=== PATIENT | female | born 1955 | race Caucasian/White ===

== ENCOUNTER 2016-07-18 11:55 | Inpatient (IN) | payer BC ==
[2016-07-17 15:40] VITALS: BMI 32.5
[2016-07-18 12:19] LABS: URINE APPEARANCE CLEAR; URINE BILIRUBIN NEGATIVE (NEGATIVE); URINE BLOOD NEGATIVE (NEGATIVE); URINE COLOR LTYELLOW; URINE GLUCOSE (UA) NEGATIVE (NEGATIVE); URINE KETONE NEGATIVE (NEGATIVE); URINE NITRITE NEGATIVE (NEGATIVE); URINE PROTEIN NEGATIVE (NEGATIVE); URINE UROBILINOGEN NEGATIVE E.U./dl (0.2-1.0)
[2016-07-18 12:24] LABS: URINE LEUK ESTERASE 1+ (NEGATIVE)
[2016-07-18] MEDS ORDERED: methylPREDNISolone NA SUCC 40 MG/1 ML VIAL ONE (12:25)
[2016-07-18 12:26] LABS: URINE MUCUS RARE; URINE RBC <1 /hpf (0-3); URINE WBC 6 /hpf (3-5)
[2016-07-18] MEDS ORDERED: ALBUTEROL SO4 0.083% IH SOL 2.5 MG/3 ML VIAL.NEB. NEB ONE ×2 (12:26→12:27)
[2016-07-18] MEDS ORDERED: methylPREDNISolone NA SUCC 40 MG/1 ML VIAL IVPB ONE (12:26)
[2016-07-18] MEDS ORDERED: MIDAZOLAM HCL 2 MG/2 ML SINGLE DOSE VIAL ONE (13:23)
[2016-07-18] MEDS ORDERED: ROCURONIUM BROMIDE 50 MG/5 ML VIAL ONE ×2 (13:23→16:21)
[2016-07-18] MEDS ORDERED: ceFAZolin SODIUM 1 GM VIAL IVPB ONE (14:45)
[2016-07-18] MEDS ORDERED: LABETALOL HCL 5 MG/1 ML (100MG/20 ML VIAL) ONE ×3 (15:27→15:35)
[2016-07-18] MEDS ORDERED: HYDROmorphone HCL/PF 1 MG/ML VIAL (FOR PYXIS CHARGING ONLY) ONE (16:22)
[2016-07-18] MEDS ORDERED: GLYCOPYRROLATE 0.2 MG/1 ML VIAL ONE (17:17)
[2016-07-18] MEDS ORDERED: NEOSTIGMINE METHYLSULFATE 0.5 MG/ML - 10 ML MDV ONE (17:17)
[2016-07-18] MEDS ORDERED: BUPIVACAINE HCL/PF 0.5% (5MG/ML) 10 ML VIAL ONE (17:29)
[2016-07-18] MEDS ORDERED: BUPIVACAINE HCL/PF 0.5% (5MG/ML) 10 ML VIAL IJ ONE (17:34)
[2016-07-18] MEDS ORDERED: ESMOLOL HCL 10 ML ONE (17:35)
[2016-07-18] MEDS ORDERED: TRIMETHOBENZAMIDE HCL 200MG/2ML INJ IM PRN (17:45)
[2016-07-18] MEDS ORDERED: PROMETHAZINE HCL 25 MG/1 ML VIAL IVPUSH PRN (17:58)
[2016-07-18] MEDS ORDERED: LACTATED RINGERS SOLUTION 1,000 ML IV SCH (18:00)
[2016-07-18] MEDS ORDERED: HYDROmorphone *PCA* 10MG/50ML DISP.SYRIN PCA ONE (18:51)
[2016-07-18] MEDS ORDERED: HYDROmorphone *PCA* 10MG/50ML DISP.SYRIN PCA SCH (19:00)
--- NOTE | 2016-07-18 19:36 | HP ---
DATE OF ADMISSION: 07/18/2016 CHIEF COMPLAINT: Hiatal hernia and GE reflux disease. HISTORY OF PRESENT ILLNESS: The patient is a 61-year-old woman who complains of GE reflux disease for many years. She had upper endoscopy by her GI physician, which revealed a moderate to large hiatal hernia present. She presented to [facility] for repair of hiatal hernia with robotic assistance. The patient's past medical history is significant for bronchitis and asthma. PAST SURGICAL HISTORY: Lap band placed. MEDICATIONS: She comes in on prednisone and also on albuterol inhaler p.r.n. PHYSICAL EXAMINATION: General: An awake, alert, well-nourished woman in no acute distress. Head, Eyes, Ears, Nose, Throat: No masses. Lungs: Clear anterior, posterior. Heart: Regular sinus rhythm. Abdomen: Slight obesity. Well-healed trocar site from previous surgery, soft, nontender on palpation. Extremities: No signs of swelling or edema. No tenderness on the calves on palpation and no Homans sign. IMPRESSION: 1. Hiatal hernia. 2. Gastroesophageal reflux disease. PLAN: Robotic repair of hiatal hernia during surgery. JAN RABAGO M.D. [id number]
[2016-07-18 19:40] LABS: MCH 24.8 pg (25.7-33.7); MCHC 31.8 g/dl (32.0-36.0); MEAN PLT VOLUME 8.1 fl (7.5-11.1); PLATELET COUNT 213 K/MM3 (134-434); RDW 16.8 % (11.6-15.6); WHITE BLOOD COUNT 11.7 K/mm3 (4.0-10.0)
[2016-07-18 20:31] LABS: ANION GAP 11 (8-16); CALCIUM 8.3 mg/dL (8.5-10.1); CO2 24 mmol/L (21-32); CREATININE 0.9 mg/dL (0.55-1.02); GLUCOSE,RANDOM 167 mg/dL (74-106); SGOT/AST 118 U/L (15-37); SGPT/ALT 126 U/L (12-78)
[2016-07-18 20:34] LABS: ALK PHOS 78 U/L (45-117); BILIRUBIN,TOTAL 0.4 mg/dL (0.2-1.0); TOT PROT 6.2 g/dl (6.4-8.2)
[2016-07-18] MEDS: SODIUM CHLORIDE 1,000 ML IV SCH (21:30)
[2016-07-18] MEDS: ENOXAPARIN NA (PORCINE) 40 MG/0.4 ML DISP.SYRIN SQ SCH (21:36)
[2016-07-18] MEDS: FAMOTIDINE 20 MG/50 ML IVPB 50 ML IVPB SCH (21:36)
--- NOTE | 2016-07-18 22:50 | OP ---
DATE OF OPERATION: 07/18/2016 PREOPERATIVE DIAGNOSES: 1. Hiatal hernia. 2. Gastroesophageal reflux disease. POSTOPERATIVE DIAGNOSES: 1. Hiatal hernia. 2. Gastroesophageal reflux disease. 3. Abdominal adhesions. PROCEDURE PERFORMED: 1. Robotic repair of hiatal hernia. 2. Robotic lysis of adhesions. 3. Diagnostic laparoscopy. OPERATING SURGEON: Alfred Lee MD WELDER APPRENTICE GAS: Antonio Bruce MD ANESTHESIA: General. OPERATIVE PROCEDURE: The patient was brought into the operating room, placed on the OR table in a supine position. All precautions were taken initially, including padding for the back and the feet and Venodyne boots placed on both lower extremities. At that point, the abdomen was prepped and draped in the usual manner. An incision was made in the left upper quadrant just to the left of the umbilicus and, under direct vision with a No. 5 scope, a No. 8 robotic trocar was placed in the abdominal cavity. Once it was placed under vision, pneumoperitoneum was established. Then, under direct vision, a No. 8 trocar was placed laterally on the left side, followed by 2 No. 8 trocars on the right abdomen to the right of the umbilicus, 1 slightly more superior. At that point, a Carloz liver retractor was then placed in the epigastrium to retract the left lobe of the liver. The patient was then placed in a 20-degree reverse Trendelenburg position. At that point, the robot was introduced into the operative field by the circulating nurse. The operating surgeon, geriatric nurse assistant surgeon attached the robot to the trocars and then the robotic camera and robotic instruments were placed into the abdominal cavity. At this point, the operating surgeon scrubbed out and went to the robotic console in the operative room. The rest of the procedure is now done with robotic assistance. As the liver retractor lifted up the liver, the Lap-Band on the patient was noted on the upper part of the stomach. There were adhesions over the Lap-Band and these were lysed with the robot with mostly with electrocautery. The adhesions and the fibrous capsule over the band started to be lysed on the lesser curvature and continued over to the greater curvature until the entire band was in view. The band tubing had scar tissue related to it, going off to the patient's left side. The robot was able to dissect the scar tissue until the tubing was in full view. Further dissection with the robot included electrocautery to lyse adhesions between the omentum and the stomach and also between the omentum and the underportion of the left lobe of the liver. At this junction, attention was now directed to hiatal hernia. The left golden of the diaphragm was noted and the scar tissue here was dissected with the electrocautery until the left golden was in full view. Dissection now continued over the superior portion of the hiatal hernia over until the right golden was reached. In the area of the right golden, there was more scar tissue, as the liver was stuck to the right golden, and dissecting it did lead to some minor injury to the liver capsule and parenchyma, which had some bleeding, which was controlled mostly with the electrocautery with the robot. At this point, with the left and right crural muscles dissected, an opening was made into the hiatus and the hernia sac was noted. The contents for the hernia sac was stuck to the crural muscles and these were gently dissected with blunt dissection, indicational with electrocautery until the adhesions were lysed and the hernia sac content could be reduced back into the abdominal cavity. At this point, with the proximal stomach and hernia sac now reduced below the diaphragm, attention was directed to the repair of the hiatal hernia. With the robotic assistance, 3 sutures were placed that were [id number] used to tie the left and right crural muscles and brought together. When it was completed, the repair was checked that it was intact, but it was not too tight so it would not cause postoperative dysphagia. At this point, Anesthesia had an orogastric tube in place and placed methylene blue into it to be certain that there was no injury to the distal esophagus or proximal stomach during the dissection of the hernia sac in the hiatus. No methylene blue was noted, so, at this point, the robot was disengaged from the operative field and sent off the operative field. The robotic instruments were removed and then, under direct vision, the liver retractor and all the trocars were removed from the abdominal cavity and the pneumoperitoneum was released. All trocar sites were infiltrated with 0.25% Marcaine, were closed with 4-0 Biosyn in subcuticular fashion. Dressings were applied, the patient woke from anesthesia, and transferred out of the operating room to the recovery room in stable condition. EXPECTED BLOOD LOSS: 100 mL. Patient transferred to recovery room in stable condition. Emiliano [id number]
[2016-07-19] MEDS: SODIUM CHLORIDE 1,000 ML IV SCH ×3 (04:54→14:07)
[2016-07-19 07:25] LABS: ALBUMIN 2.6 g/dl (3.4-5.0); ALK PHOS 69 U/L (45-117); ANION GAP 7 (8-16); BILIRUBIN,TOTAL 0.5 mg/dL (0.2-1.0); CO2 28 mmol/L (21-32); CREATININE 0.8 mg/dL (0.55-1.02); GLUCOSE,RANDOM 112 mg/dL (74-106); SGOT/AST 77 U/L (15-37); SGPT/ALT 100 U/L (12-78); TOT PROT 5.4 g/dl (6.4-8.2)
[2016-07-19 07:31] LABS: MCH 25.6 pg (25.7-33.7); MCHC 32.2 g/dl (32.0-36.0); MEAN CELL VOLUME 79.3 fl (80-96); MEAN PLT VOLUME 8.3 fl (7.5-11.1); PLATELET COUNT 182 K/MM3 (134-434); RDW 16.9 % (11.6-15.6)
[2016-07-19] MEDS: FAMOTIDINE 20 MG/50 ML IVPB 50 ML IVPB SCH (09:36)
[2016-07-19] MEDS: ENOXAPARIN NA (PORCINE) 40 MG/0.4 ML DISP.SYRIN SQ SCH (09:36)
--- NOTE | 2016-07-19 10:28 | PN ---
Progress Note (short form) - Note Progress Note: Anesthesia POD#1 S/P Robotic Lap Claribel under GA Patient doing well. some nausea this morning, went away,pain is controlled on oral meds VSS No itch No complications to anesthesia seen. Lizzie Amaya MD.
[2016-07-19] MEDS ORDERED: oxyCODONE HCL 5 MG TABLET PO PRN (11:29)
[2016-07-19] MEDS ORDERED: ACETAMINOPHEN 325 MG TABLET (FP) PO PRN (11:29)
[2016-07-19 15:31] VITALS: BP 126/66; PULSE 87; TEMP 99
--- NOTE | 2016-07-19 15:50 | PN ---
Progress Note (short form) - Note Progress Note: POD #1 Afebrile, VSS Pulse- 64-87 BP- 126/66 Pt doing well OOB- Ambulating No N/V P/E- Abd- trocar sites, clean/dry WBC- 11.0 ( decreased from 11.7) H/H- 10.3/32 UGI- no leak, no obstruction P- D/C pt home Continue on PO soft diet for 48 hours, then advance to regular food F/U- 6 days in office
== END 2016-07-19 16:27 | disposition home or self-care (01) | DRG 328 ==
LOC: JASU-SURG 11:55 → JSAMEDAYSX 17:45 → J6S 21:01
PROVIDERS: ADMIT Surgery; ATTEND Surgery
PROC: 0BQR0ZZ (ICD-10-PCS; 2016-07-18)
PROC: 0DNS0ZZ (ICD-10-PCS; 2016-07-18)
PROC: 8E0W0CZ Robotic Assisted Procedure of Trunk Region, Open Approach (ICD-10-PCS; 2016-07-18)
PROC: 0BQS0ZZ (ICD-10-PCS; principal; 2016-07-18 14:45)
DX: K44.9 Diaphragmatic hernia without obstruction or gangrene (principal); K66.0 Peritoneal adhesions (postprocedural) (postinfection); J45.909 Unspecified asthma, uncomplicated; K57.90 Diverticulosis of intestine, part unspecified, without perforation or abscess without bleeding; Z90.5 Acquired absence of kidney; Z98.84 Bariatric surgery status
CPT/HCPCS: 36415; 74241-TC; 80053; 81003; 81015; 85027; 86850; 86900; 86901; 94640; 94760

== ENCOUNTER 2018-06-18 14:38 | Inpatient (IN) | payer BC ==
--- NOTE | 2018-06-18 17:40 | PDOC ---
Attending Attestation - HPI HPI: 06/18/18 18:19 The patient is a 63 year old female with a past medical history of renal cancer (s/p right nephrectomy 7 years ago), asthma, COPD, and neuropathy here today from Dr. Marr office for evaluation of an abscess in the left upper lobe seen on X-ray. Patient reports that she has had a cough productive of yellow sputum for the past 5 days. She also notes occasional shortness of breath and reports that she had a fever on 06/14/18. Patient denies headache, lightheadedness. Denies chills. Denies chest pain. Denies nausea, vomiting, diarrhea, abdominal pain. Allergies: ciprofloxacin HCL, levofloxacin PCP: Arnaldo Ramirez - Physicial Exam PE: 06/18/18 18:32 Constitutional: Awake, alert, oriented. No acute distress. Head: Normocephalic. Atraumatic Eyes: PERRL. EOMI. Conjunctivae are not pale. ENT: Mucous membranes are moist and intact. Posterior pharynx without exudates or erythema. Uvula midline. Neck: Supple. Full ROM. No lymphadenopathy. Cardiovascular: +tachycardia. Regular rhythm. S1, S2 regular. Distal pulses are 2+ and symmetric. Pulmonary/Chest: +slight wheeze in right lung cruz. +left rhonchorous churning sound in left lung cruz. No evidence of respiratory distress. Abdominal: Soft and non-distended. There is no tenderness. No rebound, guarding or rigidity. No organomegaly. No palpable masses. Good bowel sounds. Back: No CVA tenderness. Musculoskeletal: No edema. No cyanosis. No clubbing. Full range of motion in all extremities. Nocalf tenderness. Radial/pedal pulses are intact and 2+ bilaterally Skin: Skin is warm and dry. No petechiae. No purpura. Neurological: Alert and oriented to person, place, and time. Cranial nerves II -XII are grossly intact. Normal speech. Strength is grossly symmetric. No sensory deficits. Psychiatric: Good eye contact. Normal interaction, affect and behavior. - Medical Decision Making 06/18/18 18:19 Documentation prepared by LUIS Story, acting as medical billing manager for Anne Garcia DO. <Bhupinder Perkins - Last Filed: 06/18/18 18:31> - Resident Resident Name: Nolvia King - ED Attending Attestation I have performed the following: I have examined & evaluated the patient, The case was reviewed & discussed with the resident, I agree w/resident's findings & plan, Exceptions are as noted - Medical Decision Making 06/18/18 17:40 I, Dr. Anne Garcia, DO, attest that this document has been prepared under my direction and personally reviewed by me in its entirety. I further attest, that it accurately reflects all work, treatment, procedures and medical decision -making performed by me. 06/18/18 19:36 a/p: 63yo female sent in by Dr. Hopper for an outpt xray that showed a lung abscess -pt with cough, fever on friday -pt with sob -denies cp -no fevers todya -started doxycycline for lyme disease 2 days ago, had neuropathy which seems to have improved -also recently started on prednisone for RA -pt with coarse bs on the L -will repeat the xray -labs, cultures, broad spectrum abx 06/18/18 19:39 pt with MADAN on labs ivf hydraiton ordered mildly elevated lactate will repeat labs will order ua 06/18/18 19:40 resident discussed the case with Dr. Cash elevated glucose, most likely steroid induced. 06/18/18 19:43 pt will be admitted to Dr. Cash with a consult to Dr. Hopper elevated wbc 06/18/18 19:44 ODALYS abscess on cxr <Anne Garcia - Last Filed: 06/18/18 19:53> Heart Score/ECG Review - ECG Intrepretation Comment:: 06/18/18 19:52 sinus at 97, q waves inferior leads, L axis, no acute st/t wave findings <Anne Garcia - Last Filed: 06/18/18 19:53>
[2018-06-18] MEDS ORDERED: PIPERACILLIN/TAZOB 3.375 GM 3.375 GM in DEXTROSE 5%-WATER - 50 ML IVPB ONE (17:44)
[2018-06-18 17:52] LABS: VENOUS PC02 34.7 mmHg (41-51); VENOUS PH 7.5 (7.31-7.41)
[2018-06-18 17:53] LABS: BASO % 0.1 % (0-2.0); EOS % 0.1 % (0-4.5); HEMATOCRIT 28.3 % (32.4-45.2); HEMOGLOBIN 9.4 GM/dL (10.7-15.3); LYMPH % 6.9 % (8-40); MCH 25.2 pg (25.7-33.7); MCHC 33.3 g/dl (32.0-36.0); MEAN CELL VOLUME 75.7 fl (80-96); MEAN PLT VOLUME 7.3 fl (7.5-11.1); MONO % 3.8 % (3.8-10.2); NEUT % 89.1 % (42.8-82.8); PLATELET COUNT 232 K/MM3 (134-434); RBC 3.74 M/mm3 (3.60-5.2); WHITE BLOOD COUNT 10.5 K/mm3 (4.0-10.0)
[2018-06-18] MEDS ORDERED: PIPERACILLIN/TAZOB 3.375 GM 3.375 GM/50 ML BAG IVPB ONE (18:02)
--- NOTE | 2018-06-18 18:08 | PDOC ---
History of Present Illness - General Chief Complaint: Abscess Boil Stated Complaint: ADMIT DR GOMEZ Time Seen by Provider: 06/18/18 16:58 History Source: Patient Exam Limitations: No Limitations - History of Present Illness Initial Comments: 06/18/18 18:03 Pt is a 63yo F with PMH of Renal Ca s/p R nephrectomy 7y ago, Asthma/COPD, Neuropathy, Edema presenting sent to ED by Dr. Gomez for ODALYS abscess found on Xray in office. Pt states that she has been having cough productive of yellow sputum, fever for 5 days. She had a fever on Friday. She is endorsing cough and occasional SOB. Denies fever, chills, chest pain, abdominal pain, n/v/d, malaise , weight loss, hemoptysis, increased leg swelling, headaches, neck stiffness, joint pains. PMD: Keny Ramirez PMH: see hpi PSH: R nephrectomy, hysterectomy, appendectomy, cholcystectomy, gastric band Meds: lasix, gabapentin, augmentin, doxycycline, albuterol, budesonide, prednisone Allergies: levaquin Social: quit smoking many years ago Past History - Past Medical History Allergies/Adverse Reactions: Allergies Allergy/AdvReac Type Severity Reaction Status Date / Time ciprofloxacin HCl Allergy Verified 07/18/16 12:41 [From Cipro] levofloxacin [From Levaquin] Allergy Verified 07/18/16 12:41 Home Medications: Ambulatory Orders Budesonide/Formeterol Fumarate [SYMBICORT 160/4.5mcg -] 1 inh PO BID 03/28/15 Albuterol Sulfate Inhaler - [Ventolin HFA Inhaler -] 1 - 2 inh PO PRN PRN Famotidine [Pepcid -] 20 mg PO BID #60 tablet 07/19/16 Amox-Tr/K Cl [Augmentin 875-125mg Tablet -] 875 mg PO BID 06/18/18 Doxycycline Hyclate 100 mg PO BID 06/18/18 Gabapentin 100 mg PO BID 06/18/18 Prednisone 30 mg PO DAILY 06/18/18 Anemia: No Asthma: Yes Cancer: Yes (kidney ca 3 YEARS AGO) Cardiac Disorders: No CVA: No COPD: No CHF: No Dementia: No Diabetes: No GI Disorders: No Disorders: No HTN: No Hypercholesterolemia: No Liver Disease: No Seizures: No Thyroid Disease: No - Surgical History Cardiac Surgery: Yes (CARDIAC CATHETERISATION) Cholecystectomy: Yes (1975) - Suicide/Smoking/Psychosocial Hx Smoking History: Never smoked Have you smoked in the past 12 months: No Number of Cigarettes Smoked Daily: 0 If you are a former smoker, when did you quit?: 12 BYEARS AGO Hx Alcohol Use: No Drug/Substance Use Hx: No Substance Use Type: None Hx Substance Use Treatment: No Review of Systems - Review of Systems Constitutional: No: Chills, Loss of Appetite, Malaise, Weakness HEENTM: No: Symptoms Reported Respiratory: Yes: Cough, Productive cough. No: Shortness of Breath, Wheezing, Hemoptysis Cardiac (ROS): No: Chest Pain, Lightheadedness, Palpitations, Syncope ABD/GI: No: Constipated, Diarrhea, Nausea, Rectal Bleeding, Vomiting, Abdominal cramping : No: Burning, Dysuria Musculoskeletal: No: Back Pain, Joint Pain, Muscle Pain Integumentary: No: Symptoms Reported Neurological: No: Headache, Numbness, Tingling, Tremors, Weakness *Physical Exam - Vital Signs Last Vital Signs Temp Pulse Resp BP Pulse Ox 99.6 F 109 H 20 154/85 96 06/18/18 14:41 06/18/18 14:41 06/18/18 14:41 06/18/18 14:41 06/18/18 14:41 - Physical Exam General Appearance: Yes: Nourished, Appropriately Dressed. No: Apparent Distress HEENT: positive: EOMI, JUAN DAVID, Normal ENT Inspection Neck: positive: Trachea midline, Supple. negative: Lymphadenopathy (R), Lymphadenopathy (L) Respiratory/Chest: positive: Crackles, Wheezing. negative: Accessory Muscle Use , Stridor Cardiovascular: positive: Regular Rhythm, Regular Rate, S1, S2. negative: Edema , JVD, Murmur Vascular Pulses: Carotid (R): 2+, Carotid (L): 2+, Dorsalis-Pedis (R): 2+, Doralis-Pedis (L): 2+ Gastrointestinal/Abdominal: positive: Normal Bowel Sounds, Soft. negative: Tender Musculoskeletal: negative: CVA Tenderness Extremity: positive: Normal Capillary Refill, Swelling Integumentary: positive: Normal Color, Dry, Warm Neurologic: positive: elevator constructor electric II-XII NML intact, Fully Oriented, Alert, Normal Mood/ Affect, Normal Response, Motor Strength 5/5 Moderate Sedation - Procedure Monitoring Vital Signs: Procedure Monitoring Vital Signs Temperature 99.6 F 06/18/18 14:41 Pulse Rate 109 H 06/18/18 14:41 Respiratory Rate 20 06/18/18 14:41 Blood Pressure 154/85 06/18/18 14:41 O2 Sat by Pulse Oximetry (%) 96 06/18/18 14:41 ED Treatment Course - LABORATORY CBC & Chemistry Diagram: 06/18/18 17:00 06/18/18 17:00 - ADDITIONAL ORDERS Additional order review: Laboratory Results 06/18/18 16:59 VBG pH 7.50 H POC VBG pCO2 34.7 L POC VBG pO2 181 H VBG HCO3 26.8 VBG O2 Sat (Elizabeth) 100.0 H VBG Base Excess 3.9 H 06/18/18 17:00 RBC 3.74 MCV 75.7 L MCHC 33.3 RDW 26.0 H MPV 7.3 L Neutrophils % 89.1 H Lymphocytes % 6.9 L D Monocytes % 3.8 D Eosinophils % 0.1 D Basophils % 0.1 - RADIOLOGY Radiology Studies Ordered: Category Date Time Status CHEST X-RAY PORTABLE* [RAD] Stat Radiology 06/18/18 18:03 Ordered Medical Decision Making - Medical Decision Making 06/18/18 18:15 Pt is a 63yo F with PMH of Renal Ca s/p R nephrectomy 7y ago, Asthma/COPD, Neuropathy, Edema presenting sent to ED by Dr. Gomez for ODALYS abscess found on Xray in office. Pt states that she has been having cough productive of yellow sputum, fever for 5 days. She had a fever on Friday. She is endorsing cough and occasional SOB. Denies fever, chills, chest pain, abdominal pain, n/v/d, malaise , weight loss, hemoptysis, increased leg swelling, headaches, neck stiffness, joint pains. Vitals: tachycardia, afebrile, saturating well on RA PE: diffuse crackles and wheezing in lung cruz bilaterally, more on the L -cbc, cmp, lact, coags, trop, blood cultures, ua, ucx -zosyn, iv fluids Laboratory Tests 06/18/18 06/18/18 06/18/18 16:59 17:00 17:00 WBC 10.5 H Hgb 9.4 L Neutrophils % 89.1 H VBG pH 7.50 H Creatinine 1.8 H Random Glucose 371 H* Lactic Acid Urine Blood Urine RBC (Auto) 06/18/18 06/18/18 17:10 19:48 WBC Hgb Neutrophils % VBG pH Creatinine Random Glucose Lactic Acid 2.8 H* Urine Blood 3+ Urine RBC (Auto) 120 last hgb 02/2017 was 11. MADAN. elevated gluc (could be due to steroid use). giving 4u sq insulin. Pt admitted med/surg to Dr. Cash with consult Dr. Gomez. *DC/Admit/Observation/Transfer Diagnosis at time of Disposition: Lung abscess Qualifiers: Pulmonary abscess pneumonia presence: with pneumonia Laterality: left Lung location: upper lobe of lung Qualified Code(s): J85.1 - Abscess of lung with pneumonia - Discharge Dispostion Condition at time of disposition: Good Decision to Admit order: Yes Decision to Admit order Date/Time: Decision to Admit Order Category Date Time Status Decision to Admit to Hospital Routine Admission 06/18/18 17:38 Active - Referrals - Patient Instructions - Post Discharge Activity
[2018-06-18 18:24] LABS: ALBUMIN 2.3 g/dl (3.4-5.0); ALK PHOS 66 U/L (45-117); ANION GAP 8 MMOL/L (8-16); BILIRUBIN,TOTAL 0.2 mg/dL (0.2-1); BLOOD UREA NITROGEN 58 mg/dL (7-18); CALCIUM 8.4 mg/dL (8.5-10.1); CHLORIDE 99 mmol/L (98-107); CO2 28 mmol/L (21-32); CREATININE 1.8 mg/dL (0.55-1.3); POTASSIUM 4.9 mmol/L (3.5-5.1); SGOT/AST 6 U/L (15-37); SGPT/ALT 22 U/L (13-61); SODIUM 135 mmol/L (136-145); TOT PROT 6.1 g/dl (6.4-8.2)
[2018-06-18 18:39] LABS: GLUCOSE,RANDOM 371 mg/dL (74-106)
[2018-06-18] MEDS ORDERED: SODIUM CHLORIDE 1,000 ML IV STA (18:58)
[2018-06-18 19:36] LABS: ANISOCYTOSIS 3+; MACROCYTOSIS 1+; PLATELET ESTIMATE ADEQUATE
[2018-06-18] MEDS ORDERED: INSULIN REGULAR HUMAN 100 UNITS/ML *VIAL SQ ONE (19:37)
[2018-06-18] MEDS ORDERED: INSULIN REGULAR HUMAN 100 UNITS/ML *VIAL ONE (19:55)
[2018-06-18 20:03] LABS: EPI CELLS 2.3 /HPF (0-5); PH,URINE 5.5 (5.0-8.0); URINE APPEARANCE CLEAR; URINE BACTERIA 16.758 /hpf (NEGATIVE); URINE BILIRUBIN NEGATIVE (<2.0 mg/dL); URINE CASTS 10 /hpf (0-8); URINE COLOR YELLOW; URINE GLUCOSE (UA) 2+ (NEGATIVE); URINE KETONE NEGATIVE (NEGATIVE); URINE LEUK ESTERASE TRACE (NEGATIVE); URINE NITRITE NEGATIVE (NEGATIVE); URINE PROTEIN 2+ (NEGATIVE); URINE RBC 120 /hpf (0-4); URINE WBC 9 /hpf (0-5)
[2018-06-18] MEDS ORDERED: ALBUTEROL SO4 2.5/IPRATROPIUM 0.5 INH SOL 3 ML VIAL.NEB. NEB ONE (20:21)
[2018-06-19] MEDS ORDERED: DEXTROSE 5%-0.45% SALINE 1,000 ML IV SCH (01:45)
[2018-06-19] MEDS ORDERED: ACETAMINOPHEN 325 MG TABLET (FP) PO PRN (01:53)
[2018-06-19] MEDS ORDERED: PIPERACILLIN/TAZOBACTAM 3.375 GM VIAL IVPB ONE ×3 (02:35→17:28)
[2018-06-19] MEDS ORDERED: DEXTROSE 5%-WATER - 50 ML IVPB ONE ×3 (02:35→17:28)
[2018-06-19] MEDS: PIPERACILLIN/TAZOB 3.375 GM 3.375 GM in DEXTROSE 5%-WATER - 50 ML IVPB SCH ×4 (02:42→17:36)
[2018-06-19 07:30] LABS: BASO % 0.3 % (0-2.0); EOS % 1.4 % (0-4.5); HEMATOCRIT 26.8 % (32.4-45.2); HEMOGLOBIN 8.8 GM/dL (10.7-15.3); LYMPH % 12.5 % (8-40); MCH 24.8 pg (25.7-33.7); MEAN CELL VOLUME 75.1 fl (80-96); MEAN PLT VOLUME 7.1 fl (7.5-11.1); MONO % 6.7 % (3.8-10.2); NEUT % 79.1 % (42.8-82.8); PLATELET COUNT 219 K/MM3 (134-434); RBC 3.57 M/mm3 (3.60-5.2); RDW 26.1 % (11.6-15.6); WHITE BLOOD COUNT 9.7 K/mm3 (4.0-10.0)
[2018-06-19 08:13] LABS: ALK PHOS 65 U/L (45-117); ANION GAP 8 MMOL/L (8-16); BILIRUBIN,TOTAL 0.4 mg/dL (0.2-1); BLOOD UREA NITROGEN 56 mg/dL (7-18); CALCIUM 8.1 mg/dL (8.5-10.1); CHLORIDE 102 mmol/L (98-107); CO2 28 mmol/L (21-32); CREATININE 1.7 mg/dL (0.55-1.3); GLUCOSE,RANDOM 88 mg/dL (74-106); POTASSIUM 4.5 mmol/L (3.5-5.1); SGOT/AST 8 U/L (15-37); SGPT/ALT 20 U/L (13-61); SODIUM 137 mmol/L (136-145); TOT PROT 5.5 g/dl (6.4-8.2)
[2018-06-19] MEDS ORDERED: predniSONE 10 MG TABLET (UD) PO SCH (10:00)
[2018-06-19] MEDS ORDERED: DOXYCYCLINE HYCLATE 100 MG CAPSULE PO SCH (10:00)
[2018-06-19 10:44] LABS: ANISOCYTOSIS 0; MACROCYTOSIS 0; PLATELET ESTIMATE NORMAL
[2018-06-19] MEDS ORDERED: PT OWN MED DRAWER 7, Y5N ONE (11:34)
[2018-06-19] MEDS: GABAPENTIN 100 MG CAPSULE (FP) PO SCH ×2 (11:43→22:28)
[2018-06-19] MEDS: RANITIDINE HCL 150 MG TABLET (FP) PO SCH ×2 (11:43→22:28)
[2018-06-19] MEDS: HEPARIN NA (PORCINE) 5,000 UNITS/ML 1ML VIAL SQ SCH ×2 (11:44→22:28)
[2018-06-19] MEDS: BUDESONIDE/FORMETEROL FUMARATE 160/4.5 mcg INHALER IH SCH ×2 (11:45→22:28)
--- NOTE | 2018-06-19 12:20 | PN ---
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, fever for 4 days cxray with right llung mass +UA +anca +myeloperoxide ab no hemoptysis +bilateral knee pain has had peripheral neuropathy for last two months as well as new anemia had unrevealing BM biopsy, EMGs with neuropathy had a pet scan d/w "infectious process" ODALYS quantiferon 2/19 negative will repeat quantiferon and obtain sputum afbs routine sputum culture zosyn/vanco by level possible cavitary pneumonia/less likely TB probable vasculitis low suspicion TB suspect vasculitis d/w dr minor and dr akins in detail isolate Problem List - Problems (1) Lung abscess Code(s): J85.2 - ABSCESS OF LUNG WITHOUT PNEUMONIA Qualifiers: Pulmonary abscess pneumonia presence: with pneumonia Laterality: left Lung location: upper lobe of lung Qualified Code(s): J85.1 - Abscess of lung with pneumonia (2) Vasculitis Code(s): I77.6 - ARTERITIS, UNSPECIFIED
--- NOTE | 2018-06-19 12:49 | HP ---
Admitting History and Physical - Past Medical History Pulmonary: Yes: Asthma Heme/Onc: Yes: Other (Stage II Renal Cell Carcinoma s/p Right nephrectomy ) - Past Surgical History Past Surgical History: Yes: Bariatric Surgery, Cholecystectomy, , Hysterectomy, Nephrectomy - Smoking History Smoking history: Never smoked Have you smoked in the past 12 months: No Aproximately how many cigarettes per day: 0 If you are a former smoker, when did you quit?: 12 BYEARS AGO - Alcohol/Substance Use Hx Alcohol Use: No - Social History ADL: Independent Occupation: School Nurse History of Recent Travel: No Home Medications - Allergies Allergies/Adverse Reactions: Allergies Allergy/AdvReac Type Severity Reaction Status Date / Time ciprofloxacin HCl Allergy Verified 07/18/16 12:41 [From Cipro] levofloxacin [From Levaquin] Allergy Verified 07/18/16 12:41 - Home Medications Home Medications: Ambulatory Orders Budesonide/Formeterol Fumarate [SYMBICORT 160/4.5mcg -] 1 inh PO BID 03/28/15 Albuterol Sulfate Inhaler - [Ventolin HFA Inhaler -] 1 - 2 inh PO PRN PRN Famotidine [Pepcid -] 20 mg PO BID #60 tablet 07/19/16 Amox-Tr/K Cl [Augmentin 875-125mg Tablet -] 875 mg PO BID 06/18/18 Doxycycline Hyclate 100 mg PO BID 06/18/18 Gabapentin 100 mg PO BID 06/18/18 Prednisone 30 mg PO DAILY 06/18/18 Furosemide [Lasix] 20 mg PO ONCE 06/19/18 Family Disease History - Family Disease History Family Disease History: Other: Father (Kidney Cancer ), Brother (Lung Cancer ) Physical Examination Vital Signs: Vital Signs Temperature 98.5 F 06/19/18 11:28 Pulse Rate 106 H 06/19/18 11:28 Respiratory Rate 20 06/19/18 11:28 Blood Pressure 144/94 06/19/18 11:28 O2 Sat by Pulse Oximetry (%) 96 06/18/18 21:00 Labs: CBC, BMP 06/19/18 06:35 06/19/18 06:35
--- NOTE | 2018-06-19 14:19 | CONS ---
DATE OF CONSULTATION: DATE OF DICTATION: 06/19/2018 REQUESTING PHYSICIAN: Cristiane Cash MD HISTORY OF PRESENT ILLNESS: This is a 63-year-old woman with a 1-2-month history of fatigue, bilateral peripheral neuropathy, and iron deficiency anemia as well as new renal insufficiency. She has a history of positive rheumatoid factor in the past. She has had an extensive workup over the course of the last 2 months including evaluation. She has apparently seen GI in the past and had a normal colonoscopy. She was evaluated by a gauge controller and given iron infusions. She as evaluated by thoracic, a Dr. Valiente in [place], and had a PET scan that was normal in early May. She was evaluated by Neurology, who did EMGs that were consistent with this idiopathic neuropathy. She was seen also by Rheumatology last week, who is evaluating her for connective tissue disease. Over the last several days, she developed cough and fever. She was started on Augmentin. She had a chest x-ray that showed an upper lobe infiltrate, felt to be a possible abscess. She was evaluated by Dr. Hopper yesterday, who sent her to the hospital. She apparently recently had prednisone 60 mg a day for 2 weeks and then was started on a taper. She is now on 30 mg a day. She is having iron IV infusions. She has no other complaints at this time. She notes she has cough that is productive of yellow sputum. She denies hemoptysis. She denies any hematuria. There is no history of any travel. She was a nurse at [employer], currently a school nurse. She has no sick contacts. PAST MEDICAL HISTORY: Notable for history of right kidney cancer treated with nephrectomy in 2011. She has had a , a cholecystectomy, a hysterectomy, an appendectomy. She has a gastric band that was placed 10 years ago, and in 2017, she had a hiatal hernia repair. She has a history of asthma, COPD, and now, this new diagnosis of neuropathy as well as anemia. MEDICATIONS AT HOME: Include Pepcid, calcium with vitamin D, ferrous sulfate, and Symbicort. She is also currently taking prednisone 30 a day and was started on Augmentin and doxycycline both on Friday of this week. SOCIAL HISTORY: She is a school nurse. She lives alone. There is no history of any alcohol use. She has not smoked in many, many years. REVIEW OF SYSTEMS: She feels fatigued. She has not been able to work since mid May. She has difficulty lifting her legs. She has no chest pain, abdominal pain. She has no skin rash. She now notes that she has bilateral joint pain and that her knees are hurting her, which she says is new. PHYSICAL EXAMINATION General: She is awake and alert. Vital signs: Her maximum temperature was 102.5, current temperature is 98.5, pulse is 106, blood pressure is 144/94, respiratory rate 20. HEENT: She is normocephalic. Her eyes are anicteric. Neck: Supple. Lungs: Clear to auscultation. Heart: Regular rate and rhythm. Abdomen: Soft, nontender. Extremities: Without edema. DIAGNOSTIC DATA: PET scan done on June 03 showed bronchiectasis with mucus plugging and patchy peribronchial vascular consolidations demonstrating foci of hypermetabolic uptake in the left upper lobe. She has reactive lymph nodes. She had an MRI of her back without any evidence of disc herniation. She had a bone marrow biopsy in May that showed normal cellular marrow with a mild increase in megakaryocytes, no evidence of myelodysplasia or other lymphoproliferative disorders. She had EMGs that were reported to have mild carpal tunnel syndrome of her hands, and she had EMGs of her legs that were consistent with neuropathy. She had a chest x-ray here that was read as a left upper lobe infiltrate. She had a CT scan that shows an extensive left upper lobe cavitary lesion. I spoke with the patient who reported she had multiple labs drawn with Dr. Arnaldo Ramirez. I requested labs from Dr. Ramirez. Labs are as follows: She has antineurtrophil cytoplasmic antibody of greater than . She has a protein Ace3 that is 4, and myeloperoxidase IgG of 119. Her white count is 9.7, hemoglobin 8.8, platelets are 219. BUN is 66, creatinine is 1.7. Lactic acid was 2.8. Urinalysis has 2+ protein, 3+ blood, with 120 red cells. 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 It looks like she has active urinary sediment, as well. I have asked Dr. Cordon and Dr. Mcneill to evaluate her. He will obtain a QuantiFERON Gold, will obtain sputum acid-fast bacillus and a sputum culture. Will treat her with Diprosone and tazobactam for now and await further evaluation. She will be placed in isolation while this workup is complete. Further workup per Dr. Cordon and Dr. Mcneill. Approximately 45 minutes to 1 hour was spent obtaining records and speaking with the consulting physicians. MARIANNE STEVENS M.D. [id number]
--- NOTE | 2018-06-19 14:32 | CONSULT ---
Consult Consult Specialty:: Nephrology Reason for Consultation:: MADAN - History of Present Illness Chief Complaint: productive cough for the last 5 days History of Present Illness: Pt is a 63 year old female with pmhx of renal cancer s/p nephrectomy 7 years ago , CKD, asthma, COPD, rheumatoid arthritis and neuropathy who was sent in from pulmonary for evaluation of cavitary lesion in her left upper lobe. SHe has had a productive cough. SHe denies hemoptysis or hematuria. SHe was found to be in acute renal failure and I was called to evaluate her. She was following with rheumatology before admission. I did call and discuss the care with them. Pt also has developed anemia that was being worked up. Pt had a bone marrow biopsy on 05/11/18 which showed no evidence of myelodysplasia. She had bloodwork as outpt which showed positive c-anca, positive mpo, neg pr3. She is on PO prednisone. - History Source History Provided By: Patient, Medical Record - Past Medical History Pulmonary: Yes: Asthma, COPD Renal/: Yes: Renal Inusuff Heme/Onc: Yes: Other (renal cell cancer) - Past Surgical History Past Surgical History: Yes: Bariatric Surgery, Cholecystectomy, , Hysterectomy, Nephrectomy - Alcohol/Substance Use Hx Alcohol Use: No - Smoking History Smoking history: Never smoked Have you smoked in the past 12 months: No Aproximately how many cigarettes per day: 0 If you are a former smoker, when did you quit?: 12 BYEARS AGO - Social History ADL: Independent Occupation: School Nurse History of Recent Travel: No Home Medications - Allergies Allergies/Adverse Reactions: Allergies Allergy/AdvReac Type Severity Reaction Status Date / Time ciprofloxacin HCl Allergy Verified 07/18/16 12:41 [From Cipro] levofloxacin [From Levaquin] Allergy Verified 07/18/16 12:41 - Home Medications Home Medications: Ambulatory Orders Budesonide/Formeterol Fumarate [SYMBICORT 160/4.5mcg -] 1 inh PO BID 03/28/15 Albuterol Sulfate Inhaler - [Ventolin HFA Inhaler -] 1 - 2 inh PO PRN PRN Famotidine [Pepcid -] 20 mg PO BID #60 tablet 07/19/16 Amox-Tr/K Cl [Augmentin 875-125mg Tablet -] 875 mg PO BID 06/18/18 Doxycycline Hyclate 100 mg PO BID 06/18/18 Gabapentin 100 mg PO BID 06/18/18 Prednisone 30 mg PO DAILY 06/18/18 Furosemide [Lasix] 20 mg PO ONCE 06/19/18 Family Disease History - Family Disease History Family Disease History: Other: Father (Kidney Cancer ), Brother (Lung Cancer ) Review of Systems - Review of Systems Constitutional: reports: Malaise Eyes: reports: No Symptoms HENT: reports: No Symptoms Neck: reports: No Symptoms Cardiovascular: reports: Edema Respiratory: reports: Cough Gastrointestinal: reports: No Symptoms Genitourinary: reports: No Symptoms Musculoskeletal: reports: Joint Pain Neurological: reports: No Symptoms Endocrine: reports: No Symptoms Hematology/Lymphatic: reports: No Symptoms Psychiatric: reports: No Symptoms Physical Exam Vital Signs: Vital Signs Temperature 98.5 F 06/19/18 11:28 Pulse Rate 106 H 06/19/18 11:28 Respiratory Rate 20 06/19/18 11:28 Blood Pressure 144/94 06/19/18 11:28 O2 Sat by Pulse Oximetry (%) 96 06/18/18 21:00 Constitutional: Yes: Calm Eyes: Yes: Conjunctiva Clear HENT: Yes: Atraumatic Cardiovascular: Yes: S1, S2 Respiratory: Yes: CTA Bilaterally Gastrointestinal: Yes: Normal Bowel Sounds, Soft Renal/: Yes: WNL Musculoskeletal: Yes: WNL Edema: Yes Edema: LLE: 1+, RLE: 1+ Neurological: Yes: Oriented Psychiatric: Yes: Oriented Labs: CBC, BMP 06/19/18 06:35 06/19/18 06:35 Laboratory Tests 03/15/17 06/18/18 06/18/18 11:26 17:00 17:10 Sodium 135 L Creatinine 0.9 1.8 H Random Glucose Lactic Acid 2.8 H* Urine Color Urine Appearance Urine pH Urine Protein Urine Blood Urine RBC (Auto) c-ANCA Proteinase 3 (PR3) p-ANCA Atypical p-ANCA Myeloperoxidase Ab 06/18/18 06/19/18 06/19/18 19:48 06:35 12:40 Sodium 137 Creatinine 1.7 H Random Glucose 88 Lactic Acid Urine Color Yellow Urine Appearance Clear Urine pH 5.5 Urine Protein 2+ Urine Blood 3+ Urine RBC (Auto) 120 c-ANCA Pending Proteinase 3 (PR3) Pending p-ANCA Pending Atypical p-ANCA Pending Myeloperoxidase Ab Pending Imaging - Results Chest X-ray: Report Reviewed Cat Scan: Report Reviewed Problem List - Problems (1) MADAN (acute kidney injury) Code(s): N17.9 - ACUTE KIDNEY FAILURE, UNSPECIFIED (2) Glomerulonephritis Code(s): N05.9 - UNSP NEPHRITIC SYNDROME WITH UNSPECIFIED MORPHOLOGIC CHANGES (3) Lung abscess Code(s): J85.2 - ABSCESS OF LUNG WITHOUT PNEUMONIA Qualifiers: Pulmonary abscess pneumonia presence: with pneumonia Laterality: left Lung location: upper lobe of lung Qualified Code(s): J85.1 - Abscess of lung with pneumonia (4) Vasculitis Code(s): I77.6 - ARTERITIS, UNSPECIFIED Assessment/Plan Current Medications Generic Name Dose Route Start Last Admin Trade Name Freq PRN Reason Stop Dose Admin Acetaminophen 650 mg 06/19/18 01:53 06/19/18 05:32 Tylenol - PO 650 mg Q6H PRN Administration FEVER Budesonide/Formoterol Fumarate 1 puff 06/19/18 10:00 06/19/18 11:45 Symbicort 160/4.5mcg - IH 1 puff BID ROSHAN Administration Gabapentin 100 mg 06/19/18 10:00 06/19/18 11:43 Neurontin - PO 100 mg BID ROSHAN Administration Heparin Sodium (Porcine) 5,000 unit 06/19/18 10:00 06/19/18 11:44 Heparin - SQ 5,000 unit BID ROSHAN Administration Dextrose/Sodium Chloride 1,000 mls @ 75 mls/hr 06/19/18 01:45 06/19/18 02:42 D5-1/2ns - IV 75 mls/hr ASDIR ROSHAN Administration Piperacillin Sod/Tazobactam 50 mls @ 100 mls/hr 06/19/18 11:45 06/19/18 11:46 Sod 3.375 gm/ Dextrose IVPB Not Given Q8H-IV ROSHAN Protocol Prednisone 30 mg 06/19/18 10:00 06/19/18 11:43 Deltasone - PO 30 mg DAILY ROSHAN Administration Ranitidine HCl 150 mg 06/19/18 10:00 06/19/18 11:43 Zantac - PO 150 mg BID ROSHAN Administration Impression 1. MADAN 2. r/o vasculitis 3. glomerulonephrotis 4. lung cavitary lesion 5. asthma 6. copd 7. rheumatoid arthritis 8. hx of renal cell cancer s/p nephrectomy Plan - ordered serologic workup including anca, dsdna gbm c3 c4 spep - pt has a solitary kidney and biopsy would be contraindicated - pulmonary evaluation - spoke to rheum and suspicion for vasculitis is high based on positive outpt serologies and active urinary sediment - c-anca is positive however pr3 is negative, she does have positive mpo as well. will repeat serologies - stop fluids - stop prednisone as will pulse steroids
[2018-06-19] MEDS ORDERED: VANCOMYCIN 1 GRAM (PRE-DOCKED) 1,000 MG/250 ML BAG IVPB ONE (15:49)
--- NOTE | 2018-06-19 16:41 | CONSULT ---
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 Past medical history: bronchiectasia since 2010, S/P right nephrectomy for cancer, obesity and s/p gastric band. In September 2017 the patient woke up with decreased hearing in both ears. An MRI of the brain was normal. Four months ago she had an episode of bilateral knee pain and 2 months ago she had an episode of pain in both wrists. Both episodes resolved spontaneously. One month ago she developed numbness and paresthesias in lower limbs. Four months ago she developed shortness of breath with exertion limiting her walking and fatigue. Two months ago she had an episode of cough with blood in sputum. She has had no relapse of this problem. MRI of the brain 01/05/2018 no evidence of edema, ischemia, hemorrhage, intracranial lesions or demyelinating process. CT abdomen and pelvis (03/20/18) S/P right nephrectomy, mild retroperitoneal and pelvic lymphadenopathy slightly increased since 03/17/17. CT of the chest with contrast (05/15/18): Mediastinal lymphadenopathy slightly increased since 03/17/17. Moderate chronic lung disease, most marked in the ODALYS where extensive bronchiectasia is noted. PET scan (06/03/18) from skull base to mid thigh reported with bronchiectatic changes mucus plugging and patchy peribronchial vascular consolidations demonstrating foci of hypermetabolic uptake in the left upper lobe. Reactive mediastinal lymph nodes. The findings are most likely infectious in etiology. MRI of the lumbar spine (06/09/18): no evidence of dis herniation, spinal canal stenosis or neural foraminal stenosis. Bone marrow biopsy 05/11/18: Normo cellular mild increase in megakaryocytes without atypia and mild increase in marrow eosinophils. No evidence of myelodysplasia, or other lymphoproliferative disease. EMG (06/08/18) (by Dr. Sewell) reported with moderate CTS (left> right) and axonal sensorimotor polyneuropathy. Laboratory work-up from 04/20/18 revealed creatinine of 1.18, eGFR 49, no M spike and serum immunofixation was negative for monoclonal gammopathy. Rheumatoid factor was 141 Work-up from, 05/13/18 revealed Urinalysis with blood 2+ and protein 2+. Anticardiolipin antibody IgG 18 and IgM negative. Rheumatoid factor was 96.7 and CCP, ANGELA, anti-Sm, anti-CHAIR CAR ATTENDANT, anti-DNA ds were all negative. Complement 3 was elevated (171) reflecting the presence of an acute phase reactant and C4 normal (30). MARICRUZ 22. Work-up from 05/28/17 revealed creatinine 1.53 and eGFR 36. ESR 120 Liver function tests were normal. Quantiferon was negative, HgbA1C 5.2. RPR and hepatitis C Ab were negative. Anti-histone, anti-DNAds, anti-centromere, anti- cardiolipin, anti-Sm/CHAIR CAR ATTENDANT, gliadin were negative and AFP 3.0 and CA 19-9 47.9 (N< 35) MARICRUZ 37, lipase 37, ESR 120. Complement was normal (C3: 152, C4 32). ANCA (P-anca/C-anca)>1:640, myeloperoxidase 119.75 and proteinase -3 negative. Work-up from 06/16/18 revealed creatinine 1.6 and eGFR 34. Liver function tests were normal. Lyme western blot was negative. HgbA1C 6.0. Hep A total, HBcAb, HBsAg and HBsAb were negative. The patient was prescribed Prednisone 60 mg/d for 2 weeks, then started tapering it down, now on 30 mg/d. With the medications she has been feeling better, however she has had fever intermittently. - History Source History Provided By: Patient, Medical Record Limitations to Obtaining History: No Limitations - Past Medical History Pulmonary: Yes: Asthma, COPD, Other (Bronchiectasis) Renal/: Yes: Renal Inusuff, Other (S/P right nephrectomy for renal carcinoma) Heme/Onc: Yes: Anemia - Past Surgical History Past Surgical History: Yes: Bariatric Surgery, Cholecystectomy, , Hysterectomy, Nephrectomy - Alcohol/Substance Use Hx Alcohol Use: No - Smoking History Smoking history: Never smoked Have you smoked in the past 12 months: No Aproximately how many cigarettes per day: 0 If you are a former smoker, when did you quit?: 12 BYEARS AGO - Social History ADL: Independent Occupation: School Nurse History of Recent Travel: No Home Medications - Allergies Allergies/Adverse Reactions: Allergies Allergy/AdvReac Type Severity Reaction Status Date / Time ciprofloxacin HCl Allergy Verified 07/18/16 12:41 [From Cipro] levofloxacin [From Levaquin] Allergy Verified 07/18/16 12:41 - Home Medications Home Medications: Ambulatory Orders Budesonide/Formeterol Fumarate [SYMBICORT 160/4.5mcg -] 1 inh PO BID 03/28/15 Albuterol Sulfate Inhaler - [Ventolin HFA Inhaler -] 1 - 2 inh PO PRN PRN Famotidine [Pepcid -] 20 mg PO BID #60 tablet 07/19/16 Amox-Tr/K Cl [Augmentin 875-125mg Tablet -] 875 mg PO BID 06/18/18 Doxycycline Hyclate 100 mg PO BID 06/18/18 Gabapentin 100 mg PO BID 06/18/18 Prednisone 30 mg PO DAILY 06/18/18 Furosemide [Lasix] 20 mg PO ONCE 06/19/18 Family Disease History - Family Disease History Family Disease History: Other: Father (Kidney Cancer ), Brother (Lung Cancer ) Review of Systems - Review of Systems Constitutional: reports: Malaise Eyes: reports: Other (Left eye lid irritation) HENT: reports: No Symptoms Neck: reports: No Symptoms Cardiovascular: reports: No Symptoms Respiratory: reports: Hemoptysis, SOB Gastrointestinal: reports: No Symptoms Genitourinary: reports: No Symptoms Musculoskeletal: reports: Other (See HPI) Physical Exam Vital Signs: Vital Signs Temperature 97.9 F 06/19/18 14:56 Pulse Rate 112 H 06/19/18 14:56 Respiratory Rate 20 06/19/18 14:56 Blood Pressure 137/80 06/19/18 14:56 O2 Sat by Pulse Oximetry (%) 96 06/18/18 21:00 Eyes: Yes: WNL HENT: Yes: WNL Neck: Yes: WNL Cardiovascular: Yes: WNL Respiratory: Yes: Other (Wheezing in the left lung.) Gastrointestinal: Yes: WNL Musculoskeletal: Yes: Other (No active joints) Labs: CBC, BMP 06/19/18 06:35 06/19/18 06:35 Laboratory Tests 06/18/18 06/19/18 06/19/18 19:48 06:35 12:40 ESR 111 H Calcium 8.1 L Total Bilirubin 0.4 AST 8 L ALT 20 Alkaline Phosphatase 65 C-Reactive Protein Total Protein 5.5 L Albumin 2.0 L Urine Color Yellow Urine Appearance Clear Urine pH 5.5 Ur Specific [place] 1.021 Urine Protein 2+ Urine Glucose (UA) 2+ Urine Ketones Negative Urine Blood 3+ Urine Nitrite Negative Urine Bilirubin Negative Urine Urobilinogen 1.0 Ur Leukocyte Esterase Trace Urine Casts (Auto) 10 06/19/18 12:40 ESR Calcium Total Bilirubin AST ALT Alkaline Phosphatase C-Reactive Protein 11.9 H Total Protein Albumin Urine Color Urine Appearance Urine pH Ur Specific [place] Urine Protein Urine Glucose (UA) Urine Ketones Urine Blood Urine Nitrite Urine Bilirubin Urine Urobilinogen Ur Leukocyte Esterase Urine Casts (Auto) Problem List - Problems (1) ANCA-positive vasculitis Assessment/Plan: The patient has ANCA positive vasculitis (probable microscopic polyangiitis ( Joshua.'s), however I cannot rule out microscopic polyangiitis with lung cavitary lesion and probable glomerulenphritis with creatinine elevation. As the patient had a right nephrectomy, she is not a candidate for renal biopsy, . As per discussion with Ruchi Monsalve, Beto and James, I suggest to start Solumerdrol IV pulse 1 gr per day for 3 days and then start Rituximab with the Rave protocol. Consider lung biopsy. Code(s): I77.6 - ARTERITIS, UNSPECIFIED
--- NOTE | 2018-06-19 17:03 | PN ---
Progress Note (short form) - Note Progress Note: PULMONARY CONSULTATION DICTATED 06/19/18 IMP [facility] CAVITARY CONSOLIDATION ? VASCULITIS ( PULMONARY RENAL SYNDROME),? INFECTIOUS( ? NECROTIZING PNEUMONIA, ?AFB) + C-ANCA ,ABNORMAL URINARY SEDIMENT? WEGENERS GRANULOMATOSIS WEAKNESS ANEMIA H/O ASTHMA H/O BRONCHIECTASIS ? MAC H/O RENAL CELL CA S/P R NEPHRECTOMY RA CKD PLAN STEROIDS ABX PER ID INHALED BRONCHODILATORS CULTURES SEROLOGY RHEUMATOLOGY EVALUATION MONITOR LYTES,RENAL FUNCTION,CBC MAY REQUIRE LUNG BX F/U CHEST X-RAYS DR GOMEZ Problem List - Problems (1) CKD (chronic kidney disease) Code(s): N18.9 - CHRONIC KIDNEY DISEASE, UNSPECIFIED (2) ANCA-positive vasculitis Code(s): I77.6 - ARTERITIS, UNSPECIFIED (3) Lung abscess Code(s): J85.2 - ABSCESS OF LUNG WITHOUT PNEUMONIA Qualifiers: Pulmonary abscess pneumonia presence: with pneumonia Laterality: left Lung location: upper lobe of lung Qualified Code(s): J85.1 - Abscess of lung with pneumonia (4) Vasculitis Code(s): I77.6 - ARTERITIS, UNSPECIFIED (5) Asthma Code(s): J45.909 - UNSPECIFIED ASTHMA, UNCOMPLICATED (6) Bronchiectasis Code(s): J47.9 - BRONCHIECTASIS, UNCOMPLICATED Qualifiers: Bronchiectasis type: with acute lower respiratory infection Qualified Code( s): J47.0 - Bronchiectasis with acute lower respiratory infection (7) H/O renal cell cancer Code(s): Z85.528 - PERSONAL HISTORY OF OTHER MALIGNANT NEOPLASM OF KIDNEY (8) Pneumonia Code(s): J18.9 - PNEUMONIA, UNSPECIFIED ORGANISM Qualifiers: Laterality: left Lung location: lower lobe of lung (9) Rheumatoid arteritis Code(s): I00 - RHEUMATIC FEVER WITHOUT HEART INVOLVEMENT
[2018-06-19] MEDS ORDERED: PIPERACILLIN/TAZOB 3.375 GM 3.375 GM in DEXTROSE 5%-WATER - 50 ML IVPB SCH (18:00)
[2018-06-19 21:04] LABS: EPI CELLS 2.9 /HPF (0-5); URINE APPEARANCE CLOUDY; URINE BACTERIA 2.016 /hpf (NEGATIVE); URINE BILIRUBIN NEGATIVE (<2.0 mg/dL); URINE CASTS 6 /hpf (0-8); URINE COLOR YELLOW; URINE GLUCOSE (UA) 3+ (NEGATIVE); URINE KETONE NEGATIVE (NEGATIVE); URINE LEUK ESTERASE NEGATIVE (NEGATIVE); URINE NITRITE NEGATIVE (NEGATIVE); URINE PROTEIN 2+ (NEGATIVE); URINE UROBILINOGEN 0.2 mg/dL (0.2-1.0); URINE WBC 9 /hpf (0-5)
[2018-06-19 21:35] LABS: URINE RBC 30.7 /hpf (0-4)
[2018-06-19] MEDS: methylPREDNISolone NA SUCC 1000 MG/8 ML VIAL IVPB SCH (22:26)
[2018-06-20] MEDS ORDERED: PIPERACILLIN/TAZOBACTAM 3.375 GM VIAL IVPB ONE ×3 (01:03→17:48)
[2018-06-20] MEDS ORDERED: DEXTROSE 5%-WATER - 50 ML IVPB ONE ×3 (01:03→17:49)
[2018-06-20] MEDS: PIPERACILLIN/TAZOB 3.375 GM 3.375 GM in DEXTROSE 5%-WATER - 50 ML IVPB SCH ×3 (01:42→17:55)
[2018-06-20 08:13] LABS: BASO % 0.1 % (0-2.0); HEMATOCRIT 24.7 % (32.4-45.2); LYMPH % 15.4 % (8-40); MCH 24.5 pg (25.7-33.7); MCHC 32.4 g/dl (32.0-36.0); MEAN CELL VOLUME 75.5 fl (80-96); MEAN PLT VOLUME 6.9 fl (7.5-11.1); MONO % 0.8 % (3.8-10.2); NEUT % 83.7 % (42.8-82.8); PLATELET COUNT 178 K/MM3 (134-434); RBC 3.28 M/mm3 (3.60-5.2); RDW 24.9 % (11.6-15.6)
[2018-06-20 08:29] LABS: ALBUMIN 1.9 g/dl (3.4-5.0); ALK PHOS 62 U/L (45-117); ANION GAP 9 MMOL/L (8-16); BILIRUBIN,TOTAL 0.4 mg/dL (0.2-1); BLOOD UREA NITROGEN 56 mg/dL (7-18); CALCIUM 8.1 mg/dL (8.5-10.1); CHLORIDE 104 mmol/L (98-107); CO2 26 mmol/L (21-32); CREATININE 1.9 mg/dL (0.55-1.3); GLUCOSE,RANDOM 226 mg/dL (74-106); POTASSIUM 4.6 mmol/L (3.5-5.1); SGOT/AST 8 U/L (15-37); SGPT/ALT 18 U/L (13-61); SODIUM 139 mmol/L (136-145); TOT PROT 5.4 g/dl (6.4-8.2)
[2018-06-20] MEDS ORDERED: DOXYCYCLINE HYCLATE 100 MG CAPSULE PO SCH (10:00)
[2018-06-20] MEDS: HEPARIN NA (PORCINE) 5,000 UNITS/ML 1ML VIAL SQ SCH ×2 (10:27→23:13)
[2018-06-20] MEDS: RANITIDINE HCL 150 MG TABLET (FP) PO SCH ×2 (10:27→23:13)
[2018-06-20] MEDS: GABAPENTIN 100 MG CAPSULE (FP) PO SCH ×2 (10:27→23:13)
[2018-06-20] MEDS: BUDESONIDE/FORMETEROL FUMARATE 160/4.5 mcg INHALER IH SCH ×2 (10:41→23:14)
[2018-06-20] MEDS ORDERED: PT OWN MED DRAWER 7, Y5N ONE (11:28)
[2018-06-20] MEDS: methylPREDNISolone NA SUCC 1000 MG/8 ML VIAL IVPB SCH (11:48)
--- NOTE | 2018-06-20 12:05 | PN ---
Progress Note (short form) - Note Progress Note: PULMONARY APPEARS STABLE ABLE TO EXPECTORATE SPUTUM POST NEBS VSS/AFEBRILE ANICTERIC DISTANT B/L BREATH SOUNDS S1S2 BS+ ABD SOFT NONTENDER NO EDEMA LABS/MEDS/NOTES/IMAGES REVIEWED Tio JAY MD
[2018-06-20] MEDS: ALBUTEROL SO4 2.5/IPRATROPIUM 0.5 INH SOL 3 ML VIAL.NEB. NEB PRN ×2 (12:20→22:00)
--- NOTE | 2018-06-20 12:28 | PN ---
Progress Note, Physician History of Present Illness: AWAKE, ALERT SEATED IN BED C/O PERIPHERAL NEUROPATHY + COUGH YELLOWISH SPUTUM NO HEMOPTYSIS NO C/O CHEST PAIN/ DYSPNEA AFEBRILE ON STEROIDS SPUTUM AFB PENDING - Current Medication List Current Medications: Active Medications Acetaminophen (Tylenol -) 650 mg PO Q6H PRN PRN Reason: FEVER Last Admin: 06/19/18 05:32 Dose: 650 mg Albuterol/Ipratropium (Duoneb -) 1 amp NEB Q6H PRN PRN Reason: SHORTNESS OF BREATH Last Admin: 06/20/18 12:20 Dose: 1 amp Budesonide/Formoterol Fumarate (Symbicort 160/4.5mcg -) 1 puff IH BID [facility] Last Admin: 06/20/18 10:41 Dose: 1 puff Gabapentin (Neurontin -) 100 mg PO BID [facility] Last Admin: 06/20/18 10:27 Dose: 100 mg Heparin Sodium (Porcine) (Heparin -) 5,000 unit SQ BID [facility] Last Admin: 06/20/18 10:27 Dose: 5,000 unit Piperacillin Sod/Tazobactam (Sod 3.375 gm/ Dextrose) 50 mls @ 100 mls/hr IVPB Q8H-IV ROSHAN; Protocol Last Admin: 06/20/18 10:26 Dose: 100 mls/hr Methylprednisolone Sodium Succinate (Solu-Medrol -) 1,000 mg IVPB DAILY [facility] Stop: 06/21/18 10:01 Last Admin: 06/20/18 11:48 Dose: 1,000 mg Ranitidine HCl (Zantac -) 150 mg PO BID [facility] Last Admin: 06/20/18 10:27 Dose: 150 mg - Objective Vital Signs: Vital Signs Temperature 97.7 F 06/20/18 06:55 Pulse Rate 68 06/20/18 06:55 Respiratory Rate 20 06/20/18 06:55 Blood Pressure 136/72 06/20/18 06:55 O2 Sat by Pulse Oximetry (%) 96 06/19/18 09:00 Constitutional: Yes: No Distress Eyes: Yes: Conjunctiva Clear Cardiovascular: Yes: Regular Rate and Rhythm, S1, S2 Respiratory: Yes: Rhonchi Gastrointestinal: Yes: Normal Bowel Sounds, Soft. No: Tenderness Edema: No Labs: CBC, BMP 06/20/18 06:40 06/20/18 06:40 Assessment/Plan CAVITARY LUNG MASS VASCULITIS R/O PNEUMONIA AFB DISEASE LESS LIKELY BUT NEEDS TO BE RULED OUT AZOTEMIA/ SOLITARY KIDNEY AWAIT C/S CONTINUE MILAGRON
--- NOTE | 2018-06-20 14:37 | PN ---
Progress Note, Physician History of Present Illness: Pt seen and examined at bedside. She is awake and alert. She says that she feels better today. She denies arthralgias. She also feels that her lower ext edema is improved. - Current Medication List Current Medications: Active Medications Acetaminophen (Tylenol -) 650 mg PO Q6H PRN PRN Reason: FEVER Last Admin: 06/19/18 05:32 Dose: 650 mg Albuterol/Ipratropium (Duoneb -) 1 amp NEB Q6H PRN PRN Reason: SHORTNESS OF BREATH Last Admin: 06/20/18 12:20 Dose: 1 amp Budesonide/Formoterol Fumarate (Symbicort 160/4.5mcg -) 1 puff IH BID [facility] Last Admin: 06/20/18 10:41 Dose: 1 puff Gabapentin (Neurontin -) 100 mg PO BID [facility] Last Admin: 06/20/18 10:27 Dose: 100 mg Heparin Sodium (Porcine) (Heparin -) 5,000 unit SQ BID [facility] Last Admin: 06/20/18 10:27 Dose: 5,000 unit Piperacillin Sod/Tazobactam (Sod 3.375 gm/ Dextrose) 50 mls @ 100 mls/hr IVPB Q8H-IV [facility]; Protocol Last Admin: 06/20/18 10:26 Dose: 100 mls/hr Methylprednisolone Sodium Succinate (Solu-Medrol -) 1,000 mg IVPB DAILY [facility] Stop: 06/21/18 10:01 Last Admin: 06/20/18 11:48 Dose: 1,000 mg Ranitidine HCl (Zantac -) 150 mg PO BID [facility] Last Admin: 06/20/18 10:27 Dose: 150 mg - Objective Vital Signs: Vital Signs Temperature 97.5 F L 06/20/18 13:30 Pulse Rate 61 06/20/18 13:30 Respiratory Rate 20 06/20/18 13:30 Blood Pressure 138/78 06/20/18 13:30 O2 Sat by Pulse Oximetry (%) 96 06/19/18 09:00 Constitutional: Yes: Calm Eyes: Yes: Conjunctiva Clear HENT: Yes: Atraumatic Cardiovascular: Yes: S1, S2 Respiratory: Yes: CTA Bilaterally Gastrointestinal: Yes: Soft Genitourinary: Yes: WNL Musculoskeletal: Yes: WNL Extremities: Yes: WNL Edema: Yes Edema: LLE: Trace, RLE: Trace Neurological: Yes: Oriented Psychiatric: Yes: Oriented Labs: CBC, BMP 06/20/18 06:40 06/20/18 06:40 Problem List - Problems (1) MADAN (acute kidney injury) Code(s): N17.9 - ACUTE KIDNEY FAILURE, UNSPECIFIED (2) Glomerulonephritis Code(s): N05.9 - UNSP NEPHRITIC SYNDROME WITH UNSPECIFIED MORPHOLOGIC CHANGES (3) Lung abscess Code(s): J85.2 - ABSCESS OF LUNG WITHOUT PNEUMONIA Qualifiers: Pulmonary abscess pneumonia presence: with pneumonia Laterality: left Lung location: upper lobe of lung Qualified Code(s): J85.1 - Abscess of lung with pneumonia (4) Vasculitis Code(s): I77.6 - ARTERITIS, UNSPECIFIED Assessment/Plan Current Medications Generic Name Dose Route Start Last Admin Trade Name Freq PRN Reason Stop Dose Admin Acetaminophen 650 mg 06/19/18 01:53 06/19/18 05:32 Tylenol - PO 650 mg Q6H PRN Administration FEVER Albuterol/Ipratropium 1 amp 06/20/18 02:48 06/20/18 12:20 Duoneb - NEB 1 amp Q6H PRN Administration SHORTNESS OF BREATH Budesonide/Formoterol Fumarate 1 puff 06/19/18 10:00 06/20/18 10:41 Symbicort 160/4.5mcg - IH 1 puff BID ROSHAN Administration Gabapentin 100 mg 06/19/18 10:00 06/20/18 10:27 Neurontin - PO 100 mg BID [facility] Administration Heparin Sodium (Porcine) 5,000 unit 06/19/18 10:00 06/20/18 10:27 Heparin - SQ 5,000 unit BID ROS[facility] Administration Piperacillin Sod/Tazobactam 50 mls @ 100 mls/hr 06/19/18 11:45 06/20/18 10:26 Sod 3.375 gm/ Dextrose IVPB 100 mls/hr Q8H-IV ROSHAN Administration Protocol Methylprednisolone Sodium Succinate 1,000 mg 06/19/18 14:45 06/20/18 11:48 Solu-Medrol - IVPB 06/21/18 10:01 1,000 mg DAILY ROSHAN Administration Ranitidine HCl 150 mg 06/19/18 10:00 06/20/18 10:27 Zantac - PO 150 mg BID ROSHAN Administration Laboratory Tests 06/19/18 06/19/18 12:40 13:30 c-ANCA Pending Proteinase 3 (PR3) Pending p-ANCA Pending Atypical p-ANCA Pending Myeloperoxidase Ab Pending Complement C3 Pending Complement C4 Pending Impression 1. MADAN 2. r/o vasculitis 3. glomerulonephrotis 4. lung cavitary lesion 5. asthma 6. copd 7. rheumatoid arthritis 8. hx of renal cell cancer s/p nephrectomy Plan - cont to monitor renal function - repeat labs in am - cont steroids - rheum input appreciated - follow repeat serologies - not all labs were drawn yesterday despite being ordered, called lab to come and draw gmb anti dsdna spep and hep panel - discussed with family
--- NOTE | 2018-06-20 17:13 | EKG ---
Test Reason : Blood Pressure : / mmHG Vent. Rate : 097 BPM Atrial Rate : 097 BPM P-R Int : 110 ms QRS Dur : 062 ms QT Int : 324 ms P-R-T Axes : 095 -31 038 degrees QTc Int : 411 ms POOR DATA QUALITY, INTERPRETATION MAY BE ADVERSELY AFFECTED SINUS RHYTHM WITH SHORT HI LEFT AXIS DEVIATION PULMONARY DISEASE PATTERN ABNORMAL ECG NO PREVIOUS ECGS AVAILABLE Confirmed by TAMY LAU, VASQUEZ ([id number]) on 06/20/2018 5:13:23 PM Referred By: Confirmed By:VASQUEZ MORELOS MD
--- NOTE | 2018-06-20 21:48 | PN ---
Progress Note, Physician History of Present Illness: Pt complains of pain/weakness of lower extremities - Current Medication List Current Medications: Active Medications Acetaminophen (Tylenol -) 650 mg PO Q6H PRN PRN Reason: FEVER Last Admin: 06/19/18 05:32 Dose: 650 mg Albuterol/Ipratropium (Duoneb -) 1 amp NEB Q6H PRN PRN Reason: SHORTNESS OF BREATH Last Admin: 06/20/18 12:20 Dose: 1 amp Budesonide/Formoterol Fumarate (Symbicort 160/4.5mcg -) 1 puff IH BID [facility] Last Admin: 06/20/18 10:41 Dose: 1 puff Gabapentin (Neurontin -) 100 mg PO BID [facility] Last Admin: 06/20/18 10:27 Dose: 100 mg Heparin Sodium (Porcine) (Heparin -) 5,000 unit SQ BID [facility] Last Admin: 06/20/18 10:27 Dose: 5,000 unit Piperacillin Sod/Tazobactam (Sod 3.375 gm/ Dextrose) 50 mls @ 100 mls/hr IVPB Q8H-IV ROSHAN; Protocol Last Admin: 06/20/18 17:55 Dose: 100 mls/hr Methylprednisolone Sodium Succinate (Solu-Medrol -) 1,000 mg IVPB DAILY [facility] Stop: 06/21/18 10:01 Last Admin: 06/20/18 11:48 Dose: 1,000 mg Ranitidine HCl (Zantac -) 150 mg PO BID [facility] Last Admin: 06/20/18 10:27 Dose: 150 mg - Objective Vital Signs: Vital Signs Temperature 97.4 F L 06/20/18 20:00 Pulse Rate 77 06/20/18 20:00 Respiratory Rate 18 06/20/18 20:00 Blood Pressure 152/94 06/20/18 20:00 O2 Sat by Pulse Oximetry (%) 96 06/20/18 09:00 Constitutional: Yes: Pallor HENT: Yes: WNL Neck: Yes: WNL, Supple Cardiovascular: Yes: WNL, Regular Rate and Rhythm Respiratory: Yes: Rhonchi Gastrointestinal: Yes: WNL, Normal Bowel Sounds, Soft Edema: LLE: Trace, RLE: Trace Labs: CBC, BMP 06/20/18 06:40 06/20/18 06:40 Problem List - Problems (1) Lung abscess Assessment/Plan: Cavitary lesion ODALYS R/O TB Sputum cultures Isolation Mediastinal adenopathy Cont IV zosyn Cont duoineb/symbicort Code(s): J85.2 - ABSCESS OF LUNG WITHOUT PNEUMONIA Qualifiers: Pulmonary abscess pneumonia presence: with pneumonia Laterality: left Lung location: upper lobe of lung Qualified Code(s): J85.1 - Abscess of lung with pneumonia (2) Vasculitis Assessment/Plan: ANCA (+) W/U in progress ?Joshua's vasculitis/glomerulonephritis? As per rheum/renal consults Code(s): I77.6 - ARTERITIS, UNSPECIFIED (3) COPD (chronic obstructive pulmonary disease) Assessment/Plan: Cont inhalers Code(s): J44.9 - CHRONIC OBSTRUCTIVE PULMONARY DISEASE, UNSPECIFIED (4) CKD (chronic kidney disease) Assessment/Plan: As per renal Pt has h/o renal ca/nephrectomy Code(s): N18.9 - CHRONIC KIDNEY DISEASE, UNSPECIFIED (5) Neuropathy Assessment/Plan: ?Due to vasculitis Cont gabapentin Code(s): G62.9 - POLYNEUROPATHY, UNSPECIFIED (6) H/O renal cell cancer Assessment/Plan: H/O nephrectomy Code(s): Z85.528 - PERSONAL HISTORY OF OTHER MALIGNANT NEOPLASM OF KIDNEY
[2018-06-21] MEDS ORDERED: PIPERACILLIN/TAZOBACTAM 3.375 GM VIAL IVPB ONE ×3 (02:55→16:50)
[2018-06-21] MEDS ORDERED: DEXTROSE 5%-WATER - 50 ML IVPB ONE ×3 (02:55→16:51)
[2018-06-21] MEDS: PIPERACILLIN/TAZOB 3.375 GM 3.375 GM in DEXTROSE 5%-WATER - 50 ML IVPB SCH ×3 (03:13→17:08)
[2018-06-21] MEDS: ALBUTEROL SO4 2.5/IPRATROPIUM 0.5 INH SOL 3 ML VIAL.NEB. NEB PRN ×2 (07:34→20:32)
[2018-06-21 07:49] LABS: BASO % 0.1 % (0-2.0); HEMATOCRIT 22.4 % (32.4-45.2); HEMOGLOBIN 7.4 GM/dL (10.7-15.3); LYMPH % 10.3 % (8-40); MCH 24.6 pg (25.7-33.7); MCHC 32.8 g/dl (32.0-36.0); MEAN CELL VOLUME 74.9 fl (80-96); MEAN PLT VOLUME 7.4 fl (7.5-11.1); MONO % 2.5 % (3.8-10.2); NEUT % 87.1 % (42.8-82.8); PLATELET COUNT 179 K/MM3 (134-434); RBC 2.99 M/mm3 (3.60-5.2); RDW 25.1 % (11.6-15.6)
[2018-06-21 08:05] LABS: ALBUMIN 1.9 g/dl (3.4-5.0); ALK PHOS 53 U/L (45-117); ANION GAP 10 MMOL/L (8-16); BILIRUBIN,TOTAL 0.2 mg/dL (0.2-1); BLOOD UREA NITROGEN 63 mg/dL (7-18); CALCIUM 8.3 mg/dL (8.5-10.1); CHLORIDE 102 mmol/L (98-107); CO2 24 mmol/L (21-32); CREATININE 2.1 mg/dL (0.55-1.3); POTASSIUM 3.9 mmol/L (3.5-5.1); SGOT/AST 4 U/L (15-37); SGPT/ALT 16 U/L (13-61); SODIUM 136 mmol/L (136-145); TOT PROT 5.4 g/dl (6.4-8.2)
[2018-06-21] MEDS ORDERED: PT OWN MED DRAWER 7, Y5N ONE (09:09)
[2018-06-21] MEDS: GABAPENTIN 100 MG CAPSULE (FP) PO SCH (09:35)
[2018-06-21] MEDS: HEPARIN NA (PORCINE) 5,000 UNITS/ML 1ML VIAL SQ SCH ×2 (09:35→21:47)
[2018-06-21] MEDS: RANITIDINE HCL 150 MG TABLET (FP) PO SCH ×2 (09:35→21:47)
[2018-06-21] MEDS: BUDESONIDE/FORMETEROL FUMARATE 160/4.5 mcg INHALER IH SCH ×2 (09:41→21:46)
[2018-06-21 09:50] LABS: GLUCOSE,RANDOM 341 mg/dL (74-106)
[2018-06-21] MEDS: methylPREDNISolone NA SUCC 1000 MG/8 ML VIAL IVPB SCH (10:57)
--- NOTE | 2018-06-21 12:16 | PN ---
Progress Note (short form) - Note Progress Note: PULMONARY APPEARS STABLE ABLE TO EXPECTORATE SPUTUM POST NEBS AFB X1 NEGATIVE THUS FAR VSS/AFEBRILE ANICTERIC DISTANT B/L BREATH SOUNDS S1S2 BS+ ABD SOFT NONTENDER NO EDEMA LABS/MEDS/NOTES/IMAGES REVIEWED IMP ODALYS CAVITARY CONSOLIDATION ? VASCULITIS ( PULMONARY RENAL SYNDROME),? INFECTIOUS( ? NECROTIZING PNEUMONIA, ?AFB) + C-ANCA ,ABNORMAL URINARY SEDIMENT? WEGENERS GRANULOMATOSIS WEAKNESS ANEMIA H/O ASTHMA H/O BRONCHIECTASIS ? MAC H/O RENAL CELL CA S/P R NEPHRECTOMY RA CKD PLAN STEROIDS ABX PER ID INHALED BRONCHODILATORS CULTURES SEROLOGY RHEUMATOLOGY EVALUATION MONITOR LYTES,RENAL FUNCTION,CBC MAY REQUIRE LUNG BX F/U CHEST X-RAYS Tio JAY MD
--- NOTE | 2018-06-21 12:53 | PN ---
Progress Note, Physician History of Present Illness: AWAKE, ALERT OOB IN CHAIR C/O PERIPHERAL NEUROPATHY REQUESTING INCREASE IN NEURONTIN + COUGH YELLOWISH SPUTUM NO HEMOPTYSIS NO C/O CHEST PAIN/ DYSPNEA AFEBRILE ON STEROIDS SPUTUM AFB NEGATIVE X 2 - Current Medication List Current Medications: Active Medications Acetaminophen (Tylenol -) 650 mg PO Q6H PRN PRN Reason: FEVER Last Admin: 06/19/18 05:32 Dose: 650 mg Albuterol/Ipratropium (Duoneb -) 1 amp NEB Q6H PRN PRN Reason: SHORTNESS OF BREATH Last Admin: 06/21/18 07:34 Dose: 1 amp Budesonide/Formoterol Fumarate (Symbicort 160/4.5mcg -) 1 puff IH BID [facility] Last Admin: 06/21/18 09:41 Dose: 1 puff Gabapentin (Neurontin -) 300 mg PO HS [facility] Heparin Sodium (Porcine) (Heparin -) 5,000 unit SQ BID [facility] Last Admin: 06/21/18 09:35 Dose: 5,000 unit Piperacillin Sod/Tazobactam (Sod 3.375 gm/ Dextrose) 50 mls @ 100 mls/hr IVPB Q8H-IV [facility]; Protocol Last Admin: 06/21/18 09:35 Dose: 100 mls/hr Ranitidine HCl (Zantac -) 150 mg PO BID [facility] Last Admin: 06/21/18 09:35 Dose: 150 mg - Objective Vital Signs: Vital Signs Temperature 98.4 F 06/21/18 10:00 Pulse Rate 95 H 06/21/18 10:00 Respiratory Rate 20 06/21/18 10:00 Blood Pressure 126/74 06/21/18 10:00 O2 Sat by Pulse Oximetry (%) 96 06/20/18 21:00 Constitutional: Yes: No Distress Cardiovascular: Yes: Regular Rate and Rhythm Respiratory: Yes: Rhonchi Gastrointestinal: Yes: Normal Bowel Sounds, Soft. No: Tenderness Edema: No Labs: CBC, BMP 06/21/18 06:40 06/21/18 06:40 Assessment/Plan CAVITARY LUNG MASS VASCULITIS R/O PNEUMONIA AFB DISEASE LESS LIKELY BUT NEEDS TO BE RULED OUT AZOTEMIA/ SOLITARY KIDNEY AWAIT C/S CONTINUE ZOSYN
--- NOTE | 2018-06-21 15:03 | PN ---
Progress Note, Physician History of Present Illness: Pt seen and examined at bedside. She is awake and alert. She denies shortness of breath. She denies hemoptysis. - Current Medication List Current Medications: Active Medications Acetaminophen (Tylenol -) 650 mg PO Q6H PRN PRN Reason: FEVER Last Admin: 06/19/18 05:32 Dose: 650 mg Albuterol/Ipratropium (Duoneb -) 1 amp NEB Q6H PRN PRN Reason: SHORTNESS OF BREATH Last Admin: 06/21/18 07:34 Dose: 1 amp Budesonide/Formoterol Fumarate (Symbicort 160/4.5mcg -) 1 puff IH BID [facility] Last Admin: 06/21/18 09:41 Dose: 1 puff Gabapentin (Neurontin -) 300 mg PO HS [facility] Heparin Sodium (Porcine) (Heparin -) 5,000 unit SQ BID [facility] Last Admin: 06/21/18 09:35 Dose: 5,000 unit Piperacillin Sod/Tazobactam (Sod 3.375 gm/ Dextrose) 50 mls @ 100 mls/hr IVPB Q8H-IV [facility]; Protocol Last Admin: 06/21/18 09:35 Dose: 100 mls/hr Ranitidine HCl (Zantac -) 150 mg PO BID [facility] Last Admin: 06/21/18 09:35 Dose: 150 mg - Objective Vital Signs: Vital Signs Temperature 98.4 F 06/21/18 10:00 Pulse Rate 95 H 06/21/18 10:00 Respiratory Rate 20 06/21/18 10:00 Blood Pressure 126/74 06/21/18 10:00 O2 Sat by Pulse Oximetry (%) 96 06/20/18 21:00 Constitutional: Yes: Calm Eyes: Yes: Conjunctiva Clear HENT: Yes: Atraumatic Neck: Yes: Supple Cardiovascular: Yes: S1, S2 Respiratory: Yes: CTA Bilaterally Gastrointestinal: Yes: Soft Genitourinary: Yes: WNL Musculoskeletal: Yes: WNL Extremities: Yes: WNL Edema: Yes Edema: LLE: Trace, RLE: Trace Neurological: Yes: Oriented Psychiatric: Yes: Oriented Labs: CBC, BMP 06/21/18 06:40 06/21/18 06:40 Problem List - Problems (1) MADAN (acute kidney injury) Code(s): N17.9 - ACUTE KIDNEY FAILURE, UNSPECIFIED (2) Glomerulonephritis Code(s): N05.9 - UNSP NEPHRITIC SYNDROME WITH UNSPECIFIED MORPHOLOGIC CHANGES (3) Lung abscess Code(s): J85.2 - ABSCESS OF LUNG WITHOUT PNEUMONIA Qualifiers: Pulmonary abscess pneumonia presence: with pneumonia Laterality: left Lung location: upper lobe of lung Qualified Code(s): J85.1 - Abscess of lung with pneumonia (4) Vasculitis Code(s): I77.6 - ARTERITIS, UNSPECIFIED Assessment/Plan Current Medications Generic Name Dose Route Start Last Admin Trade Name Freq PRN Reason Stop Dose Admin Acetaminophen 650 mg 06/19/18 01:53 06/19/18 05:32 Tylenol - PO 650 mg Q6H PRN Administration FEVER Albuterol/Ipratropium 1 amp 06/20/18 02:48 06/21/18 07:34 Duoneb - NEB 1 amp Q6H PRN Administration SHORTNESS OF BREATH Budesonide/Formoterol Fumarate 1 puff 06/19/18 10:00 06/21/18 09:41 Symbicort 160/4.5mcg - IH 1 puff BID [facility] Administration Gabapentin 300 mg 06/21/18 22:00 Neurontin - PO HS [facility] Heparin Sodium (Porcine) 5,000 unit 06/19/18 10:00 06/21/18 09:35 Heparin - SQ 5,000 unit BID [facility] Administration Piperacillin Sod/Tazobactam 50 mls @ 100 mls/hr 06/19/18 11:45 06/21/18 09:35 Sod 3.375 gm/ Dextrose IVPB 100 mls/hr Q8H-IV ROS[facility]AN Administration Protocol Ranitidine HCl 150 mg 06/19/18 10:00 06/21/18 09:35 Zantac - PO 150 mg BID [facility] Administration Laboratory Tests 06/19/18 06/19/18 06/19/18 12:40 13:30 15:18 OSCAR M-Fantasma Pending c-ANCA Pending Proteinase 3 (PR3) Pending p-ANCA Pending Atypical p-ANCA Pending Myeloperoxidase Ab Pending Double Strand DNA Ab Glomerular Base Memb Ab Complement C3 150 Complement C4 29 06/19/18 15:18 OSCAR M-Fantasma c-ANCA Proteinase 3 (PR3) p-ANCA Atypical p-ANCA Myeloperoxidase Ab Double Strand DNA Ab Pending Glomerular Base Memb Ab Pending Complement C3 Complement C4 Impression 1. MADAN 2. r/o vasculitis 3. glomerulonephrotis 4. lung cavitary lesion 5. asthma 6. copd 7. rheumatoid arthritis 8. hx of renal cell cancer s/p nephrectomy Plan - renal workup in progress - cont steroids - lung lesion still under evaluation, r/o infectious etiology - unable to biopsy her kidney as she has solitary kidney - follow repeat anca levels - rheum follow up - discussed with pulmonary, follow sputum - will give gentle hydration Dr Mcneill
[2018-06-21] MEDS ORDERED: SODIUM CHLORIDE 1,000 ML IV SCH (15:15)
[2018-06-21] MEDS: GABAPENTIN 300 MG CAPSULE (FP) PO SCH (21:47)
--- NOTE | 2018-06-21 23:35 | PN ---
Progress Note, Physician History of Present Illness: Pt complains of pain/weakness of lower extremities - Current Medication List Current Medications: Active Medications Acetaminophen (Tylenol -) 650 mg PO Q6H PRN PRN Reason: FEVER Last Admin: 06/19/18 05:32 Dose: 650 mg Albuterol/Ipratropium (Duoneb -) 1 amp NEB Q6H PRN PRN Reason: SHORTNESS OF BREATH Last Admin: 06/21/18 07:34 Dose: 1 amp Budesonide/Formoterol Fumarate (Symbicort 160/4.5mcg -) 1 puff IH BID [facility] Last Admin: 06/21/18 21:46 Dose: 1 puff Gabapentin (Neurontin -) 300 mg PO HS [facility] Last Admin: 06/21/18 21:47 Dose: 300 mg Heparin Sodium (Porcine) (Heparin -) 5,000 unit SQ BID [facility] Last Admin: 06/21/18 21:47 Dose: 5,000 unit Piperacillin Sod/Tazobactam (Sod 3.375 gm/ Dextrose) 50 mls @ 100 mls/hr IVPB Q8H-IV ROSHAN; Protocol Last Admin: 06/21/18 17:08 Dose: 100 mls/hr Sodium Chloride (Normal Saline -) 1,000 mls @ 42 mls/hr IV ASDIR [facility] Stop: 06/22/18 01:14 Last Admin: 06/21/18 17:07 Dose: 42 mls/hr Ranitidine HCl (Zantac -) 150 mg PO BID [facility] Last Admin: 06/21/18 21:47 Dose: 150 mg - Objective Vital Signs: Vital Signs Temperature 97.9 F 06/21/18 21:52 Pulse Rate 86 06/21/18 21:52 Respiratory Rate 17 06/21/18 21:52 Blood Pressure 156/84 06/21/18 21:52 O2 Sat by Pulse Oximetry (%) 97 06/21/18 09:00 Constitutional: Yes: Pallor HENT: Yes: WNL Neck: Yes: WNL, Supple Cardiovascular: Yes: WNL, Regular Rate and Rhythm Respiratory: Yes: WNL, Regular, CTA Bilaterally Gastrointestinal: Yes: WNL, Normal Bowel Sounds, Soft Edema: LLE: Trace, RLE: Trace Labs: CBC, BMP 06/21/18 06:40 06/21/18 06:40 Problem List - Problems (1) Lung abscess Assessment/Plan: Cavitary lesion ODALYS Mediastinal adenopathy Cont IV zosyn Cont duoineb/symbicort Code(s): J85.2 - ABSCESS OF LUNG WITHOUT PNEUMONIA Qualifiers: Pulmonary abscess pneumonia presence: with pneumonia Laterality: left Lung location: upper lobe of lung Qualified Code(s): J85.1 - Abscess of lung with pneumonia (2) Vasculitis Assessment/Plan: ANCA (+) W/U in progress ?Joshua's vasculitis/glomerulonephritis? As per rheum/renal consults Code(s): I77.6 - ARTERITIS, UNSPECIFIED (3) Asthma Assessment/Plan: Cont inhalers Code(s): J45.909 - UNSPECIFIED ASTHMA, UNCOMPLICATED (4) H/O renal cell cancer Code(s): Z85.528 - PERSONAL HISTORY OF OTHER MALIGNANT NEOPLASM OF KIDNEY (5) Neuropathy Assessment/Plan: ?Due to vasculitis Cont gabapentin Code(s): G62.9 - POLYNEUROPATHY, UNSPECIFIED
[2018-06-22] MEDS ORDERED: DEXTROSE 5%-WATER - 50 ML IVPB ONE ×3 (00:44→17:08)
[2018-06-22] MEDS ORDERED: PIPERACILLIN/TAZOBACTAM 3.375 GM VIAL IVPB ONE ×3 (00:44→17:08)
[2018-06-22] MEDS: PIPERACILLIN/TAZOB 3.375 GM 3.375 GM in DEXTROSE 5%-WATER - 50 ML IVPB SCH ×3 (02:51→18:17)
[2018-06-22 08:25] LABS: BASO % 0.1 % (0-2.0); HEMATOCRIT 26.1 % (32.4-45.2); HEMOGLOBIN 8.8 GM/dL (10.7-15.3); LYMPH % 11.3 % (8-40); MCH 25.8 pg (25.7-33.7); MCHC 33.8 g/dl (32.0-36.0); MEAN CELL VOLUME 76.3 fl (80-96); MEAN PLT VOLUME 7.4 fl (7.5-11.1); MONO % 3.3 % (3.8-10.2); NEUT % 85.3 % (42.8-82.8); PLATELET COUNT 198 K/MM3 (134-434); RBC 3.42 M/mm3 (3.60-5.2); RDW 23.4 % (11.6-15.6); WHITE BLOOD COUNT 4.8 K/mm3 (4.0-10.0)
[2018-06-22 08:49] LABS: ALK PHOS 49 U/L (45-117); ANION GAP 9 MMOL/L (8-16); BILIRUBIN,TOTAL 0.4 mg/dL (0.2-1); BLOOD UREA NITROGEN 65 mg/dL (7-18); CALCIUM 8.4 mg/dL (8.5-10.1); CHLORIDE 104 mmol/L (98-107); CO2 24 mmol/L (21-32); POTASSIUM 4.1 mmol/L (3.5-5.1); SGOT/AST 7 U/L (15-37); SGPT/ALT 17 U/L (13-61); SODIUM 137 mmol/L (136-145); TOT PROT 5.2 g/dl (6.4-8.2)
[2018-06-22 09:13] LABS: GLUCOSE,RANDOM 320 mg/dL (74-106)
--- NOTE | 2018-06-22 09:25 | PN ---
Progress Note (short form) - Note Progress Note: Patient is feeling well. Pain in lower limbs related to peripheral neuropathy. She denies SOB, hemoptysis or joint pain. No fever since 06/20/18 P/E Lungs clear. S1 and S2 normal. Abdomen soft, not tender no masses. No active joints. Creatinine 2,0 and glucose 320. Quantiferon negative. Repeat serology pending. A. 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 P. She received 3 doses of Solumkedrol 1 gr /d. I prescribed Prednisone 60 mg/ d. Evaluate possible lung biopsy. Problem List - Problems (1) ANCA-positive vasculitis Code(s): I77.6 - ARTERITIS, UNSPECIFIED
[2018-06-22] MEDS ORDERED: PT OWN MED DRAWER 7, Y5N ONE ×3 (10:04→20:48)
[2018-06-22] MEDS: RANITIDINE HCL 150 MG TABLET (FP) PO SCH ×2 (10:21→21:30)
[2018-06-22] MEDS: HEPARIN NA (PORCINE) 5,000 UNITS/ML 1ML VIAL SQ SCH ×2 (10:22→21:29)
[2018-06-22] MEDS: predniSONE 20 MG TABLET (UD) PO SCH ×2 (10:22→10:26)
[2018-06-22] MEDS: BUDESONIDE/FORMETEROL FUMARATE 160/4.5 mcg INHALER IH SCH ×2 (10:22→21:30)
[2018-06-22 10:52] LABS: ANISOCYTOSIS 2+; MACROCYTOSIS 0; PLATELET ESTIMATE NORMAL
--- NOTE | 2018-06-22 11:01 | PN ---
Progress Note (short form) - Note Progress Note: PULMONARY Feels subjectively better today. +nonproductive cough. No fevers or chills. Vital Signs Period Temp Pulse Resp BP Sys/Busby Pulse Ox Last 24 Hr 97.8 F-98 F 74-86 17- 136-166/76-84 Gen: NAD at rest Heart: RRR Lung: decreased breath sounds at the bases Abd: soft, nontender Ext: no edema CBC, BMP 06/22/18 07:10 06/22/18 07:10 Active Medications Acetaminophen (Tylenol -) 650 mg PO Q6H PRN PRN Reason: FEVER Last Admin: 06/19/18 05:32 Dose: 650 mg Albuterol/Ipratropium (Duoneb -) 1 amp NEB Q6H PRN PRN Reason: SHORTNESS OF BREATH Last Admin: 06/21/18 20:32 Dose: 1 amp Budesonide/Formoterol Fumarate (Symbicort 160/4.5mcg -) 1 puff IH BID [facility] Last Admin: 06/22/18 10:22 Dose: 1 puff Gabapentin (Neurontin -) 300 mg PO HS [facility] Last Admin: 06/21/18 21:47 Dose: 300 mg Heparin Sodium (Porcine) (Heparin -) 5,000 unit SQ BID [facility] Last Admin: 06/22/18 10:22 Dose: 5,000 unit Piperacillin Sod/Tazobactam (Sod 3.375 gm/ Dextrose) 50 mls @ 100 mls/hr IVPB Q8H-IV ROS[facility]; Protocol Last Admin: 06/22/18 10:21 Dose: 100 mls/hr Prednisone (Deltasone -) 60 mg PO DAILY [facility] Last Admin: 06/22/18 10:26 Dose: Not Given Ranitidine HCl (Zantac -) 150 mg PO BID [facility] Last Admin: 06/22/18 10:21 Dose: 150 mg A/P Pneumonia r/o Vasculitis Acute Kidney Injury COPD Rheumatoid Arthritis h/o Nephrectomy - continue antibiotics, prednisone - f/u pending cultures - likely has acute infectious process on superimposed underlying lung disease - unable to do renal biopsy with h/o nephrectomy - agree with lung biopsy if serologies positive though may be difficult to differentiate areas to biopsy given acute infection - transbronchial biopsies traditionally low yield for vasculitis, will likely need a wedge biopsy for diagnosis - alternatively can continue empiric treatment with prednisone and defer biopsy until outpt after repeat imaging - DVT prophylaxis
--- NOTE | 2018-06-22 11:47 | CONS ---
DATE OF CONSULTATION: 06/19/2018 PULMONARY CONSULTATION REFERRING PHYSICIAN: Cristiane Cash MD HISTORY OF PRESENT ILLNESS: The patient is a 63-year-old white female known to me from previous office visit. She has a past medical history of asthma, bronchiectasis, renal cell cancer status post right nephrectomy 7 years ago secondary to RCC,chronic kidney disease, rheumatoid arthritis, neuropathy, anemia status post bone marrow biopsy, currently maintained on iron. She was admitted to [facility] secondary to left upper lobe consolidation with cavitation. The patient came to my office yesterday with the above findings. Apparently, for the past one to two months, she has been having bilateral peripheral neuropathy, lower extremity weakness and fatigue and iron deficiency anemia. She has had an extensive workup over the past several months which included a GI evaluation with a normal colonoscopy. She also had a hematologic evaluation in [place] and a bone marrow biopsy that was negative. She was started on iron infusions. She had a PET scan as an outpatient that revealed mildly increased uptake in the mediastinal nodes as well as some increased markings in the left upper lobe, most likely inflammatory, secondary to chronic bronchiectasis which has been present for many years. The patient was seen by Rheumatology approximately one week ago for evaluation of possible connective tissue disorder. Apparently, a couple of days prior to admission, she started developing a fever and a cough productive of yellow sputum. She underwent a chest x-ray as an outpatient that revealed a left upper lobe consolidation with cavitation. She came to my office yesterday with the above, at which time she was advised to go to the emergency room. Of note, she has been on prednisone since May and is currently being maintained on 30 mg. She denies any hemoptysis, cp,palpitations. She does have some shortness of breath and cough. She has had no weight loss or night sweats. Of note, she had serology performed as an outpatient which revealed a C-ANCA elevated to greater than 1:640 and myeloperoxidase IgE antibody 19.75, with normal being less than 21. PAST MEDICAL HISTORY: This includes renal cell cancer status post right nephrectomy in 2011, history of a lap band, section, cholecystectomy, hysterectomy, asthma, bronchiectasis, recent neuropathy and anemia. REVIEW OF SYSTEMS: Positive for cough, chest congestion, sputum production, fever, chills. No hemoptysis, abdominal pain, chest pain or palpitations. SOCIAL HISTORY: She is a school nurse by profession. History of smoking many years ago. No recent travel. No history of DVT or PE in the past. MEDICATIONS: Pepcid, calcium, vitamin D, ferrous sulfate, Augmentin, doxycycline, prednisone 30, Symbicort 160/4.5, Solu-Medrol 1000 mg daily, Tylenol, Zosyn, vancomycin, heparin, Neurontin and Zantac. PHYSICAL EXAMINATION: General: The patient is a well-developed, well-nourished female, awake and alert, in no acute respiratory distress. Vital Signs: T-max is 102.5; currently 97.9. Blood pressure is 137/80, respiratory rate 20. HEENT: Head is normocephalic, atraumatic. Neck: Supple. Heart: Regular. S1, S2. Chest: Bilateral rhonchi. Abdomen: Soft. Bowel sounds are positive. Extremities: No cyanosis or edema. LABORATORY: WBC is 9.7, hemoglobin 8.8, hematocrit 26.8, platelet count 219, 000. Venous blood gas 7.50, PCO2 is 34, PO2 is 181, bicarbonate is 26. Chemistries: BUN is 56, creatinine is 1.7, lactate is 2.8, CRP is 119, MARICRUZ level is pending. C- ANCA as noted earlier 1:greater than 640. Myeloperoxidase IgE is 119.75. A chest CT shows extensive cavitary consolidation in the left upper lobe, stable mediastinal adenopathy. IMPRESSION: 1. Left upper lobe cavitary consolidation with cavitation. possible vasculitis in view of elevated C-ANCA, myeloperoxidase and abnormal urinary sediment, possible Joshua's, possible renal syndrome. 2. Possible infectious process. 3. Possible necrotizing pneumonia. 4. Possible TD, MTV vs. atypical. 5. Positive C-ANCA; again myeloperoxidase; rule out vasculitis. 6. Weakness, possibly secondary to the above. 7. Anemia. 8. History of asthma. 9. History of bronchiectasis. 10. Questionable . 11. History of renal cell cancer status post right nephrectomy 7 years ago. 12. Positive for rheumatoid arthritis. PLAN: 1. IV steroids as per Rheumatology. 2. Antibiotics per Infectious Disease. 3. Inhaled bronchodilators and supplemental O2. 4. Obtain cultures. 5. Follow up serology. 6. Monitor electrolytes and renal function. 7. The patient may require a lung biopsy for further diagnosis. ROSHAN GOMEZ M.D. KASHIF/[id number] MTDD
--- NOTE | 2018-06-22 12:04 | PN ---
Progress Note (short form) - Note Progress Note: feels well no hemoptysis less sputum production Vital Signs Period Temp Pulse Resp BP Sys/Busby Pulse Ox Last 24 Hr 97.8 F-98 F 74-86 17-22 136-166/76-84 cor-rrr lungs clear abd soft,nt ext no edema CBC, BMP 06/22/18 07:10 06/22/18 07:10 Microbiology 06/21/18 04:00 Sputum - Expectorated AFB Smear Concentration - Preliminary 06/21/18 04:00 Sputum - Expectorated Direct Acid Fast Bacilli Smear - Final 06/21/18 04:00 Sputum - Expectorated Mycobacterial Culture - Preliminary 06/20/18 12:30 Sputum - Expectorated AFB Smear Concentration - Preliminary 06/20/18 12:30 Sputum - Expectorated Direct Acid Fast Bacilli Smear - Final 06/20/18 12:30 Sputum - Expectorated Mycobacterial Culture - Preliminary 06/19/18 17:00 Sputum - Expectorated AFB Smear Concentration - Preliminary 06/19/18 17:00 Sputum - Expectorated Direct Acid Fast Bacilli Smear - Final 06/19/18 17:00 Sputum - Expectorated Mycobacterial Culture - Preliminary 06/18/18 17:25 Blood - Peripheral Venous Blood Culture - Preliminary NO GROWTH OBTAINED AFTER 72 HOURS, INCUBATION TO CONTINUE FOR 2 DAYS. 06/18/18 17:25 Blood - Peripheral Venous Blood Culture - Preliminary NO GROWTH OBTAINED AFTER 72 HOURS, INCUBATION TO CONTINUE FOR 2 DAYS. 06/19/18 17:00 Sputum - Expectorated Gram Stain - Final 06/19/18 17:00 Sputum - Expectorated Sputum Culture - Preliminary NORMAL RESPIRATORY MAAME 06/19/18 18:30 Urine For Antigen Detection Legionella Antigen - Final 06/19/18 18:30 Urine For Antigen Detection Streptococcus pneumoniae Antigen (M - Final 06/18/18 19:51 Urine - Urine Clean Catch Urine Culture - Final NO GROWTH OBTAINED Quantiferon Negative a/p cavitary pneumonia/less likely TB probable vasculitis low suspicion TB suspect vasculitis continue zosyn f/u sputum afb check aspergillus galactomannan and fungitell sputum for fungal culture f/u pulmonary Problem List - Problems (1) Lung abscess Code(s): J85.2 - ABSCESS OF LUNG WITHOUT PNEUMONIA Qualifiers: Pulmonary abscess pneumonia presence: with pneumonia Laterality: left Lung location: upper lobe of lung Qualified Code(s): J85.1 - Abscess of lung with pneumonia (2) Vasculitis Code(s): I77.6 - ARTERITIS, UNSPECIFIED
[2018-06-22 13:30] LABS: EPI CELLS 1.3 /HPF (0-5); URINE APPEARANCE CLEAR; URINE BACTERIA 6.084 /hpf (NEGATIVE); URINE BILIRUBIN NEGATIVE (NEGATIVE); URINE CASTS 4 /hpf (0-8); URINE COLOR YELLOW; URINE GLUCOSE (UA) 3+ (NEGATIVE); URINE KETONE NEGATIVE (NEGATIVE); URINE LEUK ESTERASE NEGATIVE (NEGATIVE); URINE NITRITE NEGATIVE (NEGATIVE); URINE PROTEIN 2+ (NEGATIVE); URINE RBC 19 /hpf (0-4); URINE UROBILINOGEN 0.2 mg/dL (0.2-1.0); URINE WBC 4 /hpf (0-5)
--- NOTE | 2018-06-22 14:35 | PN ---
Progress Note, Physician History of Present Illness: Pt seen and examined at bedside. She is awake and alert. She denies shortness of breath. She denies hemoptysis. - Current Medication List Current Medications: Active Medications Acetaminophen (Tylenol -) 650 mg PO Q6H PRN PRN Reason: FEVER Last Admin: 06/19/18 05:32 Dose: 650 mg Albuterol/Ipratropium (Duoneb -) 1 amp NEB Q6H PRN PRN Reason: SHORTNESS OF BREATH Last Admin: 06/21/18 20:32 Dose: 1 amp Budesonide/Formoterol Fumarate (Symbicort 160/4.5mcg -) 1 puff IH BID [facility] Last Admin: 06/22/18 10:22 Dose: 1 puff Gabapentin (Neurontin -) 300 mg PO HS [facility] Last Admin: 06/21/18 21:47 Dose: 300 mg Heparin Sodium (Porcine) (Heparin -) 5,000 unit SQ BID [facility] Last Admin: 06/22/18 10:22 Dose: 5,000 unit Piperacillin Sod/Tazobactam (Sod 3.375 gm/ Dextrose) 50 mls @ 100 mls/hr IVPB Q8H-IV [facility]; Protocol Last Admin: 06/22/18 10:21 Dose: 100 mls/hr Prednisone (Deltasone -) 60 mg PO DAILY [facility] Last Admin: 06/22/18 10:26 Dose: Not Given Ranitidine HCl (Zantac -) 150 mg PO BID [facility] Last Admin: 06/22/18 10:21 Dose: 150 mg - Objective Vital Signs: Vital Signs Temperature 98 F 06/22/18 14:16 Pulse Rate 84 06/22/18 14:16 Respiratory Rate 19 06/22/18 14:16 Blood Pressure 146/70 06/22/18 14:16 O2 Sat by Pulse Oximetry (%) 99 06/22/18 09:00 Constitutional: Yes: Calm Eyes: Yes: Conjunctiva Clear HENT: Yes: Atraumatic Cardiovascular: Yes: S1, S2 Respiratory: Yes: CTA Bilaterally Gastrointestinal: Yes: Soft Genitourinary: Yes: WNL Musculoskeletal: Yes: WNL Edema: Yes Edema: LLE: Trace, RLE: Trace Neurological: Yes: Oriented Psychiatric: Yes: Oriented Labs: CBC, BMP 06/22/18 07:10 06/22/18 07:10 Problem List - Problems (1) MADAN (acute kidney injury) Code(s): N17.9 - ACUTE KIDNEY FAILURE, UNSPECIFIED (2) Glomerulonephritis Code(s): N05.9 - UNSP NEPHRITIC SYNDROME WITH UNSPECIFIED MORPHOLOGIC CHANGES (3) Lung abscess Code(s): J85.2 - ABSCESS OF LUNG WITHOUT PNEUMONIA Qualifiers: Pulmonary abscess pneumonia presence: with pneumonia Laterality: left Lung location: upper lobe of lung Qualified Code(s): J85.1 - Abscess of lung with pneumonia (4) Vasculitis Code(s): I77.6 - ARTERITIS, UNSPECIFIED Assessment/Plan Current Medications Generic Name Dose Route Start Last Admin Trade Name Freq PRN Reason Stop Dose Admin Acetaminophen 650 mg 06/19/18 01:53 06/19/18 05:32 Tylenol - PO 650 mg Q6H PRN Administration FEVER Albuterol/Ipratropium 1 amp 06/20/18 02:48 06/21/18 20:32 Duoneb - NEB 1 amp Q6H PRN Administration SHORTNESS OF BREATH Budesonide/Formoterol Fumarate 1 puff 06/19/18 10:00 06/22/18 10:22 Symbicort 160/4.5mcg - IH 1 puff BID ROS[facility]AN Administration Gabapentin 300 mg 06/21/18 22:00 06/21/18 21:47 Neurontin - PO 300 mg HS [facility] Administration Heparin Sodium (Porcine) 5,000 unit 06/19/18 10:00 06/22/18 10:22 Heparin - SQ 5,000 unit BID [facility] Administration Piperacillin Sod/Tazobactam 50 mls @ 100 mls/hr 06/19/18 11:45 06/22/18 10:21 Sod 3.375 gm/ Dextrose IVPB 100 mls/hr Q8H-IV ROS[facility]AN Administration Protocol Prednisone 60 mg 06/22/18 09:30 06/22/18 10:26 Deltasone - PO Not Given DAILY [facility] Ranitidine HCl 150 mg 06/19/18 10:00 06/22/18 10:21 Zantac - PO 150 mg BID ROS[facility]AN Administration Laboratory Tests 06/19/18 06/19/18 06/19/18 12:40 13:30 15:18 c-ANCA Pending Proteinase 3 (PR3) Pending p-ANCA Pending Atypical p-ANCA Pending Myeloperoxidase Ab Pending Double Strand DNA Ab Pending Glomerular Base Memb Ab Pending Complement C3 150 Complement C4 29 Impression 1. MADAN 2. r/o vasculitis 3. glomerulonephrotis 4. lung cavitary lesion 5. asthma 6. copd 7. rheumatoid arthritis 8. hx of renal cell cancer s/p nephrectomy Plan - cont with prednisone - rheum, ID and pulm input appreciated - pt still being evaluated for infectious etiology - vasculitis serologies pending - will need better glucose control - repeat labs in am - creatinine is a little better today Dr Mcneill
[2018-06-22 17:15] LABS: HBSAG SCREEN Negative (Negative); HEP B CORE AB, TOT Negative (Negative)
[2018-06-22] MEDS: valACYclovir HCL 500 MG TABLET (FP) PO SCH ×2 (18:16→21:30)
[2018-06-22] MEDS: GABAPENTIN 300 MG CAPSULE (FP) PO SCH (21:30)
--- NOTE | 2018-06-22 22:18 | PN ---
Progress Note, Physician History of Present Illness: Pt complains of pain/weakness of lower extremities - Current Medication List Current Medications: Active Medications Acetaminophen (Tylenol -) 650 mg PO Q6H PRN PRN Reason: FEVER Last Admin: 06/19/18 05:32 Dose: 650 mg Albuterol/Ipratropium (Duoneb -) 1 amp NEB Q6H PRN PRN Reason: SHORTNESS OF BREATH Last Admin: 06/21/18 20:32 Dose: 1 amp Budesonide/Formoterol Fumarate (Symbicort 160/4.5mcg -) 1 puff IH BID [facility] Last Admin: 06/22/18 21:30 Dose: 1 puff Gabapentin (Neurontin -) 300 mg PO HS [facility] Last Admin: 06/22/18 21:30 Dose: 300 mg Heparin Sodium (Porcine) (Heparin -) 5,000 unit SQ BID [facility] Last Admin: 06/22/18 21:29 Dose: 5,000 unit Piperacillin Sod/Tazobactam (Sod 3.375 gm/ Dextrose) 50 mls @ 100 mls/hr IVPB Q8H-IV [facility]; Protocol Last Admin: 06/22/18 18:17 Dose: 100 mls/hr Prednisone (Deltasone -) 60 mg PO DAILY [facility] Last Admin: 06/22/18 10:26 Dose: Not Given Ranitidine HCl (Zantac -) 150 mg PO BID [facility] Last Admin: 06/22/18 21:30 Dose: 150 mg Valacyclovir HCl (Valtrex -) 500 mg PO BID [facility] Last Admin: 06/22/18 21:30 Dose: 500 mg - Objective Vital Signs: Vital Signs Temperature 98.1 F 06/22/18 17:43 Pulse Rate 57 L 06/22/18 17:43 Respiratory Rate 18 06/22/18 17:43 Blood Pressure 165/85 06/22/18 17:43 O2 Sat by Pulse Oximetry (%) 99 06/22/18 09:00 Neck: Yes: WNL, Supple Cardiovascular: Yes: WNL, Regular Rate and Rhythm Respiratory: Yes: Diminished Gastrointestinal: Yes: WNL, Normal Bowel Sounds, Soft Edema: LLE: Trace, RLE: Trace Labs: CBC, BMP 06/22/18 07:10 06/22/18 07:10 Problem List - Problems (1) Lung abscess Assessment/Plan: Cavitary lesion ODALYS R/O TB Sputum cultures Isolation Mediastinal adenopathy Cont IV zosyn Cont duoineb/symbicort Code(s): J85.2 - ABSCESS OF LUNG WITHOUT PNEUMONIA Qualifiers: Pulmonary abscess pneumonia presence: with pneumonia Laterality: left Lung location: upper lobe of lung Qualified Code(s): J85.1 - Abscess of lung with pneumonia (2) Vasculitis Assessment/Plan: ANCA (+) vasculitis Cont IV steroids W/U in progress ?Joshua's vasculitis/glomerulonephritis? As per rheum/renal consults Code(s): I77.6 - ARTERITIS, UNSPECIFIED (3) COPD (chronic obstructive pulmonary disease) Assessment/Plan: Cont inhalers Code(s): J44.9 - CHRONIC OBSTRUCTIVE PULMONARY DISEASE, UNSPECIFIED (4) CKD (chronic kidney disease) Assessment/Plan: As per renal Pt has h/o renal ca/nephrectomy Code(s): N18.9 - CHRONIC KIDNEY DISEASE, UNSPECIFIED (5) Neuropathy Assessment/Plan: ?Due to vasculitis Cont gabapentin Code(s): G62.9 - POLYNEUROPATHY, UNSPECIFIED (6) H/O renal cell cancer Assessment/Plan: H/O nephrectomy Code(s): Z85.528 - PERSONAL HISTORY OF OTHER MALIGNANT NEOPLASM OF KIDNEY
[2018-06-23] MEDS ORDERED: PIPERACILLIN/TAZOBACTAM 3.375 GM VIAL IVPB ONE ×3 (01:50→16:58)
[2018-06-23] MEDS ORDERED: DEXTROSE 5%-WATER - 50 ML IVPB ONE ×3 (01:50→16:58)
[2018-06-23] MEDS: PIPERACILLIN/TAZOB 3.375 GM 3.375 GM in DEXTROSE 5%-WATER - 50 ML IVPB SCH ×3 (02:18→17:09)
[2018-06-23] MEDS: INSULIN SLIDING SCALE (NOVOLOG) 1 VIAL SQ SCH ×4 (06:16→22:43)
[2018-06-23 08:07] LABS: BASO % 0.3 % (0-2.0); EOS % 0.1 % (0-4.5); HEMOGLOBIN 9.1 GM/dL (10.7-15.3); MCH 25.6 pg (25.7-33.7); MCHC 33.7 g/dl (32.0-36.0); MEAN CELL VOLUME 76.1 fl (80-96); MEAN PLT VOLUME 7.2 fl (7.5-11.1); NEUT % 78.6 % (42.8-82.8); PLATELET COUNT 187 K/MM3 (134-434); RBC 3.55 M/mm3 (3.60-5.2); RDW 23.4 % (11.6-15.6); WHITE BLOOD COUNT 5.1 K/mm3 (4.0-10.0)
[2018-06-23 08:41] LABS: ALK PHOS 47 U/L (45-117); ANION GAP 8 MMOL/L (8-16); BILIRUBIN,TOTAL 0.2 mg/dL (0.2-1); BLOOD UREA NITROGEN 60 mg/dL (7-18); CALCIUM 8.2 mg/dL (8.5-10.1); CHLORIDE 107 mmol/L (98-107); CO2 26 mmol/L (21-32); CREATININE 1.7 mg/dL (0.55-1.3); GLUCOSE,RANDOM 154 mg/dL (74-106); POTASSIUM 3.7 mmol/L (3.5-5.1); SGOT/AST 7 U/L (15-37); SGPT/ALT 15 U/L (13-61); SODIUM 141 mmol/L (136-145); TOT PROT 5.1 g/dl (6.4-8.2)
[2018-06-23 10:04] LABS: ERYTHROCYTE SEDIMENTATION RATE 76 mm/hr (0-30)
--- NOTE | 2018-06-23 10:38 | PN ---
Progress Note (short form) - Note Progress Note: PULMONARY Continues to feel improved. +nonproductive cough. No fevers or chills. Vital Signs Period Temp Pulse Resp BP Sys/Busby Pulse Ox Last 24 Hr 97.7 F-98.1 F 57-84 18-20 120-165/70-85 Gen: NAD at rest Heart: RRR Lung: decreased breath sounds at the bases Abd: soft, nontender Ext: no edema CBC, BMP 06/23/18 07:00 06/23/18 07:00 Active Medications Acetaminophen (Tylenol -) 650 mg PO Q6H PRN PRN Reason: FEVER Last Admin: 06/19/18 05:32 Dose: 650 mg Albuterol/Ipratropium (Duoneb -) 1 amp NEB Q6H PRN PRN Reason: SHORTNESS OF BREATH Last Admin: 06/21/18 20:32 Dose: 1 amp Budesonide/Formoterol Fumarate (Symbicort 160/4.5mcg -) 1 puff IH BID [facility] Last Admin: 06/22/18 21:30 Dose: 1 puff Gabapentin (Neurontin -) 300 mg PO HS [facility] Last Admin: 06/22/18 21:30 Dose: 300 mg Heparin Sodium (Porcine) (Heparin -) 5,000 unit SQ BID [facility] Last Admin: 06/22/18 21:29 Dose: 5,000 unit Piperacillin Sod/Tazobactam (Sod 3.375 gm/ Dextrose) 50 mls @ 100 mls/hr IVPB Q8H-IV [facility]; Protocol Last Admin: 06/23/18 02:18 Dose: 100 mls/hr Insulin Aspart (Novolog Vial Sliding Scale -) 1 vial SQ ACHS [facility]; Protocol Last Admin: 06/23/18 06:16 Dose: 2 units Prednisone (Deltasone -) 60 mg PO DAILY [facility] Last Admin: 06/22/18 10:26 Dose: Not Given Ranitidine HCl (Zantac -) 150 mg PO BID [facility] Last Admin: 06/22/18 21:30 Dose: 150 mg Valacyclovir HCl (Valtrex -) 500 mg PO BID [facility] Last Admin: 06/22/18 21:30 Dose: 500 mg A/P Pneumonia r/o Vasculitis Acute Kidney Injury COPD Rheumatoid Arthritis h/o Nephrectomy - continue antibiotics, prednisone - f/u pending cultures - likely has acute infectious process on superimposed underlying lung disease - unable to do renal biopsy with h/o nephrectomy - agree with lung biopsy if serologies positive though may be difficult to differentiate areas to biopsy given acute infection - transbronchial biopsies traditionally low yield for vasculitis, will likely need a wedge biopsy for diagnosis - will ask thoracic surgery to evaluate - alternatively can continue empiric treatment with prednisone and defer biopsy until outpt after repeat imaging - DVT prophylaxis
[2018-06-23] MEDS ORDERED: PT OWN MED DRAWER 7, Y5N ONE ×2 (10:54→20:35)
[2018-06-23] MEDS: HEPARIN NA (PORCINE) 5,000 UNITS/ML 1ML VIAL SQ SCH ×2 (10:57→22:42)
[2018-06-23] MEDS: valACYclovir HCL 500 MG TABLET (FP) PO SCH ×2 (10:57→22:44)
[2018-06-23] MEDS: predniSONE 20 MG TABLET (UD) PO SCH (10:57)
[2018-06-23] MEDS: RANITIDINE HCL 150 MG TABLET (FP) PO SCH ×2 (10:57→22:44)
[2018-06-23] MEDS: BUDESONIDE/FORMETEROL FUMARATE 160/4.5 mcg INHALER IH SCH ×2 (11:05→22:44)
[2018-06-23 11:20] LABS: ANISOCYTOSIS 1+; MACROCYTOSIS 0; PLATELET ESTIMATE NORMAL
[2018-06-23 11:25] LABS: ANTIGLOMERULAR BASEMENT MEN.AB 4 units (0-20)
--- NOTE | 2018-06-23 13:13 | PN ---
Progress Note, Physician History of Present Illness: Pt seen and examined at bedside. She is awake and alert. She denies shortness of breath. - Current Medication List Current Medications: Active Medications Acetaminophen (Tylenol -) 650 mg PO Q6H PRN PRN Reason: FEVER Last Admin: 06/19/18 05:32 Dose: 650 mg Albuterol/Ipratropium (Duoneb -) 1 amp NEB Q6H PRN PRN Reason: SHORTNESS OF BREATH Last Admin: 06/21/18 20:32 Dose: 1 amp Budesonide/Formoterol Fumarate (Symbicort 160/4.5mcg -) 1 puff IH BID [facility] Last Admin: 06/23/18 11:05 Dose: 1 puff Gabapentin (Neurontin -) 300 mg PO HS [facility] Last Admin: 06/22/18 21:30 Dose: 300 mg Heparin Sodium (Porcine) (Heparin -) 5,000 unit SQ BID [facility] Last Admin: 06/23/18 10:57 Dose: 5,000 unit Piperacillin Sod/Tazobactam (Sod 3.375 gm/ Dextrose) 50 mls @ 100 mls/hr IVPB Q8H-IV [facility]; Protocol Last Admin: 06/23/18 10:57 Dose: 100 mls/hr Insulin Aspart (Novolog Vial Sliding Scale -) 1 vial SQ ACHS [facility]; Protocol Last Admin: 06/23/18 12:27 Dose: Not Given Prednisone (Deltasone -) 60 mg PO DAILY [facility] Last Admin: 06/23/18 10:57 Dose: 60 mg Ranitidine HCl (Zantac -) 150 mg PO BID [facility] Last Admin: 06/23/18 10:57 Dose: 150 mg Valacyclovir HCl (Valtrex -) 500 mg PO BID [facility] Last Admin: 06/23/18 10:57 Dose: 500 mg - Objective Vital Signs: Vital Signs Temperature 97.7 F 06/23/18 06:00 Pulse Rate 77 06/23/18 06:00 Respiratory Rate 20 06/23/18 06:00 Blood Pressure 120/73 06/23/18 06:00 O2 Sat by Pulse Oximetry (%) 99 06/22/18 09:00 Constitutional: Yes: Calm Eyes: Yes: Conjunctiva Clear HENT: Yes: Atraumatic Neck: Yes: Supple Cardiovascular: Yes: S1, S2 Respiratory: Yes: CTA Bilaterally Gastrointestinal: Yes: Soft Genitourinary: Yes: WNL Extremities: Yes: WNL Edema: No Neurological: Yes: Oriented Psychiatric: Yes: Oriented Labs: CBC, BMP 06/23/18 07:00 06/23/18 07:00 Problem List - Problems (1) MADAN (acute kidney injury) Code(s): N17.9 - ACUTE KIDNEY FAILURE, UNSPECIFIED (2) Glomerulonephritis Code(s): N05.9 - UNSP NEPHRITIC SYNDROME WITH UNSPECIFIED MORPHOLOGIC CHANGES (3) Lung abscess Code(s): J85.2 - ABSCESS OF LUNG WITHOUT PNEUMONIA Qualifiers: Pulmonary abscess pneumonia presence: with pneumonia Laterality: left Lung location: upper lobe of lung Qualified Code(s): J85.1 - Abscess of lung with pneumonia (4) Vasculitis Code(s): I77.6 - ARTERITIS, UNSPECIFIED Assessment/Plan Current Medications Generic Name Dose Route Start Last Admin Trade Name Freq PRN Reason Stop Dose Admin Acetaminophen 650 mg 06/19/18 01:53 06/19/18 05:32 Tylenol - PO 650 mg Q6H PRN Administration FEVER Albuterol/Ipratropium 1 amp 06/20/18 02:48 06/21/18 20:32 Duoneb - NEB 1 amp Q6H PRN Administration SHORTNESS OF BREATH Budesonide/Formoterol Fumarate 1 puff 06/19/18 10:00 06/23/18 11:05 Symbicort 160/4.5mcg - IH 1 puff BID ROSHAN Administration Gabapentin 300 mg 06/21/18 22:00 06/22/18 21:30 Neurontin - PO 300 mg HS ROSHAN Administration Heparin Sodium (Porcine) 5,000 unit 06/19/18 10:00 06/23/18 10:57 Heparin - SQ 5,000 unit BID [facility]AN Administration Piperacillin Sod/Tazobactam 50 mls @ 100 mls/hr 06/19/18 11:45 06/23/18 10:57 Sod 3.375 gm/ Dextrose IVPB 100 mls/hr Q8H-IV ROS[facility]AN Administration Protocol Insulin Aspart 1 vial 06/23/18 07:00 06/23/18 12:27 Novolog Vial Sliding Scale - SQ Not Given ACHS ROS[facility]AN Protocol Prednisone 60 mg 06/22/18 09:30 06/23/18 10:57 Deltasone - PO 60 mg DAILY [facility] Administration Ranitidine HCl 150 mg 06/19/18 10:00 06/23/18 10:57 Zantac - PO 150 mg BID [facility]AN Administration Valacyclovir HCl 500 mg 06/22/18 15:47 06/23/18 10:57 Valtrex - PO 500 mg BID ROS[facility]AN Administration Laboratory Tests 06/19/18 06/19/18 06/19/18 12:40 13:30 15:18 c-ANCA Pending Proteinase 3 (PR3) Pending p-ANCA Pending Atypical p-ANCA Pending Myeloperoxidase Ab Pending Double Strand DNA Ab <1 Glomerular Base Memb Ab 4 Complement C3 150 Complement C4 29 Impression 1. MADAN 2. r/o vasculitis 3. glomerulonephrotis 4. lung cavitary lesion 5. asthma 6. copd 7. rheumatoid arthritis 8. hx of renal cell cancer s/p nephrectomy Plan - renal function improving - follow serologies - cont steroids - monitor renal function - start calcium supplement Dr Mcneill
--- NOTE | 2018-06-23 15:40 | CONSULT ---
Consult - text type - Consultation Consultation Note: Thoracic Surgery Consultation: 63F with new onset autoimmune disease on steroids with fevers. She has a cavitary lung lesion/abscess and progression of disease in ODALYS. She also has renal insufficiency. I have had a long discussion with Dr. Cordon and Dr. Barfield who are requesting tissue to assess if this is vasculitis. I would also send cultures as there may be a less routine opportunistic infection. I have also discussed the risk of BPF with this operation and the possibility of her needing a percutaneous drain to the ODALYS. I recommend a new CT and will likely proceed with bronchoscopy with cultures and lingula biopsy. The patient is aware of the R/B/A's of this procedure. I have spent 45 minutes with >50% in counseling and coordination of care including taking her history/physical, and discussing with the other physicians.
--- NOTE | 2018-06-23 15:55 | PN ---
Progress Note (short form) - Note Progress Note: feels well no hemoptysis a/p cavitary pneumonia/less likely TB probable vasculitis Vital Signs Period Temp Pulse Resp BP Sys/Busby Pulse Ox Last 24 Hr 97.7 F-98.1 F 57-77 18-20 120-165/73-85 99 cor-rrr lungs clear abd soft,nt ext no edema CBC, BMP 06/23/18 07:00 06/23/18 07:00 Microbiology 06/23/18 12:30 Sputum - Expectorated SHARI Preparation - Preliminary 06/23/18 12:30 Sputum - Expectorated Fungal Culture - Preliminary 06/22/18 15:00 Ulcer Viral Culture - Preliminary 06/21/18 04:00 Sputum - Expectorated AFB Smear Concentration - Final 06/21/18 04:00 Sputum - Expectorated Direct Acid Fast Bacilli Smear - Final 06/21/18 04:00 Sputum - Expectorated Mycobacterial Culture - Preliminary 06/20/18 12:30 Sputum - Expectorated AFB Smear Concentration - Final 06/20/18 12:30 Sputum - Expectorated Direct Acid Fast Bacilli Smear - Final 06/20/18 12:30 Sputum - Expectorated Mycobacterial Culture - Preliminary 06/19/18 17:00 Sputum - Expectorated AFB Smear Concentration - Final 06/19/18 17:00 Sputum - Expectorated Direct Acid Fast Bacilli Smear - Final 06/19/18 17:00 Sputum - Expectorated Mycobacterial Culture - Preliminary 06/22/18 11:00 Sputum - Expectorated AFB Smear Concentration - Preliminary 06/22/18 11:00 Sputum - Expectorated Direct Acid Fast Bacilli Smear - Final 06/22/18 11:00 Sputum - Expectorated Mycobacterial Culture - Preliminary 06/18/18 17:25 Blood - Peripheral Venous Blood Culture - Preliminary NO GROWTH OBTAINED AFTER 96 HOURS, INCUBATION TO CONTINUE FOR 1 DAYS. 06/18/18 17:25 Blood - Peripheral Venous Blood Culture - Preliminary NO GROWTH OBTAINED AFTER 96 HOURS, INCUBATION TO CONTINUE FOR 1 DAYS. 06/19/18 17:00 Sputum - Expectorated Gram Stain - Final 06/19/18 17:00 Sputum - Expectorated Sputum Culture - Final NORMAL RESPIRATORY MAAME 06/19/18 18:30 Urine For Antigen Detection Legionella Antigen - Final 06/19/18 18:30 Urine For Antigen Detection Streptococcus pneumoniae Antigen (M - Final 06/18/18 19:51 Urine - Urine Clean Catch Urine Culture - Final NO GROWTH OBTAINED a/p low suspicion TB-sputum afb negative, pcr negative times 2, d/c isolation suspect vasculitis continue zosyn for possible lung abscess f/u sputum afb check aspergillus galactomannan and fungitell-pending sputum for fungal culture-pending f/u pulmonary f/u rheumatology Problem List - Problems (1) Lung abscess Code(s): J85.2 - ABSCESS OF LUNG WITHOUT PNEUMONIA Qualifiers: Pulmonary abscess pneumonia presence: with pneumonia Laterality: left Lung location: upper lobe of lung Qualified Code(s): J85.1 - Abscess of lung with pneumonia (2) Vasculitis Code(s): I77.6 - ARTERITIS, UNSPECIFIED
[2018-06-23 18:16] LABS: ATYPICAL pANCA <1:20 titer (Neg:<1:20); C-ANCA <1:20 titer (Neg:<1:20)
[2018-06-23] MEDS: GABAPENTIN 300 MG CAPSULE (FP) PO SCH (22:43)
--- NOTE | 2018-06-23 23:41 | PN ---
Progress Note, Physician - Current Medication List Current Medications: Active Medications Acetaminophen (Tylenol -) 650 mg PO Q6H PRN PRN Reason: FEVER Last Admin: 06/19/18 05:32 Dose: 650 mg Albuterol/Ipratropium (Duoneb -) 1 amp NEB Q6H PRN PRN Reason: SHORTNESS OF BREATH Last Admin: 06/21/18 20:32 Dose: 1 amp Budesonide/Formoterol Fumarate (Symbicort 160/4.5mcg -) 1 puff IH BID [facility] Last Admin: 06/23/18 22:44 Dose: 1 puff Calcium Carbonate/Cholecalciferol (Os-Solomon 500+D -) 1 tab PO DAILY [facility] Gabapentin (Neurontin -) 300 mg PO HS [facility] Last Admin: 06/23/18 22:43 Dose: 300 mg Heparin Sodium (Porcine) (Heparin -) 5,000 unit SQ BID [facility] Last Admin: 06/23/18 22:42 Dose: 5,000 unit Piperacillin Sod/Tazobactam (Sod 3.375 gm/ Dextrose) 50 mls @ 100 mls/hr IVPB Q8H-IV [facility]; Protocol Last Admin: 06/23/18 17:09 Dose: 100 mls/hr Insulin Aspart (Novolog Vial Sliding Scale -) 1 vial SQ ACHS [facility]; Protocol Last Admin: 06/23/18 22:43 Dose: 2 units Prednisone (Deltasone -) 60 mg PO DAILY [facility] Last Admin: 06/23/18 10:57 Dose: 60 mg Ranitidine HCl (Zantac -) 150 mg PO BID [facility] Last Admin: 06/23/18 22:44 Dose: 150 mg Valacyclovir HCl (Valtrex -) 500 mg PO BID [facility] Last Admin: 06/23/18 22:44 Dose: 500 mg - Objective Vital Signs: Vital Signs Temperature 98 F 06/23/18 16:30 Pulse Rate 88 06/23/18 16:30 Respiratory Rate 20 06/23/18 16:30 Blood Pressure 146/95 06/23/18 16:30 O2 Sat by Pulse Oximetry (%) 99 06/23/18 09:00 Labs: CBC, BMP 06/23/18 07:00 06/23/18 07:00 Problem List - Problems (1) Lung abscess Code(s): J85.2 - ABSCESS OF LUNG WITHOUT PNEUMONIA Qualifiers: Pulmonary abscess pneumonia presence: with pneumonia Laterality: left Lung location: upper lobe of lung Qualified Code(s): J85.1 - Abscess of lung with pneumonia (2) Vasculitis Code(s): I77.6 - ARTERITIS, UNSPECIFIED (3) COPD (chronic obstructive pulmonary disease) Code(s): J44.9 - CHRONIC OBSTRUCTIVE PULMONARY DISEASE, UNSPECIFIED (4) CKD (chronic kidney disease) Code(s): N18.9 - CHRONIC KIDNEY DISEASE, UNSPECIFIED (5) Neuropathy Code(s): G62.9 - POLYNEUROPATHY, UNSPECIFIED (6) H/O renal cell cancer Code(s): Z85.528 - PERSONAL HISTORY OF OTHER MALIGNANT NEOPLASM OF KIDNEY
[2018-06-24] MEDS ORDERED: PIPERACILLIN/TAZOBACTAM 3.375 GM VIAL IVPB ONE ×3 (01:19→16:48)
[2018-06-24] MEDS ORDERED: DEXTROSE 5%-WATER - 50 ML IVPB ONE ×3 (01:19→16:49)
[2018-06-24] MEDS: PIPERACILLIN/TAZOB 3.375 GM 3.375 GM in DEXTROSE 5%-WATER - 50 ML IVPB SCH ×3 (02:06→17:25)
[2018-06-24] MEDS ORDERED: INSULIN (NOVOLOG) ASPART 100 UNITS/ML 10ML VIAL ONE ×2 (05:42→22:25)
[2018-06-24] MEDS: INSULIN SLIDING SCALE (NOVOLOG) 1 VIAL SQ SCH ×4 (06:28→22:27)
--- NOTE | 2018-06-24 08:00 | SPA.PREOP ---
- PRE-OP NOTE Dx: ODALYS cavitary lesion Planned Procedure: Left VATs, possible wedge resection, biopsy 06/25/18 Surgeon: Bhupinder Blanc Last Vital Signs Temp Pulse Resp BP Pulse Ox 98.1 F 65 20 129/74 99 06/24/18 06:00 06/24/18 06:00 06/24/18 06:00 06/24/18 06:00 06/23/18 09:00 Lab Results WBC 5.1 K/mm3 (4.0-10.0) 06/23/18 07:00 RBC 3.55 M/mm3 (3.60-5.2) L 06/23/18 07:00 Hgb 9.1 GM/dL (10.7-15.3) L 06/23/18 07:00 Hct 27.0 % (32.4-45.2) L 06/23/18 07:00 MCV 76.1 fl (80-96) L 06/23/18 07:00 MCHC 33.7 g/dl (32.0-36.0) 06/23/18 07:00 RDW 23.4 % (11.6-15.6) H 06/23/18 07:00 Plt Count 187 K/MM3 (134-434) 06/23/18 07:00 Sodium 141 mmol/L (136-145) 06/23/18 07:00 Potassium 3.7 mmol/L (3.5-5.1) 06/23/18 07:00 Chloride 107 mmol/L (98-107) 06/23/18 07:00 Carbon Dioxide 26 mmol/L (21-32) 06/23/18 07:00 Anion Gap 8 MMOL/L (8-16) 06/23/18 07:00 BUN 60 mg/dL (7-18) H 06/23/18 07:00 Creatinine 1.7 mg/dL (0.55-1.3) H 06/23/18 07:00 Random Glucose 154 mg/dL (74-106) H 06/23/18 07:00 Calcium 8.2 mg/dL (8.5-10.1) L 06/23/18 07:00 Blood Type A POSITIVE 06/21/18 17:50 Antibody Screen Negative 06/21/18 17:50 - IMAGING Chest X-ray: Report Reviewed, Image Reviewed Cat Scan: Report Reviewed, Image Reviewed Other: Pending (awaiting repeat Chest CT) - ASSESSMENT/PLAN 1. Make NPO after midnight except PO meds 2. GI/DVT PPX 3. Medical optimization / clearance 4. Consent to be obtained by surgeon after risks, benefits and alternatives discussed with patient and or Health Care Proxy. Problem List - Problems (1) Lung abscess Code(s): J85.2 - ABSCESS OF LUNG WITHOUT PNEUMONIA Qualifiers: Pulmonary abscess pneumonia presence: with pneumonia Laterality: left Lung location: upper lobe of lung Qualified Code(s): J85.1 - Abscess of lung with pneumonia (2) COPD (chronic obstructive pulmonary disease) Code(s): J44.9 - CHRONIC OBSTRUCTIVE PULMONARY DISEASE, UNSPECIFIED (3) CKD (chronic kidney disease) Code(s): N18.9 - CHRONIC KIDNEY DISEASE, UNSPECIFIED Visit type - Case Type Case Type: ED Admission - New patient This patient is new to me today: Yes Date on this admission: 06/24/18
[2018-06-24 08:10] LABS: ANION GAP 5 MMOL/L (8-16); BLOOD UREA NITROGEN 53 mg/dL (7-18); CALCIUM 7.8 mg/dL (8.5-10.1); CHLORIDE 109 mmol/L (98-107); CO2 28 mmol/L (21-32); CREATININE 1.8 mg/dL (0.55-1.3); GLUCOSE,RANDOM 129 mg/dL (74-106); POTASSIUM 4.5 mmol/L (3.5-5.1); SODIUM 142 mmol/L (136-145)
[2018-06-24] MEDS ORDERED: PT OWN MED DRAWER 7, Y5N ONE ×2 (09:51→17:38)
[2018-06-24] MEDS: predniSONE 20 MG TABLET (UD) PO SCH (09:56)
[2018-06-24] MEDS: CALCIUM 500MG/VIT-D 200 UNITS COMBO TABLET (FP) PO SCH (09:56)
[2018-06-24] MEDS: RANITIDINE HCL 150 MG TABLET (FP) PO SCH ×2 (09:56→21:56)
[2018-06-24] MEDS: valACYclovir HCL 500 MG TABLET (FP) PO SCH ×2 (09:56→21:56)
[2018-06-24] MEDS: HEPARIN NA (PORCINE) 5,000 UNITS/ML 1ML VIAL SQ SCH ×2 (09:57→21:56)
[2018-06-24] MEDS: BUDESONIDE/FORMETEROL FUMARATE 160/4.5 mcg INHALER IH SCH ×2 (09:58→21:57)
--- NOTE | 2018-06-24 13:36 | PN ---
Progress Note, Physician History of Present Illness: Pt seen and examined at bedside. She is awake and alert. She denies shortness of breath. - Current Medication List Current Medications: Active Medications Acetaminophen (Tylenol -) 650 mg PO Q6H PRN PRN Reason: FEVER Last Admin: 06/19/18 05:32 Dose: 650 mg Albuterol/Ipratropium (Duoneb -) 1 amp NEB Q6H PRN PRN Reason: SHORTNESS OF BREATH Last Admin: 06/21/18 20:32 Dose: 1 amp Budesonide/Formoterol Fumarate (Symbicort 160/4.5mcg -) 1 puff IH BID [facility] Last Admin: 06/24/18 09:58 Dose: 1 puff Calcium Carbonate/Cholecalciferol (Os-Solomon 500+D -) 1 tab PO DAILY [facility] Last Admin: 06/24/18 09:56 Dose: 1 tab Gabapentin (Neurontin -) 300 mg PO HS [facility] Last Admin: 06/23/18 22:43 Dose: 300 mg Heparin Sodium (Porcine) (Heparin -) 5,000 unit SQ BID [facility] Last Admin: 06/24/18 09:57 Dose: 5,000 unit Piperacillin Sod/Tazobactam (Sod 3.375 gm/ Dextrose) 50 mls @ 100 mls/hr IVPB Q8H-IV [facility]; Protocol Last Admin: 06/24/18 09:56 Dose: 100 mls/hr Insulin Aspart (Novolog Vial Sliding Scale -) 1 vial SQ ACHS [facility]; Protocol Last Admin: 06/24/18 12:41 Dose: 2 units Prednisone (Deltasone -) 60 mg PO DAILY [facility] Last Admin: 06/24/18 09:56 Dose: 60 mg Ranitidine HCl (Zantac -) 150 mg PO BID [facility] Last Admin: 06/24/18 09:56 Dose: 150 mg Valacyclovir HCl (Valtrex -) 500 mg PO BID [facility] Last Admin: 06/24/18 09:56 Dose: 500 mg - Objective Vital Signs: Vital Signs Temperature 98.3 F 06/24/18 10:00 Pulse Rate 74 06/24/18 10:00 Respiratory Rate 20 06/24/18 06:00 Blood Pressure 137/80 06/24/18 10:00 O2 Sat by Pulse Oximetry (%) 99 06/24/18 09:00 Constitutional: Yes: Calm Eyes: Yes: Conjunctiva Clear HENT: Yes: Atraumatic Neck: Yes: Supple Cardiovascular: Yes: S1, S2 Respiratory: Yes: CTA Bilaterally Gastrointestinal: Yes: Soft Musculoskeletal: Yes: WNL Edema: Yes Edema: LLE: Trace, RLE: Trace Neurological: Yes: Oriented Psychiatric: Yes: Oriented Labs: CBC, BMP 06/23/18 07:00 06/24/18 06:00 Problem List - Problems (1) MADAN (acute kidney injury) Code(s): N17.9 - ACUTE KIDNEY FAILURE, UNSPECIFIED (2) Glomerulonephritis Code(s): N05.9 - UNSP NEPHRITIC SYNDROME WITH UNSPECIFIED MORPHOLOGIC CHANGES (3) Lung abscess Code(s): J85.2 - ABSCESS OF LUNG WITHOUT PNEUMONIA Qualifiers: Pulmonary abscess pneumonia presence: with pneumonia Laterality: left Lung location: upper lobe of lung Qualified Code(s): J85.1 - Abscess of lung with pneumonia (4) Vasculitis Code(s): I77.6 - ARTERITIS, UNSPECIFIED Assessment/Plan Current Medications Generic Name Dose Route Start Last Admin Trade Name Freq PRN Reason Stop Dose Admin Acetaminophen 650 mg 06/19/18 01:53 06/19/18 05:32 Tylenol - PO 650 mg Q6H PRN Administration FEVER Albuterol/Ipratropium 1 amp 06/20/18 02:48 06/21/18 20:32 Duoneb - NEB 1 amp Q6H PRN Administration SHORTNESS OF BREATH Budesonide/Formoterol Fumarate 1 puff 06/19/18 10:00 06/24/18 09:58 Symbicort 160/4.5mcg - IH 1 puff BID [facility] Administration Calcium Carbonate/Cholecalciferol 1 tab 06/24/18 10:00 06/24/18 09:56 Os-Solomon 500+D - PO 1 tab DAILY [facility] Administration Gabapentin 300 mg 06/21/18 22:00 06/23/18 22:43 Neurontin - PO 300 mg HS [facility] Administration Heparin Sodium (Porcine) 5,000 unit 06/19/18 10:00 06/24/18 09:57 Heparin - SQ 5,000 unit BID [facility] Administration Piperacillin Sod/Tazobactam 50 mls @ 100 mls/hr 06/19/18 11:45 06/24/18 09:56 Sod 3.375 gm/ Dextrose IVPB 100 mls/hr Q8H-IV [facility] Administration Protocol Insulin Aspart 1 vial 06/23/18 07:00 06/24/18 12:41 Novolog Vial Sliding Scale - SQ 2 units ACHS [facility] Administration Protocol Prednisone 60 mg 06/22/18 09:30 06/24/18 09:56 Deltasone - PO 60 mg DAILY [facility] Administration Ranitidine HCl 150 mg 06/19/18 10:00 06/24/18 09:56 Zantac - PO 150 mg BID [facility] Administration Valacyclovir HCl 500 mg 06/22/18 15:47 06/24/18 09:56 Valtrex - PO 500 mg BID [facility] Administration Laboratory Tests 06/19/18 12:40 c-ANCA <1:20 Proteinase 3 (PR3) <3.5 p-ANCA 1:160 H Atypical p-ANCA <1:20 Myeloperoxidase Ab 65.0 H Impression 1. MADAN 2. r/o vasculitis 3. glomerulonephrotis 4. lung cavitary lesion 5. asthma 6. copd 7. rheumatoid arthritis 8. hx of renal cell cancer s/p nephrectomy Plan - cont to monitor renal function - cont prednisone - pt on abx for lung infection - cts evaluated pt, possible lung biopsy - called and discussed with rheum - unable to do kidney biopsy as she has one kidney Dr Mcneill
--- NOTE | 2018-06-24 15:04 | PN ---
Progress Note (short form) - Note Progress Note: feels well no hemoptysis no complaints Vital Signs Period Temp Pulse Resp BP Sys/Busby Pulse Ox Last 24 Hr 98 F-98.3 F 65-88 20-20 129-177/74-95 99 cor-rrr lungs clear abd soft,nt ext trace edema pretibial CBC, BMP 06/23/18 07:00 06/24/18 06:00 Microbiology 06/22/18 11:00 Sputum - Expectorated AFB Smear Concentration - Final 06/22/18 11:00 Sputum - Expectorated Direct Acid Fast Bacilli Smear - Final 06/22/18 11:00 Sputum - Expectorated Mycobacterial Culture - Preliminary 06/18/18 17:25 Blood - Peripheral Venous Blood Culture - Final NO GROWTH AFTER 5 DAYS INCUBATION 06/18/18 17:25 Blood - Peripheral Venous Blood Culture - Final NO GROWTH AFTER 5 DAYS INCUBATION 06/23/18 12:30 Sputum - Expectorated SHARI Preparation - Preliminary 06/23/18 12:30 Sputum - Expectorated Fungal Culture - Preliminary 06/22/18 15:00 Ulcer Viral Culture - Preliminary 06/21/18 04:00 Sputum - Expectorated AFB Smear Concentration - Final 06/21/18 04:00 Sputum - Expectorated Direct Acid Fast Bacilli Smear - Final 06/21/18 04:00 Sputum - Expectorated Mycobacterial Culture - Preliminary 06/20/18 12:30 Sputum - Expectorated AFB Smear Concentration - Final 06/20/18 12:30 Sputum - Expectorated Direct Acid Fast Bacilli Smear - Final 06/20/18 12:30 Sputum - Expectorated Mycobacterial Culture - Preliminary 06/19/18 17:00 Sputum - Expectorated AFB Smear Concentration - Final 06/19/18 17:00 Sputum - Expectorated Direct Acid Fast Bacilli Smear - Final 06/19/18 17:00 Sputum - Expectorated Mycobacterial Culture - Preliminary 06/19/18 17:00 Sputum - Expectorated Gram Stain - Final 06/19/18 17:00 Sputum - Expectorated Sputum Culture - Final NORMAL RESPIRATORY MAAME 06/19/18 18:30 Urine For Antigen Detection Legionella Antigen - Final 06/19/18 18:30 Urine For Antigen Detection Streptococcus pneumoniae Antigen (M - Final 06/18/18 19:51 Urine - Urine Clean Catch Urine Culture - Final NO GROWTH OBTAINED a/p vasculitis low suspicion TB-sputum afb negative, pcr negative times 2, d/c isolation continue zosyn for possible lung abscess -plan iv antibiotics for several weeks with f/u imaging repeat ct chest essentially unchanged- ?slightly improved f/u sputum afb culture aspergillus galactomannan and fungitell-pending sputum for fungal culture-pending plan for lung biopsy per rheumatology to r/o vasculitis Problem List - Problems (1) Lung abscess Code(s): J85.2 - ABSCESS OF LUNG WITHOUT PNEUMONIA Qualifiers: Pulmonary abscess pneumonia presence: with pneumonia Laterality: left Lung location: upper lobe of lung Qualified Code(s): J85.1 - Abscess of lung with pneumonia (2) Vasculitis Code(s): I77.6 - ARTERITIS, UNSPECIFIED
--- NOTE | 2018-06-24 15:30 | PN ---
Progress Note (short form) - Note Progress Note: PULMONARY Denies shortness of breath, cough or fevers. Vital Signs Period Temp Pulse Resp BP Sys/Busby Pulse Ox Last 24 Hr 98 F-98.3 F 65-88 20-20 129-177/74-95 99 Gen: NAD at rest Heart: RRR Lung: decreased breath sounds at the bases Abd: soft, nontender Ext: no edema CBC, BMP 06/23/18 07:00 06/24/18 06:00 Active Medications Acetaminophen (Tylenol -) 650 mg PO Q6H PRN PRN Reason: FEVER Last Admin: 06/19/18 05:32 Dose: 650 mg Albuterol/Ipratropium (Duoneb -) 1 amp NEB Q6H PRN PRN Reason: SHORTNESS OF BREATH Last Admin: 06/21/18 20:32 Dose: 1 amp Budesonide/Formoterol Fumarate (Symbicort 160/4.5mcg -) 1 puff IH BID [facility] Last Admin: 06/24/18 09:58 Dose: 1 puff Calcium Carbonate/Cholecalciferol (Os-Solomon 500+D -) 1 tab PO DAILY [facility] Last Admin: 06/24/18 09:56 Dose: 1 tab Gabapentin (Neurontin -) 300 mg PO HS [facility] Last Admin: 06/23/18 22:43 Dose: 300 mg Heparin Sodium (Porcine) (Heparin -) 5,000 unit SQ BID [facility] Last Admin: 06/24/18 09:57 Dose: 5,000 unit Piperacillin Sod/Tazobactam (Sod 3.375 gm/ Dextrose) 50 mls @ 100 mls/hr IVPB Q8H-IV [facility]; Protocol Last Admin: 06/24/18 09:56 Dose: 100 mls/hr Insulin Aspart (Novolog Vial Sliding Scale -) 1 vial SQ ACHS [facility]; Protocol Last Admin: 06/24/18 12:41 Dose: 2 units Prednisone (Deltasone -) 60 mg PO DAILY [facility] Last Admin: 06/24/18 09:56 Dose: 60 mg Ranitidine HCl (Zantac -) 150 mg PO BID [facility] Last Admin: 06/24/18 09:56 Dose: 150 mg Valacyclovir HCl (Valtrex -) 500 mg PO BID [facility] Last Admin: 06/24/18 09:56 Dose: 500 mg A/P Pneumonia r/o Vasculitis Acute Kidney Injury COPD Rheumatoid Arthritis h/o Nephrectomy - continue antibiotics, prednisone - f/u pending cultures - for VATS/wedge resection for tissue diagnosis - DVT prophylaxis
--- NOTE | 2018-06-24 17:53 | PN ---
Progress Note (short form) - Note Progress Note: The patient is feeling well. No SOB, hemoptysis or joint pain. No fever. P/E Lungs clear. S1 and S2 normal. No murmur. No active joints. Laboratory: Creatinine 1.8 and urinalysis: protein 2+ and blood 3+. P-ANCA 1: 160 and myeloperoxidase 65. Complement was normal. Anti-DNAds, GBM-Ab were negative. Impression. The serology is suggestive of microscopic polyangiits, however the lung cavity is more frequently seen with polyangiitis and granulomatosis ( Joshua's). Most likleyt the lung lesion is related to vasculitis, however I cannot rule out infection. The patient has active urinary sediment and requires treatment with Rituximab. She is scheduled for lung biopsy to establish Dx prior to Rituximab. Continue with Prednisone 60 mg/d. Problem List - Problems (1) ANCA-positive vasculitis Code(s): I77.6 - ARTERITIS, UNSPECIFIED
[2018-06-24] MEDS: GABAPENTIN 300 MG CAPSULE (FP) PO SCH (21:55)
[2018-06-25] MEDS: PIPERACILLIN/TAZOB 3.375 GM 3.375 GM in DEXTROSE 5%-WATER - 50 ML IVPB SCH ×3 (01:45→18:04)
--- NOTE | 2018-06-25 02:38 | PN ---
Progress Note, Physician History of Present Illness: Pt seen and examined however now is being entered now - Current Medication List Current Medications: Active Medications Acetaminophen (Tylenol -) 650 mg PO Q6H PRN PRN Reason: FEVER Last Admin: 06/19/18 05:32 Dose: 650 mg Albuterol/Ipratropium (Duoneb -) 1 amp NEB Q6H PRN PRN Reason: SHORTNESS OF BREATH Last Admin: 06/21/18 20:32 Dose: 1 amp Budesonide/Formoterol Fumarate (Symbicort 160/4.5mcg -) 1 puff IH BID [facility] Last Admin: 06/24/18 21:57 Dose: 1 puff Calcium Carbonate/Cholecalciferol (Os-Solomon 500+D -) 1 tab PO DAILY [facility] Last Admin: 06/24/18 09:56 Dose: 1 tab Gabapentin (Neurontin -) 300 mg PO HS [facility] Last Admin: 06/24/18 21:55 Dose: 300 mg Heparin Sodium (Porcine) (Heparin -) 5,000 unit SQ BID [facility] Last Admin: 06/24/18 21:56 Dose: 5,000 unit Piperacillin Sod/Tazobactam (Sod 3.375 gm/ Dextrose) 50 mls @ 100 mls/hr IVPB Q8H-IV [facility]; Protocol Last Admin: 06/25/18 01:45 Dose: 100 mls/hr Insulin Aspart (Novolog Vial Sliding Scale -) 1 vial SQ ACHS [facility]; Protocol Last Admin: 06/24/18 22:27 Dose: 6 units Prednisone (Deltasone -) 60 mg PO DAILY [facility] Last Admin: 06/24/18 09:56 Dose: 60 mg Ranitidine HCl (Zantac -) 150 mg PO BID [facility] Last Admin: 06/24/18 21:56 Dose: 150 mg Valacyclovir HCl (Valtrex -) 500 mg PO BID [facility] Last Admin: 06/24/18 21:56 Dose: 500 mg - Objective Vital Signs: Vital Signs Temperature 98.3 F 06/24/18 20:28 Pulse Rate 76 06/24/18 20:28 Respiratory Rate 18 06/24/18 20:28 Blood Pressure 140/99 06/24/18 20:28 O2 Sat by Pulse Oximetry (%) 99 06/24/18 21:00 Labs: CBC, BMP 06/23/18 07:00 06/24/18 06:00 Problem List - Problems (1) Lung abscess Code(s): J85.2 - ABSCESS OF LUNG WITHOUT PNEUMONIA Qualifiers: Pulmonary abscess pneumonia presence: with pneumonia Laterality: left Lung location: upper lobe of lung Qualified Code(s): J85.1 - Abscess of lung with pneumonia (2) Vasculitis Code(s): I77.6 - ARTERITIS, UNSPECIFIED (3) COPD (chronic obstructive pulmonary disease) Code(s): J44.9 - CHRONIC OBSTRUCTIVE PULMONARY DISEASE, UNSPECIFIED (4) CKD (chronic kidney disease) Code(s): N18.9 - CHRONIC KIDNEY DISEASE, UNSPECIFIED (5) Neuropathy Code(s): G62.9 - POLYNEUROPATHY, UNSPECIFIED (6) H/O renal cell cancer Code(s): Z85.528 - PERSONAL HISTORY OF OTHER MALIGNANT NEOPLASM OF KIDNEY
[2018-06-25] MEDS: INSULIN SLIDING SCALE (NOVOLOG) 1 VIAL SQ SCH ×4 (06:20→21:45)
[2018-06-25 08:26] LABS: ALK PHOS 44 U/L (45-117); ANION GAP 6 MMOL/L (8-16); BILIRUBIN,TOTAL 0.3 mg/dL (0.2-1); BLOOD UREA NITROGEN 55 mg/dL (7-18); CALCIUM 8.2 mg/dL (8.5-10.1); CHLORIDE 109 mmol/L (98-107); CO2 29 mmol/L (21-32); CREATININE 1.6 mg/dL (0.55-1.3); GLUCOSE,RANDOM 123 mg/dL (74-106); POTASSIUM 4.6 mmol/L (3.5-5.1); SGOT/AST 9 U/L (15-37); SGPT/ALT 21 U/L (13-61); SODIUM 143 mmol/L (136-145); TOT PROT 4.8 g/dl (6.4-8.2)
[2018-06-25] MEDS ORDERED: DEXTROSE 5%-WATER - 50 ML IVPB ONE ×2 (09:39→17:57)
[2018-06-25] MEDS ORDERED: PIPERACILLIN/TAZOBACTAM 3.375 GM VIAL IVPB ONE ×2 (09:39→17:56)
[2018-06-25] MEDS ORDERED: PT OWN MED DRAWER 7, Y5N ONE (09:39)
[2018-06-25] MEDS: RANITIDINE HCL 150 MG TABLET (FP) PO SCH ×2 (09:48→21:37)
[2018-06-25] MEDS: CALCIUM 500MG/VIT-D 200 UNITS COMBO TABLET (FP) PO SCH (09:48)
[2018-06-25] MEDS: predniSONE 20 MG TABLET (UD) PO SCH (09:48)
[2018-06-25] MEDS: HEPARIN NA (PORCINE) 5,000 UNITS/ML 1ML VIAL SQ SCH (09:49)
[2018-06-25] MEDS: BUDESONIDE/FORMETEROL FUMARATE 160/4.5 mcg INHALER IH SCH ×2 (09:49→21:36)
[2018-06-25] MEDS: valACYclovir HCL 500 MG TABLET (FP) PO SCH ×2 (09:50→21:37)
--- NOTE | 2018-06-25 10:02 | PN ---
Progress Note (short form) - Note Progress Note: PULMONARY No overnight events. Denies shortness of breath, cough or fevers. Vital Signs Period Temp Pulse Resp BP Sys/Busby Pulse Ox Last 24 Hr 97.9 F-98.3 F 76-78 18-20 140-162/98-101 99 Gen: NAD at rest Heart: RRR Lung: decreased breath sounds at the bases Abd: soft, nontender Ext: no edema CBC, BMP 06/23/18 07:00 06/25/18 06:30 Active Medications Acetaminophen (Tylenol -) 650 mg PO Q6H PRN PRN Reason: FEVER Last Admin: 06/19/18 05:32 Dose: 650 mg Budesonide/Formoterol Fumarate (Symbicort 160/4.5mcg -) 1 puff IH BID [facility] Last Admin: 06/25/18 09:49 Dose: 1 puff Calcium Carbonate/Cholecalciferol (Os-Solomon 500+D -) 1 tab PO DAILY [facility] Last Admin: 06/25/18 09:48 Dose: 1 tab Gabapentin (Neurontin -) 300 mg PO HS [facility] Last Admin: 06/24/18 21:55 Dose: 300 mg Heparin Sodium (Porcine) (Heparin -) 5,000 unit SQ BID [facility] Last Admin: 06/25/18 09:49 Dose: Not Given Piperacillin Sod/Tazobactam (Sod 3.375 gm/ Dextrose) 50 mls @ 100 mls/hr IVPB Q8H-IV [facility]; Protocol Last Admin: 06/25/18 09:50 Dose: 100 mls/hr Insulin Aspart (Novolog Vial Sliding Scale -) 1 vial SQ ACHS [facility]; Protocol Last Admin: 06/25/18 06:20 Dose: Not Given Prednisone (Deltasone -) 60 mg PO DAILY [facility] Last Admin: 06/25/18 09:48 Dose: 60 mg Ranitidine HCl (Zantac -) 150 mg PO BID [facility] Last Admin: 06/25/18 09:48 Dose: 150 mg Valacyclovir HCl (Valtrex -) 500 mg PO BID [facility] Last Admin: 06/25/18 09:50 Dose: 500 mg A/P Pneumonia r/o Vasculitis Acute Kidney Injury COPD Rheumatoid Arthritis h/o Nephrectomy - continue antibiotics, prednisone - f/u pending cultures - for VATS/wedge resection for tissue diagnosis - DVT prophylaxis
[2018-06-25] MEDS ORDERED: MIDAZOLAM HCL 2 MG/2 ML SINGLE DOSE VIAL ONE (10:20)
[2018-06-25] MEDS ORDERED: ONDANSETRON 4 MG/2 ML VIAL IVPUSH PRN (10:57)
[2018-06-25] MEDS ORDERED: LACTATED RINGERS SOLUTION 1,000 ML IV SCH (11:00)
[2018-06-25] MEDS ORDERED: BENZOIN TINCTURE SWABSTICK TP ONE (11:23)
[2018-06-25] MEDS ORDERED: BUPIVACAINE HCL/PF 0.5% (5MG/ML) 10 ML VIAL ONE (11:23)
[2018-06-25] MEDS ORDERED: LIDOCAINE HCL 1%, 10 MG/ML (20ML VIAL) ONE (11:23)
[2018-06-25] MEDS ORDERED: LIDOCAINE 1%-EPI 1:100,000 30 ML MDV IJ ONE (11:23)
[2018-06-25] MEDS ORDERED: BUPIVACAINE HCL/PF 0.25% (2.5MG/ML) 10 ML VIAL ONE (11:23)
[2018-06-25] MEDS ORDERED: PROPOFOL 20 ML ONE ×4 (11:38→14:27)
[2018-06-25] MEDS ORDERED: ROCURONIUM BROMIDE 50 MG/5 ML VIAL ONE ×2 (11:53→13:00)
[2018-06-25] MEDS ORDERED: ceFAZolin SODIUM 1 GM VIAL IVPB ONE (12:55)
[2018-06-25 12:56] VITALS: BMI 28.1
[2018-06-25] MEDS ORDERED: BUPIVACAINE HCL/PF (5 MG/ML) 30 ML VIAL IJ ONE (12:58)
[2018-06-25] MEDS ORDERED: LIDOCAINE 1%/EPI 1:100000 (50 ML MULTI DOSE VIAL) INF ONE (12:58)
[2018-06-25] MEDS ORDERED: NEOSTIGMINE METHYLSULFATE 0.5 MG/ML - 10 ML MDV ONE ×2 (13:19)
[2018-06-25] MEDS ORDERED: GLYCOPYRROLATE 0.2 MG/1 ML VIAL ONE (13:19)
[2018-06-25] MEDS ORDERED: NALOXONE HCL 0.4 MG/ML VIAL ONE (13:55)
[2018-06-25] MEDS ORDERED: DEXAMETHASONE SOD PHOSPHATE 4 MG/1 ML VIAL ONE (14:15)
--- NOTE | 2018-06-25 14:41 | OPR ---
Patient Name: Gabbi Reyes MR#: [id number] INPATIENT PROCEDURE DATE OF ADMISSION: Procedure Date: 06/25/2018 Preoperative Diagnosis: 1. Renal cell carcinoma s/p nephrectomy; 2. Autoimmune vasculitis; 2. CRI; 3. Left upper lobe abscess; 4. Neuropathy; 5. Former smoker; 6. COPD. Postoperative Diagnosis: Same. Procedure: 1. Flexible bronchoscopy with bronchial washings; 2. Left VATS; 3. Left upper lobe wedge resection and sampling of pleural fluid. Indication: as above Surgeon(s): Dr. Bhupinder Blanc. Anesthesia: General Endotracheal Wound Classification: Clean Antibiotic Prophylaxis: Cefazolin Findings: 1. Bronchoscopy: pus in left upper lobe; 2. Thoracoscopy: Small amount of fluid in left chest, adhesion of left upper lobe to chest wall, normal appearing lingula. Specimens Sent: bronchial washings; pleural fluid; lingula for pathology and culture. Complications: none Drains / Tubes / Catheters: 1 chest tube Hardware / Implants: n/a Blood / Fluid Losses: minimal Blood / Fluids Administered: per anesthesia Post-Operative Condition: stable, extubated to PACU Indications: This patient is a 63 year-old female former smoker with the above multiple diagnoses referred from Dr. Cordon for lung biopsy to guide his immunosuppressive therapy. She was explained the risks, benefits, and alternatives of a bronchoscopy, thoracoscopy, wedge resection, and agreed and understood. Details of Procedure: The patient was taken into the operating room and placed supine on the table. She was monitored with pulse oximetry and blood pressure monitoring, including an arterial line. She was given sedation and an endotracheal tube was placed A bronchoscopy was performed to view the airway and for operative planning and cultures. Lung isolation was achieved with a double-lumen. She was then positioned in the right lateral decubitus position and lung isolation was confirmed. The chest was prepared and draped in sterile fashion. 2 ports were placed. Some pleural fluid was sampled. The lingula was wedge-resected. We then obtained hemostasis. We placed a chest tube and secured it. The lung was expanded again. Wounds were closed with absorbable sutures after expanding the lung. Sterile dressings were placed. The patient was then awakened and extubated. She did not tolerate extubation so was reintubated and then taken to the PACU in hemodynamically stable condition. I was present postoperatively and after discharge she will follow up with me as an outpatient.
--- NOTE | 2018-06-25 14:43 | OP ---
Operative Note - Note: Operative Date: 06/25/18 Pre-Operative Diagnosis: Lung abscess, pneumonia Operation: Bronchoscopy, Left Video assisted thoractomy with upper lobe wedge Post-Operative Diagnosis: Same as Pre-op Surgeon: Bhupinder Blanc Data Processing Supervisor: Max Mendez Anesthesiologist/HAND BENDER: Balaji Berkowitz Anesthesia: General Estimated Blood Loss (mls): 20 Drains & Tubes with Location: Left chest tube Operative Report Dictated: Yes
[2018-06-25] MEDS ORDERED: ACETAMINOPHEN 1000 MG/100 ML VIAL (NON FORMULARY) IVPB ONE ×2 (14:44→15:12)
[2018-06-25] MEDS ORDERED: ACETAMINOPHEN INJECTION 100 ML IVPB ONE (14:53)
[2018-06-25] MEDS ORDERED: FUROSEMIDE 40 MG/4 ML INJECTABLE VIAL IVPUSH ONE (15:23)
--- NOTE | 2018-06-25 15:30 | SURG ---
Surgery Cheese Wrapper Note Cheese Wrapper: Max Mendez PA-C Date of Service: 06/25/18 Diagnosis: Lung abscess, pneumonia Procedure: Bronchoscopy, Left Video assisted thoractomy with upper lobe wedge I was present for the entirety of the operative procedure. For further detail, please refer to operative report. Visit type - Case Type Case Type: ED Admission - Emergency Emergency Visit: Yes ED Registration Date: 06/18/18 Care time: The patient presented to the Emergency Department on the above date and was hospitalized for further evaluation of their emergent condition. - New patient This patient is new to me today: Yes Date on this admission: 06/25/18
[2018-06-25] MEDS ORDERED: PROPOFOL 1000 MG/100 ML VIAL IVPB ONE (16:00)
--- NOTE | 2018-06-25 16:00 | PN ---
Progress Note, Physician History of Present Illness: Pt seen and examined in recovery room. She had the lung biopsy. She remains intubated. - Current Medication List Current Medications: Active Medications Acetaminophen (Tylenol -) 650 mg PO Q6H PRN PRN Reason: FEVER Last Admin: 06/19/18 05:32 Dose: 650 mg Budesonide/Formoterol Fumarate (Symbicort 160/4.5mcg -) 1 puff IH BID [facility] Last Admin: 06/25/18 09:49 Dose: 1 puff Calcium Carbonate/Cholecalciferol (Os-Solomon 500+D -) 1 tab PO DAILY [facility] Last Admin: 06/25/18 09:48 Dose: 1 tab Fentanyl (Sublimaze Injection -) 50 mcg IVPUSH [id number] PRN PRN Reason: PAIN-PACU ORDER X 4 DOSES ONLY Stop: 06/25/18 18:00 Gabapentin (Neurontin -) 300 mg PO HS [facility] Last Admin: 06/24/18 21:55 Dose: 300 mg Heparin Sodium (Porcine) (Heparin -) 5,000 unit SQ BID [facility] Last Admin: 06/25/18 09:49 Dose: Not Given Piperacillin Sod/Tazobactam (Sod 3.375 gm/ Dextrose) 50 mls @ 100 mls/hr IVPB Q8H-IV [facility]; Protocol Last Admin: 06/25/18 09:50 Dose: 100 mls/hr Lactated Ringer's (Lactated Ringers Solution) 1,000 mls @ 75 mls/hr IV ASDIR [facility] Propofol (Diprivan -) 1,000,000 mcg in 100 mls @ 22.317 mls/hr IVPB TITR [facility]; Protocol Insulin Aspart (Novolog Vial Sliding Scale -) 1 vial SQ ACHS [facility]; Protocol Last Admin: 06/25/18 06:20 Dose: Not Given Ondansetron HCl (Zofran Injection) 4 mg IVPUSH Q6H PRN PRN Reason: NAUSEA AND/OR VOMITING Stop: 06/26/18 10:56 Prednisone (Deltasone -) 60 mg PO DAILY [facility] Last Admin: 06/25/18 09:48 Dose: 60 mg Ranitidine HCl (Zantac -) 150 mg PO BID [facility] Last Admin: 06/25/18 09:48 Dose: 150 mg Valacyclovir HCl (Valtrex -) 500 mg PO BID [facility] Last Admin: 06/25/18 09:50 Dose: 500 mg - Objective Vital Signs: Vital Signs Temperature 97.9 F 06/25/18 10:00 Pulse Rate 92 H 06/25/18 14:40 Respiratory Rate 10 06/25/18 14:40 Blood Pressure 157/94 06/25/18 10:00 O2 Sat by Pulse Oximetry (%) 100 06/25/18 14:40 Constitutional: Yes: Calm Eyes: Yes: Conjunctiva Clear Cardiovascular: Yes: S1, S2 Respiratory: Yes: Mechanically Ventilated Gastrointestinal: Yes: Soft Genitourinary: Yes: Incontinence Edema: Yes Edema: LLE: Trace, RLE: Trace Integumentary: Yes: WNL Neurological: Yes: Lethargy, Other (sedated) Labs: CBC, BMP 06/23/18 07:00 06/25/18 06:30 Problem List - Problems (1) MADAN (acute kidney injury) Code(s): N17.9 - ACUTE KIDNEY FAILURE, UNSPECIFIED (2) Glomerulonephritis Code(s): N05.9 - UNSP NEPHRITIC SYNDROME WITH UNSPECIFIED MORPHOLOGIC CHANGES (3) Lung abscess Code(s): J85.2 - ABSCESS OF LUNG WITHOUT PNEUMONIA Qualifiers: Pulmonary abscess pneumonia presence: with pneumonia Laterality: left Lung location: upper lobe of lung Qualified Code(s): J85.1 - Abscess of lung with pneumonia (4) Vasculitis Code(s): I77.6 - ARTERITIS, UNSPECIFIED Assessment/Plan Current Medications Generic Name Dose Route Start Last Admin Trade Name Freq PRN Reason Stop Dose Admin Acetaminophen 650 mg 06/19/18 01:53 06/19/18 05:32 Tylenol - PO 650 mg Q6H PRN Administration FEVER Budesonide/Formoterol Fumarate 1 puff 06/19/18 10:00 06/25/18 09:49 Symbicort 160/4.5mcg - IH 1 puff BID [facility] Administration Calcium Carbonate/Cholecalciferol 1 tab 06/24/18 10:00 06/25/18 09:48 Os-Solomon 500+D - PO 1 tab DAILY [facility] Administration Fentanyl 50 mcg 06/25/18 10:57 Sublimaze Injection - IVPUSH 06/25/18 18:00 [id number] PRN PAIN-PACU ORDER X 4 DOSES ONLY Gabapentin 300 mg 06/21/18 22:00 06/24/18 21:55 Neurontin - PO 300 mg HS [facility] Administration Heparin Sodium (Porcine) 5,000 unit 06/19/18 10:00 06/25/18 09:49 Heparin - SQ Not Given BID [facility] Piperacillin Sod/Tazobactam 50 mls @ 100 mls/hr 06/19/18 11:45 06/25/18 09:50 Sod 3.375 gm/ Dextrose IVPB 100 mls/hr Q8H-IV [facility] Administration Protocol Lactated Ringer's 1,000 mls @ 75 mls/hr 06/25/18 11:00 Lactated Ringers Solution IV ASDIR [facility] Propofol 1,000,000 mcg in 100 mls @ 22.317 mls/hr 06/25/18 15:30 Diprivan - IVPB TITR [facility] Protocol 50 MCG/KG/MIN Insulin Aspart 1 vial 06/23/18 07:00 06/25/18 06:20 Novolog Vial Sliding Scale - SQ Not Given ACHS [facility] Protocol Ondansetron HCl 4 mg 06/25/18 10:57 Zofran Injection IVPUSH 06/26/18 10:56 Q6H PRN NAUSEA AND/OR VOMITING Prednisone 60 mg 06/22/18 09:30 06/25/18 09:48 Deltasone - PO 60 mg DAILY [facility] Administration Ranitidine HCl 150 mg 06/19/18 10:00 06/25/18 09:48 Zantac - PO 150 mg BID [facility] Administration Valacyclovir HCl 500 mg 06/22/18 15:47 06/25/18 09:50 Valtrex - PO 500 mg BID [facility] Administration Impression 1. MADAN 2. r/o vasculitis 3. glomerulonephrotis 4. lung cavitary lesion 5. asthma 6. copd 7. rheumatoid arthritis 8. hx of renal cell cancer s/p nephrectomy Plan - cont to monitor renal function - follow up cxr - follow up pathology - pt s/p biopsy - cont prednisone - place griffin cath - spoke to family earlier today Dr Mcneill
[2018-06-25] MEDS ORDERED: FUROSEMIDE 10 MG/1 ML VIAL (4 ML VIAL) IVPUSH ONE (16:45)
--- NOTE | 2018-06-25 17:03 | PN ---
Progress Note (short form) - Note Progress Note: seen in recovery room she is intubated but awake is comfortable Vital Signs Period Temp Pulse Resp BP Sys/Busby Pulse Ox Last 24 Hr 97.4 F-98.3 F 74-92 10-18 105-185/70-107 96-100 +chest tube cor rrr lungs decreased bs at bases ext no edema CBC, BMP 06/23/18 07:00 06/25/18 06:30 a/p vasculitis low suspicion TB-sputum afb negative, pcr negative times 2, d/c isolation continue zosyn for possible lung abscess -plan iv antibiotics for several weeks with f/u imaging repeat ct chest essentially unchanged- ?slightly improved f/u sputum afb culture aspergillus galactomannan pending and fungitell-negative sputum for fungal culture-pending solitary kidney- s/p nephrectomy f/u cultures /pathology from BAL and lung biopsy Problem List - Problems (1) Lung abscess Code(s): J85.2 - ABSCESS OF LUNG WITHOUT PNEUMONIA Qualifiers: Pulmonary abscess pneumonia presence: with pneumonia Laterality: left Lung location: upper lobe of lung Qualified Code(s): J85.1 - Abscess of lung with pneumonia (2) Vasculitis Code(s): I77.6 - ARTERITIS, UNSPECIFIED
--- NOTE | 2018-06-25 17:18 | CONSULT ---
Consult Consult Specialty:: ICU Referred by:: Surgery Reason for Consultation:: S/p LVAT/upper lobe wedge with acute hypoxic respiratory failure (intubated) - History of Present Illness Chief Complaint: Failed extubated s/p bronchoscopy, LVAT with upper lobe wedge resection History of Present Illness: Pt is a 63 yo F with PMHx of Renal Ca s/p nephrectomy, MADAN, COPD, RhA, bronchiectasis, PNA, with likely vasculitis s/p bonchoscopy with LVATs/L upper lobe wedge resection and sampling of pleural fluid for rheum tissue diagnosis ( to aid immunosuppressive tx) now with L chest tube and intubated. Pt has had a prolonged course on this admission, noted to have cavitary lesion in her left upper lobe with productive cough, anemic, but without hemoptysis or hematuria. Pt was also found to be in acute renal failure, peripheral neuropathy with EMGs showing neuropathy. Pt also had a pet scan diagnosed as a likely "infectious process" ODALYS, but quantiferon 2/19 negative. Per ID-low suspicion TB-sputum afb negative, pcr negative times 2, isolation discontinued. Pt had a bone marrow biopsy on 05/11/18 which showed no evidence of myelodysplasia. Pt has positive c-anca, positive mpo, neg pr3 and has been on PO prednisone. 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 Due to prior nephrectomy, pulmonary biopsy was undertaken as above. Intra-op showed pus in ODALYS (bronchoscopy), with small amount of fluid in L chest , adhesion of L UL to chest wall, normal appearing lingula.Bronchial washings, pleural fluid and lingula pathology and culture were sent with barb-op cefazolin given. Post-op pt was extubated , but did not tolerate and had to be re-intubated and transferred to ICU. - History Source History Provided By: Medical Record - Past Medical History Pulmonary: Yes: Asthma, COPD, Other (Bronchiectasis) Renal/: Yes: Renal Inusuff, Other (S/P right nephrectomy for renal carcinoma) - Past Surgical History Past Surgical History: Yes: Bariatric Surgery, Cholecystectomy, , Hysterectomy, Nephrectomy - Alcohol/Substance Use Hx Alcohol Use: No - Smoking History Smoking history: Never smoked Have you smoked in the past 12 months: No Aproximately how many cigarettes per day: 0 If you are a former smoker, when did you quit?: 12 BYEARS AGO - Social History ADL: Independent Occupation: School Nurse History of Recent Travel: No Home Medications - Allergies Allergies/Adverse Reactions: Allergies Allergy/AdvReac Type Severity Reaction Status Date / Time ciprofloxacin HCl Allergy Verified 07/18/16 12:41 [From Cipro] levofloxacin [From Levaquin] Allergy Verified 07/18/16 12:41 - Home Medications Home Medications: Ambulatory Orders Budesonide/Formeterol Fumarate [SYMBICORT 160/4.5mcg -] 1 inh PO BID 03/28/15 Albuterol Sulfate Inhaler - [Ventolin HFA Inhaler -] 1 - 2 inh PO PRN PRN Famotidine [Pepcid -] 20 mg PO BID #60 tablet 07/19/16 Amox-Tr/K Cl [Augmentin 875-125mg Tablet -] 875 mg PO BID 06/18/18 Doxycycline Hyclate 100 mg PO BID 06/18/18 Gabapentin 100 mg PO BID 06/18/18 Prednisone 30 mg PO DAILY 06/18/18 Furosemide [Lasix] 20 mg PO ONCE 06/19/18 Family Disease History - Family Disease History Family Disease History: Other: Father (Kidney Cancer ), Brother (Lung Cancer ) Physical Exam Vital Signs: Vital Signs Temperature 97.4 F L 06/25/18 14:30 Pulse Rate 74 06/25/18 16:15 Respiratory Rate 10 06/25/18 16:15 Blood Pressure 123/80 06/25/18 16:15 O2 Sat by Pulse Oximetry (%) 96 06/25/18 16:15 Constitutional: Yes: Other (sedated) HENT: Yes: Other (ETT) Cardiovascular: Yes: S1, S2 Respiratory: Yes: Mechanically Ventilated, Rales Gastrointestinal: Yes: Soft Renal/: Yes: Mattson Present Edema: Yes Edema: LUE: 1+, RUE: 1+, LLE: 1+, RLE: 1+ Peripheral Pulses WNL: Yes Labs: CBC, BMP 06/23/18 07:00 06/25/18 06:30 Assessment/Plan Ambulatory Orders Budesonide/Formeterol Fumarate [SYMBICORT 160/4.5mcg -] 1 inh PO BID 03/28/15 Albuterol Sulfate Inhaler - [Ventolin HFA Inhaler -] 1 - 2 inh PO PRN PRN Famotidine [Pepcid -] 20 mg PO BID #60 tablet 07/19/16 Amox-Tr/K Cl [Augmentin 875-125mg Tablet -] 875 mg PO BID 06/18/18 Doxycycline Hyclate 100 mg PO BID 06/18/18 Gabapentin 100 mg PO BID 06/18/18 Prednisone 30 mg PO DAILY 06/18/18 Furosemide [Lasix] 20 mg PO ONCE 06/19/18 Current Medications Acetaminophen (Tylenol -) 650 mg PO Q6H PRN PRN Reason: FEVER Last Admin: 06/19/18 05:32 Dose: 650 mg Budesonide/Formoterol Fumarate (Symbicort 160/4.5mcg -) 1 puff IH BID [facility] Last Admin: 06/25/18 09:49 Dose: 1 puff Calcium Carbonate/Cholecalciferol (Os-Solomon 500+D -) 1 tab PO DAILY ROSHAN Last Admin: 06/25/18 09:48 Dose: 1 tab Gabapentin (Neurontin -) 300 mg PO HS ROSHAN Last Admin: 06/24/18 21:55 Dose: 300 mg Heparin Sodium (Porcine) (Heparin -) 5,000 unit SQ BID ROSHAN Last Admin: 06/25/18 09:49 Dose: Not Given Piperacillin Sod/Tazobactam (Sod 3.375 gm/ Dextrose) 50 mls @ 100 mls/hr IVPB Q8H-IV ROSHAN; Protocol Last Admin: 06/25/18 18:04 Dose: 100 mls/hr Lactated Ringer's (Lactated Ringers Solution) 1,000 mls @ 75 mls/hr IV ASDIR ROSHAN Last Admin: 06/25/18 17:40 Dose: Not Given Propofol (Diprivan -) 1,000,000 mcg in 100 mls @ 22.317 mls/hr IVPB TITR ROSHAN; Protocol Last Admin: 06/25/18 17:30 Dose: Not Given Insulin Aspart (Novolog Vial Sliding Scale -) 1 vial SQ ACHS [facility]; Protocol Last Admin: 06/25/18 17:40 Dose: Not Given Ondansetron HCl (Zofran Injection) 4 mg IVPUSH Q6H PRN PRN Reason: NAUSEA AND/OR VOMITING Stop: 06/26/18 10:56 Prednisone (Deltasone -) 60 mg PO DAILY [facility] Last Admin: 06/25/18 09:48 Dose: 60 mg Ranitidine HCl (Zantac -) 150 mg PO BID [facility] Last Admin: 06/25/18 09:48 Dose: 150 mg Valacyclovir HCl (Valtrex -) 500 mg PO BID [facility] Last Admin: 06/25/18 09:50 Dose: 500 mg Assessment/Plan: Pt is a 63 yo F with PMHx of Renal Ca s/p nephrectomy, MADAN, COPD, RhA, bronchiectasis, PNA, with likely vasculitis s/p bonchoscopy with LVAT/L upper lobe wedge resection for tissue diagnosis now with L chest tube and intubated. #Neuro: Intubated/Sedated Vent:10/500/70>>50/7/5 abg pending Peripheral neuropathy Gabapentin on hold-postop #Respiratory: POD 0 s/p Acute hypoxic respiratory failure s/p bonchoscopy with LVAT/L upper lobe wedge resection with L chest tube Hx of bronchiectasis and pulmonary nodules Tissue biopsy for vasculitis diagnosis Intubated sedated-Vent Cont propofol #ID Per ID- continue zosyn for possible lung abscess -plan iv antibiotics for several weeks with f/u imaging CXR f/u sputum afb culture aspergillus galactomannan pending and fungitell-negative sputum for fungal culture-pending #Cardio Hx of anemia Follow CBC #Renal 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 Tissue biopsy pathol pending s'p nephrectomy for Renal Ca MADAN Fluids on hold Pt in pulm edema with chest tube PO prednisone- received dose in am, will cont PO tomorrow if extubated otherwise OGT will be placed for meds Was on home lasix- on hold postop #Rheum Hx of Rh Athritis Following Rheum Likely vasculitis- tissue pathol pending #FEN No standing fluids Monitor lytes replete as needed NPO #PPX SCDs To start chemical PPX following Sx recs #Dispo ICU level care Visit type - Emergency Visit Emergency Visit: Yes ED Registration Date: 06/18/18 Care time: The patient presented to the Emergency Department on the above date and was hospitalized for further evaluation of their emergent condition. - New Patient This patient is new to me today: Yes Date on this admission: 06/25/18 - Critical Care Critical Care patient: Yes Total Critical Care Time (in minutes): 40 Critical Care Statement: The care of this patient involved high complexity decision making to prevent further life threatening deterioration of the patient 's condition and/or to evaluate & treat vital organ system(s) failure or risk of failure.
[2018-06-25] MEDS: PROPOFOL 1,000,000 MCG/100 ML VIAL IVPB SCH ×2 (17:30→19:07)
[2018-06-25 19:25] LABS: ARTERIAL BLD GAS O2 SATURATION 97.8 % (95-98); ARTERIAL BLOOD GAS BASE EXCESS 0.2 meq/l (-2-2); ARTERIAL BLOOD GAS PCO2 45.5 mmHg (35-45); ARTERIAL BLOOD GAS PO2 106 mmHg (80-105); ARTERIAL BLOOD GAS pH 7.36 (7.35-7.45)
[2018-06-25 19:39] LABS: ALLENS TEST POSITIVE
[2018-06-25 20:16] LABS: ASPERGIL AG 0.04 Index (0.00-0.49)
[2018-06-25] MEDS: GABAPENTIN 300 MG CAPSULE (FP) PO SCH (21:37)
--- NOTE | 2018-06-25 22:57 | PN ---
Progress Note, Physician History of Present Illness: Pt underwent biopsy today Pt remains intubated - Current Medication List Current Medications: Active Medications Acetaminophen (Tylenol -) 650 mg PO Q6H PRN PRN Reason: FEVER Last Admin: 06/19/18 05:32 Dose: 650 mg Budesonide/Formoterol Fumarate (Symbicort 160/4.5mcg -) 1 puff IH BID [facility] Last Admin: 06/25/18 21:36 Dose: Not Given Calcium Carbonate/Cholecalciferol (Os-Solomon 500+D -) 1 tab PO DAILY [facility] Last Admin: 06/25/18 09:48 Dose: 1 tab Gabapentin (Neurontin -) 300 mg PO HS [facility] Last Admin: 06/25/18 21:37 Dose: Not Given Heparin Sodium (Porcine) (Heparin -) 5,000 unit SQ BID [facility] Last Admin: 06/25/18 09:49 Dose: Not Given Piperacillin Sod/Tazobactam (Sod 3.375 gm/ Dextrose) 50 mls @ 100 mls/hr IVPB Q8H-IV [facility]; Protocol Last Admin: 06/25/18 18:04 Dose: 100 mls/hr Lactated Ringer's (Lactated Ringers Solution) 1,000 mls @ 75 mls/hr IV ASDIR [facility] Last Admin: 06/25/18 17:40 Dose: Not Given Propofol (Diprivan -) 1,000,000 mcg in 100 mls @ 22.317 mls/hr IVPB TITR ROSHAN; Protocol Last Admin: 06/25/18 19:07 Dose: 50 mcg/kg/min, 22.317 mls/hr Insulin Aspart (Novolog Vial Sliding Scale -) 1 vial SQ ACHS [facility]; Protocol Last Admin: 06/25/18 21:45 Dose: 4 units Ondansetron HCl (Zofran Injection) 4 mg IVPUSH Q6H PRN PRN Reason: NAUSEA AND/OR VOMITING Stop: 06/26/18 10:56 Prednisone (Deltasone -) 60 mg PO DAILY [facility] Last Admin: 06/25/18 09:48 Dose: 60 mg Ranitidine HCl (Zantac -) 150 mg PO BID [facility] Last Admin: 06/25/18 21:37 Dose: Not Given Valacyclovir HCl (Valtrex -) 500 mg PO BID [facility] Last Admin: 06/25/18 21:37 Dose: Not Given - Objective Vital Signs: Vital Signs Temperature 97.9 F 06/25/18 19:00 Pulse Rate 66 06/25/18 20:00 Respiratory Rate 11 06/25/18 20:56 Blood Pressure 91/70 06/25/18 20:00 O2 Sat by Pulse Oximetry (%) 97 06/25/18 20:23 Cardiovascular: Yes: WNL, Regular Rate and Rhythm Respiratory: Yes: Diminished, Other ((+) lt chest tube) Gastrointestinal: Yes: WNL, Normal Bowel Sounds, Soft Edema: LLE: Trace, RLE: Trace Labs: CBC, BMP 06/23/18 07:00 06/25/18 06:30 Problem List - Problems (1) Acute respiratory failure Assessment/Plan: S/P LVAT/Wedge resection w/ chest tube insertion Lung bx for vasculitis Code(s): J96.00 - ACUTE RESPIRATORY FAILURE, UNSP W HYPOXIA OR HYPERCAPNIA (2) Lung abscess Assessment/Plan: S/P LVAT/Wedge resection for biopsy Chest tube'Cavitary lesion ODALYS Mediastinal adenopathy Cont IV zosyn Cont duoineb/symbicort Code(s): J85.2 - ABSCESS OF LUNG WITHOUT PNEUMONIA Qualifiers: Pulmonary abscess pneumonia presence: with pneumonia Laterality: left Lung location: upper lobe of lung Qualified Code(s): J85.1 - Abscess of lung with pneumonia (3) Vasculitis Assessment/Plan: ANCA (+) vasculitis Cont IV steroids W/U in progress ?Joshua's vasculitis/glomerulonephritis? Code(s): I77.6 - ARTERITIS, UNSPECIFIED (4) COPD (chronic obstructive pulmonary disease) Assessment/Plan: Cont inhalers Code(s): J44.9 - CHRONIC OBSTRUCTIVE PULMONARY DISEASE, UNSPECIFIED (5) CKD (chronic kidney disease) Assessment/Plan: As per renal Pt has h/o renal ca/nephrectomy Code(s): N18.9 - CHRONIC KIDNEY DISEASE, UNSPECIFIED (6) Neuropathy Assessment/Plan: ?Due to vasculitis Cont gabapentin Code(s): G62.9 - POLYNEUROPATHY, UNSPECIFIED (7) H/O renal cell cancer Assessment/Plan: H/O nephrectomy Code(s): Z85.528 - PERSONAL HISTORY OF OTHER MALIGNANT NEOPLASM OF KIDNEY
[2018-06-26] MEDS: PIPERACILLIN/TAZOB 3.375 GM 3.375 GM in DEXTROSE 5%-WATER - 50 ML IVPB SCH ×3 (02:34→17:10)
[2018-06-26] MEDS ORDERED: DEXTROSE 5%-WATER - 50 ML IVPB ONE ×4 (03:30→21:24)
[2018-06-26] MEDS ORDERED: PIPERACILLIN/TAZOBACTAM 3.375 GM VIAL IVPB ONE ×4 (03:30→21:24)
[2018-06-26] MEDS: INSULIN SLIDING SCALE (NOVOLOG) 1 VIAL SQ SCH ×4 (06:43→22:56)
[2018-06-26 06:47] LABS: BASO % 0.1 % (0-2.0); EOS % 0.6 % (0-4.5); HEMATOCRIT 29.7 % (32.4-45.2); HEMOGLOBIN 9.5 GM/dL (10.7-15.3); LYMPH % 9.1 % (8-40); MCH 24.7 pg (25.7-33.7); MCHC 31.9 g/dl (32.0-36.0); MEAN CELL VOLUME 77.5 fl (80-96); MEAN PLT VOLUME 7.4 fl (7.5-11.1); MONO % 2.5 % (3.8-10.2); NEUT % 87.7 % (42.8-82.8); PLATELET COUNT 207 K/MM3 (134-434); RBC 3.83 M/mm3 (3.60-5.2); RDW 23.9 % (11.6-15.6); WHITE BLOOD COUNT 12.3 K/mm3 (4.0-10.0)
[2018-06-26 07:06] LABS: ALBUMIN 1.8 g/dl (3.4-5.0); ALK PHOS 46 U/L (45-117); ANION GAP 7 MMOL/L (8-16); BILIRUBIN,TOTAL 0.6 mg/dL (0.2-1); BLOOD UREA NITROGEN 53 mg/dL (7-18); CALCIUM 7.7 mg/dL (8.5-10.1); CHLORIDE 103 mmol/L (98-107); CO2 27 mmol/L (21-32); CREATININE 1.7 mg/dL (0.55-1.3); GLUCOSE,RANDOM 144 mg/dL (74-106); MAGNESIUM 2.4 mg/dL (1.8-2.4); PHOSPHOROUS 6.2 mg/dL (2.5-4.9); POTASSIUM 4.9 mmol/L (3.5-5.1); SGOT/AST 18 U/L (15-37); SGPT/ALT 25 U/L (13-61); SODIUM 137 mmol/L (136-145); TOT PROT 4.6 g/dl (6.4-8.2)
--- NOTE | 2018-06-26 07:52 | PN ---
Progress Note (short form) - Note Progress Note: POD #1 s/p Bronchoscopy, Left VATS with upper lobe wedge. Intubated. Eyes open and follows commands. Last Vital Signs Temp Pulse Resp BP Pulse Ox 99.5 F 76 24 H 141/92 99 06/26/18 10:00 06/26/18 10:00 06/26/18 10:20 06/26/18 10:00 06/26/18 08:30 CBC, BMP 06/26/18 05:30 06/26/18 05:30 CXR : Cxt in place (to waterseal). Questionable small apical pntx. Gen: nad Left Cx: Tube in place. To waterseal. no air leak noted. : griffin to gravity LE: SCDs bilat Problem List - Problems (1) Lung abscess Assessment/Plan: POD #1 s/p Bronchoscopy, Left VATS with upper lobe wedge. Wean to extubate per ICU If able to remove ET, Thoracic Surgery to remove CxT today and get post-pull CXR. Incentive Spirometer Q1H s/p extubation Tylenol 650 mg for fever > 100.3F f/u Intra-op cultures ID following Cont ICU management Above discussed with Dr. Blanc and agrees. Code(s): J85.2 - ABSCESS OF LUNG WITHOUT PNEUMONIA Qualifiers: Pulmonary abscess pneumonia presence: with pneumonia Laterality: left Lung location: upper lobe of lung Qualified Code(s): J85.1 - Abscess of lung with pneumonia (2) COPD (chronic obstructive pulmonary disease) Code(s): J44.9 - CHRONIC OBSTRUCTIVE PULMONARY DISEASE, UNSPECIFIED (3) CKD (chronic kidney disease) Code(s): N18.9 - CHRONIC KIDNEY DISEASE, UNSPECIFIED
--- NOTE | 2018-06-26 08:04 | PN ---
Physical Exam: SUBJECTIVE: Patient seen and examined at bedside, pt was slightly sedated, but reported no complaints. OBJECTIVE: Vital Signs Period Temp Pulse Resp BP Sys/Busby Pulse Ox Last 24 Hr 97.4 F-98 F 65-92 10-18 91-185/70-107 96-100 GENERAL: The patient is awake, alert, slightly sedated. HEAD: Normal with no signs of trauma. EYES: PERRL, extraocular movements intact, sclera anicteric, conjunctiva clear. No ptosis. ENT: Ears normal, nares patent, oropharynx clear without exudates, moist mucous membranes. NECK: Trachea midline, full range of motion, supple. LUNGS: intubated. Breath sounds equal, bibasilar crackles. no accessory muscle use. no labored breathing. HEART: Regular rate and rhythm, S1, S2 without murmur, rub or gallop. ABDOMEN: Soft, nontender, nondistended, normoactive bowel sounds, no guarding, no rebound, no hepatosplenomegaly, no masses. EXTREMITIES: 2+ pulses, warm, well-perfused, no edema. NEUROLOGICAL: Cranial nerves II through XII grossly intact. moving all fours. PSYCH: Normal mood, normal affect. following commands. SKIN: Warm, dry, normal turgor, no rashes or lesions noted Laboratory Results - last 24 hr 06/23/18 06/23/18 06/25/18 07:00 07:00 06:30 WBC RBC Hgb Hct MCV MCH MCHC RDW Plt Count MPV Absolute Neuts (auto) Neutrophils % Lymphocytes % Monocytes % Eosinophils % Basophils % Nucleated RBC % Puncture Site ABG pH ABG pCO2 at Pt Temp ABG pO2 at Pt Temp ABG HCO3 ABG O2 Sat (Measured) ABG O2 Content ABG Base Excess Thom Test Oxygen Flow Rate Vent Mode Vent Rate PEEP Pressure Support Vent Sodium 143 Potassium 4.6 Chloride 109 H Carbon Dioxide 29 Anion Gap 6 L BUN 55 H Creatinine 1.6 H Creat Clearance w eGFR 32.55 POC Glucometer Random Glucose 123 H Calcium 8.2 L Phosphorus Magnesium Total Bilirubin 0.3 AST 9 L ALT 21 Alkaline Phosphatase 44 L Total Protein 4.8 L Albumin 2.0 L Aspergillus Antibody 0.04 Beta-(1,3)-D-Glucan < 31 06/25/18 06/25/18 06/26/18 14:58 19:15 05:30 WBC RBC Hgb Hct MCV MCH MCHC RDW Plt Count MPV Absolute Neuts (auto) Neutrophils % Lymphocytes % Monocytes % Eosinophils % Basophils % Nucleated RBC % Puncture Site Right radial ABG pH 7.36 ABG pCO2 at Pt Temp 45.5 H ABG pO2 at Pt Temp 106 H ABG HCO3 25.2 ABG O2 Sat (Measured) 97.8 ABG O2 Content 14.3 L ABG Base Excess 0.2 Thom Test Positive Oxygen Flow Rate 50% Vent Mode A/c Vent Rate 10 PEEP 5.0 Pressure Support Vent 500 Sodium 137 Potassium 4.9 Chloride 103 Carbon Dioxide 27 Anion Gap 7 L BUN 53 H Creatinine 1.7 H Creat Clearance w eGFR 30.36 POC Glucometer 198 Random Glucose 144 H Calcium 7.7 L Phosphorus 6.2 H Magnesium 2.4 Total Bilirubin 0.6 AST 18 ALT 25 Alkaline Phosphatase 46 Total Protein 4.6 L Albumin 1.8 L Aspergillus Antibody Beta-(1,3)-D-Glucan 06/26/18 06/26/18 05:30 06:24 WBC 12.3 H RBC 3.83 Hgb 9.5 L Hct 29.7 L MCV 77.5 L MCH 24.7 L MCHC 31.9 L RDW 23.9 H Plt Count 207 MPV 7.4 L Absolute Neuts (auto) 10.8 H Neutrophils % 87.7 H Lymphocytes % 9.1 D Monocytes % 2.5 L Eosinophils % 0.6 D Basophils % 0.1 Nucleated RBC % 0 Puncture Site ABG pH ABG pCO2 at Pt Temp ABG pO2 at Pt Temp ABG HCO3 ABG O2 Sat (Measured) ABG O2 Content ABG Base Excess Thom Test Oxygen Flow Rate Vent Mode Vent Rate PEEP Pressure Support Vent Sodium Potassium Chloride Carbon Dioxide Anion Gap BUN Creatinine Creat Clearance w eGFR POC Glucometer 109 Random Glucose Calcium Phosphorus Magnesium Total Bilirubin AST ALT Alkaline Phosphatase Total Protein Albumin Aspergillus Antibody Beta-(1,3)-D-Glucan Active Medications Generic Name Dose Route Start Last Admin Trade Name Freq PRN Reason Stop Dose Admin Acetaminophen 650 mg 06/19/18 01:53 06/19/18 05:32 Tylenol - PO 650 mg Q6H PRN Administration FEVER Budesonide/Formoterol Fumarate 1 puff 06/19/18 10:00 06/25/18 21:36 Symbicort 160/4.5mcg - IH Not Given BID ROSHAN Calcium Carbonate/Cholecalciferol 1 tab 06/24/18 10:00 06/25/18 09:48 Os-Solomon 500+D - PO 1 tab DAILY ROSHAN Administration Gabapentin 300 mg 06/21/18 22:00 06/25/18 21:37 Neurontin - PO Not Given HS ROSHAN Heparin Sodium (Porcine) 5,000 unit 06/19/18 10:00 06/25/18 09:49 Heparin - SQ Not Given BID ROSHAN Piperacillin Sod/Tazobactam 50 mls @ 100 mls/hr 06/19/18 11:45 06/26/18 02:34 Sod 3.375 gm/ Dextrose IVPB 100 mls/hr Q8H-IV ROSHAN Administration Protocol Lactated Ringer's 1,000 mls @ 75 mls/hr 06/25/18 11:00 06/25/18 17:40 Lactated Ringers Solution IV Not Given ASDIR ROSHAN Propofol 1,000,000 mcg in 100 mls @ 22.317 mls/hr 06/25/18 15:30 06/26/18 06: 44 Diprivan - IVPB 25 mcg/kg/min TITR ROSHAN 11.158 mls/hr Titration Protocol 50 MCG/KG/MIN Insulin Aspart 1 vial 06/23/18 07:00 06/26/18 06:43 Novolog Vial Sliding Scale - SQ Not Given ACHS COUNT [facility]CLUD[facility] Protocol Ondansetron HCl 4 mg 06/25/18 10:57 Zofran Injection IVPUSH 06/26/18 10:56 Q6H PRN NAUSEA AND/OR VOMITING Prednisone 60 mg 06/22/18 09:30 06/25/18 09:48 Deltasone - PO 60 mg DAILY ROSHAN Administration Ranitidine HCl 150 mg 06/19/18 10:00 06/25/18 21:37 Zantac - PO Not Given BID ROSHAN Valacyclovir HCl 500 mg 06/22/18 15:47 06/25/18 21:37 Valtrex - PO Not Given BID COUNT [facility]CLUDES [facility] ASSESSMENT/PLAN: 63 year old female with PMH renal cancer s/p nephrectomy x7 years ago, ANCA positive vasculitis, COPD, asthma, neuropathy, bronchiectasia sent to ED by Dr. Hopper for left upper lobe cavitary lesion and 5 days of productive yellow cough suspicious for lung abscess/pneumonia. 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 On 06/25/18 pt had left VATS, left upper lobe wedge, left chest tube placement. Intra-op showed pus in ODALYS (bronchoscopy), with small amount of fluid in left chest, adhesion of left upper lobe to chest wall, normal appearing lingula. Bronchial washings, pleural fluid and lingula pathology and culture were sent with barb-op cefazolin given. The pt was extubated post-op, but did not tolerate well and was reintubated and transfered to the ICU. Hospital stay has been complicated by MADAN. NEURO Propofol DC Pt tolerated CPAP well Extubated and placed on high Flow 40/40 #HX of Peripheral neuropathy -Gabapentin on hold-postop RESPIRATORY #POD 1 VATS, upper lobe wedge, left chest tube, bronch -Acute hypoxic respiratory failure -Tylenol 650 mg PO Q6H PRN Pain -Tolerated CPAP well, extubated and transitioned to high flow O2 - 40/40 -Continue to monitor -Out of bed #Hx of bronchiectasis and pulmonary nodules -Tissue biopsy for vasculitis diagnosis #HX of COPD -Symbicort 1 puff IH BID CARDIOVASCULAR -Home Lasix held #Hx of anemia -Daily H/H ID #Lung Cavitary Lesion/Pneumonia -Zosyn for possible lung abscess -plan iv antibiotics for several weeks with f/ u imaging -CXR -f/u sputum afb culture -aspergillus galactomannan pending and fungitell-negative -sputum for fungal culture-pending -ID on board GI -Zofran 4 mg IV push Q6H PRN nausea -Zantac 150mg PO BID RENAL -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 -Tissue biopsy pathol pending -s/p nephrectomy for Renal Ca, renal biopsy contraindicated per nephro #MADAN -Fluids on hold Pt in pulm edema with chest tube -Home Lasix held RHEUMATOLOGY #Hx of RA -Following Rheum -Prednisone 60 mg PO daily ENDO -ISS FEN LR at 75cc/hour Monitor lytes replete as needed NPO DC Mattson 06/26/18 PPX SCDs Heparin SQ held, post-op DISPO ICU level care Visit type - Emergency Visit Emergency Visit: Yes ED Registration Date: 06/18/18 Care time: The patient presented to the Emergency Department on the above date and was hospitalized for further evaluation of their emergent condition. - New Patient This patient is new to me today: Yes Date on this admission: 06/26/18 - Critical Care Critical Care patient: Yes Total Critical Care Time (in minutes): 35 Critical Care Statement: The care of this patient involved high complexity decision making to prevent further life threatening deterioration of the patient 's condition and/or to evaluate & treat vital organ system(s) failure or risk of failure. - Discharge Referral Referred to [facility] No
--- NOTE | 2018-06-26 09:24 | PN ---
Progress Note (short form) - Note Progress Note: now in ICU remains intubated alert no pain Vital Signs Period Temp Pulse Resp BP Sys/Busby Pulse Ox Last 24 Hr 97.4 F-98 F 65-92 10-18 91-185/70-107 96-100 cor-rrr llungs decreased bs at bases +chest tube with blood tinged fluid abd soft,nt ext no edema sacrum- drying small sacral ulcer CBC, BMP 06/26/18 05:30 06/26/18 05:30 Microbiology 06/25/18 13:15 Lung - Left Upper Lobe AFB Smear Concentration - Preliminary 06/25/18 13:15 Lung - Left Upper Lobe Mycobacterial Culture - Preliminary 06/25/18 12:59 Pleural Fluid AFB Smear Concentration - Preliminary 06/25/18 12:59 Pleural Fluid Mycobacterial Culture - Preliminary 06/25/18 13:15 Bronchial Washings - Bilateral Lung Fluid AFB Smear Concentration - Preliminary 06/25/18 13:15 Bronchial Washings - Bilateral Lung Fluid Mycobacterial Culture - Preliminary 06/25/18 13:15 Pleural Fluid Gram Stain - Final 06/25/18 13:15 Lung - Left Upper Lobe Gram Stain - Final 06/25/18 13:15 Bronchial Washings - Bilateral Lung Fluid Gram Stain - Final 06/22/18 11:00 Sputum - Expectorated AFB Smear Concentration - Final 06/22/18 11:00 Sputum - Expectorated Direct Acid Fast Bacilli Smear - Final 06/22/18 11:00 Sputum - Expectorated Mycobacterial Culture - Preliminary 06/18/18 17:25 Blood - Peripheral Venous Blood Culture - Final NO GROWTH AFTER 5 DAYS INCUBATION 06/18/18 17:25 Blood - Peripheral Venous Blood Culture - Final NO GROWTH AFTER 5 DAYS INCUBATION 06/23/18 12:30 Sputum - Expectorated SHARI Preparation - Preliminary 06/23/18 12:30 Sputum - Expectorated Fungal Culture - Preliminary 06/22/18 15:00 Ulcer Viral Culture - Preliminary 06/21/18 04:00 Sputum - Expectorated AFB Smear Concentration - Final 06/21/18 04:00 Sputum - Expectorated Direct Acid Fast Bacilli Smear - Final 06/21/18 04:00 Sputum - Expectorated Mycobacterial Culture - Preliminary 06/20/18 12:30 Sputum - Expectorated AFB Smear Concentration - Final 06/20/18 12:30 Sputum - Expectorated Direct Acid Fast Bacilli Smear - Final 06/20/18 12:30 Sputum - Expectorated Mycobacterial Culture - Preliminary 06/19/18 17:00 Sputum - Expectorated AFB Smear Concentration - Final 06/19/18 17:00 Sputum - Expectorated Direct Acid Fast Bacilli Smear - Final 06/19/18 17:00 Sputum - Expectorated Mycobacterial Culture - Preliminary 06/19/18 17:00 Sputum - Expectorated Gram Stain - Final 06/19/18 17:00 Sputum - Expectorated Sputum Culture - Final NORMAL RESPIRATORY MAAME 06/19/18 18:30 Urine For Antigen Detection Legionella Antigen - Final 06/19/18 18:30 Urine For Antigen Detection Streptococcus pneumoniae Antigen (M - Final 06/18/18 19:51 Urine - Urine Clean Catch Urine Culture - Final NO GROWTH OBTAINED a/p vasculitis low suspicion TB-sputum afb negative, pcr negative times 2 continue zosyn for possible lung abscess -plan iv antibiotics for several weeks with f/u imaging repeat ct chest essentially unchanged- ?slightly improved f/u sputum afb culture aspergillus galactomannan pending and fungitell-negative sputum for fungal culture-pending small sacral ulcer is dry-f/u viral culture, continue valtrex solitary kidney- s/p nephrectomy f/u cultures /pathology from BAL and lung biopsy Problem List - Problems (1) Lung abscess Code(s): J85.2 - ABSCESS OF LUNG WITHOUT PNEUMONIA Qualifiers: Pulmonary abscess pneumonia presence: with pneumonia Laterality: left Lung location: upper lobe of lung Qualified Code(s): J85.1 - Abscess of lung with pneumonia (2) Vasculitis Code(s): I77.6 - ARTERITIS, UNSPECIFIED
[2018-06-26] MEDS: BUDESONIDE/FORMETEROL FUMARATE 160/4.5 mcg INHALER IH SCH ×2 (10:00→22:53)
[2018-06-26] MEDS ORDERED: PT OWN MED DRAWER 7, Y5N ONE ×2 (10:12→21:23)
[2018-06-26] MEDS: CALCIUM 500MG/VIT-D 200 UNITS COMBO TABLET (FP) PO SCH (10:54)
[2018-06-26] MEDS: predniSONE 20 MG TABLET (UD) PO SCH (10:54)
[2018-06-26] MEDS: HEPARIN NA (PORCINE) 5,000 UNITS/ML 1ML VIAL SQ SCH (10:54)
[2018-06-26] MEDS: RANITIDINE HCL 150 MG TABLET (FP) PO SCH ×2 (10:55→22:53)
[2018-06-26] MEDS: valACYclovir HCL 500 MG TABLET (FP) PO SCH ×2 (10:56→22:53)
--- NOTE | 2018-06-26 11:03 | PN ---
Teaching Attending Note Name of Resident: Cristina Wilks ATTENDING PHYSICIAN STATEMENT I saw and evaluated the patient. I reviewed the resident's note and discussed the case with the resident. I agree with the resident's findings and plan as documented. SUBJECTIVE: Patient seen and examined in the ICU. Remains intubated. AC Mode of vent, 40% FiO2. Awake and able to follow commands. Intake & Output 06/23/18 06/24/18 06/25/18 06/26/18 23:59 23:59 23:59 23:59 Intake Total 693 436 0726.5 190 Output Total 425 950 Balance 668 688 2744.5 -760 Weight 164 lb Last Vital Signs Temp Pulse Resp BP Pulse Ox 99.5 F 76 24 H 142/94 99 06/26/18 09:53 06/26/18 09:53 06/26/18 10:20 06/26/18 08:00 06/26/18 08:30 Active Medications Acetaminophen (Tylenol -) 650 mg PO Q6H PRN PRN Reason: FEVER Last Admin: 06/19/18 05:32 Dose: 650 mg Budesonide/Formoterol Fumarate (Symbicort 160/4.5mcg -) 1 puff IH BID [facility] Last Admin: 06/25/18 21:36 Dose: Not Given Calcium Carbonate/Cholecalciferol (Os-Solomon 500+D -) 1 tab PO DAILY [facility] Last Admin: 06/25/18 09:48 Dose: 1 tab Gabapentin (Neurontin -) 300 mg PO HS [facility] Last Admin: 06/25/18 21:37 Dose: Not Given Heparin Sodium (Porcine) (Heparin -) 5,000 unit SQ BID [facility] Last Admin: 06/25/18 09:49 Dose: Not Given Piperacillin Sod/Tazobactam (Sod 3.375 gm/ Dextrose) 50 mls @ 100 mls/hr IVPB Q8H-IV [facility]; Protocol Last Admin: 06/26/18 02:34 Dose: 100 mls/hr Insulin Aspart (Novolog Vial Sliding Scale -) 1 vial SQ ACHS [facility]; Protocol Last Admin: 06/26/18 06:43 Dose: Not Given Ondansetron HCl (Zofran Injection) 4 mg IVPUSH Q6H PRN PRN Reason: NAUSEA AND/OR VOMITING Stop: 06/26/18 10:56 Prednisone (Deltasone -) 60 mg PO DAILY [facility] Last Admin: 06/25/18 09:48 Dose: 60 mg Ranitidine HCl (Zantac -) 150 mg PO BID [facility] Last Admin: 06/25/18 21:37 Dose: Not Given Valacyclovir HCl (Valtrex -) 500 mg PO BID [facility] Last Admin: 06/25/18 21:37 Dose: Not Given GENERAL: Intubated, awake and alert HEAD: Normal with no signs of trauma. EYES: PERRL, extraocular movements intact, sclera anicteric, conjunctiva clear. No ptosis. ENT: Ears normal, nares patent, oropharynx clear without exudates, moist mucous membranes. NECK: Trachea midline, full range of motion, supple. LUNGS: intubated. bilateral rhonchi, (-) wheeze., intact Left CT, no air leak HEART: Regular rate and rhythm, S1, S2 without murmur, rub or gallop. ABDOMEN: Soft, nontender, nondistended, normoactive bowel sounds, no guarding, no rebound, no hepatosplenomegaly, no masses. EXTREMITIES: 2+ pulses, warm, well-perfused, no edema. NEUROLOGICAL: Non-focal. PSYCH: Following commands. SKIN: Warm, dry, normal turgor, no rashes or lesions noted Laboratory Results - last 24 hr 06/23/18 06/23/18 06/25/18 07:00 07:00 06:30 WBC RBC Hgb Hct MCV MCH MCHC RDW Plt Count MPV Absolute Neuts (auto) Neutrophils % Lymphocytes % Monocytes % Eosinophils % Basophils % Nucleated RBC % Puncture Site ABG pH ABG pCO2 at Pt Temp ABG pO2 at Pt Temp ABG HCO3 ABG O2 Sat (Measured) ABG O2 Content ABG Base Excess Thom Test Oxygen Flow Rate Vent Mode Vent Rate PEEP Pressure Support Vent Sodium 143 Potassium 4.6 Chloride 109 H Carbon Dioxide 29 Anion Gap 6 L BUN 55 H Creatinine 1.6 H Creat Clearance w eGFR 32.55 POC Glucometer Random Glucose 123 H Calcium 8.2 L Phosphorus Magnesium Total Bilirubin 0.3 AST 9 L ALT 21 Alkaline Phosphatase 44 L Total Protein 4.8 L Albumin 2.0 L Aspergillus Antibody 0.04 Beta-(1,3)-D-Glucan < 31 06/25/18 06/25/18 06/26/18 14:58 19:15 05:30 WBC RBC Hgb Hct MCV MCH MCHC RDW Plt Count MPV Absolute Neuts (auto) Neutrophils % Lymphocytes % Monocytes % Eosinophils % Basophils % Nucleated RBC % Puncture Site Right radial ABG pH 7.36 ABG pCO2 at Pt Temp 45.5 H ABG pO2 at Pt Temp 106 H ABG HCO3 25.2 ABG O2 Sat (Measured) 97.8 ABG O2 Content 14.3 L ABG Base Excess 0.2 Thom Test Positive Oxygen Flow Rate 50% Vent Mode A/c Vent Rate 10 PEEP 5.0 Pressure Support Vent 500 Sodium 137 Potassium 4.9 Chloride 103 Carbon Dioxide 27 Anion Gap 7 L BUN 53 H Creatinine 1.7 H Creat Clearance w eGFR 30.36 POC Glucometer 198 Random Glucose 144 H Calcium 7.7 L Phosphorus 6.2 H Magnesium 2.4 Total Bilirubin 0.6 AST 18 ALT 25 Alkaline Phosphatase 46 Total Protein 4.6 L Albumin 1.8 L Aspergillus Antibody Beta-(1,3)-D-Glucan 06/26/18 06/26/18 05:30 06:24 WBC 12.3 H RBC 3.83 Hgb 9.5 L Hct 29.7 L MCV 77.5 L MCH 24.7 L MCHC 31.9 L RDW 23.9 H Plt Count 207 MPV 7.4 L Absolute Neuts (auto) 10.8 H Neutrophils % 87.7 H Lymphocytes % 9.1 D Monocytes % 2.5 L Eosinophils % 0.6 D Basophils % 0.1 Nucleated RBC % 0 Puncture Site ABG pH ABG pCO2 at Pt Temp ABG pO2 at Pt Temp ABG HCO3 ABG O2 Sat (Measured) ABG O2 Content ABG Base Excess Thom Test Oxygen Flow Rate Vent Mode Vent Rate PEEP Pressure Support Vent Sodium Potassium Chloride Carbon Dioxide Anion Gap BUN Creatinine Creat Clearance w eGFR POC Glucometer 109 Random Glucose Calcium Phosphorus Magnesium Total Bilirubin AST ALT Alkaline Phosphatase Total Protein Albumin Aspergillus Antibody Beta-(1,3)-D-Glucan ASSESSMENT/PLAN: Acute Respiratory Failure: APE: etiology to be determined (?) Early ARDS Lung Abscess Renal cancer s/p nephrectomy x 7 years ago Asthma Neuropathy Bronchiectasis S/P Left VAT with wedge biopsy in the [facility] Empyema 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
[2018-06-26 11:53] LABS: ANISOCYTOSIS 2+; OVALOCYTE 1+; PLATELET ESTIMATE ADEQUATE; TEAR DROP CELLS 1+
--- NOTE | 2018-06-26 13:56 | PN ---
Progress Note, Physician History of Present Illness: Pt seen and examined at bedside. She is awake and alert. She was extubated. - Current Medication List Current Medications: Active Medications Acetaminophen (Tylenol -) 650 mg PO Q6H PRN PRN Reason: FEVER Last Admin: 06/19/18 05:32 Dose: 650 mg Budesonide/Formoterol Fumarate (Symbicort 160/4.5mcg -) 1 puff IH BID [facility] Last Admin: 06/25/18 21:36 Dose: Not Given Calcium Carbonate/Cholecalciferol (Os-Solomon 500+D -) 1 tab PO DAILY [facility] Last Admin: 06/26/18 10:54 Dose: 1 tab Gabapentin (Neurontin -) 300 mg PO HS [facility] Last Admin: 06/25/18 21:37 Dose: Not Given Heparin Sodium (Porcine) (Heparin -) 5,000 unit SQ BID [facility] Last Admin: 06/26/18 10:54 Dose: 5,000 unit Piperacillin Sod/Tazobactam (Sod 3.375 gm/ Dextrose) 50 mls @ 100 mls/hr IVPB Q8H-IV [facility]; Protocol Last Admin: 06/26/18 10:53 Dose: 100 mls/hr Insulin Aspart (Novolog Vial Sliding Scale -) 1 vial SQ ACHS [facility]; Protocol Last Admin: 06/26/18 11:10 Dose: Not Given Prednisone (Deltasone -) 60 mg PO DAILY [facility] Last Admin: 06/26/18 10:54 Dose: 60 mg Ranitidine HCl (Zantac -) 150 mg PO BID [facility] Last Admin: 06/26/18 10:55 Dose: 150 mg Valacyclovir HCl (Valtrex -) 500 mg PO BID [facility] Last Admin: 06/26/18 10:56 Dose: 500 mg - Objective Vital Signs: Vital Signs Temperature 99.5 F 06/26/18 10:00 Pulse Rate 74 06/26/18 12:00 Respiratory Rate 15 06/26/18 12:00 Blood Pressure 153/100 06/26/18 12:00 O2 Sat by Pulse Oximetry (%) 99 06/26/18 08:30 Constitutional: Yes: Calm Eyes: Yes: Conjunctiva Clear HENT: Yes: Atraumatic Cardiovascular: Yes: S1, S2 Respiratory: Yes: On Nasal O2, Other (chest tube) Gastrointestinal: Yes: Soft Genitourinary: Yes: WNL Extremities: Yes: WNL Edema: Yes Edema: LLE: Trace, RLE: Trace Neurological: Yes: Oriented Psychiatric: Yes: Oriented Labs: CBC, BMP 06/26/18 05:30 06/26/18 05:30 Problem List - Problems (1) MADAN (acute kidney injury) Code(s): N17.9 - ACUTE KIDNEY FAILURE, UNSPECIFIED (2) Glomerulonephritis Code(s): N05.9 - UNSP NEPHRITIC SYNDROME WITH UNSPECIFIED MORPHOLOGIC CHANGES (3) Lung abscess Code(s): J85.2 - ABSCESS OF LUNG WITHOUT PNEUMONIA Qualifiers: Pulmonary abscess pneumonia presence: with pneumonia Laterality: left Lung location: upper lobe of lung Qualified Code(s): J85.1 - Abscess of lung with pneumonia (4) Vasculitis Code(s): I77.6 - ARTERITIS, UNSPECIFIED Assessment/Plan Current Medications Generic Name Dose Route Start Last Admin Trade Name Freq PRN Reason Stop Dose Admin Acetaminophen 650 mg 06/19/18 01:53 06/19/18 05:32 Tylenol - PO 650 mg Q6H PRN Administration FEVER Budesonide/Formoterol Fumarate 1 puff 06/19/18 10:00 06/25/18 21:36 Symbicort 160/4.5mcg - IH Not Given BID [facility] Calcium Carbonate/Cholecalciferol 1 tab 06/24/18 10:00 06/26/18 10:54 Os-Solomon 500+D - PO 1 tab DAILY [facility] Administration Gabapentin 300 mg 06/21/18 22:00 06/25/18 21:37 Neurontin - PO Not Given HS [facility] Heparin Sodium (Porcine) 5,000 unit 06/19/18 10:00 06/26/18 10:54 Heparin - SQ 5,000 unit BID [facility] Administration Piperacillin Sod/Tazobactam 50 mls @ 100 mls/hr 06/19/18 11:45 06/26/18 10:53 Sod 3.375 gm/ Dextrose IVPB 100 mls/hr Q8H-IV [facility] Administration Protocol Insulin Aspart 1 vial 06/23/18 07:00 06/26/18 11:10 Novolog Vial Sliding Scale - SQ Not Given ACHS [facility] Protocol Prednisone 60 mg 06/22/18 09:30 06/26/18 10:54 Deltasone - PO 60 mg DAILY [facility] Administration Ranitidine HCl 150 mg 06/19/18 10:00 06/26/18 10:55 Zantac - PO 150 mg BID [facility] Administration Valacyclovir HCl 500 mg 06/22/18 15:47 06/26/18 10:56 Valtrex - PO 500 mg BID [facility] Administration Impression 1. MADAN 2. r/o vasculitis 3. glomerulonephrotis 4. lung cavitary lesion 5. asthma 6. copd 7. rheumatoid arthritis 8. hx of renal cell cancer s/p nephrectomy Plan - monitor renal function - cont steroids - follow up biopsy - follow cultures - cont abx - cont prednisone Dr Mcneill
--- NOTE | 2018-06-26 14:23 | PN ---
Progress Note, Physician Chief Complaint: s/p left upper lobe wedge resection under general anesthesia post op day one History of Present Illness: intubated post op. - Current Medication List Current Medications: Active Medications Acetaminophen (Tylenol -) 650 mg PO Q6H PRN PRN Reason: FEVER Last Admin: 06/19/18 05:32 Dose: 650 mg Budesonide/Formoterol Fumarate (Symbicort 160/4.5mcg -) 1 puff IH BID [facility] Last Admin: 06/25/18 21:36 Dose: Not Given Calcium Carbonate/Cholecalciferol (Os-Solomon 500+D -) 1 tab PO DAILY [facility] Last Admin: 06/26/18 10:54 Dose: 1 tab Gabapentin (Neurontin -) 300 mg PO HS [facility] Last Admin: 06/25/18 21:37 Dose: Not Given Heparin Sodium (Porcine) (Heparin -) 5,000 unit SQ BID [facility] Last Admin: 06/26/18 10:54 Dose: 5,000 unit Piperacillin Sod/Tazobactam (Sod 3.375 gm/ Dextrose) 50 mls @ 100 mls/hr IVPB Q8H-IV [facility]; Protocol Last Admin: 06/26/18 10:53 Dose: 100 mls/hr Insulin Aspart (Novolog Vial Sliding Scale -) 1 vial SQ ACHS [facility]; Protocol Last Admin: 06/26/18 11:10 Dose: Not Given Prednisone (Deltasone -) 60 mg PO DAILY [facility] Last Admin: 06/26/18 10:54 Dose: 60 mg Ranitidine HCl (Zantac -) 150 mg PO BID [facility] Last Admin: 06/26/18 10:55 Dose: 150 mg Valacyclovir HCl (Valtrex -) 500 mg PO BID [facility] Last Admin: 06/26/18 10:56 Dose: 500 mg - Objective Vital Signs: Vital Signs Temperature 98.7 F 06/26/18 14:00 Pulse Rate 76 06/26/18 14:00 Respiratory Rate 15 06/26/18 14:00 Blood Pressure 163/91 06/26/18 14:00 O2 Sat by Pulse Oximetry (%) 99 06/26/18 08:30 Constitutional: Yes: Well Nourished Cardiovascular: Yes: WNL Respiratory: Yes: On BiPap, On Nasal O2 Gastrointestinal: Yes: WNL Labs: CBC, BMP 06/26/18 05:30 06/26/18 05:30 Assessment/Plan Doing well post op day one pain controlled, will sign off care at this time.
--- NOTE | 2018-06-26 17:14 | PN ---
Progress Note (short form) - Note Progress Note: S/P lunga biopsy yesterday. at the present time the patient feels well, n significant pain, no shortenss of breath and she has some productive cough. Fluid drainage from chest tube. No fever. P/E Lungs few crackles in bases. No active joints. Impression ANCA positive vasculitis (Microscopic polyangiitis?) with cavitary lesion vs pneumonia with cavitation. Cultures and biopsy pending. Continue with Prednisone 60 mg/d and antibiotics. Problem List - Problems (1) ANCA-positive vasculitis Code(s): I77.6 - ARTERITIS, UNSPECIFIED
--- NOTE | 2018-06-26 18:34 | PN ---
Progress Note (short form) - Note Progress Note: ENT consult asked to see pt regardingn black spot on the tongue hx reviewed, pt examined PE NAD ateeth normal, lips normal tongue 4 mm hematoma left lateral dodrsum mid 1/3 no other lesion, oropharynx cleawr, voice clear neck no mass or node Impression: tongue hematoma Recommend observation, expect gradual resolution Thank you for consultation Juliana Leone MD FACS
[2018-06-26] MEDS: GABAPENTIN 300 MG CAPSULE (FP) PO SCH (22:53)
--- NOTE | 2018-06-26 23:06 | PN ---
Progress Note, Physician - Current Medication List Current Medications: Active Medications Acetaminophen (Tylenol -) 650 mg PO Q6H PRN PRN Reason: FEVER Last Admin: 06/19/18 05:32 Dose: 650 mg Budesonide/Formoterol Fumarate (Symbicort 160/4.5mcg -) 1 puff IH BID [facility] Last Admin: 06/26/18 22:53 Dose: 1 puff Calcium Carbonate/Cholecalciferol (Os-Solomon 500+D -) 1 tab PO DAILY [facility] Last Admin: 06/26/18 10:54 Dose: 1 tab Gabapentin (Neurontin -) 300 mg PO HS [facility] Last Admin: 06/26/18 22:53 Dose: 300 mg Piperacillin Sod/Tazobactam (Sod 3.375 gm/ Dextrose) 50 mls @ 100 mls/hr IVPB Q8H-IV [facility]; Protocol Last Admin: 06/26/18 17:10 Dose: 100 mls/hr Insulin Aspart (Novolog Vial Sliding Scale -) 1 vial SQ ACHS [facility]; Protocol Last Admin: 06/26/18 22:56 Dose: 2 units Prednisone (Deltasone -) 60 mg PO DAILY [facility] Last Admin: 06/26/18 10:54 Dose: 60 mg Ranitidine HCl (Zantac -) 150 mg PO BID [facility] Last Admin: 06/26/18 22:53 Dose: 150 mg Valacyclovir HCl (Valtrex -) 500 mg PO BID [facility] Last Admin: 06/26/18 22:53 Dose: 500 mg - Objective Vital Signs: Vital Signs Temperature 98.8 F 06/26/18 20:00 Pulse Rate 72 06/26/18 22:00 Respiratory Rate 16 06/26/18 22:00 Blood Pressure 142/83 06/26/18 22:00 O2 Sat by Pulse Oximetry (%) 99 06/26/18 08:30 Labs: CBC, BMP 06/26/18 05:30 06/26/18 05:30 Problem List - Problems (1) Acute respiratory failure Code(s): J96.00 - ACUTE RESPIRATORY FAILURE, UNSP W HYPOXIA OR HYPERCAPNIA (2) Lung abscess Code(s): J85.2 - ABSCESS OF LUNG WITHOUT PNEUMONIA Qualifiers: Pulmonary abscess pneumonia presence: with pneumonia Laterality: left Lung location: upper lobe of lung Qualified Code(s): J85.1 - Abscess of lung with pneumonia (3) Vasculitis Code(s): I77.6 - ARTERITIS, UNSPECIFIED (4) COPD (chronic obstructive pulmonary disease) Code(s): J44.9 - CHRONIC OBSTRUCTIVE PULMONARY DISEASE, UNSPECIFIED (5) CKD (chronic kidney disease) Code(s): N18.9 - CHRONIC KIDNEY DISEASE, UNSPECIFIED (6) Neuropathy Code(s): G62.9 - POLYNEUROPATHY, UNSPECIFIED (7) H/O renal cell cancer Code(s): Z85.528 - PERSONAL HISTORY OF OTHER MALIGNANT NEOPLASM OF KIDNEY
[2018-06-27] MEDS: PIPERACILLIN/TAZOB 3.375 GM 3.375 GM in DEXTROSE 5%-WATER - 50 ML IVPB SCH ×3 (02:09→17:06)
[2018-06-27] MEDS: INSULIN SLIDING SCALE (NOVOLOG) 1 VIAL SQ SCH ×4 (06:25→22:34)
[2018-06-27 06:47] LABS: BASO % 0.3 % (0-2.0); EOS % 1.1 % (0-4.5); HEMATOCRIT 24.9 % (32.4-45.2); LYMPH % 14.2 % (8-40); MCH 24.8 pg (25.7-33.7); MCHC 32.3 g/dl (32.0-36.0); MEAN CELL VOLUME 76.9 fl (80-96); MEAN PLT VOLUME 7.1 fl (7.5-11.1); MONO % 4.2 % (3.8-10.2); NEUT % 80.2 % (42.8-82.8); PLATELET COUNT 179 K/MM3 (134-434); RBC 3.24 M/mm3 (3.60-5.2); RDW 24.1 % (11.6-15.6); WHITE BLOOD COUNT 7.5 K/mm3 (4.0-10.0)
[2018-06-27 07:17] LABS: ALK PHOS 45 U/L (45-117); ANION GAP 5 MMOL/L (8-16); BILIRUBIN,TOTAL 0.4 mg/dL (0.2-1); BLOOD UREA NITROGEN 52 mg/dL (7-18); CALCIUM 7.9 mg/dL (8.5-10.1); CHLORIDE 106 mmol/L (98-107); CO2 31 mmol/L (21-32); CREATININE 1.9 mg/dL (0.55-1.3); GLUCOSE,RANDOM 85 mg/dL (74-106); MAGNESIUM 2.3 mg/dL (1.8-2.4); PHOSPHOROUS 5.4 mg/dL (2.5-4.9); POTASSIUM 4.7 mmol/L (3.5-5.1); SGOT/AST 12 U/L (15-37); SGPT/ALT 16 U/L (13-61); SODIUM 142 mmol/L (136-145); TOT PROT 4.6 g/dl (6.4-8.2)
--- NOTE | 2018-06-27 07:27 | PN ---
Progress Note (short form) - Note Progress Note: RENAL Pt is awake and alert comfortable has a chest tube says she developed hearing impairment suddenly last year Last Vital Signs Temp Pulse Resp BP Pulse Ox 98.3 F 68 12 149/81 98 06/27/18 06:00 06/27/18 06:00 06/27/18 06:00 06/27/18 06:00 06/27/18 03:33 lungs clear ant cvs s1s2 rr abd soft ext no edema neuro a+ox3 CBC, BMP 06/27/18 05:30 06/27/18 05:30 Current Medications Generic Name Dose Route Start Last Admin Trade Name Freq PRN Reason Stop Dose Admin Acetaminophen 650 mg 06/19/18 01:53 06/19/18 05:32 Tylenol - PO 650 mg Q6H PRN Administration FEVER Budesonide/Formoterol Fumarate 1 puff 06/19/18 10:00 06/26/18 22:53 Symbicort 160/4.5mcg - IH 1 puff BID [facility] Administration Calcium Carbonate/Cholecalciferol 1 tab 06/24/18 10:00 06/26/18 10:54 Os-Solomon 500+D - PO 1 tab DAILY [facility] Administration Gabapentin 300 mg 06/21/18 22:00 06/26/18 22:53 Neurontin - PO 300 mg HS [facility] Administration Piperacillin Sod/Tazobactam 50 mls @ 100 mls/hr 06/19/18 11:45 06/27/18 02:09 Sod 3.375 gm/ Dextrose IVPB 100 mls/hr Q8H-IV [facility] Administration Protocol Insulin Aspart 1 vial 06/23/18 07:00 06/27/18 06:25 Novolog Vial Sliding Scale - SQ Not Given ACHS [facility] Protocol Prednisone 60 mg 06/22/18 09:30 06/26/18 10:54 Deltasone - PO 60 mg DAILY [facility] Administration Ranitidine HCl 150 mg 06/19/18 10:00 06/26/18 22:53 Zantac - PO 150 mg BID [facility] Administration Valacyclovir HCl 500 mg 06/22/18 15:47 06/26/18 22:53 Valtrex - PO 500 mg BID [facility] Administration Impression 1. MADAN 2. 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 lung cavitary lesion 5. asthma 6. copd 7. rheumatoid arthritis 8. hx of renal cell cancer s/p nephrectomy Plan - monitor renal function-stable for now - cont steroids - follow up biopsy- renal biopsy not done due to nephrectomy - follow cultures - cont abx - cont prednisone MV
--- NOTE | 2018-06-27 08:15 | PN ---
Physical Exam: SUBJECTIVE: Patient seen and examined at bedside. She reported no shortness of breath, chest pain or any other complaints. OBJECTIVE: Vital Signs Period Temp Pulse Resp BP Sys/Busby Pulse Ox Last 24 Hr 98.2 F-99.5 F 65-77 12- 126-163/57-100 98-99 GENERAL: The patient is awake, alert, and fully oriented, in no acute distress. HEAD: Normal with no signs of trauma. EYES: PERRL, extraocular movements intact, sclera anicteric, conjunctiva clear. No ptosis. ENT: Ears normal, nares patent, oropharynx clear without exudates, moist mucous membranes. NECK: Trachea midline, full range of motion, supple. LUNGS: Breath sounds equal, left sided crackles/rhonchi/decreased breath sounds. speaking full sentences. no labored breathing. tachypneic. HEART: Regular rate and rhythm, S1, S2 without murmur, rub or gallop. ABDOMEN: Soft, nontender, nondistended, normoactive bowel sounds, no guarding, no rebound, no hepatosplenomegaly, no masses. EXTREMITIES: 2+ pulses, warm, well-perfused, no edema. NEUROLOGICAL: Cranial nerves II through XII grossly intact. Normal speech, gait not observed. PSYCH: Normal mood, normal affect. SKIN: Warm, dry, normal turgor, no rashes or lesions noted Laboratory Results - last 24 hr 06/26/18 06/26/18 06/26/18 05:30 11:16 16:59 WBC RBC Hgb Hct MCV MCH MCHC RDW Plt Count MPV Absolute Neuts (auto) Total Counted 100 Neutrophils % Neutrophils % (Manual) 85.0 H Band Neutrophils % 3.0 Lymphocytes % Lymphocytes % (Manual) 9.0 D Monocytes % Monocytes % (Manual) 2 L Eosinophils % Eosinophils % (Manual) 1.0 D Basophils % Nucleated RBC % Hypochromia 1+ Platelet Estimate Adequate Polychromasia 1+ Anisocytosis 2+ Microcytosis 2+ Tear Drop Cells 1+ Ovalocytes 1+ Sodium Potassium Chloride Carbon Dioxide Anion Gap BUN Creatinine Creat Clearance w eGFR POC Glucometer 112 154 Random Glucose Calcium Phosphorus Magnesium Total Bilirubin AST ALT Alkaline Phosphatase Total Protein Albumin 06/26/18 06/27/18 06/27/18 22:54 05:30 05:30 WBC 7.5 RBC 3.24 L Hgb 8.0 L Hct 24.9 L D MCV 76.9 L MCH 24.8 L MCHC 32.3 RDW 24.1 H Plt Count 179 MPV 7.1 L Absolute Neuts (auto) 6.0 Total Counted Neutrophils % 80.2 Neutrophils % (Manual) Band Neutrophils % Lymphocytes % 14.2 D Lymphocytes % (Manual) Monocytes % 4.2 Monocytes % (Manual) Eosinophils % 1.1 D Eosinophils % (Manual) Basophils % 0.3 Nucleated RBC % 0 Hypochromia Platelet Estimate Polychromasia Anisocytosis Microcytosis Tear Drop Cells Ovalocytes Sodium 142 Potassium 4.7 Chloride 106 Carbon Dioxide 31 Anion Gap 5 L BUN 52 H Creatinine 1.9 H Creat Clearance w eGFR 26.70 POC Glucometer 159 Random Glucose 85 Calcium 7.9 L Phosphorus 5.4 H Magnesium 2.3 Total Bilirubin 0.4 AST 12 L ALT 16 Alkaline Phosphatase 45 Total Protein 4.6 L Albumin 2.0 L 06/27/18 06:23 WBC RBC Hgb Hct MCV MCH MCHC RDW Plt Count MPV Absolute Neuts (auto) Total Counted Neutrophils % Neutrophils % (Manual) Band Neutrophils % Lymphocytes % Lymphocytes % (Manual) Monocytes % Monocytes % (Manual) Eosinophils % Eosinophils % (Manual) Basophils % Nucleated RBC % Hypochromia Platelet Estimate Polychromasia Anisocytosis Microcytosis Tear Drop Cells Ovalocytes Sodium Potassium Chloride Carbon Dioxide Anion Gap BUN Creatinine Creat Clearance w eGFR POC Glucometer 83 Random Glucose Calcium Phosphorus Magnesium Total Bilirubin AST ALT Alkaline Phosphatase Total Protein Albumin Active Medications Generic Name Dose Route Start Last Admin Trade Name Freq PRN Reason Stop Dose Admin Acetaminophen 650 mg 06/19/18 01:53 06/19/18 05:32 Tylenol - PO 650 mg Q6H PRN Administration FEVER Budesonide/Formoterol Fumarate 1 puff 06/19/18 10:00 06/26/18 22:53 Symbicort 160/4.5mcg - IH 1 puff BID [facility] Administration Calcium Carbonate/Cholecalciferol 1 tab 06/24/18 10:00 06/26/18 10:54 Os-Solomon 500+D - PO 1 tab DAILY [facility] Administration Gabapentin 300 mg 06/21/18 22:00 06/26/18 22:53 Neurontin - PO 300 mg HS [facility] Administration Piperacillin Sod/Tazobactam 50 mls @ 100 mls/hr 06/19/18 11:45 06/27/18 02:09 Sod 3.375 gm/ Dextrose IVPB 100 mls/hr Q8H-IV [facility] Administration Protocol Insulin Aspart 1 vial 06/23/18 07:00 06/27/18 06:25 Novolog Vial Sliding Scale - SQ Not Given ACHS [facility] Protocol Prednisone 60 mg 06/22/18 09:30 06/26/18 10:54 Deltasone - PO 60 mg DAILY [facility] Administration Ranitidine HCl 150 mg 06/19/18 10:00 06/26/18 22:53 Zantac - PO 150 mg BID [facility] Administration Valacyclovir HCl 500 mg 06/22/18 15:47 06/26/18 22:53 Valtrex - PO 500 mg BID [facility] Administration ASSESSMENT/PLAN: 63 year old female with PMH renal cancer s/p nephrectomy x7 years ago, ANCA positive vasculitis, COPD, asthma, neuropathy, bronchiectasia sent to ED by Dr. Hopper for left upper lobe cavitary lesion and 5 days of productive yellow cough suspicious for lung abscess/pneumonia. 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 On 06/25/18 pt had left VATS, left upper lobe wedge, left chest tube placement. Intra-op showed pus in ODALYS (bronchoscopy), with small amount of fluid in left chest, adhesion of left upper lobe to chest wall, normal appearing lingula. Bronchial washings, pleural fluid and lingula pathology and culture were sent with barb-op cefazolin given. The pt was extubated post-op, but did not tolerate well and was reintubated and transfered to the ICU. Hospital stay has been complicated by MADAN. NEURO #HX of Peripheral neuropathy -Gabapentin on hold-postop RESPIRATORY #POD 2 VATS, upper lobe wedge, left chest tube, bronch -Acute hypoxic respiratory failure -Tylenol 650 mg PO Q6H PRN Pain -High Flow O2 - 40/40 --Wean to Venti Mask -Continue to monitor -Out of bed -PT -Chest tube management per surgery #Hx of bronchiectasis and pulmonary nodules -Tissue biopsy for vasculitis diagnosis #HX of COPD -Symbicort 1 puff IH BID [facility] -Home Lasix held #Hx of anemia -Daily H/H -Hgb 9.5>>8.0 -Continue to trend -Blood collecting in left chest tube drain ID #Lung Cavitary Lesion/Pneumonia -Zosyn for possible lung abscess -plan iv antibiotics for several weeks with f/ u imaging -f/u sputum afb culture -aspergillus galactomannan pending and fungitell-negative -sputum for fungal culture-pending -ID on board GI -Zofran 4 mg IV push Q6H PRN nausea -Zantac 150mg PO BID RENAL -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 -Tissue biopsy pathol pending -s/p nephrectomy for Renal Ca, renal biopsy contraindicated per nephro #MADAN -Fluids on hold Pt in pulm edema with chest tube -Home Lasix held RHEUMATOLOGY #Hx of RA -Following Rheum -Prednisone 60 mg PO daily ENDO -ISS FEN No IVF Monitor lytes replete as needed Clear liquid diet DC Mattson 06/26/18 PPX SCDs Heparin SQ held, post-op DISPO ICU level care Visit type - Emergency Visit Emergency Visit: Yes ED Registration Date: 06/18/18 Care time: The patient presented to the Emergency Department on the above date and was hospitalized for further evaluation of their emergent condition. - New Patient This patient is new to me today: No - Critical Care Critical Care patient: Yes Total Critical Care Time (in minutes): 35 Critical Care Statement: The care of this patient involved high complexity decision making to prevent further life threatening deterioration of the patient 's condition and/or to evaluate & treat vital organ system(s) failure or risk of failure. - Discharge Referral Referred to [facility] Med [facility] No
--- NOTE | 2018-06-27 08:56 | PN ---
Progress Note (short form) - Note Progress Note: no complaints extubated Vital Signs Period Temp Pulse Resp BP Sys/Busby Pulse Ox Last 24 Hr 98.2 F-99.5 F 65-77 12-24 126-168/57-100 98 cor-rrr llungs decreased bs t bases abd soft,nt ext no edema no thrush +chest tube cxray improved congestion, flores cavity unchanged +chest tube CBC, BMP 06/27/18 05:30 06/27/18 05:30 Laboratory Tests 06/23/18 06/23/18 07:00 07:00 Aspergillus Antibody 0.04 Beta-(1,3)-D-Glucan < 31 Microbiology 06/25/18 13:15 Bronchial Washings - Left Lower Lobe Legionella pneumophila ( Direct FA) - Preliminary 06/25/18 13:15 Lung - Left Upper Lobe SHARI Preparation - Preliminary 06/25/18 13:15 Lung - Left Upper Lobe Fungal Culture - Preliminary 06/25/18 13:15 Pleural Fluid SHARI Preparation - Preliminary 06/25/18 13:15 Pleural Fluid Fungal Culture - Preliminary 06/25/18 12:59 Bronchial Washings - Bilateral Lung Fluid SHARI Preparation - Preliminary 06/25/18 12:59 Bronchial Washings - Bilateral Lung Fluid Fungal Culture - Preliminary 06/25/18 13:15 Lung - Left Upper Lobe Gram Stain - Final 06/25/18 13:15 Lung - Left Upper Lobe Tissue Culture - Preliminary NO AEROBIC GROWTH, 24 HRS 06/25/18 13:15 Bronchial Washings - Bilateral Lung Fluid Gram Stain - Final 06/25/18 13:15 Bronchial Washings - Bilateral Lung Fluid Bronchoalveolar Lavage Culture - Preliminary Lactose Fermenting Neg Bacilli 06/25/18 13:15 Pleural Fluid Gram Stain - Final 06/25/18 13:15 Pleural Fluid Body Fluid Culture - Preliminary NO AEROBIC GROWTH, 24 HRS 06/25/18 13:15 Lung - Left Upper Lobe AFB Smear Concentration - Preliminary 06/25/18 13:15 Lung - Left Upper Lobe Mycobacterial Culture - Preliminary 06/25/18 12:59 Pleural Fluid AFB Smear Concentration - Preliminary 06/25/18 12:59 Pleural Fluid Mycobacterial Culture - Preliminary 06/25/18 13:15 Bronchial Washings - Bilateral Lung Fluid AFB Smear Concentration - Preliminary 06/25/18 13:15 Bronchial Washings - Bilateral Lung Fluid Mycobacterial Culture - Preliminary 06/22/18 11:00 Sputum - Expectorated AFB Smear Concentration - Final 06/22/18 11:00 Sputum - Expectorated Direct Acid Fast Bacilli Smear - Final 06/22/18 11:00 Sputum - Expectorated Mycobacterial Culture - Preliminary 06/18/18 17:25 Blood - Peripheral Venous Blood Culture - Final NO GROWTH AFTER 5 DAYS INCUBATION 06/18/18 17:25 Blood - Peripheral Venous Blood Culture - Final NO GROWTH AFTER 5 DAYS INCUBATION 06/23/18 12:30 Sputum - Expectorated SHARI Preparation - Preliminary 06/23/18 12:30 Sputum - Expectorated Fungal Culture - Preliminary 06/22/18 15:00 Ulcer Viral Culture - Preliminary 06/21/18 04:00 Sputum - Expectorated AFB Smear Concentration - Final 06/21/18 04:00 Sputum - Expectorated Direct Acid Fast Bacilli Smear - Final 06/21/18 04:00 Sputum - Expectorated Mycobacterial Culture - Preliminary 06/20/18 12:30 Sputum - Expectorated AFB Smear Concentration - Final 06/20/18 12:30 Sputum - Expectorated Direct Acid Fast Bacilli Smear - Final 06/20/18 12:30 Sputum - Expectorated Mycobacterial Culture - Preliminary 06/19/18 17:00 Sputum - Expectorated AFB Smear Concentration - Final 06/19/18 17:00 Sputum - Expectorated Direct Acid Fast Bacilli Smear - Final 06/19/18 17:00 Sputum - Expectorated Mycobacterial Culture - Preliminary 06/19/18 17:00 Sputum - Expectorated Gram Stain - Final 06/19/18 17:00 Sputum - Expectorated Sputum Culture - Final NORMAL RESPIRATORY MAAME 06/19/18 18:30 Urine For Antigen Detection Legionella Antigen - Final 06/19/18 18:30 Urine For Antigen Detection Streptococcus pneumoniae Antigen (M - Final 06/18/18 19:51 Urine - Urine Clean Catch Urine Culture - Final NO GROWTH OBTAINED Current Medications Acetaminophen (Tylenol -) 650 mg PO Q6H PRN PRN Reason: FEVER Last Admin: 06/19/18 05:32 Dose: 650 mg Budesonide/Formoterol Fumarate (Symbicort 160/4.5mcg -) 1 puff IH BID [facility] Last Admin: 06/26/18 22:53 Dose: 1 puff Calcium Carbonate/Cholecalciferol (Os-Solomon 500+D -) 1 tab PO DAILY [facility] Last Admin: 06/26/18 10:54 Dose: 1 tab Gabapentin (Neurontin -) 300 mg PO HS [facility] Last Admin: 06/26/18 22:53 Dose: 300 mg Piperacillin Sod/Tazobactam (Sod 3.375 gm/ Dextrose) 50 mls @ 100 mls/hr IVPB Q8H-IV [facility]; Protocol Last Admin: 06/27/18 02:09 Dose: 100 mls/hr Insulin Aspart (Novolog Vial Sliding Scale -) 1 vial SQ ACHS ROSHAN; Protocol Last Admin: 06/27/18 06:25 Dose: Not Given Prednisone (Deltasone -) 60 mg PO DAILY [facility] Last Admin: 06/26/18 10:54 Dose: 60 mg Ranitidine HCl (Zantac -) 150 mg PO BID [facility] Last Admin: 06/26/18 22:53 Dose: 150 mg Valacyclovir HCl (Valtrex -) 500 mg PO BID [facility] Last Admin: 06/26/18 22:53 Dose: 500 mg a/p vasculitis low suspicion TB-sputum afb negative, pcr negative times 2 continue zosyn for possible lung abscess -plan iv antibiotics for several weeks with f/u imaging repeat ct chest essentially unchanged- ?slightly improved f/u sputum afb culture aspergillus galactomannan negative and fungitell-negative sputum for fungal culture-pending small sacral ulcer is dry-f/u viral culture, continue valtrex solitary kidney- s/p nephrectomy f/u cultures /pathology from BAL and lung biopsy d/w patient at [facility] will continue zosyn and f/u cultures and pathology chest tube management per thoracic surgery Problem List - Problems (1) Lung abscess Code(s): J85.2 - ABSCESS OF LUNG WITHOUT PNEUMONIA Qualifiers: Pulmonary abscess pneumonia presence: with pneumonia Laterality: left Lung location: upper lobe of lung Qualified Code(s): J85.1 - Abscess of lung with pneumonia (2) Vasculitis Code(s): I77.6 - ARTERITIS, UNSPECIFIED
[2018-06-27] MEDS ORDERED: PT OWN MED DRAWER 7, Y5N ONE (09:06)
[2018-06-27] MEDS ORDERED: PIPERACILLIN/TAZOBACTAM 3.375 GM VIAL IVPB ONE ×2 (09:06→15:36)
[2018-06-27] MEDS ORDERED: DEXTROSE 5%-WATER - 50 ML IVPB ONE ×2 (09:07→15:36)
[2018-06-27] MEDS: valACYclovir HCL 500 MG TABLET (FP) PO SCH ×2 (09:54→22:24)
[2018-06-27] MEDS: RANITIDINE HCL 150 MG TABLET (FP) PO SCH ×2 (09:54→22:22)
[2018-06-27] MEDS: CALCIUM 500MG/VIT-D 200 UNITS COMBO TABLET (FP) PO SCH (09:54)
[2018-06-27] MEDS: predniSONE 20 MG TABLET (UD) PO SCH (09:54)
[2018-06-27 10:05] LABS: EPI CELLS 15.4 /HPF (0-5); URINE APPEARANCE CLOUDY; URINE BACTERIA 106.7 /hpf (NEGATIVE); URINE BILIRUBIN NEGATIVE (NEGATIVE); URINE CASTS 8 /hpf (0-8); URINE COLOR YELLOW; URINE GLUCOSE (UA) NEGATIVE (NEGATIVE); URINE KETONE NEGATIVE (NEGATIVE); URINE LEUK ESTERASE 1+ (NEGATIVE); URINE NITRITE NEGATIVE (NEGATIVE); URINE PROTEIN 1+ (NEGATIVE); URINE UROBILINOGEN 0.2 mg/dL (0.2-1.0); URINE WBC 11 /hpf (0-5)
[2018-06-27] MEDS: BUDESONIDE/FORMETEROL FUMARATE 160/4.5 mcg INHALER IH SCH ×2 (10:36→22:22)
--- NOTE | 2018-06-27 11:11 | PN ---
Teaching Attending Note Name of Resident: Cristina Wilks ATTENDING PHYSICIAN STATEMENT I saw and evaluated the patient. I reviewed the resident's note and discussed the case with the resident. I agree with the resident's findings and plan as documented. SUBJECTIVE: Patient seen and examined in the ICU. Remains of on HFOT: 40L / 40%. Awake and able to follow commands. Intake & Output 06/24/18 06/25/18 06/26/18 06/27/18 23:59 23:59 23:59 23:59 Intake Total 850 2256.5 790 150 Output Total 425 1400 20 Balance 850 1831.5 -610 130 Weight 164 lb Last Vital Signs Temp Pulse Resp BP Pulse Ox 98.3 F 80 18 154/92 98 06/27/18 06:00 06/27/18 10:00 06/27/18 10:00 06/27/18 10:00 06/27/18 03:33 Active Medications Acetaminophen (Tylenol -) 650 mg PO Q6H PRN PRN Reason: FEVER Last Admin: 06/19/18 05:32 Dose: 650 mg Budesonide/Formoterol Fumarate (Symbicort 160/4.5mcg -) 1 puff IH BID [facility] Last Admin: 06/27/18 10:36 Dose: 1 puff Calcium Carbonate/Cholecalciferol (Os-Solomon 500+D -) 1 tab PO DAILY [facility] Last Admin: 06/27/18 09:54 Dose: 1 tab Gabapentin (Neurontin -) 300 mg PO HS [facility] Last Admin: 06/26/18 22:53 Dose: 300 mg Piperacillin Sod/Tazobactam (Sod 3.375 gm/ Dextrose) 50 mls @ 100 mls/hr IVPB Q8H-IV [facility]; Protocol Last Admin: 06/27/18 09:53 Dose: 100 mls/hr Insulin Aspart (Novolog Vial Sliding Scale -) 1 vial SQ ACHS [facility]; Protocol Last Admin: 06/27/18 06:25 Dose: Not Given Prednisone (Deltasone -) 60 mg PO DAILY [facility] Last Admin: 06/27/18 09:54 Dose: 60 mg Ranitidine HCl (Zantac -) 150 mg PO BID [facility] Last Admin: 06/27/18 09:54 Dose: 150 mg Valacyclovir HCl (Valtrex -) 500 mg PO BID [facility] Last Admin: 06/27/18 09:54 Dose: 500 mg GENERAL: Extubated, awake and alert, mildly tachypneic HEAD: Normal with no signs of trauma. EYES: PERRL, extraocular movements intact, sclera anicteric, conjunctiva clear. No ptosis. ENT: Ears normal, nares patent, oropharynx clear without exudates, moist mucous membranes. NECK: Trachea midline, full range of motion, supple. LUNGS:bibasilar rhonchi, (-) wheeze., intact Left CT, no air leak, bloody effusion HEART: Regular rate and rhythm, S1, S2 without murmur, rub or gallop. ABDOMEN: Soft, nontender, nondistended, normoactive bowel sounds, no guarding, no rebound, no hepatosplenomegaly, no masses. EXTREMITIES: 2+ pulses, warm, well-perfused, no edema. NEUROLOGICAL: Non-focal. PSYCH: Following commands. SKIN: Warm, dry, normal turgor, no rashes or lesions noted Laboratory Results - last 24 hr 06/26/18 06/26/18 06/26/18 05:30 08:15 11:16 WBC RBC Hgb Hct MCV MCH MCHC RDW Plt Count MPV Absolute Neuts (auto) Total Counted 100 Neutrophils % Neutrophils % (Manual) 85.0 H Band Neutrophils % 3.0 Lymphocytes % Lymphocytes % (Manual) 9.0 D Monocytes % Monocytes % (Manual) 2 L Eosinophils % Eosinophils % (Manual) 1.0 D Basophils % Nucleated RBC % Hypochromia 1+ Platelet Estimate Adequate Polychromasia 1+ Anisocytosis 2+ Microcytosis 2+ Tear Drop Cells 1+ Ovalocytes 1+ Sodium Potassium Chloride Carbon Dioxide Anion Gap BUN Creatinine Creat Clearance w eGFR POC Glucometer 112 Random Glucose Calcium Phosphorus Magnesium Total Bilirubin AST ALT Alkaline Phosphatase Total Protein Albumin Urine Color Yellow Urine Appearance Cloudy Urine pH 5.0 Ur Specific [place] 1.020 Urine Protein 1+ H Urine Glucose (UA) Negative Urine Ketones Negative Urine Blood 3+ H Urine Nitrite Negative Urine Bilirubin Negative Urine Urobilinogen 0.2 Ur Leukocyte Esterase 1+ H Urine WBC (Auto) 11 Urine Casts (Auto) 8 U Epithel Cells (Auto) 15.4 Urine Bacteria (Auto) 106.7 06/26/18 06/26/18 06/27/18 16:59 22:54 05:30 WBC 7.5 RBC 3.24 L Hgb 8.0 L Hct 24.9 L D MCV 76.9 L MCH 24.8 L MCHC 32.3 RDW 24.1 H Plt Count 179 MPV 7.1 L Absolute Neuts (auto) 6.0 Total Counted Neutrophils % 80.2 Neutrophils % (Manual) Band Neutrophils % Lymphocytes % 14.2 D Lymphocytes % (Manual) Monocytes % 4.2 Monocytes % (Manual) Eosinophils % 1.1 D Eosinophils % (Manual) Basophils % 0.3 Nucleated RBC % 0 Hypochromia Platelet Estimate Polychromasia Anisocytosis Microcytosis Tear Drop Cells Ovalocytes Sodium Potassium Chloride Carbon Dioxide Anion Gap BUN Creatinine Creat Clearance w eGFR POC Glucometer 154 159 Random Glucose Calcium Phosphorus Magnesium Total Bilirubin AST ALT Alkaline Phosphatase Total Protein Albumin Urine Color Urine Appearance Urine pH Ur Specific [place] Urine Protein Urine Glucose (UA) Urine Ketones Urine Blood Urine Nitrite Urine Bilirubin Urine Urobilinogen Ur Leukocyte Esterase Urine WBC (Auto) Urine Casts (Auto) U Epithel Cells (Auto) Urine Bacteria (Auto) 06/27/18 06/27/18 05:30 06:23 WBC RBC Hgb Hct MCV MCH MCHC RDW Plt Count MPV Absolute Neuts (auto) Total Counted Neutrophils % Neutrophils % (Manual) Band Neutrophils % Lymphocytes % Lymphocytes % (Manual) Monocytes % Monocytes % (Manual) Eosinophils % Eosinophils % (Manual) Basophils % Nucleated RBC % Hypochromia Platelet Estimate Polychromasia Anisocytosis Microcytosis Tear Drop Cells Ovalocytes Sodium 142 Potassium 4.7 Chloride 106 Carbon Dioxide 31 Anion Gap 5 L BUN 52 H Creatinine 1.9 H Creat Clearance w eGFR 26.70 POC Glucometer 83 Random Glucose 85 Calcium 7.9 L Phosphorus 5.4 H Magnesium 2.3 Total Bilirubin 0.4 AST 12 L ALT 16 Alkaline Phosphatase 45 Total Protein 4.6 L Albumin 2.0 L Urine Color Urine Appearance Urine pH Ur Specific [place] Urine Protein Urine Glucose (UA) Urine Ketones Urine Blood Urine Nitrite Urine Bilirubin Urine Urobilinogen Ur Leukocyte Esterase Urine WBC (Auto) Urine Casts (Auto) U Epithel Cells (Auto) Urine Bacteria (Auto) ASSESSMENT/PLAN: Acute Respiratory Failure: APE: etiology to be determined (?) Early ARDS Lung Abscess Renal cancer s/p nephrectomy x 7 years ago Asthma Neuropathy Bronchiectasis S/P Left VAT with wedge biopsy in the ODALYS Empyema Suspected granulomatosis and polyangiits (matthias's) MADAN ABX per ID HFOT Prednisone VTE prophylaxis Daily CXR while CT is in place Incentive Spirometry Follow OR cultures Pain control Follow H & H Requires ICU monitoring for HFOT Dr Sims Critical care time spent in reviewing chart, evaluating patient and formulating plan - 36 minutes.
[2018-06-27 12:34] LABS: ANISOCYTOSIS 2+; MACROCYTOSIS 0; OVALOCYTE 1+; PLATELET ESTIMATE NORMAL
[2018-06-27 12:49] LABS: BASO % 0.4 % (0-2.0); EOS % 1.3 % (0-4.5); HEMATOCRIT 27.8 % (32.4-45.2); HEMOGLOBIN 8.9 GM/dL (10.7-15.3); LYMPH % 8.5 % (8-40); MCH 24.8 pg (25.7-33.7); MCHC 31.8 g/dl (32.0-36.0); MEAN CELL VOLUME 78.1 fl (80-96); MEAN PLT VOLUME 7.1 fl (7.5-11.1); NEUT % 86.8 % (42.8-82.8); PLATELET COUNT 211 K/MM3 (134-434); RBC 3.56 M/mm3 (3.60-5.2); RDW 23.7 % (11.6-15.6); WHITE BLOOD COUNT 9.2 K/mm3 (4.0-10.0)
[2018-06-27 14:53] LABS: URINE RBC 61.4 /hpf (0-4); YEAST YEAST SEEN (NEGATIVE)
[2018-06-27 16:35] LABS: ANISOCYTOSIS 1+; MACROCYTOSIS 0; PLATELET ESTIMATE NORMAL
--- NOTE | 2018-06-27 21:56 | PN ---
Progress Note, Physician - Current Medication List Current Medications: Active Medications Acetaminophen (Tylenol -) 650 mg PO Q6H PRN PRN Reason: FEVER Last Admin: 06/19/18 05:32 Dose: 650 mg Budesonide/Formoterol Fumarate (Symbicort 160/4.5mcg -) 1 puff IH BID [facility] Last Admin: 06/27/18 10:36 Dose: 1 puff Calcium Carbonate/Cholecalciferol (Os-Solomon 500+D -) 1 tab PO DAILY [facility] Last Admin: 06/27/18 09:54 Dose: 1 tab Gabapentin (Neurontin -) 300 mg PO HS [facility] Last Admin: 06/26/18 22:53 Dose: 300 mg Piperacillin Sod/Tazobactam (Sod 3.375 gm/ Dextrose) 50 mls @ 100 mls/hr IVPB Q8H-IV [facility]; Protocol Last Admin: 06/27/18 17:06 Dose: 100 mls/hr Insulin Aspart (Novolog Vial Sliding Scale -) 1 vial SQ ACHS [facility]; Protocol Last Admin: 06/27/18 16:33 Dose: 8 units Prednisone (Deltasone -) 60 mg PO DAILY [facility] Last Admin: 06/27/18 09:54 Dose: 60 mg Ranitidine HCl (Zantac -) 150 mg PO BID [facility] Last Admin: 06/27/18 09:54 Dose: 150 mg Valacyclovir HCl (Valtrex -) 500 mg PO BID [facility] Last Admin: 06/27/18 09:54 Dose: 500 mg - Objective Vital Signs: Vital Signs Temperature 97.8 F 06/27/18 20:00 Pulse Rate 80 06/27/18 20:00 Respiratory Rate 18 06/27/18 20:00 Blood Pressure 152/97 06/27/18 20:00 O2 Sat by Pulse Oximetry (%) 97 06/27/18 21:00 Labs: CBC, BMP 06/27/18 12:40 06/27/18 05:30 Problem List - Problems (1) Acute respiratory failure Code(s): J96.00 - ACUTE RESPIRATORY FAILURE, UNSP W HYPOXIA OR HYPERCAPNIA (2) Lung abscess Code(s): J85.2 - ABSCESS OF LUNG WITHOUT PNEUMONIA Qualifiers: Pulmonary abscess pneumonia presence: with pneumonia Laterality: left Lung location: upper lobe of lung Qualified Code(s): J85.1 - Abscess of lung with pneumonia (3) Vasculitis Code(s): I77.6 - ARTERITIS, UNSPECIFIED (4) COPD (chronic obstructive pulmonary disease) Code(s): J44.9 - CHRONIC OBSTRUCTIVE PULMONARY DISEASE, UNSPECIFIED (5) CKD (chronic kidney disease) Code(s): N18.9 - CHRONIC KIDNEY DISEASE, UNSPECIFIED (6) Neuropathy Code(s): G62.9 - POLYNEUROPATHY, UNSPECIFIED (7) H/O renal cell cancer Code(s): Z85.528 - PERSONAL HISTORY OF OTHER MALIGNANT NEOPLASM OF KIDNEY
[2018-06-27] MEDS: GABAPENTIN 300 MG CAPSULE (FP) PO SCH (22:22)
[2018-06-28] MEDS: PIPERACILLIN/TAZOB 3.375 GM 3.375 GM in DEXTROSE 5%-WATER - 50 ML IVPB SCH ×2 (02:52→10:00)
[2018-06-28] MEDS: INSULIN SLIDING SCALE (NOVOLOG) 1 VIAL SQ SCH ×4 (06:38→22:25)
[2018-06-28 06:55] LABS: BASO % 0.3 % (0-2.0); EOS % 1.7 % (0-4.5); HEMATOCRIT 24.1 % (32.4-45.2); HEMOGLOBIN 7.6 GM/dL (10.7-15.3); LYMPH % 15.3 % (8-40); MCH 24.7 pg (25.7-33.7); MCHC 31.5 g/dl (32.0-36.0); MEAN CELL VOLUME 78.5 fl (80-96); MEAN PLT VOLUME 7.2 fl (7.5-11.1); MONO % 5.3 % (3.8-10.2); NEUT % 77.4 % (42.8-82.8); PLATELET COUNT 163 K/MM3 (134-434); RBC 3.07 M/mm3 (3.60-5.2); RDW 22.7 % (11.6-15.6)
[2018-06-28 07:15] LABS: ALK PHOS 42 U/L (45-117); ANION GAP 2 MMOL/L (8-16); BILIRUBIN,TOTAL 0.4 mg/dL (0.2-1); BLOOD UREA NITROGEN 51 mg/dL (7-18); CHLORIDE 108 mmol/L (98-107); CO2 31 mmol/L (21-32); CREATININE 1.7 mg/dL (0.55-1.3); GLUCOSE,RANDOM 102 mg/dL (74-106); MAGNESIUM 2.3 mg/dL (1.8-2.4); PHOSPHOROUS 3.8 mg/dL (2.5-4.9); POTASSIUM 4.7 mmol/L (3.5-5.1); SGOT/AST 12 U/L (15-37); SGPT/ALT 13 U/L (13-61); SODIUM 141 mmol/L (136-145); TOT PROT 4.8 g/dl (6.4-8.2)
--- NOTE | 2018-06-28 07:45 | PN ---
Progress Note (short form) - Note Progress Note: RENAL Pt is awake and alert comfortable has a chest tube says she developed hearing impairment suddenly last year feels well today Last Vital Signs Temp Pulse Resp BP Pulse Ox 98 F 73 17 151/79 100 06/28/18 06:00 06/28/18 06:00 06/28/18 06:00 06/28/18 06:00 06/28/18 00:33 has oxygen on lungs clear ant cvs s1s2 rr abd soft ext no edema neuro a+ox3 CBC, BMP 06/28/18 05:30 06/28/18 05:30 Current Medications Generic Name Dose Route Start Last Admin Trade Name Freq PRN Reason Stop Dose Admin Acetaminophen 650 mg 06/19/18 01:53 06/19/18 05:32 Tylenol - PO 650 mg Q6H PRN Administration FEVER Budesonide/Formoterol Fumarate 1 puff 06/19/18 10:00 06/27/18 22:22 Symbicort 160/4.5mcg - IH 1 puff BID [facility] Administration Calcium Carbonate/Cholecalciferol 1 tab 06/24/18 10:00 06/27/18 09:54 Os-Solomon 500+D - PO 1 tab DAILY [facility] Administration Gabapentin 300 mg 06/21/18 22:00 06/27/18 22:22 Neurontin - PO 300 mg HS [facility] Administration Piperacillin Sod/Tazobactam 50 mls @ 100 mls/hr 06/19/18 11:45 06/28/18 02:52 Sod 3.375 gm/ Dextrose IVPB 100 mls/hr Q8H-IV [facility] Administration Protocol Insulin Aspart 1 vial 06/23/18 07:00 06/28/18 06:38 Novolog Vial Sliding Scale - SQ Not Given ACHS [facility] Protocol Prednisone 60 mg 06/22/18 09:30 06/27/18 09:54 Deltasone - PO 60 mg DAILY [facility] Administration Ranitidine HCl 150 mg 06/19/18 10:00 06/27/18 22:22 Zantac - PO 150 mg BID [facility] Administration Valacyclovir HCl 500 mg 06/22/18 15:47 06/27/18 22:24 Valtrex - PO 500 mg BID [facility] Administration Impression 1. MADAN 2. 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 lung cavitary lesion 5. asthma 6. copd 7. rheumatoid arthritis 8. hx of renal cell cancer s/p nephrectomy 9.anemia Plan - monitor renal function-stable for now - cont steroids - follow up biopsy- renal biopsy not done due to nephrectomy - follow cultures - cont abx - cont prednisone -work up anemia, will likely need transfusion MV
--- NOTE | 2018-06-28 08:20 | PN ---
Physical Exam: SUBJECTIVE: Patient seen and examined at bedside. No acute events overnight. No complaints of pain, sob, cp. Tolerating high flow well. OBJECTIVE: Vital Signs Period Temp Pulse Resp BP Sys/Busby Pulse Ox Last 24 Hr 97.8 F-98.8 F 63-89 14-112 137-163/76-97 97-100 GEN: Awake and alert. NAD. HEENT: AT/NC. Lungs: Bibasilar rhonchi. L chest tube in place draining sero-sanguinous fluid. On high flow. Heart: RRR. Normal S1, S2. No murmurs noted. Abd: Soft, NT/ND. Ext: No peripheral edema noted. CBCD WBC 6.0 K/mm3 (4.0-10.0) 06/28/18 05:30 RBC 3.07 M/mm3 (3.60-5.2) L 06/28/18 05:30 Hgb 7.6 GM/dL (10.7-15.3) L 06/28/18 05:30 Hct 24.1 % (32.4-45.2) L 06/28/18 05:30 MCV 78.5 fl (80-96) L 06/28/18 05:30 MCHC 31.5 g/dl (32.0-36.0) L 06/28/18 05:30 RDW 22.7 % (11.6-15.6) H 06/28/18 05:30 Plt Count 163 K/MM3 (134-434) D 06/28/18 05:30 MPV 7.2 fl (7.5-11.1) L 06/28/18 05:30 CMP Sodium 141 mmol/L (136-145) 06/28/18 05:30 Potassium 4.7 mmol/L (3.5-5.1) 06/28/18 05:30 Chloride 108 mmol/L (98-107) H 06/28/18 05:30 Carbon Dioxide 31 mmol/L (21-32) 06/28/18 05:30 Anion Gap 2 MMOL/L (8-16) L 06/28/18 05:30 BUN 51 mg/dL (7-18) H 06/28/18 05:30 Creatinine 1.7 mg/dL (0.55-1.3) H 06/28/18 05:30 Creat Clearance w eGFR 30.36 (>60) 06/28/18 05:30 Calcium 8.0 mg/dL (8.5-10.1) L 06/28/18 05:30 Total Bilirubin 0.4 mg/dL (0.2-1) 06/28/18 05:30 AST 12 U/L (15-37) L 06/28/18 05:30 ALT 13 U/L (13-61) 06/28/18 05:30 Alkaline Phosphatase 42 U/L (45-117) L 06/28/18 05:30 Total Protein 4.8 g/dl (6.4-8.2) L 06/28/18 05:30 Albumin 2.0 g/dl (3.4-5.0) L 06/28/18 05:30 Active Medications Acetaminophen (Tylenol -) 650 mg PO Q6H PRN PRN Reason: FEVER Last Admin: 06/19/18 05:32 Dose: 650 mg Budesonide/Formoterol Fumarate (Symbicort 160/4.5mcg -) 1 puff IH BID [facility] Last Admin: 06/27/18 22:22 Dose: 1 puff Calcium Carbonate/Cholecalciferol (Os-Solomon 500+D -) 1 tab PO DAILY [facility] Last Admin: 06/27/18 09:54 Dose: 1 tab Gabapentin (Neurontin -) 300 mg PO HS [facility] Last Admin: 06/27/18 22:22 Dose: 300 mg Piperacillin Sod/Tazobactam (Sod 3.375 gm/ Dextrose) 50 mls @ 100 mls/hr IVPB Q8H-IV [facility]; Protocol Last Admin: 06/28/18 02:52 Dose: 100 mls/hr Insulin Aspart (Novolog Vial Sliding Scale -) 1 vial SQ ACHS [facility]; Protocol Last Admin: 06/28/18 06:38 Dose: Not Given Prednisone (Deltasone -) 60 mg PO DAILY [facility] Last Admin: 06/27/18 09:54 Dose: 60 mg Ranitidine HCl (Zantac -) 150 mg PO BID [facility] Last Admin: 06/27/18 22:22 Dose: 150 mg Valacyclovir HCl (Valtrex -) 500 mg PO BID [facility] Last Admin: 06/27/18 22:24 Dose: 500 mg ASSESSMENT/PLAN: 63 year old female with PMH renal cancer s/p nephrectomy x7 years ago, ANCA positive vasculitis, COPD, asthma, neuropathy, bronchiectasia sent to ED by Dr. Hopper for left upper lobe cavitary lesion and 5 days of productive yellow cough suspicious for lung abscess/pneumonia. 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 On 06/25/18 pt had left VATS, left upper lobe wedge, left chest tube placement. Intra-op showed pus in ODALYS (bronchoscopy), with small amount of fluid in left chest, adhesion of left upper lobe to chest wall, normal appearing lingula. Bronchial washings, pleural fluid and lingula pathology and culture were sent with barb-op cefazolin given. The pt was extubated post-op, but did not tolerate well and was reintubated and transferred to the ICU. Hospital stay has been complicated by MADAN. NEURO #HX of Peripheral neuropathy -Cont home meds: Gabapentin 300 HS RESPIRATORY #POD 3 VATS, upper lobe wedge, left chest tube, bronch #Acute hypoxic respiratory failure; Resolved. -Tylenol 650 mg PO Q6H PRN Pain -High Flow O2 - 40/40; wean tomorrow -OOB/PT/IS -Chest tube management per surgery -daily CXR while CT in place #Hx of bronchiectasis and pulmonary nodules -Tissue biopsy for vasculitis diagnosis #HX of COPD -Symbicort 1 puff IH BID CARDIOVASCULAR -Home Lasix held #Anemia -may be due to residual bleeding from wedge biopsy done in ODALYS -Daily H/H -Hgb 7.6 today; repeat at 6pm today. 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 -Tissue biopsy pathol pending -s/p nephrectomy for Renal Ca, renal biopsy contraindicated per nephro -cont Prednisone #MADAN -Fluids on hold Pt in pulm edema with chest tube -Home Lasix held RHEUMATOLOGY #Hx of RA -Following Rheum -Prednisone 60 mg PO daily -Zantac 150 BID ENDO -ISS FEN -PO hydration -recheck lytes; replete PRN -Diabetic diet PPX -SCDs -Heparin SQ held, post-op DISPO -cont to monitor in ICU Visit type - Emergency Visit Emergency Visit: Yes ED Registration Date: 06/18/18 Care time: The patient presented to the Emergency Department on the above date and was hospitalized for further evaluation of their emergent condition. - New Patient This patient is new to me today: Yes Date on this admission: 06/28/18 - Critical Care Critical Care patient: Yes Total Critical Care Time (in minutes): 35 Critical Care Statement: The care of this patient involved high complexity decision making to prevent further life threatening deterioration of the patient 's condition and/or to evaluate & treat vital organ system(s) failure or risk of failure.
[2018-06-28] MEDS ORDERED: PT OWN MED DRAWER 7, Y5N ONE ×2 (09:36→21:27)
[2018-06-28] MEDS: predniSONE 20 MG TABLET (UD) PO SCH (09:38)
[2018-06-28] MEDS: CALCIUM 500MG/VIT-D 200 UNITS COMBO TABLET (FP) PO SCH (09:39)
[2018-06-28] MEDS: RANITIDINE HCL 150 MG TABLET (FP) PO SCH ×2 (09:39→21:46)
[2018-06-28] MEDS: valACYclovir HCL 500 MG TABLET (FP) PO SCH ×2 (09:40→22:01)
--- NOTE | 2018-06-28 10:17 | PN ---
Progress Note (short form) - Note Progress Note: no complaints still with chest tube Vital Signs Period Temp Pulse Resp BP Sys/Busby Pulse Ox Last 24 Hr 97.8 F-98.8 F 63-98 14-112 137-163/76-97 97-100 cor-rrr lungs decreased bs at bases abd soft,nt ext no edema +chest tube CBC, BMP 06/28/18 05:30 06/28/18 05:30 Laboratory Tests 06/23/18 06/23/18 07:00 07:00 Aspergillus Antibody 0.04 Beta-(1,3)-D-Glucan < 31 Microbiology 06/25/18 13:15 Bronchial Washings - Left Lower Lobe Legionella pneumophila ( Direct FA) - Final 06/25/18 13:15 Lung - Left Upper Lobe Gram Stain - Final 06/25/18 13:15 Lung - Left Upper Lobe Tissue Culture - Final NO GROWTH OF AEROBIC ORGANISMS AFTER 48 HOURS INCUBATION 06/25/18 13:15 Lung - Left Upper Lobe Anaerobic Culture - Final NO ANAEROBES WERE ISOLATED 06/25/18 13:15 Pleural Fluid Gram Stain - Final 06/25/18 13:15 Pleural Fluid Body Fluid Culture - Final NO GROWTH OF AEROBIC ORGANISMS AFTER 48 HOURS INCUBATION 06/25/18 13:15 Pleural Fluid Anaerobic Culture - Final NO ANAEROBES WERE ISOLATED 06/25/18 13:15 Bronchial Washings - Bilateral Lung Fluid Gram Stain - Final 06/25/18 13:15 Bronchial Washings - Bilateral Lung Fluid Bronchoalveolar Lavage Culture - Final Klebsiella Pneumoniae 06/25/18 13:15 Lung - Left Upper Lobe SHARI Preparation - Preliminary 06/25/18 13:15 Lung - Left Upper Lobe Fungal Culture - Preliminary 06/25/18 13:15 Pleural Fluid SHARI Preparation - Preliminary 06/25/18 13:15 Pleural Fluid Fungal Culture - Preliminary 06/25/18 12:59 Bronchial Washings - Bilateral Lung Fluid SHARI Preparation - Preliminary 06/25/18 12:59 Bronchial Washings - Bilateral Lung Fluid Fungal Culture - Preliminary 06/25/18 13:15 Lung - Left Upper Lobe AFB Smear Concentration - Preliminary 06/25/18 13:15 Lung - Left Upper Lobe Mycobacterial Culture - Preliminary 06/25/18 12:59 Pleural Fluid AFB Smear Concentration - Preliminary 06/25/18 12:59 Pleural Fluid Mycobacterial Culture - Preliminary 06/25/18 13:15 Bronchial Washings - Bilateral Lung Fluid AFB Smear Concentration - Preliminary 06/25/18 13:15 Bronchial Washings - Bilateral Lung Fluid Mycobacterial Culture - Preliminary 06/22/18 11:00 Sputum - Expectorated AFB Smear Concentration - Final 06/22/18 11:00 Sputum - Expectorated Direct Acid Fast Bacilli Smear - Final 06/22/18 11:00 Sputum - Expectorated Mycobacterial Culture - Preliminary 06/18/18 17:25 Blood - Peripheral Venous Blood Culture - Final NO GROWTH AFTER 5 DAYS INCUBATION 06/18/18 17:25 Blood - Peripheral Venous Blood Culture - Final NO GROWTH AFTER 5 DAYS INCUBATION 06/23/18 12:30 Sputum - Expectorated SHARI Preparation - Preliminary 06/23/18 12:30 Sputum - Expectorated Fungal Culture - Preliminary 06/22/18 15:00 Ulcer Viral Culture - Preliminary 06/21/18 04:00 Sputum - Expectorated AFB Smear Concentration - Final 06/21/18 04:00 Sputum - Expectorated Direct Acid Fast Bacilli Smear - Final 06/21/18 04:00 Sputum - Expectorated Mycobacterial Culture - Preliminary 06/20/18 12:30 Sputum - Expectorated AFB Smear Concentration - Final 06/20/18 12:30 Sputum - Expectorated Direct Acid Fast Bacilli Smear - Final 06/20/18 12:30 Sputum - Expectorated Mycobacterial Culture - Preliminary 06/19/18 17:00 Sputum - Expectorated AFB Smear Concentration - Final 06/19/18 17:00 Sputum - Expectorated Direct Acid Fast Bacilli Smear - Final 06/19/18 17:00 Sputum - Expectorated Mycobacterial Culture - Preliminary 06/19/18 17:00 Sputum - Expectorated Gram Stain - Final 06/19/18 17:00 Sputum - Expectorated Sputum Culture - Final NORMAL RESPIRATORY MAAME 06/19/18 18:30 Urine For Antigen Detection Legionella Antigen - Final 06/19/18 18:30 Urine For Antigen Detection Streptococcus pneumoniae Antigen (M - Final 06/18/18 19:51 Urine - Urine Clean Catch Urine Culture - Final NO GROWTH OBTAINED Current Medications Acetaminophen (Tylenol -) 650 mg PO Q6H PRN PRN Reason: FEVER Last Admin: 06/19/18 05:32 Dose: 650 mg Budesonide/Formoterol Fumarate (Symbicort 160/4.5mcg -) 1 puff IH BID [facility] Last Admin: 06/27/18 22:22 Dose: 1 puff Calcium Carbonate/Cholecalciferol (Os-Solomon 500+D -) 1 tab PO DAILY [facility] Last Admin: 06/28/18 09:39 Dose: 1 tab Gabapentin (Neurontin -) 300 mg PO HS [facility] Last Admin: 06/27/18 22:22 Dose: 300 mg Piperacillin Sod/Tazobactam (Sod 3.375 gm/ Dextrose) 50 mls @ 100 mls/hr IVPB Q8H-IV [facility]; Protocol Last Admin: 06/28/18 02:52 Dose: 100 mls/hr Insulin Aspart (Novolog Vial Sliding Scale -) 1 vial SQ ACHS [facility]; Protocol Last Admin: 06/28/18 06:38 Dose: Not Given Prednisone (Deltasone -) 60 mg PO DAILY [facility] Last Admin: 06/28/18 09:38 Dose: 60 mg Ranitidine HCl (Zantac -) 150 mg PO BID [facility] Last Admin: 06/28/18 09:39 Dose: 150 mg Valacyclovir HCl (Valtrex -) 500 mg PO BID [facility] Last Admin: 06/28/18 09:40 Dose: 500 mg a/p vasculitis low suspicion TB-sputum afb negative, pcr negative times 2 BAL culture -pure culture klebsiella sensitive to ceftriaxone, d/c zosyn, start ceftriaxone, day #10 antibiotics aspergillus galactomannan negative and fungitell-negative sputum for fungal culture-pending small sacral ulcer is dry-f/u viral culture, continue valtrex solitary kidney- s/p nephrectomy f/u cultures /pathology from BAL and lung biopsy d/w patient at [facility] switch to ceftriaxone await pathology chest tube management per thoracic surgery Problem List - Problems (1) Lung abscess Code(s): J85.2 - ABSCESS OF LUNG WITHOUT PNEUMONIA Qualifiers: Pulmonary abscess pneumonia presence: with pneumonia Laterality: left Lung location: upper lobe of lung Qualified Code(s): J85.1 - Abscess of lung with pneumonia (2) Vasculitis Code(s): I77.6 - ARTERITIS, UNSPECIFIED
[2018-06-28] MEDS: BUDESONIDE/FORMETEROL FUMARATE 160/4.5 mcg INHALER IH SCH ×2 (10:30→21:46)
--- NOTE | 2018-06-28 10:32 | PN ---
Teaching Attending Note Name of Resident: Amee Mclaughlin ATTENDING PHYSICIAN STATEMENT I saw and evaluated the patient. I reviewed the resident's note and discussed the case with the resident. I agree with the resident's findings and plan as documented. SUBJECTIVE: Patient seen and examined in the ICU. Remains of on HFOT: 30L / 30%. Still with bloody drainage, but has decreased. Slow progressive decline in H&H. Intake & Output 06/25/18 06/26/18 06/27/18 06/28/18 23:59 23:59 23:59 23:59 Intake Total 2256.5 790 1200 300 Output Total 425 1400 70 75 Balance 1831.5 -610 1130 225 Weight 164 lb Last Vital Signs Temp Pulse Resp BP Pulse Ox 98.4 F 98 H 17 163/80 97 06/28/18 08:00 06/28/18 09:42 06/28/18 08:00 06/28/18 08:00 06/28/18 09:42 Active Medications Acetaminophen (Tylenol -) 650 mg PO Q6H PRN PRN Reason: FEVER Last Admin: 06/19/18 05:32 Dose: 650 mg Budesonide/Formoterol Fumarate (Symbicort 160/4.5mcg -) 1 puff IH BID [facility] Last Admin: 06/27/18 22:22 Dose: 1 puff Calcium Carbonate/Cholecalciferol (Os-Solomon 500+D -) 1 tab PO DAILY [facility] Last Admin: 06/28/18 09:39 Dose: 1 tab Gabapentin (Neurontin -) 300 mg PO HS [facility] Last Admin: 06/27/18 22:22 Dose: 300 mg Ceftriaxone Sodium 2 gm/ (Dextrose) 100 mls @ 200 mls/hr IVPB DAILY [facility]; Protocol Insulin Aspart (Novolog Vial Sliding Scale -) 1 vial SQ ACHS [facility]; Protocol Last Admin: 06/28/18 06:38 Dose: Not Given Prednisone (Deltasone -) 60 mg PO DAILY [facility] Last Admin: 06/28/18 09:38 Dose: 60 mg Ranitidine HCl (Zantac -) 150 mg PO BID [facility] Last Admin: 06/28/18 09:39 Dose: 150 mg Valacyclovir HCl (Valtrex -) 500 mg PO BID [facility] Last Admin: 06/28/18 09:40 Dose: 500 mg GENERAL: Awake and alert, less tachypneic HEAD: Normal with no signs of trauma. EYES: PERRL, extraocular movements intact, sclera anicteric, conjunctiva clear. No ptosis. ENT: Ears normal, nares patent, oropharynx clear without exudates, moist mucous membranes. NECK: Trachea midline, full range of motion, supple. LUNGS:bibasilar rhonchi, (-) wheeze., intact Left CT, no air leak, bloody effusion HEART: Regular rate and rhythm, S1, S2 without murmur, rub or gallop. ABDOMEN: Soft, nontender, nondistended, normoactive bowel sounds, no guarding, no rebound, no hepatosplenomegaly, no masses. EXTREMITIES: 2+ pulses, warm, well-perfused, no edema. NEUROLOGICAL: Non-focal. PSYCH: Following commands. SKIN: Warm, dry, normal turgor, no rashes or lesions noted Laboratory Results - last 24 hr 06/26/18 06/27/18 06/27/18 08:15 05:30 11:18 WBC RBC Hgb Hct MCV MCH MCHC RDW Plt Count MPV Absolute Neuts (auto) Neutrophils % Neutrophils % (Manual) 74.5 Band Neutrophils % 0.0 Lymphocytes % Lymphocytes % (Manual) 11.3 D Monocytes % Monocytes % (Manual) 3 L Eosinophils % Eosinophils % (Manual) 3.8 D Basophils % Basophils % (Manual) 0.0 Myelocytes % (Man) 0 D Promyelocytes % (Man) 0 Blast Cells % (Manual) 0 Nucleated RBC % Metamyelocytes 0 Hypochromia 0 Platelet Estimate Normal Polychromasia 1+ Poikilocytosis 1+ Basophilic Stippling 1+ Anisocytosis 2+ Microcytosis 1+ Macrocytosis 0 Spherocytes 1+ Ovalocytes 1+ Sodium Potassium Chloride Carbon Dioxide Anion Gap BUN Creatinine Creat Clearance w eGFR POC Glucometer 88 Random Glucose Calcium Phosphorus Magnesium Total Bilirubin AST ALT Alkaline Phosphatase Total Protein Albumin Urine Color Yellow Urine Appearance Cloudy Urine pH 5.0 Ur Specific [place] 1.020 Urine Protein 1+ H Urine Glucose (UA) Negative Urine Ketones Negative Urine Blood 3+ H Urine Nitrite Negative Urine Bilirubin Negative Urine Urobilinogen 0.2 Ur Leukocyte Esterase 1+ H Urine WBC (Auto) 11 Urine RBC (Auto) 61.4 Urine Casts (Auto) 8 U Epithel Cells (Auto) 15.4 Urine Bacteria (Auto) 106.7 Urine Yeast (Auto) Yeast seen 06/27/18 06/27/18 06/27/18 12:40 16:29 22:31 WBC 9.2 RBC 3.56 L Hgb 8.9 L Hct 27.8 L MCV 78.1 L MCH 24.8 L MCHC 31.8 L RDW 23.7 H Plt Count 211 MPV 7.1 L Absolute Neuts (auto) 8.0 Neutrophils % 86.8 H Neutrophils % (Manual) 78.0 Band Neutrophils % 1.0 Lymphocytes % 8.5 D Lymphocytes % (Manual) 13.0 Monocytes % 3.0 L Monocytes % (Manual) 4 Eosinophils % 1.3 Eosinophils % (Manual) 1.0 Basophils % 0.4 Basophils % (Manual) 0.0 Myelocytes % (Man) 1 D Promyelocytes % (Man) 0 Blast Cells % (Manual) 0 Nucleated RBC % 0 Metamyelocytes 2 D Hypochromia 1+ Platelet Estimate Normal Polychromasia 1+ Poikilocytosis 0 Basophilic Stippling Anisocytosis 1+ Microcytosis 1+ Macrocytosis 0 Spherocytes Ovalocytes Sodium Potassium Chloride Carbon Dioxide Anion Gap BUN Creatinine Creat Clearance w eGFR POC Glucometer 320 205 Random Glucose Calcium Phosphorus Magnesium Total Bilirubin AST ALT Alkaline Phosphatase Total Protein Albumin Urine Color Urine Appearance Urine pH Ur Specific [place] Urine Protein Urine Glucose (UA) Urine Ketones Urine Blood Urine Nitrite Urine Bilirubin Urine Urobilinogen Ur Leukocyte Esterase Urine WBC (Auto) Urine RBC (Auto) Urine Casts (Auto) U Epithel Cells (Auto) Urine Bacteria (Auto) Urine Yeast (Auto) 06/28/18 06/28/18 06/28/18 05:30 05:30 06:37 WBC 6.0 RBC 3.07 L Hgb 7.6 L Hct 24.1 L MCV 78.5 L MCH 24.7 L MCHC 31.5 L RDW 22.7 H Plt Count 163 D MPV 7.2 L Absolute Neuts (auto) 4.7 Neutrophils % 77.4 Neutrophils % (Manual) Band Neutrophils % Lymphocytes % 15.3 D Lymphocytes % (Manual) Monocytes % 5.3 Monocytes % (Manual) Eosinophils % 1.7 Eosinophils % (Manual) Basophils % 0.3 Basophils % (Manual) Myelocytes % (Man) Promyelocytes % (Man) Blast Cells % (Manual) Nucleated RBC % 0 Metamyelocytes Hypochromia Platelet Estimate Polychromasia Poikilocytosis Basophilic Stippling Anisocytosis Microcytosis Macrocytosis Spherocytes Ovalocytes Sodium 141 Potassium 4.7 Chloride 108 H Carbon Dioxide 31 Anion Gap 2 L BUN 51 H Creatinine 1.7 H Creat Clearance w eGFR 30.36 POC Glucometer 94 Random Glucose 102 Calcium 8.0 L Phosphorus 3.8 Magnesium 2.3 Total Bilirubin 0.4 AST 12 L ALT 13 Alkaline Phosphatase 42 L Total Protein 4.8 L Albumin 2.0 L Urine Color Urine Appearance Urine pH Ur Specific [place] Urine Protein Urine Glucose (UA) Urine Ketones Urine Blood Urine Nitrite Urine Bilirubin Urine Urobilinogen Ur Leukocyte Esterase Urine WBC (Auto) Urine RBC (Auto) Urine Casts (Auto) U Epithel Cells (Auto) Urine Bacteria (Auto) Urine Yeast (Auto) ASSESSMENT/PLAN: Acute Respiratory Failure: APE: etiology to be determined (?) Early ARDS Lung Abscess Renal cancer s/p nephrectomy x 7 years ago Asthma Neuropathy Bronchiectasis S/P Left VAT with wedge biopsy in the ODALYS Empyema Suspected granulomatosis and polyangiits (matthias's) MADAN ABX per ID Wean HFOT Prednisone VTE prophylaxis Daily CXR while CT is in place Incentive Spirometry Follow OR cultures Pain control Follow H & H Recheck H&H later: Transfusion Hgb , 7. Requires ICU monitoring for HFOT Dr Sims Critical care time spent in reviewing chart, evaluating patient and formulating plan - 36 minutes.
[2018-06-28 11:03] LABS: ANISOCYTOSIS 1+; MACROCYTOSIS 0; PLATELET ESTIMATE NORMAL
[2018-06-28] MEDS ORDERED: DEXTROSE 5%-WATER 100 ML IVPB ONE (11:19)
[2018-06-28] MEDS: CEFTRIAXONE 2 GM in DEXTROSE 5%-WATER 100 ML IVPB SCH (11:32)
[2018-06-28 19:17] LABS: HEMATOCRIT 25.1 % (32.4-45.2); HEMOGLOBIN 8.4 GM/dL (10.7-15.3); MCHC 33.4 g/dl (32.0-36.0); MEAN CELL VOLUME 77.7 fl (80-96); MEAN PLT VOLUME 7.5 fl (7.5-11.1); PLATELET COUNT 186 K/MM3 (134-434); RBC 3.22 M/mm3 (3.60-5.2); RDW 23.2 % (11.6-15.6); WHITE BLOOD COUNT 7.1 K/mm3 (4.0-10.0)
[2018-06-28] MEDS: GABAPENTIN 300 MG CAPSULE (FP) PO SCH (21:45)
--- NOTE | 2018-06-28 23:52 | PN ---
Progress Note, Physician History of Present Illness: Lt chest tube in place w/ sangrinous drainage - Current Medication List Current Medications: Active Medications Acetaminophen (Tylenol -) 650 mg PO Q6H PRN PRN Reason: FEVER Last Admin: 06/19/18 05:32 Dose: 650 mg Budesonide/Formoterol Fumarate (Symbicort 160/4.5mcg -) 1 puff IH BID [facility] Last Admin: 06/28/18 21:46 Dose: 1 puff Calcium Carbonate/Cholecalciferol (Os-Solomon 500+D -) 1 tab PO DAILY [facility] Last Admin: 06/28/18 09:39 Dose: 1 tab Gabapentin (Neurontin -) 300 mg PO HS [facility] Last Admin: 06/28/18 21:45 Dose: 300 mg Ceftriaxone Sodium 2 gm/ (Dextrose) 100 mls @ 200 mls/hr IVPB DAILY [facility]; Protocol Last Admin: 06/28/18 11:32 Dose: 200 mls/hr Insulin Aspart (Novolog Vial Sliding Scale -) 1 vial SQ ACHS [facility]; Protocol Last Admin: 06/28/18 22:25 Dose: 4 units Prednisone (Deltasone -) 60 mg PO DAILY [facility] Last Admin: 06/28/18 09:38 Dose: 60 mg Ranitidine HCl (Zantac -) 150 mg PO BID [facility] Last Admin: 06/28/18 21:46 Dose: 150 mg Valacyclovir HCl (Valtrex -) 500 mg PO BID [facility] Last Admin: 06/28/18 22:01 Dose: 500 mg - Objective Vital Signs: Vital Signs Temperature 98.4 F 06/28/18 14:00 Pulse Rate 78 06/28/18 22:00 Respiratory Rate 20 06/28/18 22:00 Blood Pressure 160/94 06/28/18 22:00 O2 Sat by Pulse Oximetry (%) 97 06/28/18 19:51 HENT: Yes: WNL Neck: Yes: WNL, Supple Cardiovascular: Yes: WNL, Regular Rate and Rhythm Respiratory: Yes: Diminished, Wheezes Gastrointestinal: Yes: WNL, Normal Bowel Sounds, Soft Edema: LLE: Trace, RLE: Trace Labs: CBC, BMP 06/28/18 18:30 06/28/18 05:30 Problem List - Problems (1) Acute respiratory failure Assessment/Plan: S/P LVAT/Wedge resection w/ chest tube insertion Lung bx for vasculitis Code(s): J96.00 - ACUTE RESPIRATORY FAILURE, UNSP W HYPOXIA OR HYPERCAPNIA (2) Lung abscess Assessment/Plan: S/P LVAT/Wedge resection for biopsy Chest tube'Cavitary lesion ODALYS Mediastinal adenopathy Cont IV zosyn Cont duoineb/symbicort Code(s): J85.2 - ABSCESS OF LUNG WITHOUT PNEUMONIA Qualifiers: Pulmonary abscess pneumonia presence: with pneumonia Laterality: left Lung location: upper lobe of lung Qualified Code(s): J85.1 - Abscess of lung with pneumonia (3) Vasculitis Assessment/Plan: ANCA (+) vasculitis Cont IV steroids W/U in progress ?Joshua's vasculitis/glomerulonephritis? Code(s): I77.6 - ARTERITIS, UNSPECIFIED (4) COPD (chronic obstructive pulmonary disease) Assessment/Plan: Cont inhalers Code(s): J44.9 - CHRONIC OBSTRUCTIVE PULMONARY DISEASE, UNSPECIFIED (5) CKD (chronic kidney disease) Assessment/Plan: As per renal Pt has h/o renal ca/nephrectomy Code(s): N18.9 - CHRONIC KIDNEY DISEASE, UNSPECIFIED (6) Neuropathy Assessment/Plan: ?Due to vasculitis Cont gabapentin Code(s): G62.9 - POLYNEUROPATHY, UNSPECIFIED (7) H/O renal cell cancer Assessment/Plan: H/O nephrectomy Code(s): Z85.528 - PERSONAL HISTORY OF OTHER MALIGNANT NEOPLASM OF KIDNEY
[2018-06-29] MEDS: INSULIN SLIDING SCALE (NOVOLOG) 1 VIAL SQ SCH ×5 (06:02→21:00)
[2018-06-29 06:32] LABS: BASO % 0.2 % (0-2.0); EOS % 1.8 % (0-4.5); HEMATOCRIT 23.1 % (32.4-45.2); HEMOGLOBIN 7.3 GM/dL (10.7-15.3); LYMPH % 21.8 % (8-40); MCH 24.9 pg (25.7-33.7); MCHC 31.7 g/dl (32.0-36.0); MEAN CELL VOLUME 78.7 fl (80-96); MEAN PLT VOLUME 7.3 fl (7.5-11.1); MONO % 6.1 % (3.8-10.2); NEUT % 70.1 % (42.8-82.8); PLATELET COUNT 157 K/MM3 (134-434); RBC 2.93 M/mm3 (3.60-5.2); RDW 23.5 % (11.6-15.6); WHITE BLOOD COUNT 5.8 K/mm3 (4.0-10.0)
[2018-06-29 07:01] LABS: ALBUMIN 2.1 g/dl (3.4-5.0); ALK PHOS 48 U/L (45-117); ANION GAP 5 MMOL/L (8-16); BILIRUBIN,TOTAL 0.3 mg/dL (0.2-1); BLOOD UREA NITROGEN 47 mg/dL (7-18); CALCIUM 7.2 mg/dL (8.5-10.1); CHLORIDE 108 mmol/L (98-107); CO2 31 mmol/L (21-32); CREATININE 1.6 mg/dL (0.55-1.3); GLUCOSE,RANDOM 106 mg/dL (74-106); MAGNESIUM 2.2 mg/dL (1.8-2.4); PHOSPHOROUS 2.9 mg/dL (2.5-4.9); POTASSIUM 4.6 mmol/L (3.5-5.1); SGOT/AST 17 U/L (15-37); SGPT/ALT 16 U/L (13-61); SODIUM 144 mmol/L (136-145); TOT PROT 4.8 g/dl (6.4-8.2)
--- NOTE | 2018-06-29 08:01 | PN ---
Physical Exam: SUBJECTIVE: Patient seen and examined at bedside. Pt reported no chest pain, no shortness of breath or any other complaints. OBJECTIVE: Vital Signs Period Temp Pulse Resp BP Sys/Busby Pulse Ox Last 24 Hr 97.8 F-98.6 F 65-98 17-20 137-168/77-94 97-97 GENERAL: The patient is awake, alert, and fully oriented, in no acute distress. HEAD: Normal with no signs of trauma. EYES: PERRL, extraocular movements intact, sclera anicteric, conjunctiva clear. No ptosis. ENT: Ears normal, nares patent, oropharynx clear without exudates, moist mucous membranes. NECK: Trachea midline, full range of motion, supple. LUNGS: Decreased breath sounds to the left lung cruz. bilateral rhonchi and crackles. no labored breathing. speaking full sentences. HEART: Regular rate and rhythm, S1, S2 without murmur, rub or gallop. ABDOMEN: Soft, nontender, nondistended, normoactive bowel sounds, no guarding, no rebound, no hepatosplenomegaly, no masses. EXTREMITIES: 2+ pulses, warm, well-perfused, no edema. NEUROLOGICAL: Cranial nerves II through XII grossly intact. Normal speech, gait not observed. PSYCH: Normal mood, normal affect. SKIN: Warm, dry, normal turgor, no rashes or lesions noted Laboratory Results - last 24 hr 06/28/18 06/28/18 06/28/18 05:30 12:43 17:58 WBC RBC Hgb Hct MCV MCH MCHC RDW Plt Count MPV Absolute Neuts (auto) Neutrophils % Neutrophils % (Manual) 74.8 Band Neutrophils % 3.0 Lymphocytes % Lymphocytes % (Manual) 19.2 D Monocytes % Monocytes % (Manual) 0 L D Eosinophils % Eosinophils % (Manual) 0.0 D Basophils % Basophils % (Manual) 0.0 Myelocytes % (Man) 2 D Promyelocytes % (Man) 0 Blast Cells % (Manual) 0 Nucleated RBC % 0 Metamyelocytes 0 D Hypochromia 0 Platelet Estimate Normal Polychromasia 0 Poikilocytosis 0 Basophilic Stippling 1+ Anisocytosis 1+ Microcytosis 1+ Macrocytosis 0 Sodium Potassium Chloride Carbon Dioxide Anion Gap BUN Creatinine Creat Clearance w eGFR POC Glucometer 155 200 Random Glucose Calcium Phosphorus Magnesium Ferritin Total Bilirubin AST ALT Alkaline Phosphatase Total Protein Albumin 06/28/18 06/28/18 06/29/18 18:30 22:19 05:30 WBC 7.1 RBC 3.22 L Hgb 8.4 L Hct 25.1 L MCV 77.7 L MCH 26.0 MCHC 33.4 RDW 23.2 H Plt Count 186 MPV 7.5 Absolute Neuts (auto) Neutrophils % Neutrophils % (Manual) Band Neutrophils % Lymphocytes % Lymphocytes % (Manual) Monocytes % Monocytes % (Manual) Eosinophils % Eosinophils % (Manual) Basophils % Basophils % (Manual) Myelocytes % (Man) Promyelocytes % (Man) Blast Cells % (Manual) Nucleated RBC % Metamyelocytes Hypochromia Platelet Estimate Polychromasia Poikilocytosis Basophilic Stippling Anisocytosis Microcytosis Macrocytosis Sodium 144 Potassium 4.6 Chloride 108 H Carbon Dioxide 31 Anion Gap 5 L BUN 47 H Creatinine 1.6 H Creat Clearance w eGFR 32.55 POC Glucometer 201 Random Glucose 106 Calcium 7.2 L Phosphorus 2.9 Magnesium 2.2 Ferritin 410.2 H Total Bilirubin 0.3 AST 17 ALT 16 Alkaline Phosphatase 48 Total Protein 4.8 L Albumin 2.1 L 06/29/18 06/29/18 05:30 05:47 WBC 5.8 RBC 2.93 L Hgb 7.3 L Hct 23.1 L MCV 78.7 L MCH 24.9 L MCHC 31.7 L RDW 23.5 H Plt Count 157 MPV 7.3 L Absolute Neuts (auto) 4.0 Neutrophils % 70.1 Neutrophils % (Manual) Band Neutrophils % Lymphocytes % 21.8 D Lymphocytes % (Manual) Monocytes % 6.1 Monocytes % (Manual) Eosinophils % 1.8 Eosinophils % (Manual) Basophils % 0.2 Basophils % (Manual) Myelocytes % (Man) Promyelocytes % (Man) Blast Cells % (Manual) Nucleated RBC % 0 Metamyelocytes Hypochromia Platelet Estimate Polychromasia Poikilocytosis Basophilic Stippling Anisocytosis Microcytosis Macrocytosis Sodium Potassium Chloride Carbon Dioxide Anion Gap BUN Creatinine Creat Clearance w eGFR POC Glucometer 106 Random Glucose Calcium Phosphorus Magnesium Ferritin Total Bilirubin AST ALT Alkaline Phosphatase Total Protein Albumin Active Medications Generic Name Dose Route Start Last Admin Trade Name Freq PRN Reason Stop Dose Admin Acetaminophen 650 mg 06/19/18 01:53 06/19/18 05:32 Tylenol - PO 650 mg Q6H PRN Administration FEVER Budesonide/Formoterol Fumarate 1 puff 06/19/18 10:00 06/28/18 21:46 Symbicort 160/4.5mcg - IH 1 puff BID ROSHAN Administration Calcium Carbonate/Cholecalciferol 1 tab 06/24/18 10:00 06/28/18 09:39 Os-Solomon 500+D - PO 1 tab DAILY ROSHAN Administration Gabapentin 300 mg 06/21/18 22:00 06/28/18 21:45 Neurontin - PO 300 mg HS ROSHAN Administration Ceftriaxone Sodium 2 gm/ 100 mls @ 200 mls/hr 06/28/18 10:30 06/28/18 11:32 Dextrose IVPB 200 mls/hr DAILY ROSHAN Administration Protocol Insulin Aspart 1 vial 06/23/18 07:00 06/29/18 06:02 Novolog Vial Sliding Scale - SQ Not Given ACHS ROSHAN Protocol Prednisone 60 mg 06/22/18 09:30 06/28/18 09:38 Deltasone - PO 60 mg DAILY ROSHAN Administration Ranitidine HCl 150 mg 06/19/18 10:00 06/28/18 21:46 Zantac - PO 150 mg BID ROSHAN Administration Valacyclovir HCl 500 mg 06/22/18 15:47 06/28/18 22:01 Valtrex - PO 500 mg BID ROSHAN Administration ASSESSMENT/PLAN: 63 year old female with PMH renal cancer s/p nephrectomy x7 years ago, ANCA positive vasculitis, COPD, asthma, neuropathy, bronchiectasia sent to ED by Dr. Hopper for left upper lobe cavitary lesion and 5 days of productive yellow cough suspicious for lung abscess/pneumonia. 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 On 06/25/18 pt had left VATS, left upper lobe wedge, left chest tube placement. Intra-op showed pus in ODALYS (bronchoscopy), with small amount of fluid in left chest, adhesion of left upper lobe to chest wall, normal appearing lingula. Bronchial washings, pleural fluid and lingula pathology and culture were sent with barb-op cefazolin given. The pt was extubated post-op, but did not tolerate well and was reintubated and transfered to the ICU. Hospital stay has been complicated by MADAN. NEURO #HX of Peripheral neuropathy -Gabapentin on hold-postop RESPIRATORY #POD 4 VATS, upper lobe wedge, left chest tube, bronch -Acute hypoxic respiratory failure -Tylenol 650 mg PO Q6H PRN Pain -High Flow O2 - 20/30 --Wean to nasal cannula 3-4L -Incentive Spirometry -Continue to monitor -Out of bed -PT -Chest Tube management per surgery -Follow path report #Hx of bronchiectasis and pulmonary nodules -Tissue biopsy for vasculitis diagnosis #HX of COPD -Symbicort 1 puff IH BID [facility] -Home Lasix held #Hx of anemia -Daily H/H -Hgb 9.5>>8.0>>7.6>>8.4>>7.3>>8.3 -Continue to trend -Blood collecting in left chest tube drain ID #Lung Cavitary Lesion/Pneumonia -Ceftriaxone per ID -plan iv antibiotics for several weeks with f/u imaging -f/u sputum afb culture -aspergillus galactomannan pending and fungitell-negative -sputum for fungal culture-pending -ID on board GI -Zofran 4 mg IV push Q6H PRN nausea -Zantac 150mg PO BID RENAL -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 -Tissue biopsy pathol pending -s/p nephrectomy for Renal Ca, renal biopsy contraindicated per nephro #MADAN -Home Lasix held -Continue to monitor -Nephro on board RHEUMATOLOGY #Hx of RA -Following Rheum -Prednisone 60 mg PO daily ENDO -ISS FEN No IVF Monitor lytes replete as needed Diabetic Diet DC [place] 06/26/18 PPX SCDs Heparin SQ held, bloody drainage in chest tube DISPO ICU level care Visit type - Emergency Visit Emergency Visit: Yes ED Registration Date: 06/18/18 Care time: The patient presented to the Emergency Department on the above date and was hospitalized for further evaluation of their emergent condition. - New Patient This patient is new to me today: No - Critical Care Critical Care patient: Yes Total Critical Care Time (in minutes): 35 Critical Care Statement: The care of this patient involved high complexity decision making to prevent further life threatening deterioration of the patient 's condition and/or to evaluate & treat vital organ system(s) failure or risk of failure. - Discharge Referral Referred to [facility] No
[2018-06-29] MEDS ORDERED: DEXTROSE 5%-WATER 100 ML IVPB ONE (08:37)
--- NOTE | 2018-06-29 09:04 | PN ---
Progress Note (short form) - Note Progress Note: POD #4 Alert. Sitting up in bed at 30 degrees. Resting comfortably. No complaints. Voiding spontaneously. Patient's CxT was placed back on suction over the weekend because drainage was bloody. Denies n/v/f/c, CP, SOB or PARADA. CXR 06/29/18: No significant change compared to previous film. No ptx Last Vital Signs Temp Pulse Resp BP Pulse Ox 97.8 F 89 50 H 140/97 97 06/29/18 02:00 06/29/18 08:15 06/29/18 08:00 06/29/18 08:00 06/29/18 08:15 TREND 06/28/18 06/28/18 06/29/18 05:30 18:30 05:30 Hgb 7.6 L 8.4 L 7.3 L Hct 24.1 L 25.1 L 23.1 L Chest Tube 06/28/18 06/28/18 06/29/18 06:00 15:00 06:00 Left Chest 75 50 10 Gen: nad Chest: dressing c/d/i. Pleurovac on suction. No air leak Problem List - Problems (1) Lung abscess Assessment/Plan: POD #4 s/p Bronchoscopy, Left Video assisted thoractomy with upper lobe wedge CxT placed to waterseal --> most likely dc tube on rounds in AM --> if patient becomes SOB or drainage becomes very bloody prior too, place back on suction, get STAT CXR, notify Dr. Blanc Trend H/H Transfuse PRBC prn Cont ICU management Incentive Spirometer Downgrade to floor at ICU discretion Above discussed with Dr. Blanc and agrees. Code(s): J85.2 - ABSCESS OF LUNG WITHOUT PNEUMONIA Qualifiers: Pulmonary abscess pneumonia presence: with pneumonia Laterality: left Lung location: upper lobe of lung Qualified Code(s): J85.1 - Abscess of lung with pneumonia (2) COPD (chronic obstructive pulmonary disease) Code(s): J44.9 - CHRONIC OBSTRUCTIVE PULMONARY DISEASE, UNSPECIFIED (3) CKD (chronic kidney disease) Code(s): N18.9 - CHRONIC KIDNEY DISEASE, UNSPECIFIED
[2018-06-29] MEDS: CEFTRIAXONE 2 GM in DEXTROSE 5%-WATER 100 ML IVPB SCH (09:18)
[2018-06-29] MEDS: predniSONE 20 MG TABLET (UD) PO SCH (09:18)
[2018-06-29] MEDS: RANITIDINE HCL 150 MG TABLET (FP) PO SCH ×2 (09:19→21:04)
[2018-06-29] MEDS: CALCIUM 500MG/VIT-D 200 UNITS COMBO TABLET (FP) PO SCH (09:19)
[2018-06-29] MEDS: BUDESONIDE/FORMETEROL FUMARATE 160/4.5 mcg INHALER IH SCH ×2 (09:26→21:04)
[2018-06-29] MEDS ORDERED: PT OWN MED DRAWER 7, Y5N ONE ×2 (09:29→19:48)
--- NOTE | 2018-06-29 09:32 | PN ---
Progress Note (short form) - Note Progress Note: no complaints chest tube in place alert still with neuropathy of hands and both legs Vital Signs Period Temp Pulse Resp BP Sys/Busby Pulse Ox Last 24 Hr 97.8 F-98.6 F 65-98 17-50 137-168/77-97 97-97 cor-rrr lungs decreased bs bilateral bases +chest tube abd soft,nt ext trace edema bilateral CBC, BMP 06/29/18 05:30 06/29/18 05:30 Microbiology 06/25/18 13:15 Bronchial Washings - Bilateral Lung Fluid AFB Smear Concentration - Preliminary 06/25/18 13:15 Bronchial Washings - Bilateral Lung Fluid Mycobacterial Culture - Preliminary 06/25/18 12:59 Pleural Fluid AFB Smear Concentration - Preliminary 06/25/18 12:59 Pleural Fluid Mycobacterial Culture - Preliminary 06/25/18 13:15 Lung - Left Upper Lobe AFB Smear Concentration - Preliminary 06/25/18 13:15 Lung - Left Upper Lobe Mycobacterial Culture - Preliminary 06/25/18 13:15 Bronchial Washings - Left Lower Lobe Legionella pneumophila ( Direct FA) - Final 06/25/18 13:15 Lung - Left Upper Lobe Gram Stain - Final 06/25/18 13:15 Lung - Left Upper Lobe Tissue Culture - Final NO GROWTH OF AEROBIC ORGANISMS AFTER 48 HOURS INCUBATION 06/25/18 13:15 Lung - Left Upper Lobe Anaerobic Culture - Final NO ANAEROBES WERE ISOLATED 06/25/18 13:15 Pleural Fluid Gram Stain - Final 06/25/18 13:15 Pleural Fluid Body Fluid Culture - Final NO GROWTH OF AEROBIC ORGANISMS AFTER 48 HOURS INCUBATION 06/25/18 13:15 Pleural Fluid Anaerobic Culture - Final NO ANAEROBES WERE ISOLATED 06/25/18 13:15 Bronchial Washings - Bilateral Lung Fluid Gram Stain - Final 06/25/18 13:15 Bronchial Washings - Bilateral Lung Fluid Bronchoalveolar Lavage Culture - Final Klebsiella Pneumoniae 06/25/18 13:15 Lung - Left Upper Lobe SHARI Preparation - Preliminary 06/25/18 13:15 Lung - Left Upper Lobe Fungal Culture - Preliminary 06/25/18 13:15 Pleural Fluid SHARI Preparation - Preliminary 06/25/18 13:15 Pleural Fluid Fungal Culture - Preliminary 06/25/18 12:59 Bronchial Washings - Bilateral Lung Fluid SHARI Preparation - Preliminary 06/25/18 12:59 Bronchial Washings - Bilateral Lung Fluid Fungal Culture - Preliminary 06/22/18 11:00 Sputum - Expectorated AFB Smear Concentration - Final 06/22/18 11:00 Sputum - Expectorated Direct Acid Fast Bacilli Smear - Final 06/22/18 11:00 Sputum - Expectorated Mycobacterial Culture - Preliminary 06/18/18 17:25 Blood - Peripheral Venous Blood Culture - Final NO GROWTH AFTER 5 DAYS INCUBATION 06/18/18 17:25 Blood - Peripheral Venous Blood Culture - Final NO GROWTH AFTER 5 DAYS INCUBATION 06/23/18 12:30 Sputum - Expectorated SHARI Preparation - Preliminary 06/23/18 12:30 Sputum - Expectorated Fungal Culture - Preliminary 06/22/18 15:00 Ulcer Viral Culture - Preliminary 06/21/18 04:00 Sputum - Expectorated AFB Smear Concentration - Final 06/21/18 04:00 Sputum - Expectorated Direct Acid Fast Bacilli Smear - Final 06/21/18 04:00 Sputum - Expectorated Mycobacterial Culture - Preliminary 06/20/18 12:30 Sputum - Expectorated AFB Smear Concentration - Final 06/20/18 12:30 Sputum - Expectorated Direct Acid Fast Bacilli Smear - Final 06/20/18 12:30 Sputum - Expectorated Mycobacterial Culture - Preliminary 06/19/18 17:00 Sputum - Expectorated AFB Smear Concentration - Final 06/19/18 17:00 Sputum - Expectorated Direct Acid Fast Bacilli Smear - Final 06/19/18 17:00 Sputum - Expectorated Mycobacterial Culture - Preliminary 06/19/18 17:00 Sputum - Expectorated Gram Stain - Final 06/19/18 17:00 Sputum - Expectorated Sputum Culture - Final NORMAL RESPIRATORY MAAME 06/19/18 18:30 Urine For Antigen Detection Legionella Antigen - Final 06/19/18 18:30 Urine For Antigen Detection Streptococcus pneumoniae Antigen (M - Final 06/18/18 19:51 Urine - Urine Clean Catch Urine Culture - Final NO GROWTH OBTAINED Laboratory Tests 06/23/18 06/23/18 07:00 07:00 Aspergillus Antibody 0.04 Beta-(1,3)-D-Glucan < 31 cxray reviewed a/p vasculitis low suspicion TB-sputum afb negative, pcr negative times 2 BAL culture -pure culture klebsiella continue ceftriaxone, day #11 antibiotics fungal serology negative small sacral ulcer is dry-f/u viral culture, continue valtrex solitary kidney- s/p nephrectomy f/u cultures /pathology from BAL and lung biopsy d/w patient at [facility] await pathology chest tube management per thoracic surgery Problem List - Problems (1) Lung abscess Code(s): J85.2 - ABSCESS OF LUNG WITHOUT PNEUMONIA Qualifiers: Pulmonary abscess pneumonia presence: with pneumonia Laterality: left Lung location: upper lobe of lung Qualified Code(s): J85.1 - Abscess of lung with pneumonia (2) Vasculitis Code(s): I77.6 - ARTERITIS, UNSPECIFIED
[2018-06-29] MEDS: valACYclovir HCL 500 MG TABLET (FP) PO SCH ×2 (09:49→21:04)
[2018-06-29 09:54] LABS: ANISOCYTOSIS 1+; MACROCYTOSIS 0; PLATELET ESTIMATE NORMAL
--- NOTE | 2018-06-29 12:31 | PN ---
Progress Note, Physician History of Present Illness: Pt seen and examined at bedside. SHe is awake and alert. She remains in the ICU. - Current Medication List Current Medications: Active Medications Acetaminophen (Tylenol -) 650 mg PO Q6H PRN PRN Reason: FEVER Last Admin: 06/19/18 05:32 Dose: 650 mg Budesonide/Formoterol Fumarate (Symbicort 160/4.5mcg -) 1 puff IH BID [facility] Last Admin: 06/29/18 09:26 Dose: 1 puff Calcium Carbonate/Cholecalciferol (Os-Solomon 500+D -) 1 tab PO DAILY [facility] Last Admin: 06/29/18 09:19 Dose: 1 tab Gabapentin (Neurontin -) 300 mg PO HS [facility] Last Admin: 06/28/18 21:45 Dose: 300 mg Ceftriaxone Sodium 2 gm/ (Dextrose) 100 mls @ 200 mls/hr IVPB DAILY [facility]; Protocol Last Admin: 06/29/18 09:18 Dose: 200 mls/hr Insulin Aspart (Novolog Vial Sliding Scale -) 1 vial SQ ACHS [facility]; Protocol Last Admin: 06/29/18 11:35 Dose: 2 units Prednisone (Deltasone -) 60 mg PO DAILY [facility] Last Admin: 06/29/18 09:18 Dose: 60 mg Ranitidine HCl (Zantac -) 150 mg PO BID [facility] Last Admin: 06/29/18 09:19 Dose: 150 mg Valacyclovir HCl (Valtrex -) 500 mg PO BID [facility] Last Admin: 06/29/18 09:49 Dose: 500 mg - Objective Vital Signs: Vital Signs Temperature 98.9 F 06/29/18 10:00 Pulse Rate 102 H 06/29/18 12:00 Respiratory Rate 20 06/29/18 12:00 Blood Pressure 160/93 06/29/18 12:00 O2 Sat by Pulse Oximetry (%) 95 06/29/18 10:15 Constitutional: Yes: Calm Eyes: Yes: Conjunctiva Clear HENT: Yes: Atraumatic Cardiovascular: Yes: S1, S2 Respiratory: Yes: On Nasal O2, Other (left side chest tube) Gastrointestinal: Yes: Soft Genitourinary: Yes: WNL Musculoskeletal: Yes: WNL Edema: Yes Edema: LLE: 1+, RLE: 1+ Neurological: Yes: Oriented Psychiatric: Yes: Oriented Labs: CBC, BMP 06/29/18 05:30 06/29/18 05:30 Problem List - Problems (1) MADAN (acute kidney injury) Code(s): N17.9 - ACUTE KIDNEY FAILURE, UNSPECIFIED (2) Glomerulonephritis Code(s): N05.9 - UNSP NEPHRITIC SYNDROME WITH UNSPECIFIED MORPHOLOGIC CHANGES (3) Lung abscess Code(s): J85.2 - ABSCESS OF LUNG WITHOUT PNEUMONIA Qualifiers: Pulmonary abscess pneumonia presence: with pneumonia Laterality: left Lung location: upper lobe of lung Qualified Code(s): J85.1 - Abscess of lung with pneumonia (4) Vasculitis Code(s): I77.6 - ARTERITIS, UNSPECIFIED Assessment/Plan Current Medications Generic Name Dose Route Start Last Admin Trade Name Freq PRN Reason Stop Dose Admin Acetaminophen 650 mg 06/19/18 01:53 06/19/18 05:32 Tylenol - PO 650 mg Q6H PRN Administration FEVER Budesonide/Formoterol Fumarate 1 puff 06/19/18 10:00 06/29/18 09:26 Symbicort 160/4.5mcg - IH 1 puff BID ROSHAN Administration Calcium Carbonate/Cholecalciferol 1 tab 06/24/18 10:00 06/29/18 09:19 Os-Solomon 500+D - PO 1 tab DAILY ROSHAN Administration Gabapentin 300 mg 06/21/18 22:00 06/28/18 21:45 Neurontin - PO 300 mg HS ROSHAN Administration Ceftriaxone Sodium 2 gm/ 100 mls @ 200 mls/hr 06/28/18 10:30 06/29/18 09:18 Dextrose IVPB 200 mls/hr DAILY ROSHAN Administration Protocol Insulin Aspart 1 vial 06/23/18 07:00 06/29/18 11:35 Novolog Vial Sliding Scale - SQ 2 units ACHS ROSHAN Administration Protocol Prednisone 60 mg 06/22/18 09:30 06/29/18 09:18 Deltasone - PO 60 mg DAILY ROSHAN Administration Ranitidine HCl 150 mg 06/19/18 10:00 06/29/18 09:19 Zantac - PO 150 mg BID ROSHAN Administration Valacyclovir HCl 500 mg 06/22/18 15:47 06/29/18 09:49 Valtrex - PO 500 mg BID ROSHAN Administration Impression 1. MADAN 2. r/o vasculitis 3. glomerulonephrotis 4. lung cavitary lesion 5. asthma 6. copd 7. rheumatoid arthritis 8. hx of renal cell cancer s/p nephrectomy Plan - cont steroids, prednisone 60 - monitor renal function - biopsy pending - ct surgery follow up for chest tube - follow cultures - cont abx Dr Mcneill
[2018-06-29 12:35] LABS: BASO % 0.5 % (0-2.0); EOS % 0.5 % (0-4.5); HEMATOCRIT 25.7 % (32.4-45.2); HEMOGLOBIN 8.3 GM/dL (10.7-15.3); LYMPH % 8.3 % (8-40); MCH 25.5 pg (25.7-33.7); MCHC 32.2 g/dl (32.0-36.0); MEAN CELL VOLUME 79.3 fl (80-96); MEAN PLT VOLUME 7.2 fl (7.5-11.1); MONO % 2.9 % (3.8-10.2); NEUT % 87.8 % (42.8-82.8); PLATELET COUNT 189 K/MM3 (134-434); RBC 3.24 M/mm3 (3.60-5.2); RDW 24.3 % (11.6-15.6)
--- NOTE | 2018-06-29 13:29 | PN ---
Teaching Attending Note Name of Resident: Cristina Wilks ATTENDING PHYSICIAN STATEMENT I saw and evaluated the patient. I reviewed the resident's note and discussed the case with the resident. I agree with the resident's findings and plan as documented. SUBJECTIVE: Pt seen and examined in the ICU. Remains on HFOT 30L/min, 30% fiO2. Denies shortness of breath, pain controlled. No fevers or chills. OBJECTIVE: Vital Signs Period Temp Pulse Resp BP Sys/Busby Pulse Ox Last 24 Hr 97.8 F-98.9 F 65-102 17-21 137-160/77-97 94-97 Intake & Output 06/26/18 06/27/18 06/28/18 06/29/18 23:59 23:59 23:59 23:59 Intake Total 790 1200 640 Output Total 1400 70 425 610 Balance -610 1130 215 -610 Gen: NAD on HFOT Heart: RRR Lung: left base rales Abd: soft, nontender Ext: no edema Chest tube with serosanguinous fluid, no air leak CBC, BMP 06/29/18 12:18 06/29/18 05:30 Active Medications Acetaminophen (Tylenol -) 650 mg PO Q6H PRN PRN Reason: FEVER Last Admin: 06/19/18 05:32 Dose: 650 mg Budesonide/Formoterol Fumarate (Symbicort 160/4.5mcg -) 1 puff IH BID [facility] Last Admin: 06/29/18 09:26 Dose: 1 puff Calcium Carbonate/Cholecalciferol (Os-Solomon 500+D -) 1 tab PO DAILY [facility] Last Admin: 06/29/18 09:19 Dose: 1 tab Gabapentin (Neurontin -) 300 mg PO HS [facility] Last Admin: 06/28/18 21:45 Dose: 300 mg Ceftriaxone Sodium 2 gm/ (Dextrose) 100 mls @ 200 mls/hr IVPB DAILY [facility]; Protocol Last Admin: 06/29/18 09:18 Dose: 200 mls/hr Insulin Aspart (Novolog Vial Sliding Scale -) 1 vial SQ ACHS [facility]; Protocol Last Admin: 06/29/18 11:35 Dose: 2 units Prednisone (Deltasone -) 60 mg PO DAILY [facility] Last Admin: 06/29/18 09:18 Dose: 60 mg Ranitidine HCl (Zantac -) 150 mg PO BID [facility] Last Admin: 06/29/18 09:19 Dose: 150 mg Valacyclovir HCl (Valtrex -) 500 mg PO BID [facility] Last Admin: 06/29/18 09:49 Dose: 500 mg ASSESSMENT AND PLAN: Acute Hypoxic Respiratory Failure ODALYS Cavitary Lung Lesion r/o Lung Abscess r/o Vasculitis s/p L VAT with wedge biopsy Asthma Bronchiectasis Acute Kidney Injury - continue antibiotics per ID - continue prednisone - taper HFOT to keep Spo2 >90%, transition to nasal cannula - inhaled bronchodilators - incentive spirometry - chest tube per surgery - DVT prophylaxis - continue ICU monitoring while on HFOT critical care time spent in reviewing chart, evaluating patient and formulating plan 35 min
[2018-06-29 14:30] LABS: ANISOCYTOSIS 2+; MACROCYTOSIS 1+; PLATELET ESTIMATE NORMAL
--- NOTE | 2018-06-29 19:04 | PN ---
Progress Note, Physician - Current Medication List Current Medications: Active Medications Acetaminophen (Tylenol -) 650 mg PO Q6H PRN PRN Reason: FEVER Last Admin: 06/19/18 05:32 Dose: 650 mg Budesonide/Formoterol Fumarate (Symbicort 160/4.5mcg -) 1 puff IH BID [facility] Last Admin: 06/29/18 09:26 Dose: 1 puff Calcium Carbonate/Cholecalciferol (Os-Solomon 500+D -) 1 tab PO DAILY [facility] Last Admin: 06/29/18 09:19 Dose: 1 tab Gabapentin (Neurontin -) 300 mg PO HS [facility] Last Admin: 06/28/18 21:45 Dose: 300 mg Ceftriaxone Sodium 2 gm/ (Dextrose) 100 mls @ 200 mls/hr IVPB DAILY [facility]; Protocol Last Admin: 06/29/18 09:18 Dose: 200 mls/hr Insulin Aspart (Novolog Vial Sliding Scale -) 1 vial SQ ACHS [facility]; Protocol Last Admin: 06/29/18 17:20 Dose: 4 units Prednisone (Deltasone -) 60 mg PO DAILY [facility] Last Admin: 06/29/18 09:18 Dose: 60 mg Ranitidine HCl (Zantac -) 150 mg PO BID [facility] Last Admin: 06/29/18 09:19 Dose: 150 mg Valacyclovir HCl (Valtrex -) 500 mg PO BID [facility] Last Admin: 06/29/18 09:49 Dose: 500 mg - Objective Vital Signs: Vital Signs Temperature 98.9 F 06/29/18 10:00 Pulse Rate 102 H 06/29/18 12:00 Respiratory Rate 20 06/29/18 12:00 Blood Pressure 160/93 06/29/18 12:00 O2 Sat by Pulse Oximetry (%) 95 06/29/18 10:15 Labs: CBC, BMP 06/29/18 12:18 06/29/18 05:30 Problem List - Problems (1) Acute respiratory failure Code(s): J96.00 - ACUTE RESPIRATORY FAILURE, UNSP W HYPOXIA OR HYPERCAPNIA (2) Lung abscess Code(s): J85.2 - ABSCESS OF LUNG WITHOUT PNEUMONIA Qualifiers: Pulmonary abscess pneumonia presence: with pneumonia Laterality: left Lung location: upper lobe of lung Qualified Code(s): J85.1 - Abscess of lung with pneumonia (3) Vasculitis Code(s): I77.6 - ARTERITIS, UNSPECIFIED (4) COPD (chronic obstructive pulmonary disease) Code(s): J44.9 - CHRONIC OBSTRUCTIVE PULMONARY DISEASE, UNSPECIFIED (5) CKD (chronic kidney disease) Code(s): N18.9 - CHRONIC KIDNEY DISEASE, UNSPECIFIED (6) Neuropathy Code(s): G62.9 - POLYNEUROPATHY, UNSPECIFIED (7) H/O renal cell cancer Code(s): Z85.528 - PERSONAL HISTORY OF OTHER MALIGNANT NEOPLASM OF KIDNEY
[2018-06-29 19:08] LABS: ASPERGIL AG 1.11 Index (0.00-0.49)
[2018-06-29] MEDS: GABAPENTIN 300 MG CAPSULE (FP) PO SCH (21:04)
[2018-06-30 04:11] LABS: SERUM IRON SATURATION 37 % (15-55); TOTAL IRON BINDING CAPACITY 200 ug/dL (250-450); UIBC 127 ug/dL (118-369)
[2018-06-30] MEDS: INSULIN SLIDING SCALE (NOVOLOG) 1 VIAL SQ SCH ×4 (06:27→21:13)
[2018-06-30 07:02] LABS: BASO % 0.3 % (0-2.0); EOS % 1.4 % (0-4.5); HEMATOCRIT 21.4 % (32.4-45.2); LYMPH % 21.4 % (8-40); MCH 25.8 pg (25.7-33.7); MCHC 32.6 g/dl (32.0-36.0); MEAN CELL VOLUME 79.2 fl (80-96); MEAN PLT VOLUME 7.5 fl (7.5-11.1); MONO % 6.3 % (3.8-10.2); NEUT % 70.6 % (42.8-82.8); PLATELET COUNT 167 K/MM3 (134-434); RBC 2.71 M/mm3 (3.60-5.2); RDW 23.1 % (11.6-15.6); WHITE BLOOD COUNT 5.5 K/mm3 (4.0-10.0)
[2018-06-30 07:45] LABS: ALK PHOS 43 U/L (45-117); ANION GAP 5 MMOL/L (8-16); BILIRUBIN,TOTAL 0.4 mg/dL (0.2-1); BLOOD UREA NITROGEN 45 mg/dL (7-18); CALCIUM 7.6 mg/dL (8.5-10.1); CHLORIDE 108 mmol/L (98-107); CO2 29 mmol/L (21-32); CREATININE 1.3 mg/dL (0.55-1.3); GLUCOSE,RANDOM 75 mg/dL (74-106); MAGNESIUM 2.3 mg/dL (1.8-2.4); PHOSPHOROUS 2.7 mg/dL (2.5-4.9); POTASSIUM 3.9 mmol/L (3.5-5.1); SGOT/AST 16 U/L (15-37); SGPT/ALT 18 U/L (13-61); SODIUM 142 mmol/L (136-145); TOT PROT 4.6 g/dl (6.4-8.2)
--- NOTE | 2018-06-30 08:32 | PN ---
Progress Note (short form) - Note Progress Note: Surgery POD #5 Bronchoscopy, Left Video assisted thoractomy with upper lobe wedge. Patient seen and examined at bedside with no new complaints. Patient states she feels well and denies any CP, SOB, N/V fever or chills. Vital Signs Temp 97.8 F 04 07:29 Pulse 85 06/30/18 07:29 Resp 20 06/30/18 07:29 BP 177/94 H 06/30/18 07:29 Pulse Ox 95 06/29/18 10:15 Intake & Output 06/29/18 06/29/18 06/30/18 11:59 23:59 11:59 Intake Total 850 Output Total 610 810 55 Balance -610 40 -55 Intake: Oral 850 Output: Chest Tube Drainage 10 10 55 Left Lateral Chest 10 10 55 Urine 600 800 Void 600 800 Other: Voiding Method Bedpan Bedpan # Unmeasured Voids Void 2 1 Bowel Movement Yes # Bowel Movements 2 Body Mass Index (BMI) 28.1 CBC, BMP 06/30/ 06:00 PE: A&Ox3, NAD unlabored resp on RA Left chest tube at left chest wall, removed with tip fully intact and pressure dressing applied. The patient tolerated the procedure and her vitals remained stable during and after the procedure. mild erythema and bruising at chest tube site and left lateral chest wall appropriate to status. Problem List - Problems (1) Lung abscess Assessment/Plan: POD #5 VATS procedure, chest tube removed and patient continues to improve. 1) F/u portable chest X-Ray 2) Encourage pulmonary toilet 3) OOB as tolerated 4) D/c planning Evaluation and plan discussed with Dr Blanc Code(s): J85.2 - ABSCESS OF LUNG WITHOUT PNEUMONIA Qualifiers: Pulmonary abscess pneumonia presence: with pneumonia Laterality: left Lung location: upper lobe of lung Qualified Code(s): J85.1 - Abscess of lung with pneumonia
--- NOTE | 2018-06-30 08:45 | PN ---
Progress Note (short form) - Note Progress Note: The patient reports significant numbness in legs related to peripheral neuropathy resulting in dificulty in walking. Otherwise she is feeling very well. The chest tube was removed yesterday. She denies shortness of breath, malaise or joint pain. No fever. On the physical examination lungs clear, S1 and S2 normal. No active joints. I spoke yesterday with pathology. Preliminary evauation of the biopsy was negative for vasculitis and also teher was no significant inflammatory reaction. At this point there are no changes in the diagnostic considerations - vasculitis vs pneumonia with cavitation. Laboratory work-up - progression of anemia. CBC with WBC of 5.5, Hgb 7, HCT 21.4 and platelets 167. Improvement in renal function - Creatinine 1.3. Urinalysis with Protein 1+ and blood 3+. Plan: Continue with Prendisone 60 mg/d. Awaiting further analysis by pathology. Problem List - Problems (1) ANCA-positive vasculitis Code(s): I77.6 - ARTERITIS, UNSPECIFIED
[2018-06-30] MEDS ORDERED: PT OWN MED DRAWER 7, Y5N ONE ×2 (08:57→20:31)
[2018-06-30] MEDS ORDERED: DEXTROSE 5%-WATER 100 ML IVPB ONE (08:58)
[2018-06-30] MEDS: valACYclovir HCL 500 MG TABLET (FP) PO SCH ×2 (09:06→21:12)
[2018-06-30] MEDS: RANITIDINE HCL 150 MG TABLET (FP) PO SCH ×2 (09:06→21:12)
[2018-06-30] MEDS: predniSONE 20 MG TABLET (UD) PO SCH (09:06)
[2018-06-30] MEDS: GABAPENTIN 300 MG CAPSULE (FP) PO SCH ×2 (09:07→21:12)
[2018-06-30] MEDS: CEFTRIAXONE 2 GM in DEXTROSE 5%-WATER 100 ML IVPB SCH (09:07)
[2018-06-30] MEDS: CALCIUM 500MG/VIT-D 200 UNITS COMBO TABLET (FP) PO SCH (09:07)
[2018-06-30] MEDS: BUDESONIDE/FORMETEROL FUMARATE 160/4.5 mcg INHALER IH SCH ×2 (09:09→21:12)
--- NOTE | 2018-06-30 09:52 | PN ---
Progress Note (short form) - Note Progress Note: Breathing feels overall better. Still mildly tachypneic with movement. CT was removed this AM. CXR: No PTX / left base opacification Lung path: no vasculitis Intake & Output 06/27/18 06/28/18 06/29/18 06/30/18 23:59 23:59 23:59 23:59 Intake Total 1200 640 850 Output Total 70 425 1420 55 Balance 1130 215 -570 -55 Last Vital Signs Temp Pulse Resp BP Pulse Ox 97.8 F 85 20 177/94 H 95 06/30/18 07:29 06/30/18 07:29 06/30/18 07:29 06/30/18 07:29 06/29/18 10:15 Active Medications Acetaminophen (Tylenol -) 650 mg PO Q6H PRN PRN Reason: FEVER Last Admin: 06/19/18 05:32 Dose: 650 mg Budesonide/Formoterol Fumarate (Symbicort 160/4.5mcg -) 1 puff IH BID [facility] Last Admin: 06/30/18 09:09 Dose: 1 puff Calcium Carbonate/Cholecalciferol (Os-Solomon 500+D -) 1 tab PO DAILY [facility] Last Admin: 06/30/18 09:07 Dose: 1 tab Gabapentin (Neurontin -) 300 mg PO BID [facility] Last Admin: 06/30/18 09:07 Dose: 300 mg Ceftriaxone Sodium 2 gm/ (Dextrose) 100 mls @ 200 mls/hr IVPB DAILY [facility]; Protocol Last Admin: 06/30/18 09:07 Dose: 200 mls/hr Insulin Aspart (Novolog Vial Sliding Scale -) 1 vial SQ ACHS [facility]; Protocol Last Admin: 06/30/18 06:27 Dose: Not Given Prednisone (Deltasone -) 60 mg PO DAILY [facility] Last Admin: 06/30/18 09:06 Dose: 60 mg Ranitidine HCl (Zantac -) 150 mg PO BID [facility] Last Admin: 06/30/18 09:06 Dose: 150 mg Valacyclovir HCl (Valtrex -) 500 mg PO BID [facility] Last Admin: 06/30/18 09:06 Dose: 500 mg GENERAL: Awake and alert, less tachypneic HEAD: Normal with no signs of trauma. EYES: PERRL, extraocular movements intact, sclera anicteric, conjunctiva clear. No ptosis. ENT: Ears normal, nares patent, oropharynx clear without exudates, moist mucous membranes. NECK: Trachea midline, full range of motion, supple. LUNGS:bibasilar rhonchi, Left > Right, (-) wheeze. HEART: Regular rate and rhythm, S1, S2 without murmur, rub or gallop. ABDOMEN: Soft, nontender, nondistended, normoactive bowel sounds, no guarding, no rebound, no hepatosplenomegaly, no masses. EXTREMITIES: 2+ pulses, warm, well-perfused, no edema. NEUROLOGICAL: Non-focal. PSYCH: Following commands. SKIN: Warm, dry, normal turgor, no rashes or lesions noted Laboratory Results - last 24 hr 06/25/18 06/29/18 06/29/18 11:55 05:30 05:30 WBC RBC Hgb Hct MCV MCH MCHC RDW Plt Count MPV Absolute Neuts (auto) Neutrophils % Neutrophils % (Manual) 69.0 Band Neutrophils % 3.0 Lymphocytes % Lymphocytes % (Manual) 23.0 Monocytes % Monocytes % (Manual) 1 L D Eosinophils % Eosinophils % (Manual) 1.0 D Basophils % Basophils % (Manual) 0.0 Myelocytes % (Man) 2 Promyelocytes % (Man) 0 Blast Cells % (Manual) 0 Nucleated RBC % Metamyelocytes 1 D Hypochromia 0 Platelet Estimate Normal Polychromasia 1+ Poikilocytosis 0 Anisocytosis 1+ Microcytosis 1+ Macrocytosis 0 Stomatocytes Sodium Potassium Chloride Carbon Dioxide Anion Gap BUN Creatinine Creat Clearance w eGFR POC Glucometer Random Glucose Calcium Phosphorus Magnesium Iron 73 TIBC 200 L Iron Saturation 37 Total Bilirubin AST ALT Alkaline Phosphatase Total Protein Albumin Aspergillus Antibody 1.11 H Blood Type Antibody Screen Crossmatch 06/29/18 06/29/18 06/29/18 11:23 12:18 12:18 WBC 9.0 RBC 3.24 L Hgb 8.3 L Hct 25.7 L MCV 79.3 L MCH 25.5 L MCHC 32.2 RDW 24.3 H Plt Count 189 D MPV 7.2 L Absolute Neuts (auto) 7.9 Neutrophils % 87.8 H D Neutrophils % (Manual) 88.9 H Band Neutrophils % 0.0 Lymphocytes % 8.3 D Lymphocytes % (Manual) 6.1 L D Monocytes % 2.9 L Monocytes % (Manual) 2 L D Eosinophils % 0.5 Eosinophils % (Manual) 0.0 D Basophils % 0.5 Basophils % (Manual) 0.0 Myelocytes % (Man) 0 D Promyelocytes % (Man) 0 Blast Cells % (Manual) 0 Nucleated RBC % 0 Metamyelocytes 0 D Hypochromia 0 Platelet Estimate Normal Polychromasia 1+ Poikilocytosis 0 Anisocytosis 2+ Microcytosis 0 Macrocytosis 1+ Stomatocytes 1+ Sodium Potassium Chloride Carbon Dioxide Anion Gap BUN Creatinine Creat Clearance w eGFR POC Glucometer 151 Random Glucose Calcium Phosphorus Magnesium Iron TIBC Iron Saturation Total Bilirubin AST ALT Alkaline Phosphatase Total Protein Albumin Aspergillus Antibody Blood Type A POSITIVE Antibody Screen Negative Crossmatch See Detail 06/29/18 06/29/18 06/29/18 17:13 21:07 22:20 WBC RBC Hgb Hct MCV MCH MCHC RDW Plt Count MPV Absolute Neuts (auto) Neutrophils % Neutrophils % (Manual) Band Neutrophils % Lymphocytes % Lymphocytes % (Manual) Monocytes % Monocytes % (Manual) Eosinophils % Eosinophils % (Manual) Basophils % Basophils % (Manual) Myelocytes % (Man) Promyelocytes % (Man) Blast Cells % (Manual) Nucleated RBC % Metamyelocytes Hypochromia Platelet Estimate Polychromasia Poikilocytosis Anisocytosis Microcytosis Macrocytosis Stomatocytes Sodium Potassium Chloride Carbon Dioxide Anion Gap BUN Creatinine Creat Clearance w eGFR POC Glucometer 202 192 155 Random Glucose Calcium Phosphorus Magnesium Iron TIBC Iron Saturation Total Bilirubin AST ALT Alkaline Phosphatase Total Protein Albumin Aspergillus Antibody Blood Type Antibody Screen Crossmatch 06/30/18 06/30/18 06/30/18 06:00 06:00 06:26 WBC 5.5 RBC 2.71 L Hgb 7.0 L Hct 21.4 L D MCV 79.2 L MCH 25.8 MCHC 32.6 RDW 23.1 H Plt Count 167 MPV 7.5 Absolute Neuts (auto) 3.9 Neutrophils % 70.6 Neutrophils % (Manual) Band Neutrophils % Lymphocytes % 21.4 D Lymphocytes % (Manual) Monocytes % 6.3 D Monocytes % (Manual) Eosinophils % 1.4 D Eosinophils % (Manual) Basophils % 0.3 Basophils % (Manual) Myelocytes % (Man) Promyelocytes % (Man) Blast Cells % (Manual) Nucleated RBC % 0 Metamyelocytes Hypochromia Platelet Estimate Polychromasia Poikilocytosis Anisocytosis Microcytosis Macrocytosis Stomatocytes Sodium 142 Potassium 3.9 Chloride 108 H Carbon Dioxide 29 Anion Gap 5 L BUN 45 H Creatinine 1.3 Creat Clearance w eGFR 41.37 POC Glucometer 73 Random Glucose 75 Calcium 7.6 L Phosphorus 2.7 Magnesium 2.3 Iron TIBC Iron Saturation Total Bilirubin 0.4 AST 16 ALT 18 Alkaline Phosphatase 43 L Total Protein 4.6 L Albumin 2.0 L Aspergillus Antibody Blood Type Antibody Screen Crossmatch ASSESSMENT/PLAN: Acute Respiratory Failure: Resolved APE Lung Abscess Renal cancer s/p nephrectomy x 7 years ago Asthma Neuropathy Bronchiectasis S/P Left VAT with wedge biopsy in the [facility] Empyema 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
[2018-06-30 11:21] LABS: ANISOCYTOSIS 1+; MACROCYTOSIS 0; OVALOCYTE 1+; PLATELET ESTIMATE NORMAL
[2018-06-30] MEDS ORDERED: ACETAMINOPHEN 325 MG TABLET (FP) PO PRN (13:12)
--- NOTE | 2018-06-30 14:23 | PN ---
Progress Note (short form) - Note Progress Note: CXR s/p CxT removal 06/30 --> no pntx Cont care as per primary team. Nothing further from Thoracic Surgery. On behalf of Dr. Blanc, thank you for the opportunity to participate in your patient's care. Problem List - Problems (1) Lung abscess Code(s): J85.2 - ABSCESS OF LUNG WITHOUT PNEUMONIA Qualifiers: Pulmonary abscess pneumonia presence: with pneumonia Laterality: left Lung location: upper lobe of lung Qualified Code(s): J85.1 - Abscess of lung with pneumonia (2) COPD (chronic obstructive pulmonary disease) Code(s): J44.9 - CHRONIC OBSTRUCTIVE PULMONARY DISEASE, UNSPECIFIED (3) CKD (chronic kidney disease) Code(s): N18.9 - CHRONIC KIDNEY DISEASE, UNSPECIFIED
--- NOTE | 2018-06-30 14:38 | PN ---
Progress Note, Physician History of Present Illness: Pt seen and examined at bedside. She is awake and alert. Her chest tube was removed. - Current Medication List Current Medications: Active Medications Acetaminophen (Tylenol -) 650 mg PO Q6H PRN PRN Reason: FEVER Budesonide/Formoterol Fumarate (Symbicort 160/4.5mcg -) 1 puff IH BID [facility] Calcium Carbonate/Cholecalciferol (Os-Solomon 500+D -) 1 tab PO DAILY [facility] Gabapentin (Neurontin -) 300 mg PO BID [facility] Last Admin: 06/30/18 09:07 Dose: 300 mg Ceftriaxone Sodium 2 gm/ (Dextrose) 100 mls @ 200 mls/hr IVPB DAILY [facility]; Protocol Insulin Aspart (Novolog Vial Sliding Scale -) 1 vial SQ ACHS [facility]; Protocol Prednisone (Deltasone -) 60 mg PO DAILY [facility] Ranitidine HCl (Zantac -) 150 mg PO BID [facility] Valacyclovir HCl (Valtrex -) 500 mg PO BID [facility] - Objective Vital Signs: Vital Signs Temperature 97.8 F 06/30/18 10:00 Pulse Rate 103 H 06/30/18 10:00 Respiratory Rate 18 06/30/18 10:00 Blood Pressure 137/84 06/30/18 10:00 O2 Sat by Pulse Oximetry (%) 95 06/29/18 10:15 Constitutional: Yes: Calm Eyes: Yes: Conjunctiva Clear HENT: Yes: Atraumatic Cardiovascular: Yes: S1, S2 Respiratory: Yes: On Nasal O2 Gastrointestinal: Yes: Soft Genitourinary: Yes: WNL Musculoskeletal: Yes: WNL Edema: Yes Edema: LLE: Trace, RLE: Trace Neurological: Yes: Oriented Psychiatric: Yes: Oriented Labs: CBC, BMP 06/30/18 06:00 06/30/18 06:00 Problem List - Problems (1) MADAN (acute kidney injury) Code(s): N17.9 - ACUTE KIDNEY FAILURE, UNSPECIFIED (2) Glomerulonephritis Code(s): N05.9 - UNSP NEPHRITIC SYNDROME WITH UNSPECIFIED MORPHOLOGIC CHANGES (3) Lung abscess Code(s): J85.2 - ABSCESS OF LUNG WITHOUT PNEUMONIA Qualifiers: Pulmonary abscess pneumonia presence: with pneumonia Laterality: left Lung location: upper lobe of lung Qualified Code(s): J85.1 - Abscess of lung with pneumonia (4) Vasculitis Code(s): I77.6 - ARTERITIS, UNSPECIFIED Assessment/Plan Current Medications Generic Name Dose Route Start Last Admin Trade Name Freq PRN Reason Stop Dose Admin Acetaminophen 650 mg 06/30/18 13:12 Tylenol - PO Q6H PRN FEVER Budesonide/Formoterol Fumarate 1 puff 06/30/18 22:00 Symbicort 160/4.5mcg - IH BID [facility] Calcium Carbonate/Cholecalciferol 1 tab 07/01/18 10:00 Os-Solomon 500+D - PO DAILY [facility] Gabapentin 300 mg 06/30/18 10:00 06/30/18 09:07 Neurontin - PO 300 mg BID [facility] Administration Ceftriaxone Sodium 2 gm/ 100 mls @ 200 mls/hr 07/01/18 10:00 Dextrose IVPB DAILY [facility] Protocol Insulin Aspart 1 vial 06/30/18 16:30 Novolog Vial Sliding Scale - SQ ACHS [facility] Protocol Prednisone 60 mg 07/01/18 10:00 Deltasone - PO DAILY [facility] Ranitidine HCl 150 mg 06/30/18 22:00 Zantac - PO BID [facility] Valacyclovir HCl 500 mg 06/30/18 22:00 Valtrex - PO BID [facility] Impression 1. MADAN 2. r/o vasculitis 3. glomerulonephrotis 4. lung cavitary lesion 5. asthma 6. copd 7. rheumatoid arthritis 8. hx of renal cell cancer s/p nephrectomy Plan - renal function is improving - cont prednisone - rheum input appreciated - chest tube removed - follow up biopsy - follow repeat ua - cont abx Dr Mcneill
--- NOTE | 2018-06-30 16:07 | PN ---
Progress Note (short form) - Note Progress Note: no complaints chest tube out Vital Signs Period Temp Pulse Resp BP Sys/Busby Pulse Ox Last 24 Hr 97.8 F-98.7 F 78-103 18-20 137-180/84-96 cor-rrr lungs clear abd soft, nt ext no edema CBC, BMP 06/30/18 06:00 06/30/18 06:00 Microbiology 06/22/18 15:00 Ulcer Viral Culture - Final 06/25/18 13:15 Lung - Left Upper Lobe AFB Smear Concentration - Final 06/25/18 13:15 Lung - Left Upper Lobe Mycobacterial Culture - Preliminary 06/25/18 12:59 Pleural Fluid AFB Smear Concentration - Final 06/25/18 12:59 Pleural Fluid Mycobacterial Culture - Preliminary 06/25/18 13:15 Bronchial Washings - Bilateral Lung Fluid AFB Smear Concentration - Final 06/25/18 13:15 Bronchial Washings - Bilateral Lung Fluid Mycobacterial Culture - Preliminary 06/25/18 13:15 Bronchial Washings - Left Lower Lobe Legionella pneumophila ( Direct FA) - Final 06/25/18 13:15 Lung - Left Upper Lobe Gram Stain - Final 06/25/18 13:15 Lung - Left Upper Lobe Tissue Culture - Final NO GROWTH OF AEROBIC ORGANISMS AFTER 48 HOURS INCUBATION 06/25/18 13:15 Lung - Left Upper Lobe Anaerobic Culture - Final NO ANAEROBES WERE ISOLATED 06/25/18 13:15 Pleural Fluid Gram Stain - Final 06/25/18 13:15 Pleural Fluid Body Fluid Culture - Final NO GROWTH OF AEROBIC ORGANISMS AFTER 48 HOURS INCUBATION 06/25/18 13:15 Pleural Fluid Anaerobic Culture - Final NO ANAEROBES WERE ISOLATED 06/25/18 13:15 Bronchial Washings - Bilateral Lung Fluid Gram Stain - Final 06/25/18 13:15 Bronchial Washings - Bilateral Lung Fluid Bronchoalveolar Lavage Culture - Final Klebsiella Pneumoniae 06/25/18 13:15 Lung - Left Upper Lobe SHARI Preparation - Preliminary 06/25/18 13:15 Lung - Left Upper Lobe Fungal Culture - Preliminary 06/25/18 13:15 Pleural Fluid SHARI Preparation - Preliminary 06/25/18 13:15 Pleural Fluid Fungal Culture - Preliminary 06/25/18 12:59 Bronchial Washings - Bilateral Lung Fluid SHARI Preparation - Preliminary 06/25/18 12:59 Bronchial Washings - Bilateral Lung Fluid Fungal Culture - Preliminary 06/22/18 11:00 Sputum - Expectorated AFB Smear Concentration - Final 06/22/18 11:00 Sputum - Expectorated Direct Acid Fast Bacilli Smear - Final 06/22/18 11:00 Sputum - Expectorated Mycobacterial Culture - Preliminary 06/18/18 17:25 Blood - Peripheral Venous Blood Culture - Final NO GROWTH AFTER 5 DAYS INCUBATION 06/18/18 17:25 Blood - Peripheral Venous Blood Culture - Final NO GROWTH AFTER 5 DAYS INCUBATION 06/23/18 12:30 Sputum - Expectorated SHARI Preparation - Preliminary 06/23/18 12:30 Sputum - Expectorated Fungal Culture - Preliminary 06/21/18 04:00 Sputum - Expectorated AFB Smear Concentration - Final 06/21/18 04:00 Sputum - Expectorated Direct Acid Fast Bacilli Smear - Final 06/21/18 04:00 Sputum - Expectorated Mycobacterial Culture - Preliminary 06/20/18 12:30 Sputum - Expectorated AFB Smear Concentration - Final 06/20/18 12:30 Sputum - Expectorated Direct Acid Fast Bacilli Smear - Final 06/20/18 12:30 Sputum - Expectorated Mycobacterial Culture - Preliminary 06/19/18 17:00 Sputum - Expectorated AFB Smear Concentration - Final 06/19/18 17:00 Sputum - Expectorated Direct Acid Fast Bacilli Smear - Final 06/19/18 17:00 Sputum - Expectorated Mycobacterial Culture - Preliminary 06/19/18 17:00 Sputum - Expectorated Gram Stain - Final 06/19/18 17:00 Sputum - Expectorated Sputum Culture - Final NORMAL RESPIRATORY MAAME 06/19/18 18:30 Urine For Antigen Detection Legionella Antigen - Final 06/19/18 18:30 Urine For Antigen Detection Streptococcus pneumoniae Antigen (M - Final 06/18/18 19:51 Urine - Urine Clean Catch Urine Culture - Final NO GROWTH OBTAINED cxray reviewed a/p vasculitis low suspicion TB-sputum afb negative, pcr negative times 2 BAL culture -pure culture klebsiella continue ceftriaxone, day #12 antibiotics fungal serology negative small sacral ulcer is dry-f/u viral culture, continue valtrex solitary kidney- s/p nephrectomy f/u cultures /pathology from BAL and lung biopsy d/w patient at [facility] await pathology plan picc line for longter iv antibiotics for lung abscess Problem List - Problems (1) Lung abscess Code(s): J85.2 - ABSCESS OF LUNG WITHOUT PNEUMONIA Qualifiers: Pulmonary abscess pneumonia presence: with pneumonia Laterality: left Lung location: upper lobe of lung Qualified Code(s): J85.1 - Abscess of lung with pneumonia (2) Vasculitis Code(s): I77.6 - ARTERITIS, UNSPECIFIED
[2018-06-30 18:58] LABS: EPI CELLS 4.2 /HPF (0-5); URINE APPEARANCE CLEAR; URINE BACTERIA 1.4 /hpf (NEGATIVE); URINE BILIRUBIN NEGATIVE (NEGATIVE); URINE CASTS 8 /hpf (0-8); URINE COLOR YELLOW; URINE GLUCOSE (UA) 2+ (NEGATIVE); URINE KETONE NEGATIVE (NEGATIVE); URINE LEUK ESTERASE NEGATIVE (NEGATIVE); URINE NITRITE NEGATIVE (NEGATIVE); URINE PROTEIN 3+ (NEGATIVE); URINE UROBILINOGEN 0.2 mg/dL (0.2-1.0); URINE WBC 5 /hpf (0-5)
[2018-06-30] MEDS ORDERED: INSULIN (NOVOLOG) ASPART 100 UNITS/ML 10ML VIAL ONE (21:19)
--- NOTE | 2018-06-30 23:51 | PN ---
Progress Note, Physician - Current Medication List Current Medications: Active Medications Acetaminophen (Tylenol -) 650 mg PO Q6H PRN PRN Reason: FEVER Budesonide/Formoterol Fumarate (Symbicort 160/4.5mcg -) 1 puff IH BID [facility] Last Admin: 06/30/18 21:12 Dose: 1 puff Calcium Carbonate/Cholecalciferol (Os-Solomon 500+D -) 1 tab PO DAILY [facility] Gabapentin (Neurontin -) 300 mg PO BID [facility] Last Admin: 06/30/18 21:12 Dose: 300 mg Ceftriaxone Sodium 2 gm/ (Dextrose) 100 mls @ 200 mls/hr IVPB DAILY [facility]; Protocol Insulin Aspart (Novolog Vial Sliding Scale -) 1 vial SQ ACHS [facility]; Protocol Last Admin: 06/30/18 21:13 Dose: 6 units Prednisone (Deltasone -) 60 mg PO DAILY [facility] Ranitidine HCl (Zantac -) 150 mg PO BID [facility] Last Admin: 06/30/18 21:12 Dose: 150 mg Valacyclovir HCl (Valtrex -) 500 mg PO BID [facility] Last Admin: 06/30/18 21:12 Dose: 500 mg - Objective Vital Signs: Vital Signs Temperature 99 F 06/30/18 16:30 Pulse Rate 97 H 06/30/18 16:30 Respiratory Rate 18 06/30/18 16:30 Blood Pressure 153/90 06/30/18 16:30 O2 Sat by Pulse Oximetry (%) 96 06/30/18 16:22 Labs: CBC, BMP 06/30/18 06:00 06/30/18 06:00 Problem List - Problems (1) Acute respiratory failure Code(s): J96.00 - ACUTE RESPIRATORY FAILURE, UNSP W HYPOXIA OR HYPERCAPNIA (2) Lung abscess Code(s): J85.2 - ABSCESS OF LUNG WITHOUT PNEUMONIA Qualifiers: Pulmonary abscess pneumonia presence: with pneumonia Laterality: left Lung location: upper lobe of lung Qualified Code(s): J85.1 - Abscess of lung with pneumonia (3) Vasculitis Code(s): I77.6 - ARTERITIS, UNSPECIFIED (4) COPD (chronic obstructive pulmonary disease) Code(s): J44.9 - CHRONIC OBSTRUCTIVE PULMONARY DISEASE, UNSPECIFIED (5) CKD (chronic kidney disease) Code(s): N18.9 - CHRONIC KIDNEY DISEASE, UNSPECIFIED (6) Neuropathy Code(s): G62.9 - POLYNEUROPATHY, UNSPECIFIED (7) H/O renal cell cancer Code(s): Z85.528 - PERSONAL HISTORY OF OTHER MALIGNANT NEOPLASM OF KIDNEY
[2018-07-01] MEDS: INSULIN SLIDING SCALE (NOVOLOG) 1 VIAL SQ SCH ×4 (06:17→21:20)
[2018-07-01] MEDS ORDERED: DEXTROSE 5%-WATER 100 ML IVPB ONE (09:34)
[2018-07-01] MEDS: predniSONE 20 MG TABLET (UD) PO SCH (10:34)
[2018-07-01] MEDS: BUDESONIDE/FORMETEROL FUMARATE 160/4.5 mcg INHALER IH SCH ×2 (10:35→21:54)
[2018-07-01] MEDS: CEFTRIAXONE 2 GM in DEXTROSE 5%-WATER 100 ML IVPB SCH (10:35)
[2018-07-01] MEDS: GABAPENTIN 300 MG CAPSULE (FP) PO SCH ×2 (10:35→22:14)
[2018-07-01] MEDS: CALCIUM 500MG/VIT-D 200 UNITS COMBO TABLET (FP) PO SCH (10:35)
[2018-07-01] MEDS: RANITIDINE HCL 150 MG TABLET (FP) PO SCH ×2 (10:36→21:54)
[2018-07-01] MEDS: valACYclovir HCL 500 MG TABLET (FP) PO SCH ×2 (10:47→21:54)
[2018-07-01] MEDS ORDERED: PT OWN MED DRAWER 7, Y5N ONE ×2 (10:47→20:51)
--- NOTE | 2018-07-01 12:47 | PN ---
Progress Note, Physician History of Present Illness: Pt seen and examined at bedside. She is awake and alert. She denies shortness of breath. - Current Medication List Current Medications: Active Medications Acetaminophen (Tylenol -) 650 mg PO Q6H PRN PRN Reason: FEVER Budesonide/Formoterol Fumarate (Symbicort 160/4.5mcg -) 1 puff IH BID [facility] Last Admin: 07/01/18 10:35 Dose: 1 puff Calcium Carbonate/Cholecalciferol (Os-Solomon 500+D -) 1 tab PO DAILY [facility] Last Admin: 07/01/18 10:35 Dose: 1 tab Gabapentin (Neurontin -) 300 mg PO BID [facility] Last Admin: 07/01/18 10:35 Dose: 300 mg Ceftriaxone Sodium 2 gm/ (Dextrose) 100 mls @ 200 mls/hr IVPB DAILY [facility]; Protocol Last Admin: 07/01/18 10:35 Dose: 200 mls/hr Insulin Aspart (Novolog Vial Sliding Scale -) 1 vial SQ ACHS [facility]; Protocol Last Admin: 07/01/18 12:30 Dose: Not Given Prednisone (Deltasone -) 60 mg PO DAILY [facility] Last Admin: 07/01/18 10:34 Dose: 60 mg Ranitidine HCl (Zantac -) 150 mg PO BID [facility] Last Admin: 07/01/18 10:36 Dose: 150 mg Valacyclovir HCl (Valtrex -) 500 mg PO BID [facility] Last Admin: 07/01/18 10:47 Dose: 500 mg - Objective Vital Signs: Vital Signs Temperature 97.6 F 07/01/18 06:47 Pulse Rate 79 07/01/18 06:47 Respiratory Rate 20 07/01/18 06:47 Blood Pressure 150/62 07/01/18 06:47 O2 Sat by Pulse Oximetry (%) 98 06/30/18 21:00 Constitutional: Yes: Calm Eyes: Yes: Conjunctiva Clear HENT: Yes: Atraumatic Neck: Yes: Supple Cardiovascular: Yes: S1, S2 Respiratory: Yes: On Nasal O2 Gastrointestinal: Yes: Soft Genitourinary: Yes: WNL Musculoskeletal: Yes: WNL Edema: Yes Edema: LLE: Trace, RLE: Trace Neurological: Yes: Oriented Psychiatric: Yes: Oriented Labs: CBC, BMP 06/30/18 06:00 06/30/18 06:00 Problem List - Problems (1) MADAN (acute kidney injury) Code(s): N17.9 - ACUTE KIDNEY FAILURE, UNSPECIFIED (2) Glomerulonephritis Code(s): N05.9 - UNSP NEPHRITIC SYNDROME WITH UNSPECIFIED MORPHOLOGIC CHANGES (3) Lung abscess Code(s): J85.2 - ABSCESS OF LUNG WITHOUT PNEUMONIA Qualifiers: Pulmonary abscess pneumonia presence: with pneumonia Laterality: left Lung location: upper lobe of lung Qualified Code(s): J85.1 - Abscess of lung with pneumonia (4) Vasculitis Code(s): I77.6 - ARTERITIS, UNSPECIFIED Assessment/Plan Current Medications Generic Name Dose Route Start Last Admin Trade Name Freq PRN Reason Stop Dose Admin Acetaminophen 650 mg 06/30/18 13:12 Tylenol - PO Q6H PRN FEVER Budesonide/Formoterol Fumarate 1 puff 06/30/18 22:00 07/01/18 10:35 Symbicort 160/4.5mcg - IH 1 puff BID [facility] Administration Calcium Carbonate/Cholecalciferol 1 tab 07/01/18 10:00 07/01/18 10:35 Os-Solomon 500+D - PO 1 tab DAILY [facility] Administration Gabapentin 300 mg 06/30/18 10:00 07/01/18 10:35 Neurontin - PO 300 mg BID [facility] Administration Ceftriaxone Sodium 2 gm/ 100 mls @ 200 mls/hr 07/01/18 10:00 07/01/18 10:35 Dextrose IVPB 200 mls/hr DAILY [facility] Administration Protocol Insulin Aspart 1 vial 06/30/18 16:30 07/01/18 12:30 Novolog Vial Sliding Scale - SQ Not Given ACHS [facility] Protocol Prednisone 60 mg 07/01/18 10:00 07/01/18 10:34 Deltasone - PO 60 mg DAILY [facility] Administration Ranitidine HCl 150 mg 06/30/18 22:00 07/01/18 10:36 Zantac - PO 150 mg BID [facility] Administration Valacyclovir HCl 500 mg 06/30/18 22:00 07/01/18 10:47 Valtrex - PO 500 mg BID [facility] Administration Laboratory Tests 06/19/18 06/30/18 12:40 18:00 Urine Protein 3+ H Urine Blood 2+ H p-ANCA 1:160 H Myeloperoxidase Ab 65.0 H Impression 1. MADAN 2. r/o vasculitis 3. glomerulonephrotis 4. lung cavitary lesion 5. asthma 6. copd 7. rheumatoid arthritis 8. hx of renal cell cancer s/p nephrectomy Plan - check bmp in am - urine still has active sediment - follow biopsy results - cont steroids - cont abx Dr Mcneill
--- NOTE | 2018-07-01 14:20 | PN ---
Progress Note (short form) - Note Progress Note: PULMONARY Denies shortness of breath, cough or fevers. Vital Signs Period Temp Pulse Resp BP Sys/Busby Pulse Ox Last 24 Hr 97.6 F-99 F 70-121 18-20 146-153/62-90 96-98 Gen: NAD at rest Heart: RRR Lung: left sided rales Abd: soft, nontender Ext: no edema CBC, BMP 06/30/18 06:00 06/30/18 06:00 Active Medications Acetaminophen (Tylenol -) 650 mg PO Q6H PRN PRN Reason: FEVER Budesonide/Formoterol Fumarate (Symbicort 160/4.5mcg -) 1 puff IH BID [facility] Last Admin: 07/01/18 10:35 Dose: 1 puff Calcium Carbonate/Cholecalciferol (Os-Solomon 500+D -) 1 tab PO DAILY [facility] Last Admin: 07/01/18 10:35 Dose: 1 tab Gabapentin (Neurontin -) 300 mg PO BID [facility] Last Admin: 07/01/18 10:35 Dose: 300 mg Ceftriaxone Sodium 2 gm/ (Dextrose) 100 mls @ 200 mls/hr IVPB DAILY [facility]; Protocol Last Admin: 07/01/18 10:35 Dose: 200 mls/hr Insulin Aspart (Novolog Vial Sliding Scale -) 1 vial SQ ACHS [facility]; Protocol Last Admin: 07/01/18 12:30 Dose: Not Given Prednisone (Deltasone -) 60 mg PO DAILY [facility] Last Admin: 07/01/18 10:34 Dose: 60 mg Ranitidine HCl (Zantac -) 150 mg PO BID [facility] Last Admin: 07/01/18 10:36 Dose: 150 mg Valacyclovir HCl (Valtrex -) 500 mg PO BID [facility] Last Admin: 07/01/18 10:47 Dose: 500 mg A/P Pneumonia/Lung Abscess r/o Vasculitis Acute Kidney Injury COPD Rheumatoid Arthritis h/o Nephrectomy - continue antibiotics, prednisone - f/u pending cultures - f/u final pathology - will need outpt chest CT in 4-6 weeks to reassess - DVT prophylaxis - d/c planning
--- NOTE | 2018-07-01 14:45 | PN ---
Progress Note (short form) - Note Progress Note: feels well much more comfortable today Vital Signs Period Temp Pulse Resp BP Sys/Busby Pulse Ox Last 24 Hr 97.6 F-99 F 70-121 18-20 146-153/62-90 96-98 cor-rrr lungs clear abd soft,nt ext no edema CBC, BMP 06/30/18 06:00 06/30/18 06:00 Microbiology 06/22/18 15:00 Ulcer Viral Culture - Final 06/25/18 13:15 Lung - Left Upper Lobe AFB Smear Concentration - Final 06/25/18 13:15 Lung - Left Upper Lobe Mycobacterial Culture - Preliminary 06/25/18 12:59 Pleural Fluid AFB Smear Concentration - Final 06/25/18 12:59 Pleural Fluid Mycobacterial Culture - Preliminary 06/25/18 13:15 Bronchial Washings - Bilateral Lung Fluid AFB Smear Concentration - Final 06/25/18 13:15 Bronchial Washings - Bilateral Lung Fluid Mycobacterial Culture - Preliminary 06/25/18 13:15 Bronchial Washings - Left Lower Lobe Legionella pneumophila ( Direct FA) - Final 06/25/18 13:15 Lung - Left Upper Lobe Gram Stain - Final 06/25/18 13:15 Lung - Left Upper Lobe Tissue Culture - Final NO GROWTH OF AEROBIC ORGANISMS AFTER 48 HOURS INCUBATION 06/25/18 13:15 Lung - Left Upper Lobe Anaerobic Culture - Final NO ANAEROBES WERE ISOLATED 06/25/18 13:15 Pleural Fluid Gram Stain - Final 06/25/18 13:15 Pleural Fluid Body Fluid Culture - Final NO GROWTH OF AEROBIC ORGANISMS AFTER 48 HOURS INCUBATION 06/25/18 13:15 Pleural Fluid Anaerobic Culture - Final NO ANAEROBES WERE ISOLATED 06/25/18 13:15 Bronchial Washings - Bilateral Lung Fluid Gram Stain - Final 06/25/18 13:15 Bronchial Washings - Bilateral Lung Fluid Bronchoalveolar Lavage Culture - Final Klebsiella Pneumoniae 06/25/18 13:15 Lung - Left Upper Lobe SHARI Preparation - Preliminary 06/25/18 13:15 Lung - Left Upper Lobe Fungal Culture - Preliminary 06/25/18 13:15 Pleural Fluid SHARI Preparation - Preliminary 06/25/18 13:15 Pleural Fluid Fungal Culture - Preliminary 06/25/18 12:59 Bronchial Washings - Bilateral Lung Fluid SHARI Preparation - Preliminary 06/25/18 12:59 Bronchial Washings - Bilateral Lung Fluid Fungal Culture - Preliminary 06/22/18 11:00 Sputum - Expectorated AFB Smear Concentration - Final 06/22/18 11:00 Sputum - Expectorated Direct Acid Fast Bacilli Smear - Final 06/22/18 11:00 Sputum - Expectorated Mycobacterial Culture - Preliminary 06/18/18 17:25 Blood - Peripheral Venous Blood Culture - Final NO GROWTH AFTER 5 DAYS INCUBATION 06/18/18 17:25 Blood - Peripheral Venous Blood Culture - Final NO GROWTH AFTER 5 DAYS INCUBATION 06/23/18 12:30 Sputum - Expectorated SHARI Preparation - Preliminary 06/23/18 12:30 Sputum - Expectorated Fungal Culture - Preliminary 06/21/18 04:00 Sputum - Expectorated AFB Smear Concentration - Final 06/21/18 04:00 Sputum - Expectorated Direct Acid Fast Bacilli Smear - Final 06/21/18 04:00 Sputum - Expectorated Mycobacterial Culture - Preliminary 06/20/18 12:30 Sputum - Expectorated AFB Smear Concentration - Final 06/20/18 12:30 Sputum - Expectorated Direct Acid Fast Bacilli Smear - Final 06/20/18 12:30 Sputum - Expectorated Mycobacterial Culture - Preliminary 06/19/18 17:00 Sputum - Expectorated AFB Smear Concentration - Final 06/19/18 17:00 Sputum - Expectorated Direct Acid Fast Bacilli Smear - Final 06/19/18 17:00 Sputum - Expectorated Mycobacterial Culture - Preliminary 06/19/18 17:00 Sputum - Expectorated Gram Stain - Final 06/19/18 17:00 Sputum - Expectorated Sputum Culture - Final NORMAL RESPIRATORY MAAME 06/19/18 18:30 Urine For Antigen Detection Legionella Antigen - Final 06/19/18 18:30 Urine For Antigen Detection Streptococcus pneumoniae Antigen (M - Final 06/18/18 19:51 Urine - Urine Clean Catch Urine Culture - Final NO GROWTH OBTAINED cxray reviewed a/p vasculitis low suspicion TB-sputum afb negative, pcr negative times 2 BAL culture -pure culture klebsiella continue ceftriaxone, day #13 antibiotics fungal serology negative small sacral ulcer is dry-f/u viral culture, continue valtrex solitary kidney- s/p nephrectomy f/u cultures /pathology from BAL and lung biopsy await pathology plan picc line for shelter iv antibiotics for lung abscess Problem List - Problems (1) Lung abscess Code(s): J85.2 - ABSCESS OF LUNG WITHOUT PNEUMONIA Qualifiers: Pulmonary abscess pneumonia presence: with pneumonia Laterality: left Lung location: upper lobe of lung Qualified Code(s): J85.1 - Abscess of lung with pneumonia (2) Vasculitis Code(s): I77.6 - ARTERITIS, UNSPECIFIED
--- NOTE | 2018-07-01 23:13 | PN ---
Progress Note, Physician - Current Medication List Current Medications: Active Medications Acetaminophen (Tylenol -) 650 mg PO Q6H PRN PRN Reason: FEVER Budesonide/Formoterol Fumarate (Symbicort 160/4.5mcg -) 1 puff IH BID [facility] Last Admin: 07/01/18 21:54 Dose: 1 puff Calcium Carbonate/Cholecalciferol (Os-Solomon 500+D -) 1 tab PO DAILY [facility] Last Admin: 07/01/18 10:35 Dose: 1 tab Gabapentin (Neurontin -) 300 mg PO BID [facility] Last Admin: 07/01/18 22:14 Dose: 300 mg Ceftriaxone Sodium 2 gm/ (Dextrose) 100 mls @ 200 mls/hr IVPB DAILY [facility]; Protocol Last Admin: 07/01/18 10:35 Dose: 200 mls/hr Insulin Aspart (Novolog Vial Sliding Scale -) 1 vial SQ ACHS [facility]; Protocol Last Admin: 07/01/18 21:20 Dose: 2 units Prednisone (Deltasone -) 60 mg PO DAILY [facility] Last Admin: 07/01/18 10:34 Dose: 60 mg Ranitidine HCl (Zantac -) 150 mg PO BID [facility] Last Admin: 07/01/18 21:54 Dose: 150 mg Valacyclovir HCl (Valtrex -) 500 mg PO BID [facility] Last Admin: 07/01/18 21:54 Dose: 500 mg - Objective Vital Signs: Vital Signs Temperature 99 F 07/01/18 17:47 Pulse Rate 94 H 07/01/18 17:47 Respiratory Rate 18 07/01/18 17:47 Blood Pressure 154/94 07/01/18 17:47 O2 Sat by Pulse Oximetry (%) 98 07/01/18 09:00 Labs: CBC, BMP 06/30/18 06:00 06/30/18 06:00 Problem List - Problems (1) Acute respiratory failure Code(s): J96.00 - ACUTE RESPIRATORY FAILURE, UNSP W HYPOXIA OR HYPERCAPNIA (2) Lung abscess Code(s): J85.2 - ABSCESS OF LUNG WITHOUT PNEUMONIA Qualifiers: Pulmonary abscess pneumonia presence: with pneumonia Laterality: left Lung location: upper lobe of lung Qualified Code(s): J85.1 - Abscess of lung with pneumonia (3) Vasculitis Code(s): I77.6 - ARTERITIS, UNSPECIFIED (4) COPD (chronic obstructive pulmonary disease) Code(s): J44.9 - CHRONIC OBSTRUCTIVE PULMONARY DISEASE, UNSPECIFIED (5) CKD (chronic kidney disease) Code(s): N18.9 - CHRONIC KIDNEY DISEASE, UNSPECIFIED (6) Neuropathy Code(s): G62.9 - POLYNEUROPATHY, UNSPECIFIED (7) H/O renal cell cancer Code(s): Z85.528 - PERSONAL HISTORY OF OTHER MALIGNANT NEOPLASM OF KIDNEY
[2018-07-02] MEDS: INSULIN SLIDING SCALE (NOVOLOG) 1 VIAL SQ SCH ×4 (06:30→21:46)
--- NOTE | 2018-07-02 08:40 | PN ---
Progress Note (short form) - Note Progress Note: Breathing feels overall better. Still mildly tachypneic with movement. Received pRBCs yesterday. Intake & Output 06/29/18 06/30/18 07/01/18 07/02/18 23:59 23:59 23:59 23:59 Intake Total 602 957 8589 200 Output Total 1420 55 Balance -279 570 8878 200 Last Vital Signs Temp Pulse Resp BP Pulse Ox 98.0 F 79 18 163/80 98 07/02/18 07:49 07/02/18 07:49 07/02/18 07:49 07/02/18 07:49 07/01/18 09:00 Active Medications Acetaminophen (Tylenol -) 650 mg PO Q6H PRN PRN Reason: FEVER Budesonide/Formoterol Fumarate (Symbicort 160/4.5mcg -) 1 puff IH BID [facility] Last Admin: 07/01/18 21:54 Dose: 1 puff Calcium Carbonate/Cholecalciferol (Os-Solomon 500+D -) 1 tab PO DAILY [facility] Last Admin: 07/01/18 10:35 Dose: 1 tab Gabapentin (Neurontin -) 300 mg PO BID [facility] Last Admin: 07/01/18 22:14 Dose: 300 mg Ceftriaxone Sodium 2 gm/ (Dextrose) 100 mls @ 200 mls/hr IVPB DAILY [facility]; Protocol Last Admin: 07/01/18 10:35 Dose: 200 mls/hr Insulin Aspart (Novolog Vial Sliding Scale -) 1 vial SQ ACHS [facility]; Protocol Last Admin: 07/02/18 06:30 Dose: Not Given Prednisone (Deltasone -) 60 mg PO DAILY [facility] Last Admin: 07/01/18 10:34 Dose: 60 mg Ranitidine HCl (Zantac -) 150 mg PO BID [facility] Last Admin: 07/01/18 21:54 Dose: 150 mg Valacyclovir HCl (Valtrex -) 500 mg PO BID [facility] Last Admin: 07/01/18 21:54 Dose: 500 mg GENERAL: Awake and alert, less tachypneic HEAD: Normal with no signs of trauma. EYES: PERRL, extraocular movements intact, sclera anicteric, conjunctiva clear. No ptosis. ENT: Ears normal, nares patent, oropharynx clear without exudates, moist mucous membranes. NECK: Trachea midline, full range of motion, supple. LUNGS:bibasilar rhonchi, Left > Right, (-) wheeze. HEART: Regular rate and rhythm, S1, S2 without murmur, rub or gallop. ABDOMEN: Soft, nontender, nondistended, normoactive bowel sounds, no guarding, no rebound, no hepatosplenomegaly, no masses. EXTREMITIES: 2+ pulses, warm, well-perfused, no edema. NEUROLOGICAL: Non-focal. PSYCH: Following commands. SKIN: Warm, dry, normal turgor, no rashes or lesions noted ASSESSMENT/PLAN: Acute Respiratory Failure: Resolved APE Lung Abscess Renal cancer s/p nephrectomy x 7 years ago Asthma Neuropathy Bronchiectasis S/P Left VAT with wedge biopsy in the [facility] Empyema Suspected granulomatosis and polyangiits (matthias's) MADAN Cjeck labs ABX per ID Prednisone VTE prophylaxis Incentive Spirometry Pain control Follow H & H Dr Sims
[2018-07-02 09:50] LABS: HEMATOCRIT 27.3 % (32.4-45.2); HEMOGLOBIN 9.1 GM/dL (10.7-15.3); MCH 26.8 pg (25.7-33.7); MCHC 33.1 g/dl (32.0-36.0); MEAN CELL VOLUME 80.9 fl (80-96); MEAN PLT VOLUME 7.2 fl (7.5-11.1); PLATELET COUNT 200 K/MM3 (134-434); RBC 3.38 M/mm3 (3.60-5.2); RDW 22.8 % (11.6-15.6); WHITE BLOOD COUNT 9.4 K/mm3 (4.0-10.0)
[2018-07-02 10:25] LABS: ALBUMIN 2.4 g/dl (3.4-5.0); ALK PHOS 55 U/L (45-117); ANION GAP 7 MMOL/L (8-16); BILIRUBIN,TOTAL 0.6 mg/dL (0.2-1); BLOOD UREA NITROGEN 42 mg/dL (7-18); CALCIUM 8.1 mg/dL (8.5-10.1); CHLORIDE 109 mmol/L (98-107); CO2 30 mmol/L (21-32); CREATININE 1.2 mg/dL (0.55-1.3); GLUCOSE,RANDOM 115 mg/dL (74-106); POTASSIUM 4.1 mmol/L (3.5-5.1); SGOT/AST 15 U/L (15-37); SGPT/ALT 19 U/L (13-61); SODIUM 146 mmol/L (136-145); TOT PROT 5.2 g/dl (6.4-8.2)
[2018-07-02] MEDS ORDERED: DEXTROSE 5%-WATER 100 ML IVPB ONE (11:00)
[2018-07-02] MEDS: CEFTRIAXONE 2 GM in DEXTROSE 5%-WATER 100 ML IVPB SCH (11:04)
[2018-07-02] MEDS: RANITIDINE HCL 150 MG TABLET (FP) PO SCH ×2 (11:05→21:44)
[2018-07-02] MEDS: GABAPENTIN 300 MG CAPSULE (FP) PO SCH ×2 (11:05→21:44)
[2018-07-02] MEDS: CALCIUM 500MG/VIT-D 200 UNITS COMBO TABLET (FP) PO SCH (11:05)
[2018-07-02] MEDS: predniSONE 20 MG TABLET (UD) PO SCH (11:05)
[2018-07-02] MEDS: valACYclovir HCL 500 MG TABLET (FP) PO SCH ×2 (11:06→21:44)
[2018-07-02] MEDS: BUDESONIDE/FORMETEROL FUMARATE 160/4.5 mcg INHALER IH SCH ×2 (11:07→21:46)
[2018-07-02] MEDS ORDERED: PT OWN MED DRAWER 7, Y5N ONE (11:22)
[2018-07-02] MEDS ORDERED: FUROSEMIDE 20 MG TABLET (FP) PO ONE (14:37)
--- NOTE | 2018-07-02 14:39 | PN ---
Progress Note, Physician History of Present Illness: Pt seen and examined at bedside. She is awake and alert. She complains of lower ext edema. - Current Medication List Current Medications: Active Medications Acetaminophen (Tylenol -) 650 mg PO Q6H PRN PRN Reason: FEVER Budesonide/Formoterol Fumarate (Symbicort 160/4.5mcg -) 1 puff IH BID [facility] Last Admin: 07/02/18 11:07 Dose: 1 puff Calcium Carbonate/Cholecalciferol (Os-Solomon 500+D -) 1 tab PO DAILY [facility] Last Admin: 07/02/18 11:05 Dose: 1 tab Furosemide (Lasix -) 20 mg PO ONCE ONE Stop: 07/02/18 14:38 Gabapentin (Neurontin -) 300 mg PO BID [facility] Last Admin: 07/02/18 11:05 Dose: 300 mg Ceftriaxone Sodium 2 gm/ (Dextrose) 100 mls @ 200 mls/hr IVPB DAILY [facility]; Protocol Last Admin: 07/02/18 11:04 Dose: 200 mls/hr Insulin Aspart (Novolog Vial Sliding Scale -) 1 vial SQ ACHS [facility]; Protocol Last Admin: 07/02/18 11:09 Dose: Not Given Prednisone (Deltasone -) 60 mg PO DAILY [facility] Last Admin: 07/02/18 11:05 Dose: 60 mg Ranitidine HCl (Zantac -) 150 mg PO BID [facility] Last Admin: 07/02/18 11:05 Dose: 150 mg Valacyclovir HCl (Valtrex -) 500 mg PO BID [facility] Last Admin: 07/02/18 11:06 Dose: 500 mg - Objective Vital Signs: Vital Signs Temperature 98.0 F 07/02/18 07:49 Pulse Rate 79 07/02/18 07:49 Respiratory Rate 18 07/02/18 07:49 Blood Pressure 163/80 07/02/18 07:49 O2 Sat by Pulse Oximetry (%) 98 07/01/18 09:00 Constitutional: Yes: Calm Eyes: Yes: Conjunctiva Clear HENT: Yes: Atraumatic Cardiovascular: Yes: S1, S2 Respiratory: Yes: On Nasal O2 Gastrointestinal: Yes: Soft Genitourinary: Yes: WNL Musculoskeletal: Yes: WNL Edema: Yes Edema: LLE: 2+, RLE: 2+ Neurological: Yes: Oriented Psychiatric: Yes: Oriented Labs: CBC, BMP 07/02/18 09:05 07/02/18 09:05 Problem List - Problems (1) MADAN (acute kidney injury) Code(s): N17.9 - ACUTE KIDNEY FAILURE, UNSPECIFIED (2) Glomerulonephritis Code(s): N05.9 - UNSP NEPHRITIC SYNDROME WITH UNSPECIFIED MORPHOLOGIC CHANGES (3) Lung abscess Code(s): J85.2 - ABSCESS OF LUNG WITHOUT PNEUMONIA Qualifiers: Pulmonary abscess pneumonia presence: with pneumonia Laterality: left Lung location: upper lobe of lung Qualified Code(s): J85.1 - Abscess of lung with pneumonia (4) Vasculitis Code(s): I77.6 - ARTERITIS, UNSPECIFIED Assessment/Plan Current Medications Generic Name Dose Route Start Last Admin Trade Name Freq PRN Reason Stop Dose Admin Acetaminophen 650 mg 06/30/18 13:12 Tylenol - PO Q6H PRN FEVER Budesonide/Formoterol Fumarate 1 puff 06/30/18 22:00 07/02/18 11:07 Symbicort 160/4.5mcg - IH 1 puff BID [facility] Administration Calcium Carbonate/Cholecalciferol 1 tab 07/01/18 10:00 07/02/18 11:05 Os-Solomon 500+D - PO 1 tab DAILY [facility] Administration Furosemide 20 mg 07/02/18 14:37 Lasix - PO 07/02/18 14:38 ONCE ONE Gabapentin 300 mg 06/30/18 10:00 07/02/18 11:05 Neurontin - PO 300 mg BID [facility] Administration Ceftriaxone Sodium 2 gm/ 100 mls @ 200 mls/hr 07/01/18 10:00 07/02/18 11:04 Dextrose IVPB 200 mls/hr DAILY [facility] Administration Protocol Insulin Aspart 1 vial 06/30/18 16:30 07/02/18 11:09 Novolog Vial Sliding Scale - SQ Not Given ACHS [facility] Protocol Prednisone 60 mg 07/01/18 10:00 07/02/18 11:05 Deltasone - PO 60 mg DAILY [facility] Administration Ranitidine HCl 150 mg 06/30/18 22:00 07/02/18 11:05 Zantac - PO 150 mg BID [facility] Administration Valacyclovir HCl 500 mg 06/30/18 22:00 07/02/18 11:06 Valtrex - PO 500 mg BID [facility] Administration Impression 1. MADAN 2. r/o vasculitis 3. glomerulonephrotis 4. lung cavitary lesion 5. asthma 6. copd 7. rheumatoid arthritis 8. hx of renal cell cancer s/p nephrectomy Plan - will give 20 mg of lasix today - monitor volume status - she was on 20 mg of lasix at home - creatinine is improved - follow biopsy results - cont steroids - cont abx Dr Mcneill
--- NOTE | 2018-07-02 17:58 | PN ---
Progress Note (short form) - Note Progress Note: No clinical changes. The patient has significant discomfort related to peripheral neuropathy. She denies shortness of breath, chest pain or arthralgia. No fever. On the P/E lungs are clear, S1 and S2 normal. no murmur, no active joints. Further details of the preliminary lung biopsy data reports few granulomas with no necrotizing vasculitis, probably not related to vasculitis. The biopsy was sent to another institution for second opinion. Labs: creatinine 1.2, no changes in urinalysis. I discussed with another property inspector (Dr. 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 The patient is on antibiotics and I will consider next visit to start Rituximab. Continue with Predniosne 60 mg/d. Problem List - Problems (1) ANCA-positive vasculitis Code(s): I77.6 - ARTERITIS, UNSPECIFIED
--- NOTE | 2018-07-02 18:00 | PN ---
Progress Note (short form) - Note Progress Note: feels well much more comfortable today +BAL galactommanan antigen! Vital Signs Period Temp Pulse Resp BP Sys/Busby Pulse Ox Last 24 Hr 97.9 F-98.1 F 68-90 18-20 149-163/66-102 cor-rrr lungs clear abd soft,nt ext +edema CBC, BMP 07/02/18 09:05 07/02/18 09:05 Laboratory Tests 07/02/18 09:05 Total Bilirubin 0.6 AST 15 ALT 19 Alkaline Phosphatase 55 aspergillus galactommanan 1.11 (BAL) cxray reviewed a/p vasculitis low suspicion TB-sputum afb negative, pcr negative times 2 BAL culture -pure culture klebsiella continue ceftriaxone, day #14 antibiotics BAL Galactommanan antigen is positive will start voriconazole- she remains on high dose steroids and we cannot r/o fungal infection small sacral ulcer is dry-+HSV- continue valtrex solitary kidney- s/p nephrectomy f/u cultures /pathology from BAL and lung biopsy pathology of lingula- afb/fungal smears negative plan picc line for [facility] iv antibiotics for lung abscess over 45 minutes spent in formulating plan for patient' s care d/w patient, all questions answered Problem List - Problems (1) Lung abscess Code(s): J85.2 - ABSCESS OF LUNG WITHOUT PNEUMONIA Qualifiers: Pulmonary abscess pneumonia presence: with pneumonia Laterality: left Lung location: upper lobe of lung Qualified Code(s): J85.1 - Abscess of lung with pneumonia (2) Vasculitis Code(s): I77.6 - ARTERITIS, UNSPECIFIED
[2018-07-02] MEDS: VORICONAZOLE 200 MG TABLET (RESTRICTED TO ID) PO SCH (18:57)
[2018-07-02] MEDS ORDERED: IRON SUCROSE INJECTION 100 MG in SODIUM CHLORIDE 95 ML IVPB SCH (19:30)
[2018-07-02] MEDS: IRON SUCROSE INJECTION 100 MG in SODIUM CHLORIDE 95 ML IVPB SCH (19:57)
[2018-07-02] MEDS ORDERED: WATER IVPB SCH ×2 (22:00)
[2018-07-02] MEDS ORDERED: VORICONAZOLE 200 MG/20 ML VIAL (RESTRICTED TO ID) IVPB SCH (22:00)
[2018-07-02] MEDS ORDERED: DEXTROSE 5% IVPB SCH ×2 (22:00)
[2018-07-02] MEDS ORDERED: VORICONAZOLE IVPB SCH ×2 (22:00)
--- NOTE | 2018-07-02 22:36 | PN ---
Progress Note, Physician - Current Medication List Current Medications: Active Medications Acetaminophen (Tylenol -) 650 mg PO Q6H PRN PRN Reason: FEVER Budesonide/Formoterol Fumarate (Symbicort 160/4.5mcg -) 1 puff IH BID [facility] Last Admin: 07/02/18 21:46 Dose: 1 puff Calcium Carbonate/Cholecalciferol (Os-Solomon 500+D -) 1 tab PO DAILY [facility] Last Admin: 07/02/18 11:05 Dose: 1 tab Gabapentin (Neurontin -) 300 mg PO BID [facility] Last Admin: 07/02/18 21:44 Dose: 300 mg Ceftriaxone Sodium 2 gm/ (Dextrose) 100 mls @ 200 mls/hr IVPB DAILY [facility]; Protocol Last Admin: 07/02/18 11:04 Dose: 200 mls/hr Iron Sucrose 100 mg/ Sodium (Chloride) 100 mls @ 200 mls/hr IVPB DAILY@0800 [facility] Last Admin: 07/02/18 19:57 Dose: 200 mls/hr Insulin Aspart (Novolog Vial Sliding Scale -) 1 vial SQ ACHS [facility]; Protocol Last Admin: 07/02/18 21:46 Dose: 6 units Prednisone (Deltasone -) 60 mg PO DAILY [facility] Last Admin: 07/02/18 11:05 Dose: 60 mg Ranitidine HCl (Zantac -) 150 mg PO BID [facility] Last Admin: 07/02/18 21:44 Dose: 150 mg Valacyclovir HCl (Valtrex -) 500 mg PO BID [facility] Last Admin: 07/02/18 21:44 Dose: 500 mg Voriconazole (Vfend (Restricted To Id)) 400 mg PO Q12H [facility] Stop: 07/03/18 06:46 Last Admin: 07/02/18 18:57 Dose: 400 mg - Objective Vital Signs: Vital Signs Temperature 98 F 07/02/18 22:00 Pulse Rate 70 07/02/18 22:00 Respiratory Rate 18 07/02/18 22:00 Blood Pressure 165/88 07/02/18 22:00 O2 Sat by Pulse Oximetry (%) 98 07/02/18 09:00 Labs: CBC, BMP 07/02/18 09:05 07/02/18 09:05 Problem List - Problems (1) Acute respiratory failure Code(s): J96.00 - ACUTE RESPIRATORY FAILURE, UNSP W HYPOXIA OR HYPERCAPNIA (2) Lung abscess Code(s): J85.2 - ABSCESS OF LUNG WITHOUT PNEUMONIA Qualifiers: Pulmonary abscess pneumonia presence: with pneumonia Laterality: left Lung location: upper lobe of lung Qualified Code(s): J85.1 - Abscess of lung with pneumonia (3) Vasculitis Code(s): I77.6 - ARTERITIS, UNSPECIFIED (4) COPD (chronic obstructive pulmonary disease) Code(s): J44.9 - CHRONIC OBSTRUCTIVE PULMONARY DISEASE, UNSPECIFIED (5) CKD (chronic kidney disease) Code(s): N18.9 - CHRONIC KIDNEY DISEASE, UNSPECIFIED (6) Neuropathy Code(s): G62.9 - POLYNEUROPATHY, UNSPECIFIED (7) H/O renal cell cancer Code(s): Z85.528 - PERSONAL HISTORY OF OTHER MALIGNANT NEOPLASM OF KIDNEY
[2018-07-03] MEDS ORDERED: PT OWN MED DRAWER 7, Y5N ONE ×3 (06:15→21:19)
[2018-07-03] MEDS: INSULIN SLIDING SCALE (NOVOLOG) 1 VIAL SQ SCH ×4 (06:30→22:33)
[2018-07-03] MEDS: VORICONAZOLE 200 MG TABLET (RESTRICTED TO ID) PO SCH ×2 (06:30→22:33)
[2018-07-03 07:11] LABS: BASO % 0.4 % (0-2.0); EOS % 0.2 % (0-4.5); HEMATOCRIT 25.2 % (32.4-45.2); HEMOGLOBIN 8.3 GM/dL (10.7-15.3); MCH 26.9 pg (25.7-33.7); MEAN CELL VOLUME 81.5 fl (80-96); MEAN PLT VOLUME 7.4 fl (7.5-11.1); MONO % 6.8 % (3.8-10.2); NEUT % 77.6 % (42.8-82.8); PLATELET COUNT 194 K/MM3 (134-434); RBC 3.09 M/mm3 (3.60-5.2); RDW 22.7 % (11.6-15.6); WHITE BLOOD COUNT 7.7 K/mm3 (4.0-10.0)
[2018-07-03 07:39] LABS: ALBUMIN 2.2 g/dl (3.4-5.0); ALK PHOS 52 U/L (45-117); ANION GAP 6 MMOL/L (8-16); BILIRUBIN,TOTAL 0.3 mg/dL (0.2-1); BLOOD UREA NITROGEN 43 mg/dL (7-18); CALCIUM 7.7 mg/dL (8.5-10.1); CHLORIDE 109 mmol/L (98-107); CO2 30 mmol/L (21-32); CREATININE 1.3 mg/dL (0.55-1.3); GLUCOSE,RANDOM 102 mg/dL (74-106); POTASSIUM 5.2 mmol/L (3.5-5.1); SGOT/AST 14 U/L (15-37); SGPT/ALT 18 U/L (13-61); SODIUM 145 mmol/L (136-145); TOT PROT 4.7 g/dl (6.4-8.2)
[2018-07-03] MEDS: IRON SUCROSE INJECTION 100 MG in SODIUM CHLORIDE 95 ML IVPB SCH (07:59)
[2018-07-03 09:59] LABS: ANISOCYTOSIS 1+; MACROCYTOSIS 1+; OVALOCYTE 1+; PLATELET ESTIMATE NORMAL
[2018-07-03] MEDS ORDERED: DEXTROSE 5%-WATER 100 ML IVPB ONE (10:30)
[2018-07-03] MEDS: CALCIUM 500MG/VIT-D 200 UNITS COMBO TABLET (FP) PO SCH (11:18)
[2018-07-03] MEDS: GABAPENTIN 300 MG CAPSULE (FP) PO SCH ×2 (11:18→22:33)
[2018-07-03] MEDS: predniSONE 20 MG TABLET (UD) PO SCH (11:18)
[2018-07-03] MEDS: valACYclovir HCL 500 MG TABLET (FP) PO SCH ×2 (11:18→22:33)
[2018-07-03] MEDS: CEFTRIAXONE 2 GM in DEXTROSE 5%-WATER 100 ML IVPB SCH (11:18)
[2018-07-03] MEDS: RANITIDINE HCL 150 MG TABLET (FP) PO SCH ×2 (11:20→22:33)
[2018-07-03] MEDS: BUDESONIDE/FORMETEROL FUMARATE 160/4.5 mcg INHALER IH SCH ×2 (11:20→22:33)
--- NOTE | 2018-07-03 12:42 | PN ---
Progress Note (short form) - Note Progress Note: no complaints Vital Signs Period Temp Pulse Resp BP Sys/Busby Pulse Ox Last 24 Hr 97.9 F-98.2 F 70-90 18-20 139-165/72-92 97-98 cor-rrr lungs decreased bs at bases abd soft,nt ext +edema CBC, BMP 07/03/18 06:00 07/03/18 06:00 Microbiology 06/22/18 15:00 Ulcer Viral Culture - Final 06/25/18 13:15 Lung - Left Upper Lobe AFB Smear Concentration - Final 06/25/18 13:15 Lung - Left Upper Lobe Mycobacterial Culture - Preliminary 06/25/18 12:59 Pleural Fluid AFB Smear Concentration - Final 06/25/18 12:59 Pleural Fluid Mycobacterial Culture - Preliminary 06/25/18 13:15 Bronchial Washings - Bilateral Lung Fluid AFB Smear Concentration - Final 06/25/18 13:15 Bronchial Washings - Bilateral Lung Fluid Mycobacterial Culture - Preliminary 06/25/18 13:15 Bronchial Washings - Left Lower Lobe Legionella pneumophila ( Direct FA) - Final 06/25/18 13:15 Lung - Left Upper Lobe Gram Stain - Final 06/25/18 13:15 Lung - Left Upper Lobe Tissue Culture - Final NO GROWTH OF AEROBIC ORGANISMS AFTER 48 HOURS INCUBATION 06/25/18 13:15 Lung - Left Upper Lobe Anaerobic Culture - Final NO ANAEROBES WERE ISOLATED 06/25/18 13:15 Pleural Fluid Gram Stain - Final 06/25/18 13:15 Pleural Fluid Body Fluid Culture - Final NO GROWTH OF AEROBIC ORGANISMS AFTER 48 HOURS INCUBATION 06/25/18 13:15 Pleural Fluid Anaerobic Culture - Final NO ANAEROBES WERE ISOLATED 06/25/18 13:15 Bronchial Washings - Bilateral Lung Fluid Gram Stain - Final 06/25/18 13:15 Bronchial Washings - Bilateral Lung Fluid Bronchoalveolar Lavage Culture - Final Klebsiella Pneumoniae 06/25/18 13:15 Lung - Left Upper Lobe SHARI Preparation - Preliminary 06/25/18 13:15 Lung - Left Upper Lobe Fungal Culture - Preliminary 06/25/18 13:15 Pleural Fluid SHARI Preparation - Preliminary 06/25/18 13:15 Pleural Fluid Fungal Culture - Preliminary 06/25/18 12:59 Bronchial Washings - Bilateral Lung Fluid SHARI Preparation - Preliminary 06/25/18 12:59 Bronchial Washings - Bilateral Lung Fluid Fungal Culture - Preliminary 06/22/18 11:00 Sputum - Expectorated AFB Smear Concentration - Final 06/22/18 11:00 Sputum - Expectorated Direct Acid Fast Bacilli Smear - Final 06/22/18 11:00 Sputum - Expectorated Mycobacterial Culture - Preliminary 06/18/18 17:25 Blood - Peripheral Venous Blood Culture - Final NO GROWTH AFTER 5 DAYS INCUBATION 06/18/18 17:25 Blood - Peripheral Venous Blood Culture - Final NO GROWTH AFTER 5 DAYS INCUBATION 06/23/18 12:30 Sputum - Expectorated SHARI Preparation - Preliminary 06/23/18 12:30 Sputum - Expectorated Fungal Culture - Preliminary 06/21/18 04:00 Sputum - Expectorated AFB Smear Concentration - Final 06/21/18 04:00 Sputum - Expectorated Direct Acid Fast Bacilli Smear - Final 06/21/18 04:00 Sputum - Expectorated Mycobacterial Culture - Preliminary 06/20/18 12:30 Sputum - Expectorated AFB Smear Concentration - Final 06/20/18 12:30 Sputum - Expectorated Direct Acid Fast Bacilli Smear - Final 06/20/18 12:30 Sputum - Expectorated Mycobacterial Culture - Preliminary 06/19/18 17:00 Sputum - Expectorated AFB Smear Concentration - Final 06/19/18 17:00 Sputum - Expectorated Direct Acid Fast Bacilli Smear - Final 06/19/18 17:00 Sputum - Expectorated Mycobacterial Culture - Preliminary 06/19/18 17:00 Sputum - Expectorated Gram Stain - Final 06/19/18 17:00 Sputum - Expectorated Sputum Culture - Final NORMAL RESPIRATORY MAAME 06/19/18 18:30 Urine For Antigen Detection Legionella Antigen - Final 06/19/18 18:30 Urine For Antigen Detection Streptococcus pneumoniae Antigen (M - Final 06/18/18 19:51 Urine - Urine Clean Catch Urine Culture - Final NO GROWTH OBTAINED aspergillus galactommanan 1.11 (BAL) cxray reviewed a/p vasculitis-management per rheumatology low suspicion TB-sputum afb negative, pcr negative times 2 BAL culture -pure culture klebsiella continue ceftriaxone, day #15 antibiotics BAL Galactommanan antigen is positive continue voriconazole -monitor lfts as outpt-day #1 fungal serologies and cultures pending she remains on high dose steroids and we cannot r/o fungal infection small sacral ulcer is dry-+HSV- continue valtrex for prophylaxis solitary kidney- s/p nephrectomy f/u cultures /pathology from BAL and lung biopsy pathology of lingula- afb/fungal smears negative plan picc line for residential iv antibiotics for lung abscess d/w patient at bedside Problem List - Problems (1) Lung abscess Code(s): J85.2 - ABSCESS OF LUNG WITHOUT PNEUMONIA Qualifiers: Pulmonary abscess pneumonia presence: with pneumonia Laterality: left Lung location: upper lobe of lung Qualified Code(s): J85.1 - Abscess of lung with pneumonia (2) Vasculitis Code(s): I77.6 - ARTERITIS, UNSPECIFIED
--- NOTE | 2018-07-03 14:00 | PN ---
Progress Note, Physician History of Present Illness: pulmonary alert,oob-chair,-sob,+ lower ext weakness - Current Medication List Current Medications: Active Medications Acetaminophen (Tylenol -) 650 mg PO Q6H PRN PRN Reason: FEVER Budesonide/Formoterol Fumarate (Symbicort 160/4.5mcg -) 1 puff IH BID [facility] Last Admin: 07/03/18 11:20 Dose: 1 puff Calcium Carbonate/Cholecalciferol (Os-Solomon 500+D -) 1 tab PO DAILY [facility] Last Admin: 07/03/18 11:18 Dose: 1 tab Gabapentin (Neurontin -) 300 mg PO BID [facility] Last Admin: 07/03/18 11:18 Dose: 300 mg Ceftriaxone Sodium 2 gm/ (Dextrose) 100 mls @ 200 mls/hr IVPB DAILY [facility]; Protocol Last Admin: 07/03/18 11:18 Dose: 200 mls/hr Iron Sucrose 100 mg/ Sodium (Chloride) 100 mls @ 200 mls/hr IVPB DAILY@0800 [facility] Last Admin: 07/03/18 07:59 Dose: 200 mls/hr Insulin Aspart (Novolog Vial Sliding Scale -) 1 vial SQ ACHS [facility]; Protocol Last Admin: 07/03/18 11:26 Dose: Not Given Prednisone (Deltasone -) 60 mg PO DAILY [facility] Last Admin: 07/03/18 11:18 Dose: 60 mg Ranitidine HCl (Zantac -) 150 mg PO BID [facility] Last Admin: 07/03/18 11:20 Dose: 150 mg Valacyclovir HCl (Valtrex -) 500 mg PO BID [facility] Last Admin: 07/03/18 11:18 Dose: 500 mg Voriconazole (Vfend (Restricted To Id)) 200 mg PO BID [facility] - Objective Vital Signs: Vital Signs Temperature 98.2 F 07/03/18 07:50 Pulse Rate 80 07/03/18 07:50 Respiratory Rate 20 07/03/18 07:50 Blood Pressure 156/92 07/03/18 07:50 O2 Sat by Pulse Oximetry (%) 97 07/03/18 09:00 Constitutional: Yes: Well Nourished, Calm Eyes: Yes: WNL HENT: Yes: WNL Neck: Yes: WNL Cardiovascular: Yes: Regular Rate and Rhythm, S1, S2 Respiratory: Yes: CTA Bilaterally Gastrointestinal: Yes: Normal Bowel Sounds, Soft Extremities: Yes: WNL Edema: Yes Labs: CBC, BMP 07/03/18 06:00 07/03/18 06:00 Problem List - Problems (1) CKD (chronic kidney disease) Code(s): N18.9 - CHRONIC KIDNEY DISEASE, UNSPECIFIED (2) ANCA-positive vasculitis Code(s): I77.6 - ARTERITIS, UNSPECIFIED (3) Lung abscess Code(s): J85.2 - ABSCESS OF LUNG WITHOUT PNEUMONIA Qualifiers: Pulmonary abscess pneumonia presence: with pneumonia Laterality: left Lung location: upper lobe of lung Qualified Code(s): J85.1 - Abscess of lung with pneumonia (4) Vasculitis Code(s): I77.6 - ARTERITIS, UNSPECIFIED (5) Asthma Code(s): J45.909 - UNSPECIFIED ASTHMA, UNCOMPLICATED (6) Bronchiectasis Code(s): J47.9 - BRONCHIECTASIS, UNCOMPLICATED Qualifiers: Bronchiectasis type: with acute lower respiratory infection Qualified Code( s): J47.0 - Bronchiectasis with acute lower respiratory infection (7) H/O renal cell cancer Code(s): Z85.528 - PERSONAL HISTORY OF OTHER MALIGNANT NEOPLASM OF KIDNEY (8) Pneumonia Code(s): J18.9 - PNEUMONIA, UNSPECIFIED ORGANISM Qualifiers: Laterality: left Lung location: lower lobe of lung (9) Rheumatoid arteritis Code(s): I00 - RHEUMATIC FEVER WITHOUT HEART INVOLVEMENT Assessment/Plan ASSESSMENT/PLAN: Acute Respiratory Failure: Resolved APE Lung Abscess Renal cancer s/p nephrectomy x 7 years ago Asthma Neuropathy Bronchiectasis S/P Left VAT with wedge biopsy in the [facility] Empyema Suspected granulomatosis and polyangiits (matthias's) MADAN Check labs path pending ABX per ID Prednisone VTE prophylaxis Incentive Spirometry Pain control Follow H & H DR GOMEZ
--- NOTE | 2018-07-03 19:28 | PN ---
Progress Note (short form) - Note Progress Note: covering dr akins Problems 1. MADAN 2. r/o vasculitis 3. glomerulonephrotis 4. lung cavitary lesion 5. asthma 6. copd 7. rheumatoid arthritis 8. hx of renal cell cancer s/p nephrectomy Current Medications Acetaminophen (Tylenol -) 650 mg PO Q6H PRN PRN Reason: FEVER Budesonide/Formoterol Fumarate (Symbicort 160/4.5mcg -) 1 puff IH BID [facility] Last Admin: 07/03/18 11:20 Dose: 1 puff Calcium Carbonate/Cholecalciferol (Os-Solomon 500+D -) 1 tab PO DAILY [facility] Last Admin: 07/03/18 11:18 Dose: 1 tab Gabapentin (Neurontin -) 300 mg PO BID [facility] Last Admin: 07/03/18 11:18 Dose: 300 mg Ceftriaxone Sodium 2 gm/ (Dextrose) 100 mls @ 200 mls/hr IVPB DAILY [facility]; Protocol Last Admin: 07/03/18 11:18 Dose: 200 mls/hr Iron Sucrose 100 mg/ Sodium (Chloride) 100 mls @ 200 mls/hr IVPB DAILY@0800 [facility] Last Admin: 07/03/18 07:59 Dose: 200 mls/hr Insulin Aspart (Novolog Vial Sliding Scale -) 1 vial SQ ACHS [facility]; Protocol Last Admin: 07/03/18 16:35 Dose: 4 units Prednisone (Deltasone -) 60 mg PO DAILY [facility] Last Admin: 07/03/18 11:18 Dose: 60 mg Ranitidine HCl (Zantac -) 150 mg PO BID [facility] Last Admin: 07/03/18 11:20 Dose: 150 mg Valacyclovir HCl (Valtrex -) 500 mg PO BID [facility] Last Admin: 07/03/18 11:18 Dose: 500 mg Voriconazole (Vfend (Restricted To Id)) 200 mg PO BID [facility] Last Vital Signs Temp Pulse Resp BP Pulse Ox 98.1 F 81 18 150/90 97 07/03/18 17:02 07/03/18 17:02 07/03/18 17:02 07/03/18 17:02 07/03/18 09:00 Lungs clear Heart reg Abd soft nontender ext no edema CBC, BMP 07/03/18 06:00 07/03/18 06:00 IMP-s/p MADAN P-anca pos vasculitis Prerenal azotemia 2/2 steroids Solitary kidney Plan-continue to monitor the renal function
--- NOTE | 2018-07-04 02:03 | PN ---
Progress Note, Physician History of Present Illness: Pt seen and examined 07/03/18 however note is being entered now - Current Medication List Current Medications: Active Medications Acetaminophen (Tylenol -) 650 mg PO Q6H PRN PRN Reason: FEVER Budesonide/Formoterol Fumarate (Symbicort 160/4.5mcg -) 1 puff IH BID [facility] Last Admin: 07/03/18 22:33 Dose: 1 puff Calcium Carbonate/Cholecalciferol (Os-Solomon 500+D -) 1 tab PO DAILY [facility] Last Admin: 07/03/18 11:18 Dose: 1 tab Gabapentin (Neurontin -) 300 mg PO BID [facility] Last Admin: 07/03/18 22:33 Dose: 300 mg Ceftriaxone Sodium 2 gm/ (Dextrose) 100 mls @ 200 mls/hr IVPB DAILY [facility]; Protocol Last Admin: 07/03/18 11:18 Dose: 200 mls/hr Iron Sucrose 100 mg/ Sodium (Chloride) 100 mls @ 200 mls/hr IVPB DAILY@0800 [facility] Last Admin: 07/03/18 07:59 Dose: 200 mls/hr Insulin Aspart (Novolog Vial Sliding Scale -) 1 vial SQ ACHS [facility]; Protocol Last Admin: 07/03/18 22:33 Dose: 4 units Prednisone (Deltasone -) 60 mg PO DAILY [facility] Last Admin: 07/03/18 11:18 Dose: 60 mg Ranitidine HCl (Zantac -) 150 mg PO BID [facility] Last Admin: 07/03/18 22:33 Dose: 150 mg Valacyclovir HCl (Valtrex -) 500 mg PO BID [facility] Last Admin: 07/03/18 22:33 Dose: 500 mg Voriconazole (Vfend (Restricted To Id)) 200 mg PO BID [facility] Last Admin: 07/03/18 22:33 Dose: 200 mg - Objective Vital Signs: Vital Signs Temperature 97.8 F 07/03/18 22:00 Pulse Rate 76 07/03/18 22:00 Respiratory Rate 20 07/03/18 22:00 Blood Pressure 152/80 07/03/18 22:00 O2 Sat by Pulse Oximetry (%) 97 07/03/18 09:00 Labs: CBC, BMP 07/03/18 06:00 07/03/18 06:00 Problem List - Problems (1) Acute respiratory failure Code(s): J96.00 - ACUTE RESPIRATORY FAILURE, UNSP W HYPOXIA OR HYPERCAPNIA (2) Lung abscess Code(s): J85.2 - ABSCESS OF LUNG WITHOUT PNEUMONIA Qualifiers: Pulmonary abscess pneumonia presence: with pneumonia Laterality: left Lung location: upper lobe of lung Qualified Code(s): J85.1 - Abscess of lung with pneumonia (3) Vasculitis Code(s): I77.6 - ARTERITIS, UNSPECIFIED (4) COPD (chronic obstructive pulmonary disease) Code(s): J44.9 - CHRONIC OBSTRUCTIVE PULMONARY DISEASE, UNSPECIFIED (5) CKD (chronic kidney disease) Code(s): N18.9 - CHRONIC KIDNEY DISEASE, UNSPECIFIED (6) Neuropathy Code(s): G62.9 - POLYNEUROPATHY, UNSPECIFIED (7) H/O renal cell cancer Code(s): Z85.528 - PERSONAL HISTORY OF OTHER MALIGNANT NEOPLASM OF KIDNEY
[2018-07-04] MEDS: INSULIN SLIDING SCALE (NOVOLOG) 1 VIAL SQ SCH ×4 (06:11→22:25)
[2018-07-04 07:17] LABS: BASO % 0.2 % (0-2.0); EOS % 0.1 % (0-4.5); HEMATOCRIT 25.7 % (32.4-45.2); HEMOGLOBIN 8.4 GM/dL (10.7-15.3); LYMPH % 17.7 % (8-40); MCH 26.9 pg (25.7-33.7); MCHC 32.6 g/dl (32.0-36.0); MEAN CELL VOLUME 82.4 fl (80-96); MEAN PLT VOLUME 7.4 fl (7.5-11.1); MONO % 5.4 % (3.8-10.2); NEUT % 76.6 % (42.8-82.8); PLATELET COUNT 201 K/MM3 (134-434); RBC 3.12 M/mm3 (3.60-5.2); RDW 26.6 % (11.6-15.6); WHITE BLOOD COUNT 7.4 K/mm3 (4.0-10.0)
[2018-07-04 08:01] LABS: ALBUMIN 2.2 g/dl (3.4-5.0); ALK PHOS 49 U/L (45-117); ANION GAP 6 MMOL/L (8-16); BILIRUBIN,TOTAL 0.3 mg/dL (0.2-1); BLOOD UREA NITROGEN 44 mg/dL (7-18); CALCIUM 8.4 mg/dL (8.5-10.1); CHLORIDE 109 mmol/L (98-107); CO2 28 mmol/L (21-32); CREATININE 1.3 mg/dL (0.55-1.3); GLUCOSE,RANDOM 125 mg/dL (74-106); POTASSIUM 4.9 mmol/L (3.5-5.1); SGOT/AST 10 U/L (15-37); SGPT/ALT 18 U/L (13-61); SODIUM 143 mmol/L (136-145); TOT PROT 4.8 g/dl (6.4-8.2)
[2018-07-04] MEDS ORDERED: PT OWN MED DRAWER 7, Y5N ONE ×2 (08:43→22:59)
[2018-07-04] MEDS ORDERED: DEXTROSE 5%-WATER 100 ML IVPB ONE (09:28)
[2018-07-04] MEDS: CALCIUM 500MG/VIT-D 200 UNITS COMBO TABLET (FP) PO SCH (09:29)
[2018-07-04] MEDS: predniSONE 20 MG TABLET (UD) PO SCH (09:29)
[2018-07-04] MEDS: GABAPENTIN 300 MG CAPSULE (FP) PO SCH ×2 (09:29→22:25)
[2018-07-04] MEDS: IRON SUCROSE INJECTION 100 MG in SODIUM CHLORIDE 95 ML IVPB SCH (09:30)
[2018-07-04] MEDS: CEFTRIAXONE 2 GM in DEXTROSE 5%-WATER 100 ML IVPB SCH (09:30)
[2018-07-04] MEDS: RANITIDINE HCL 150 MG TABLET (FP) PO SCH ×2 (09:30→22:25)
[2018-07-04] MEDS: BUDESONIDE/FORMETEROL FUMARATE 160/4.5 mcg INHALER IH SCH ×2 (09:31→22:26)
[2018-07-04] MEDS: valACYclovir HCL 500 MG TABLET (FP) PO SCH ×2 (09:31→23:07)
[2018-07-04] MEDS: VORICONAZOLE 200 MG TABLET (RESTRICTED TO ID) PO SCH ×2 (09:31→23:07)
[2018-07-04 09:43] LABS: ANISOCYTOSIS 1+; MACROCYTOSIS 1+; OVALOCYTE 1+; PLATELET ESTIMATE NORMAL
--- NOTE | 2018-07-04 11:32 | PN ---
Progress Note, Physician History of Present Illness: AWAKE, ALERT SEATED IN BED NO C/O CHEST PAIN/ DYSPNEA NO HEMOPTYSIS` AFEBRILE ON STEROIDS WBC WNL - Current Medication List Current Medications: Active Medications Acetaminophen (Tylenol -) 650 mg PO Q6H PRN PRN Reason: FEVER Budesonide/Formoterol Fumarate (Symbicort 160/4.5mcg -) 1 puff IH BID [facility] Last Admin: 07/04/18 09:31 Dose: 1 puff Calcium Carbonate/Cholecalciferol (Os-Solomon 500+D -) 1 tab PO DAILY [facility] Last Admin: 07/04/18 09:29 Dose: 1 tab Gabapentin (Neurontin -) 300 mg PO BID [facility] Last Admin: 07/04/18 09:29 Dose: 300 mg Ceftriaxone Sodium 2 gm/ (Dextrose) 100 mls @ 200 mls/hr IVPB DAILY [facility]; Protocol Last Admin: 07/04/18 09:30 Dose: 200 mls/hr Iron Sucrose 100 mg/ Sodium (Chloride) 100 mls @ 200 mls/hr IVPB DAILY@0800 [facility] Last Admin: 07/04/18 09:30 Dose: 200 mls/hr Insulin Aspart (Novolog Vial Sliding Scale -) 1 vial SQ ACHS [facility]; Protocol Last Admin: 07/04/18 06:11 Dose: Not Given Prednisone (Deltasone -) 60 mg PO DAILY [facility] Last Admin: 07/04/18 09:29 Dose: 60 mg Ranitidine HCl (Zantac -) 150 mg PO BID [facility] Last Admin: 07/04/18 09:30 Dose: 150 mg Valacyclovir HCl (Valtrex -) 500 mg PO BID [facility] Last Admin: 07/04/18 09:31 Dose: 500 mg Voriconazole (Vfend (Restricted To Id)) 200 mg PO BID [facility] Last Admin: 07/04/18 09:31 Dose: 200 mg - Objective Vital Signs: Vital Signs Temperature 98.0 F 07/04/18 09:22 Pulse Rate 91 H 07/04/18 09:22 Respiratory Rate 18 07/04/18 09:22 Blood Pressure 146/74 07/04/18 09:22 O2 Sat by Pulse Oximetry (%) 97 07/03/18 09:00 Constitutional: Yes: No Distress Eyes: Yes: Conjunctiva Clear Cardiovascular: Yes: Regular Rate and Rhythm, S1, S2 Respiratory: Yes: CTA Bilaterally Gastrointestinal: Yes: Normal Bowel Sounds, Soft. No: Tenderness Labs: CBC, BMP 07/04/18 07:00 07/04/18 07:00 Assessment/Plan CAVITARY LUNG MASS VASCULITIS R/O KLEBSIELLA PNEUMONIA/ FUNGAL DISEASE AZOTEMIA/ SOLITARY KIDNEY CONTINUE CEFTRIAXONE/ VORICONAZOLE/ PREDNISONE
--- NOTE | 2018-07-04 14:06 | PN ---
Progress Note, Physician History of Present Illness: pulmonary alert,oob-chair,comfortable,-sob - Current Medication List Current Medications: Active Medications Acetaminophen (Tylenol -) 650 mg PO Q6H PRN PRN Reason: FEVER Budesonide/Formoterol Fumarate (Symbicort 160/4.5mcg -) 1 puff IH BID [facility] Last Admin: 07/04/18 09:31 Dose: 1 puff Calcium Carbonate/Cholecalciferol (Os-Solomon 500+D -) 1 tab PO DAILY [facility] Last Admin: 07/04/18 09:29 Dose: 1 tab Gabapentin (Neurontin -) 300 mg PO BID [facility] Last Admin: 07/04/18 09:29 Dose: 300 mg Ceftriaxone Sodium 2 gm/ (Dextrose) 100 mls @ 200 mls/hr IVPB DAILY [facility]; Protocol Last Admin: 07/04/18 09:30 Dose: 200 mls/hr Iron Sucrose 100 mg/ Sodium (Chloride) 100 mls @ 200 mls/hr IVPB DAILY@0800 [facility] Last Admin: 07/04/18 09:30 Dose: 200 mls/hr Insulin Aspart (Novolog Vial Sliding Scale -) 1 vial SQ ACHS [facility]; Protocol Last Admin: 07/04/18 11:37 Dose: Not Given Prednisone (Deltasone -) 60 mg PO DAILY [facility] Last Admin: 07/04/18 09:29 Dose: 60 mg Ranitidine HCl (Zantac -) 150 mg PO BID [facility] Last Admin: 07/04/18 09:30 Dose: 150 mg Valacyclovir HCl (Valtrex -) 500 mg PO BID [facility] Last Admin: 07/04/18 09:31 Dose: 500 mg Voriconazole (Vfend (Restricted To Id)) 200 mg PO BID [facility] Last Admin: 07/04/18 09:31 Dose: 200 mg - Objective Vital Signs: Vital Signs Temperature 98.0 F 07/04/18 09:22 Pulse Rate 91 H 07/04/18 09:22 Respiratory Rate 18 07/04/18 09:22 Blood Pressure 146/74 07/04/18 09:22 O2 Sat by Pulse Oximetry (%) 97 07/03/18 09:00 Constitutional: Yes: Well Nourished, Calm Eyes: Yes: WNL HENT: Yes: WNL Neck: Yes: WNL Cardiovascular: Yes: Regular Rate and Rhythm, S1, S2 Respiratory: Yes: CTA Bilaterally Gastrointestinal: Yes: Normal Bowel Sounds, Soft Extremities: Yes: WNL Edema: Yes Labs: CBC, BMP 07/04/18 07:00 07/04/18 07:00 Problem List - Problems (1) CKD (chronic kidney disease) Code(s): N18.9 - CHRONIC KIDNEY DISEASE, UNSPECIFIED (2) ANCA-positive vasculitis Code(s): I77.6 - ARTERITIS, UNSPECIFIED (3) Lung abscess Code(s): J85.2 - ABSCESS OF LUNG WITHOUT PNEUMONIA Qualifiers: Pulmonary abscess pneumonia presence: with pneumonia Laterality: left Lung location: upper lobe of lung Qualified Code(s): J85.1 - Abscess of lung with pneumonia (4) Vasculitis Code(s): I77.6 - ARTERITIS, UNSPECIFIED (5) Asthma Code(s): J45.909 - UNSPECIFIED ASTHMA, UNCOMPLICATED (6) Bronchiectasis Code(s): J47.9 - BRONCHIECTASIS, UNCOMPLICATED Qualifiers: Bronchiectasis type: with acute lower respiratory infection Qualified Code( s): J47.0 - Bronchiectasis with acute lower respiratory infection (7) H/O renal cell cancer Code(s): Z85.528 - PERSONAL HISTORY OF OTHER MALIGNANT NEOPLASM OF KIDNEY (8) Pneumonia Code(s): J18.9 - PNEUMONIA, UNSPECIFIED ORGANISM Qualifiers: Laterality: left Lung location: lower lobe of lung (9) Rheumatoid arteritis Code(s): I00 - RHEUMATIC FEVER WITHOUT HEART INVOLVEMENT Assessment/Plan ASSESSMENT/PLAN: Acute Respiratory Failure: Resolved APE Lung Abscess Renal cancer s/p nephrectomy x 7 years ago Asthma Neuropathy Bronchiectasis S/P Left VAT with wedge biopsy in the [facility] Empyema Suspected granulomatosis and polyangiits (matthias's) MADAN path pending ABX per ID Prednisone VTE prophylaxis Incentive Spirometry Pain control Follow H & H lasix as per renal DR GOMEZ
--- NOTE | 2018-07-04 14:28 | PN ---
Progress Note, Physician History of Present Illness: Renal F/U Pt in no distress OOB in chair C/O increasing LE edema and heaviness and as a result of this and the neuropathy it is becoming more difficult to walk. - Current Medication List Current Medications: Active Medications Acetaminophen (Tylenol -) 650 mg PO Q6H PRN PRN Reason: FEVER Budesonide/Formoterol Fumarate (Symbicort 160/4.5mcg -) 1 puff IH BID [facility] Last Admin: 07/04/18 09:31 Dose: 1 puff Calcium Carbonate/Cholecalciferol (Os-Solomon 500+D -) 1 tab PO DAILY [facility] Last Admin: 07/04/18 09:29 Dose: 1 tab Gabapentin (Neurontin -) 300 mg PO BID [facility] Last Admin: 07/04/18 09:29 Dose: 300 mg Ceftriaxone Sodium 2 gm/ (Dextrose) 100 mls @ 200 mls/hr IVPB DAILY [facility]; Protocol Last Admin: 07/04/18 09:30 Dose: 200 mls/hr Iron Sucrose 100 mg/ Sodium (Chloride) 100 mls @ 200 mls/hr IVPB DAILY@0800 [facility] Last Admin: 07/04/18 09:30 Dose: 200 mls/hr Insulin Aspart (Novolog Vial Sliding Scale -) 1 vial SQ ACHS [facility]; Protocol Last Admin: 07/04/18 11:37 Dose: Not Given Prednisone (Deltasone -) 60 mg PO DAILY [facility] Last Admin: 07/04/18 09:29 Dose: 60 mg Ranitidine HCl (Zantac -) 150 mg PO BID [facility] Last Admin: 07/04/18 09:30 Dose: 150 mg Valacyclovir HCl (Valtrex -) 500 mg PO BID [facility] Last Admin: 07/04/18 09:31 Dose: 500 mg Voriconazole (Vfend (Restricted To Id)) 200 mg PO BID [facility] Last Admin: 07/04/18 09:31 Dose: 200 mg - Objective Vital Signs: Vital Signs Temperature 98.0 F 07/04/18 09:22 Pulse Rate 91 H 07/04/18 09:22 Respiratory Rate 18 07/04/18 09:22 Blood Pressure 146/74 07/04/18 09:22 O2 Sat by Pulse Oximetry (%) 97 07/03/18 09:00 Constitutional: Yes: No Distress Cardiovascular: Yes: S1, S2 Respiratory: Yes: CTA Bilaterally Gastrointestinal: Yes: Soft. No: Tenderness, Rebound Extremities: Yes: Other Edema: Yes (Edema up to mid calves) Labs: CBC, BMP 07/04/18 07:00 07/04/18 07:00 Assessment/Plan Impression 1. MADAN improved 2. r/o vasculitis 3. glomerulonephritis 4. lung cavitary lesion 5. asthma 6. copd 7. rheumatoid arthritis 8. hx of renal cell cancer s/p nephrectomy 6 years ago Plan - Additional 20 mg of lasix today - Monitor volume status - Abx as per ID and immunosuppresants per rheumatology - Rpt labs in am Dr Castellano
[2018-07-04] MEDS ORDERED: FUROSEMIDE 40 MG/4 ML INJECTABLE VIAL IVPUSH ONE (14:36)
--- NOTE | 2018-07-04 21:26 | PN ---
Progress Note, Physician - Current Medication List Current Medications: Active Medications Acetaminophen (Tylenol -) 650 mg PO Q6H PRN PRN Reason: FEVER Budesonide/Formoterol Fumarate (Symbicort 160/4.5mcg -) 1 puff IH BID [facility] Last Admin: 07/04/18 09:31 Dose: 1 puff Calcium Carbonate/Cholecalciferol (Os-Solomon 500+D -) 1 tab PO DAILY [facility] Last Admin: 07/04/18 09:29 Dose: 1 tab Gabapentin (Neurontin -) 300 mg PO BID [facility] Last Admin: 07/04/18 09:29 Dose: 300 mg Ceftriaxone Sodium 2 gm/ (Dextrose) 100 mls @ 200 mls/hr IVPB DAILY [facility]; Protocol Last Admin: 07/04/18 09:30 Dose: 200 mls/hr Iron Sucrose 100 mg/ Sodium (Chloride) 100 mls @ 200 mls/hr IVPB DAILY@0800 [facility] Last Admin: 07/04/18 09:30 Dose: 200 mls/hr Insulin Aspart (Novolog Vial Sliding Scale -) 1 vial SQ ACHS [facility]; Protocol Last Admin: 07/04/18 16:57 Dose: 2 units Prednisone (Deltasone -) 60 mg PO DAILY [facility] Last Admin: 07/04/18 09:29 Dose: 60 mg Ranitidine HCl (Zantac -) 150 mg PO BID [facility] Last Admin: 07/04/18 09:30 Dose: 150 mg Valacyclovir HCl (Valtrex -) 500 mg PO BID [facility] Last Admin: 07/04/18 09:31 Dose: 500 mg Voriconazole (Vfend (Restricted To Id)) 200 mg PO BID [facility] Last Admin: 07/04/18 09:31 Dose: 200 mg - Objective Vital Signs: Vital Signs Temperature 97.5 F L 07/04/18 20:40 Pulse Rate 74 07/04/18 20:40 Respiratory Rate 20 07/04/18 20:40 Blood Pressure 159/102 H 07/04/18 20:40 O2 Sat by Pulse Oximetry (%) 97 07/04/18 09:00 Labs: CBC, BMP 07/04/18 07:00 07/04/18 07:00 Problem List - Problems (1) Acute respiratory failure Code(s): J96.00 - ACUTE RESPIRATORY FAILURE, UNSP W HYPOXIA OR HYPERCAPNIA (2) Lung abscess Code(s): J85.2 - ABSCESS OF LUNG WITHOUT PNEUMONIA Qualifiers: Pulmonary abscess pneumonia presence: with pneumonia Laterality: left Lung location: upper lobe of lung Qualified Code(s): J85.1 - Abscess of lung with pneumonia (3) Vasculitis Code(s): I77.6 - ARTERITIS, UNSPECIFIED (4) COPD (chronic obstructive pulmonary disease) Code(s): J44.9 - CHRONIC OBSTRUCTIVE PULMONARY DISEASE, UNSPECIFIED (5) CKD (chronic kidney disease) Code(s): N18.9 - CHRONIC KIDNEY DISEASE, UNSPECIFIED (6) Neuropathy Code(s): G62.9 - POLYNEUROPATHY, UNSPECIFIED (7) H/O renal cell cancer Code(s): Z85.528 - PERSONAL HISTORY OF OTHER MALIGNANT NEOPLASM OF KIDNEY
[2018-07-05] MEDS: INSULIN SLIDING SCALE (NOVOLOG) 1 VIAL SQ SCH ×4 (06:23→21:45)
[2018-07-05 07:05] LABS: BASO % 0.1 % (0-2.0); EOS % 0.1 % (0-4.5); HEMATOCRIT 25.3 % (32.4-45.2); HEMOGLOBIN 8.5 GM/dL (10.7-15.3); LYMPH % 21.9 % (8-40); MCH 27.6 pg (25.7-33.7); MCHC 33.4 g/dl (32.0-36.0); MEAN CELL VOLUME 82.6 fl (80-96); MEAN PLT VOLUME 7.3 fl (7.5-11.1); MONO % 6.7 % (3.8-10.2); NEUT % 71.2 % (42.8-82.8); PLATELET COUNT 222 K/MM3 (134-434); RBC 3.06 M/mm3 (3.60-5.2); RDW 26.6 % (11.6-15.6); WHITE BLOOD COUNT 7.4 K/mm3 (4.0-10.0)
[2018-07-05 07:25] LABS: BLOOD UREA NITROGEN 44 mg/dL (7-18); CREATININE 1.4 mg/dL (0.55-1.3); GLUCOSE,RANDOM 102 mg/dL (74-106); SODIUM 141 mmol/L (136-145)
[2018-07-05 07:26] LABS: ANION GAP 4 MMOL/L (8-16); CALCIUM 8.2 mg/dL (8.5-10.1); CHLORIDE 109 mmol/L (98-107); CO2 29 mmol/L (21-32); POTASSIUM 4.6 mmol/L (3.5-5.1)
[2018-07-05] MEDS ORDERED: IRON SUCROSE INJECTION 100 MG in SODIUM CHLORIDE 95 ML IVPB SCH (08:00)
[2018-07-05] MEDS ORDERED: PT OWN MED DRAWER 7, Y5N ONE (09:06)
[2018-07-05] MEDS ORDERED: DEXTROSE 5%-WATER 100 ML IVPB ONE (09:06)
--- NOTE | 2018-07-05 09:09 | PN ---
Progress Note, Physician History of Present Illness: Renal F/U Pt feels better after the additional lasix and states her urine output increased immediately after the IV dose LE edema appears better Serum Cr has risen to 1.4 today - Current Medication List Current Medications: Active Medications Acetaminophen (Tylenol -) 650 mg PO Q6H PRN PRN Reason: FEVER Budesonide/Formoterol Fumarate (Symbicort 160/4.5mcg -) 1 puff IH BID [facility] Last Admin: 07/04/18 22:26 Dose: 1 puff Calcium Carbonate/Cholecalciferol (Os-Solomon 500+D -) 1 tab PO DAILY [facility] Last Admin: 07/04/18 09:29 Dose: 1 tab Gabapentin (Neurontin -) 300 mg PO BID [facility] Last Admin: 07/04/18 22:25 Dose: 300 mg Ceftriaxone Sodium 2 gm/ (Dextrose) 100 mls @ 200 mls/hr IVPB DAILY [facility]; Protocol Last Admin: 07/04/18 09:30 Dose: 200 mls/hr Iron Sucrose 100 mg/ Sodium (Chloride) 100 mls @ 200 mls/hr IVPB DAILY@0800 [facility] Last Admin: 07/04/18 09:30 Dose: 200 mls/hr Insulin Aspart (Novolog Vial Sliding Scale -) 1 vial SQ ACHS [facility]; Protocol Last Admin: 07/05/18 06:23 Dose: Not Given Prednisone (Deltasone -) 60 mg PO DAILY [facility] Last Admin: 07/04/18 09:29 Dose: 60 mg Ranitidine HCl (Zantac -) 150 mg PO BID [facility] Last Admin: 07/04/18 22:25 Dose: 150 mg Valacyclovir HCl (Valtrex -) 500 mg PO BID [facility] Last Admin: 07/04/18 23:07 Dose: 500 mg Voriconazole (Vfend (Restricted To Id)) 200 mg PO BID [facility] Last Admin: 07/04/18 23:07 Dose: 200 mg - Objective Vital Signs: Vital Signs Temperature 97.5 F L 07/05/18 06:00 Pulse Rate 79 07/05/18 06:00 Respiratory Rate 20 07/05/18 06:00 Blood Pressure 156/86 07/05/18 06:00 O2 Sat by Pulse Oximetry (%) 97 07/04/18 21:00 Constitutional: Yes: No Distress Cardiovascular: Yes: S1, S2 Respiratory: Yes: CTA Bilaterally Gastrointestinal: Yes: Soft. No: Tenderness, Rebound Extremities: Yes: Other (No calf tenderness) Edema: Yes (Decreased B/L LE edema ) Labs: CBC, BMP 07/05/18 06:30 07/05/18 06:30 Assessment/Plan Impression 1. MADAN improved from initial values but now slightly higher after the lasix 2. r/o vasculitis 3. glomerulonephritis 4. lung cavitary lesion 5. asthma 6. copd 7. rheumatoid arthritis 8. hx of renal cell cancer s/p nephrectomy 6 years ago 9. Anemia Plan - Hold on additional Lasix for today - Monitor volume status - Abx as per ID and immunosuppresants per rheumatology - Rpt labs in am Dr Castellano
[2018-07-05] MEDS: GABAPENTIN 300 MG CAPSULE (FP) PO SCH ×2 (10:11→21:45)
[2018-07-05] MEDS: predniSONE 20 MG TABLET (UD) PO SCH (10:11)
[2018-07-05] MEDS: CEFTRIAXONE 2 GM in DEXTROSE 5%-WATER 100 ML IVPB SCH (10:11)
[2018-07-05] MEDS: CALCIUM 500MG/VIT-D 200 UNITS COMBO TABLET (FP) PO SCH (10:12)
[2018-07-05] MEDS: RANITIDINE HCL 150 MG TABLET (FP) PO SCH ×2 (10:12→21:45)
[2018-07-05] MEDS: valACYclovir HCL 500 MG TABLET (FP) PO SCH ×2 (10:12→21:46)
[2018-07-05] MEDS: VORICONAZOLE 200 MG TABLET (RESTRICTED TO ID) PO SCH ×2 (10:13→21:46)
[2018-07-05] MEDS: BUDESONIDE/FORMETEROL FUMARATE 160/4.5 mcg INHALER IH SCH ×2 (10:14→21:46)
[2018-07-05] MEDS: IRON SUCROSE INJECTION 100 MG in SODIUM CHLORIDE 95 ML IVPB SCH (10:54)
[2018-07-05 11:13] LABS: ANISOCYTOSIS 1+; MACROCYTOSIS 1+; OVALOCYTE 1+; PLATELET ESTIMATE NORMAL
--- NOTE | 2018-07-05 13:35 | PN ---
Progress Note, Physician History of Present Illness: pulmonary alert,oob-chair,-resp distress - Current Medication List Current Medications: Active Medications Acetaminophen (Tylenol -) 650 mg PO Q6H PRN PRN Reason: FEVER Budesonide/Formoterol Fumarate (Symbicort 160/4.5mcg -) 1 puff IH BID [facility] Last Admin: 07/05/18 10:14 Dose: 1 puff Calcium Carbonate/Cholecalciferol (Os-Solomon 500+D -) 1 tab PO DAILY [facility] Last Admin: 07/05/18 10:12 Dose: 1 tab Gabapentin (Neurontin -) 300 mg PO BID [facility] Last Admin: 07/05/18 10:11 Dose: 300 mg Ceftriaxone Sodium 2 gm/ (Dextrose) 100 mls @ 200 mls/hr IVPB DAILY [facility]; Protocol Last Admin: 07/05/18 10:11 Dose: 200 mls/hr Iron Sucrose 100 mg/ Sodium (Chloride) 100 mls @ 200 mls/hr IVPB DAILY@0800 [facility] Last Admin: 07/05/18 10:54 Dose: 200 mls/hr Insulin Aspart (Novolog Vial Sliding Scale -) 1 vial SQ ACHS [facility]; Protocol Last Admin: 07/05/18 12:28 Dose: Not Given Prednisone (Deltasone -) 60 mg PO DAILY [facility] Last Admin: 07/05/18 10:11 Dose: 60 mg Ranitidine HCl (Zantac -) 150 mg PO BID [facility] Last Admin: 07/05/18 10:12 Dose: 150 mg Valacyclovir HCl (Valtrex -) 500 mg PO BID [facility] Last Admin: 07/05/18 10:12 Dose: 500 mg Voriconazole (Vfend (Restricted To Id)) 200 mg PO BID [facility] Last Admin: 07/05/18 10:13 Dose: 200 mg - Objective Vital Signs: Vital Signs Temperature 97.5 F L 07/05/18 06:00 Pulse Rate 79 07/05/18 06:00 Respiratory Rate 20 07/05/18 06:00 Blood Pressure 156/86 07/05/18 06:00 O2 Sat by Pulse Oximetry (%) 97 07/04/18 21:00 Constitutional: Yes: Well Nourished, Calm Eyes: Yes: WNL HENT: Yes: WNL Neck: Yes: WNL Cardiovascular: Yes: Regular Rate and Rhythm, S1, S2 Respiratory: Yes: CTA Bilaterally Gastrointestinal: Yes: Normal Bowel Sounds, Soft Extremities: Yes: WNL Edema: Yes Labs: CBC, BMP 07/05/18 06:30 07/05/18 06:30 Problem List - Problems (1) CKD (chronic kidney disease) Code(s): N18.9 - CHRONIC KIDNEY DISEASE, UNSPECIFIED (2) ANCA-positive vasculitis Code(s): I77.6 - ARTERITIS, UNSPECIFIED (3) Lung abscess Code(s): J85.2 - ABSCESS OF LUNG WITHOUT PNEUMONIA Qualifiers: Pulmonary abscess pneumonia presence: with pneumonia Laterality: left Lung location: upper lobe of lung Qualified Code(s): J85.1 - Abscess of lung with pneumonia (4) Vasculitis Code(s): I77.6 - ARTERITIS, UNSPECIFIED (5) Asthma Code(s): J45.909 - UNSPECIFIED ASTHMA, UNCOMPLICATED (6) Bronchiectasis Code(s): J47.9 - BRONCHIECTASIS, UNCOMPLICATED Qualifiers: Bronchiectasis type: with acute lower respiratory infection Qualified Code( s): J47.0 - Bronchiectasis with acute lower respiratory infection (7) H/O renal cell cancer Code(s): Z85.528 - PERSONAL HISTORY OF OTHER MALIGNANT NEOPLASM OF KIDNEY (8) Pneumonia Code(s): J18.9 - PNEUMONIA, UNSPECIFIED ORGANISM Qualifiers: Laterality: left Lung location: lower lobe of lung (9) Rheumatoid arteritis Code(s): I00 - RHEUMATIC FEVER WITHOUT HEART INVOLVEMENT Assessment/Plan ASSESSMENT/PLAN: Acute Respiratory Failure: Resolved APE Lung Abscess Renal cancer s/p nephrectomy x 7 years ago Asthma Neuropathy Bronchiectasis S/P Left VAT with wedge biopsy in the ODALYS Empyema Suspected granulomatosis and polyangiits (matthias's) MADAN path pending ABX per ID Prednisone VTE prophylaxis Incentive Spirometry Pain control Follow H & H lasix as per renal chest x-ray am DR GOMEZ
--- NOTE | 2018-07-05 19:48 | PN ---
Progress Note, Physician History of Present Illness: No new complaints - Current Medication List Current Medications: Active Medications Acetaminophen (Tylenol -) 650 mg PO Q6H PRN PRN Reason: FEVER Budesonide/Formoterol Fumarate (Symbicort 160/4.5mcg -) 1 puff IH BID [facility] Last Admin: 07/05/18 10:14 Dose: 1 puff Calcium Carbonate/Cholecalciferol (Os-Solomon 500+D -) 1 tab PO DAILY [facility] Last Admin: 07/05/18 10:12 Dose: 1 tab Gabapentin (Neurontin -) 300 mg PO BID [facility] Last Admin: 07/05/18 10:11 Dose: 300 mg Ceftriaxone Sodium 2 gm/ (Dextrose) 100 mls @ 200 mls/hr IVPB DAILY [facility]; Protocol Last Admin: 07/05/18 10:11 Dose: 200 mls/hr Iron Sucrose 100 mg/ Sodium (Chloride) 100 mls @ 200 mls/hr IVPB DAILY@0800 [facility] Last Admin: 07/05/18 10:54 Dose: 200 mls/hr Insulin Aspart (Novolog Vial Sliding Scale -) 1 vial SQ ACHS [facility]; Protocol Last Admin: 07/05/18 17:09 Dose: 6 units Prednisone (Deltasone -) 60 mg PO DAILY [facility] Last Admin: 07/05/18 10:11 Dose: 60 mg Ranitidine HCl (Zantac -) 150 mg PO BID [facility] Last Admin: 07/05/18 10:12 Dose: 150 mg Valacyclovir HCl (Valtrex -) 500 mg PO BID [facility] Last Admin: 07/05/18 10:12 Dose: 500 mg Voriconazole (Vfend (Restricted To Id)) 200 mg PO BID [facility] Last Admin: 07/05/18 10:13 Dose: 200 mg - Objective Vital Signs: Vital Signs Temperature 98 F 07/05/18 16:20 Pulse Rate 126 H 07/05/18 16:32 Respiratory Rate 20 07/05/18 16:20 Blood Pressure 168/87 07/05/18 16:20 O2 Sat by Pulse Oximetry (%) 95 07/05/18 16:32 Neck: Yes: WNL, Supple Cardiovascular: Yes: WNL, Regular Rate and Rhythm Respiratory: Yes: Diminished Gastrointestinal: Yes: WNL, Normal Bowel Sounds, Soft Edema: LLE: 1+, RLE: 1+ Labs: CBC, BMP 07/05/18 06:30 07/05/18 06:30 Problem List - Problems (1) Lung abscess Code(s): J85.2 - ABSCESS OF LUNG WITHOUT PNEUMONIA Qualifiers: Pulmonary abscess pneumonia presence: with pneumonia Laterality: left Lung location: upper lobe of lung Qualified Code(s): J85.1 - Abscess of lung with pneumonia (2) Vasculitis Code(s): I77.6 - ARTERITIS, UNSPECIFIED (3) COPD (chronic obstructive pulmonary disease) Code(s): J44.9 - CHRONIC OBSTRUCTIVE PULMONARY DISEASE, UNSPECIFIED (4) CKD (chronic kidney disease) Code(s): N18.9 - CHRONIC KIDNEY DISEASE, UNSPECIFIED (5) Neuropathy Code(s): G62.9 - POLYNEUROPATHY, UNSPECIFIED (6) H/O renal cell cancer Code(s): Z85.528 - PERSONAL HISTORY OF OTHER MALIGNANT NEOPLASM OF KIDNEY
[2018-07-06] MEDS: INSULIN SLIDING SCALE (NOVOLOG) 1 VIAL SQ SCH ×4 (06:13→21:57)
[2018-07-06 07:41] LABS: BASO % 0.1 % (0-2.0); EOS % 0.1 % (0-4.5); HEMATOCRIT 26.9 % (32.4-45.2); HEMOGLOBIN 8.9 GM/dL (10.7-15.3); LYMPH % 19.8 % (8-40); MCH 27.5 pg (25.7-33.7); MCHC 33.2 g/dl (32.0-36.0); MEAN PLT VOLUME 7.6 fl (7.5-11.1); MONO % 5.6 % (3.8-10.2); NEUT % 74.4 % (42.8-82.8); PLATELET COUNT 241 K/MM3 (134-434); RBC 3.24 M/mm3 (3.60-5.2); RDW 28.2 % (11.6-15.6); WHITE BLOOD COUNT 7.4 K/mm3 (4.0-10.0)
[2018-07-06 08:00] LABS: ANION GAP 5 MMOL/L (8-16); BLOOD UREA NITROGEN 46 mg/dL (7-18); CALCIUM 8.3 mg/dL (8.5-10.1); CHLORIDE 107 mmol/L (98-107); CO2 31 mmol/L (21-32); CREATININE 1.3 mg/dL (0.55-1.3); GLUCOSE,RANDOM 118 mg/dL (74-106); POTASSIUM 4.6 mmol/L (3.5-5.1); SODIUM 143 mmol/L (136-145)
[2018-07-06] MEDS ORDERED: PT OWN MED DRAWER 7, Y5N ONE (09:35)
[2018-07-06] MEDS ORDERED: DEXTROSE 5%-WATER 100 ML IVPB ONE (09:35)
[2018-07-06] MEDS: IRON SUCROSE INJECTION 100 MG in SODIUM CHLORIDE 95 ML IVPB SCH (09:40)
[2018-07-06] MEDS: CALCIUM 500MG/VIT-D 200 UNITS COMBO TABLET (FP) PO SCH (09:41)
[2018-07-06] MEDS: GABAPENTIN 300 MG CAPSULE (FP) PO SCH ×2 (09:41→22:30)
[2018-07-06] MEDS: predniSONE 20 MG TABLET (UD) PO SCH (09:41)
[2018-07-06] MEDS: VORICONAZOLE 200 MG TABLET (RESTRICTED TO ID) PO SCH (09:42)
[2018-07-06] MEDS: valACYclovir HCL 500 MG TABLET (FP) PO SCH ×2 (09:42→22:31)
[2018-07-06] MEDS: CEFTRIAXONE 2 GM in DEXTROSE 5%-WATER 100 ML IVPB SCH (09:43)
[2018-07-06] MEDS: RANITIDINE HCL 150 MG TABLET (FP) PO SCH ×2 (09:43→22:31)
[2018-07-06] MEDS: BUDESONIDE/FORMETEROL FUMARATE 160/4.5 mcg INHALER IH SCH ×2 (09:45→22:01)
--- NOTE | 2018-07-06 10:04 | PN ---
Progress Note (short form) - Note Progress Note: PULMONARY Denies shortness of breath, cough or fevers. Has been ambulating. Vital Signs Period Temp Pulse Resp BP Sys/Busby Pulse Ox Last 24 Hr 97.6 F-98.0 F 75-126 18-20 150-168/73-97 95-95 Gen: NAD at rest Heart: RRR Lung: decreased breath sounds at the bases Abd: soft, nontender Ext: no edema CBC, BMP 07/06/18 06:45 07/06/18 06:45 Active Medications Acetaminophen (Tylenol -) 650 mg PO Q6H PRN PRN Reason: FEVER Budesonide/Formoterol Fumarate (Symbicort 160/4.5mcg -) 1 puff IH BID [facility] Last Admin: 07/06/18 09:45 Dose: 1 puff Calcium Carbonate/Cholecalciferol (Os-Solomon 500+D -) 1 tab PO DAILY [facility] Last Admin: 07/06/18 09:41 Dose: 1 tab Gabapentin (Neurontin -) 300 mg PO BID [facility] Last Admin: 07/06/18 09:41 Dose: 300 mg Ceftriaxone Sodium 2 gm/ (Dextrose) 100 mls @ 200 mls/hr IVPB DAILY [facility]; Protocol Last Admin: 07/06/18 09:43 Dose: 200 mls/hr Iron Sucrose 100 mg/ Sodium (Chloride) 100 mls @ 200 mls/hr IVPB DAILY@0800 [facility] Last Admin: 07/06/18 09:40 Dose: 200 mls/hr Insulin Aspart (Novolog Vial Sliding Scale -) 1 vial SQ ACHS [facility]; Protocol Last Admin: 07/06/18 06:13 Dose: Not Given Prednisone (Deltasone -) 60 mg PO DAILY [facility] Last Admin: 07/06/18 09:41 Dose: 60 mg Ranitidine HCl (Zantac -) 150 mg PO BID [facility] Last Admin: 07/06/18 09:43 Dose: 150 mg Valacyclovir HCl (Valtrex -) 500 mg PO BID [facility] Last Admin: 07/06/18 09:42 Dose: 500 mg Voriconazole (Vfend (Restricted To Id)) 200 mg PO BID [facility] Last Admin: 07/06/18 09:42 Dose: 200 mg A/P Pneumonia/Lung Abscess r/o Vasculitis Acute Kidney Injury COPD Rheumatoid Arthritis h/o Nephrectomy - continue antibiotics, prednisone - f/u pending cultures - f/u final pathology - will need outpt chest CT in 4-6 weeks to reassess - DVT prophylaxis - d/c planning
[2018-07-06 10:53] LABS: ANISOCYTOSIS 1+; MACROCYTOSIS 1+; OVALOCYTE 1+; PLATELET ESTIMATE NORMAL
--- NOTE | 2018-07-06 14:45 | PN ---
Progress Note, Physician History of Present Illness: Pt seen and examined at bedside. She denies shortness of breath. She denies dysuria. - Current Medication List Current Medications: Active Medications Acetaminophen (Tylenol -) 650 mg PO Q6H PRN PRN Reason: FEVER Budesonide/Formoterol Fumarate (Symbicort 160/4.5mcg -) 1 puff IH BID [facility] Last Admin: 07/06/18 09:45 Dose: 1 puff Calcium Carbonate/Cholecalciferol (Os-Solomon 500+D -) 1 tab PO DAILY [facility] Last Admin: 07/06/18 09:41 Dose: 1 tab Gabapentin (Neurontin -) 300 mg PO BID [facility] Last Admin: 07/06/18 09:41 Dose: 300 mg Ceftriaxone Sodium 2 gm/ (Dextrose) 100 mls @ 200 mls/hr IVPB DAILY [facility]; Protocol Last Admin: 07/06/18 09:43 Dose: 200 mls/hr Iron Sucrose 100 mg/ Sodium (Chloride) 100 mls @ 200 mls/hr IVPB DAILY@0800 [facility] Last Admin: 07/06/18 09:40 Dose: 200 mls/hr Insulin Aspart (Novolog Vial Sliding Scale -) 1 vial SQ ACHS [facility]; Protocol Last Admin: 07/06/18 12:00 Dose: Not Given Prednisone (Deltasone -) 60 mg PO DAILY [facility] Last Admin: 07/06/18 09:41 Dose: 60 mg Ranitidine HCl (Zantac -) 150 mg PO BID [facility] Last Admin: 07/06/18 09:43 Dose: 150 mg Valacyclovir HCl (Valtrex -) 500 mg PO BID [facility] Last Admin: 07/06/18 09:42 Dose: 500 mg Voriconazole (Vfend (Restricted To Id)) 200 mg PO BID [facility] Last Admin: 07/06/18 09:42 Dose: 200 mg - Objective Vital Signs: Vital Signs Temperature 97.7 F 07/06/18 07:43 Pulse Rate 75 07/06/18 07:43 Respiratory Rate 20 07/06/18 07:43 Blood Pressure 150/73 07/06/18 07:43 O2 Sat by Pulse Oximetry (%) 95 07/05/18 20:47 Constitutional: Yes: Calm Eyes: Yes: Conjunctiva Clear HENT: Yes: Atraumatic Cardiovascular: Yes: S1, S2 Respiratory: Yes: On Nasal O2 Gastrointestinal: Yes: Soft Genitourinary: Yes: WNL Edema: Yes Edema: LLE: 1+, RLE: 1+ Neurological: Yes: Oriented Psychiatric: Yes: Oriented Labs: CBC, BMP 07/06/18 06:45 07/06/18 06:45 Problem List - Problems (1) MADAN (acute kidney injury) Code(s): N17.9 - ACUTE KIDNEY FAILURE, UNSPECIFIED (2) Glomerulonephritis Code(s): N05.9 - UNSP NEPHRITIC SYNDROME WITH UNSPECIFIED MORPHOLOGIC CHANGES (3) Lung abscess Code(s): J85.2 - ABSCESS OF LUNG WITHOUT PNEUMONIA Qualifiers: Pulmonary abscess pneumonia presence: with pneumonia Laterality: left Lung location: upper lobe of lung Qualified Code(s): J85.1 - Abscess of lung with pneumonia (4) Vasculitis Code(s): I77.6 - ARTERITIS, UNSPECIFIED Assessment/Plan Current Medications Generic Name Dose Route Start Last Admin Trade Name Freq PRN Reason Stop Dose Admin Acetaminophen 650 mg 06/30/18 13:12 Tylenol - PO Q6H PRN FEVER Budesonide/Formoterol Fumarate 1 puff 06/30/18 22:00 07/06/18 09:45 Symbicort 160/4.5mcg - IH 1 puff BID [facility] Administration Calcium Carbonate/Cholecalciferol 1 tab 07/01/18 10:00 07/06/18 09:41 Os-Solomon 500+D - PO 1 tab DAILY [facility] Administration Gabapentin 300 mg 06/30/18 10:00 07/06/18 09:41 Neurontin - PO 300 mg BID [facility] Administration Ceftriaxone Sodium 2 gm/ 100 mls @ 200 mls/hr 07/01/18 10:00 07/06/18 09:43 Dextrose IVPB 200 mls/hr DAILY [facility] Administration Protocol Iron Sucrose 100 mg/ Sodium 100 mls @ 200 mls/hr 07/02/18 19:30 07/06/18 09: 40 Chloride IVPB 200 mls/hr DAILY@0800 [facility] Administration Insulin Aspart 1 vial 06/30/18 16:30 07/06/18 12:00 Novolog Vial Sliding Scale - SQ Not Given ACHS [facility] Protocol Prednisone 60 mg 07/01/18 10:00 07/06/18 09:41 Deltasone - PO 60 mg DAILY [facility] Administration Ranitidine HCl 150 mg 06/30/18 22:00 07/06/18 09:43 Zantac - PO 150 mg BID [facility] Administration Valacyclovir HCl 500 mg 06/30/18 22:00 07/06/18 09:42 Valtrex - PO 500 mg BID [facility] Administration Voriconazole 200 mg 07/03/18 22:00 07/06/18 09:42 Vfend (Restricted To Id) PO 200 mg BID [facility] Administration Impression 1. MADAN 2. r/o vasculitis 3. glomerulonephrotis 4. lung cavitary lesion 5. asthma 6. copd 7. rheumatoid arthritis 8. hx of renal cell cancer s/p nephrectomy Plan - can resume home dose of lasix - will need close follow up after discharge - rheum follow up - cont steroids - cont abx Dr Mcneill
[2018-07-06] MEDS ORDERED: MIDAZOLAM HCL 2 MG/2 ML SINGLE DOSE VIAL ONE (15:29)
[2018-07-06] MEDS ORDERED: MIDAZOLAM 100 MG in SODIUM CHLORIDE 100 ML IVPB SCH (15:30)
[2018-07-06] MEDS ORDERED: AMIODARONE IN DEXTROSE,ISO-OSM 360 MG/200 ML BAG IVPB ONE (15:30)
--- NOTE | 2018-07-06 15:30 | PN ---
Progress Note (short form) - Note Progress Note: Called to intubate this 63 year old female in cardiopulmonary arrest in interventional radiology. ACLS in progress upon arrival. After suctioning the oral airway, the patient was intubated under direct laryngoscopy using a #7.0 endotracheal tube. Position was confirmed and tube was secured. ACLS ongoing.
[2018-07-06 15:54] LABS: BASO % 1.1 % (0-2.0); EOS % 0.1 % (0-4.5); HEMATOCRIT 37.7 % (32.4-45.2); HEMOGLOBIN 11.7 GM/dL (10.7-15.3); LYMPH % 33.8 % (8-40); MCH 26.9 pg (25.7-33.7); MCHC 31.1 g/dl (32.0-36.0); MEAN CELL VOLUME 86.4 fl (80-96); MEAN PLT VOLUME 7.9 fl (7.5-11.1); MONO % 1.1 % (3.8-10.2); NEUT % 63.9 % (42.8-82.8); PLATELET COUNT 397 K/MM3 (134-434); RBC 4.36 M/mm3 (3.60-5.2); RDW 27.7 % (11.6-15.6); WHITE BLOOD COUNT 27.4 K/mm3 (4.0-10.0)
--- NOTE | 2018-07-06 16:03 | RAPID ---
<Arcelia Crisostomo - Last Filed: 07/06/18 23:09> Physical Examination Vital Signs: Vital Signs Temperature 97.7 F 07/06/18 08:05 Pulse Rate 74 07/06/18 08:05 Respiratory Rate 18 07/06/18 08:05 Blood Pressure 167/96 07/06/18 08:05 O2 Sat by Pulse Oximetry (%) 95 07/05/18 20:47 Rapid Response - Rapid Response Assessment: Rapid response called at 3pm at Interventional radiology department. As per nursing, patient was there for tunneled catheter placement. Before the procedure started, patient was noted to have a frothy mouth with bleeding, with some "seizure-like" activity. At 3:05pm, patient was noted to have no pulse and code 99 was called. CPR was immediately started as per ACLS guidelines. Please refer to code sheet. ROSC was achieved. Amiodarone drip started. General: intubated, sedated. VS: BP 158/91, PA 120s, RR 20, O2 satn 100 Heart: tachycardic Lungs: coarse breath sounds bilaterally Ext: palpable femoral pulses Dr. Cash made aware. CBC, CMP, Lactic acid, troponin ordered. EKG and CXR reviewed. Echo ordered. Patient was subsequently transferred to ICU. Rest of care as per ICU team. <Aide Sanchez - Last Filed: 07/07/18 07:46> Physical Examination Vital Signs: Labs: CBC, BMP 07/07/18 05:30 07/07/18 05:30 Critical Care Total Critical Care Time (in minutes): 55 Critical Care Statement: The care of this patient involved high complexity decision making to prevent further life threatening deterioration of the patient 's condition and/or to evaluate & treat vital organ system(s) failure or risk of failure.
[2018-07-06 16:08] LABS: INR 0.88 (0.83-1.09); PROTHROMBIN TIME (PATIENT) 10.4 SEC (9.7-13.0)
[2018-07-06 16:10] LABS: ACTIVATED PTT 28.1 SECONDS (25.2-36.5)
--- NOTE | 2018-07-06 16:14 | EKG ---
Test Reason : Blood Pressure : / mmHG Vent. Rate : 127 BPM Atrial Rate : 127 BPM P-R Int : 124 ms QRS Dur : 112 ms QT Int : 320 ms P-R-T Axes : 080 -50 038 degrees QTc Int : 465 ms SINUS TACHYCARDIA POSSIBLE LEFT ATRIAL ENLARGEMENT LEFT AXIS DEVIATION RIGHT BUNDLE BRANCH BLOCK ABNORMAL ECG WHEN COMPARED WITH ECG OF 18-JUN-2018 19:47, RIGHT BUNDLE BRANCH BLOCK IS NOW PRESENT Confirmed by ROSY LAU, HARRIET ([id number]) on 07/06/2018 4:14:01 PM Referred By: Confirmed By:HARRIET GALLEGOS MD
[2018-07-06 16:19] LABS: ASPERGIL AG 0.04 Index (0.00-0.49)
--- NOTE | 2018-07-06 16:22 | PN ---
Progress Note (short form) - Note Progress Note: 63 yo woman with hx of Renal Ca s/p nephrectomy, COPD, RhA, bronchiectasis, recurrent PNA, being treated for ANCA positive vasculitis s/p bonchoscopy with LVATs/L upper lobe wedge resection and sampling of pleural fluid to investigate cavitary lesion in her ODALYS for rheum tissue diagnosis (to aid immunosuppressive tx) c/b chest tube placement, high flow O2 requirements and with L chest tube. She was undergoing PICC line placement for continued antibiotic therapy. Once placed on the IR table and she sustained a witnessed focal seizure around her mouth lasting 30secs, at the end of which she was noted be pulseless. CPR was initiated immediately. detailed written report of resuscitative efforts in the chart. in summary she received 1 epi, was shocked for Vtach noted on monitor, intubated and started on amiodarone. ROSC achieved <10mins she was transferred to the ICU for further management and treatment. repeat labs ordered, chest xray ordered. in the ICU pt was alert, awake, attempted to talk, interacting appropriately requesting to be extubated. she was sedated with propofol due to acute chest xray findings and recent cpr efforts. cardiology consulted and updated regarding acute events. stat echo pending read to evaluate cardiac function will hold the vorconazole due to interaction with amiodarone. PE: CV: s1, s2, no mrg Lungs: crackles throughout HEENT: NC/AT, MAGGIE, EOMI, trachea midline abd: soft/nontender Chest: bruising at chest tube site ext: moving all extremities A/P: Multiple etiology for acute cardiopulmonary event including acute pulmonary edema, acute CHF exacerbation, acute COPD exacerbation. continue amiodarone drip, f/u labs and replete any electrolyte abnormalities as needed maintain on vent, adjust as needed, sedation for pt's comfort while vented weaning trial in the AM continue steroids Dispo: ICU monitoring
--- NOTE | 2018-07-06 16:31 | PN ---
Progress Note (short form) - Note Progress Note: events noted was well ambulating to the bathroom plan was to go home- she went for tunnedlled catheter- prior to procedure apparently had facila twitching on one side of the face then became unresponsive no pain Vital Signs Period Temp Pulse Resp BP Sys/Busby Pulse Ox Last 24 Hr 97.7 F-98.0 F 74-126 18-20 150-167/73-97 95-95 orally intubated alert and responsive nodding yes and no to questions cor-rrr lungs decreased bs at bases abd soft,nt ext no edema +multiple ecchymoses CBC, BMP 07/06/18 15:30 cmp pending Microbiology 07/02/18 16:00 Serum Cryptococcal Antigen - Preliminary 06/22/18 15:00 Ulcer Viral Culture - Final 06/25/18 13:15 Lung - Left Upper Lobe AFB Smear Concentration - Final 06/25/18 13:15 Lung - Left Upper Lobe Mycobacterial Culture - Preliminary 06/25/18 12:59 Pleural Fluid AFB Smear Concentration - Final 06/25/18 12:59 Pleural Fluid Mycobacterial Culture - Preliminary 06/25/18 13:15 Bronchial Washings - Bilateral Lung Fluid AFB Smear Concentration - Final 06/25/18 13:15 Bronchial Washings - Bilateral Lung Fluid Mycobacterial Culture - Preliminary 06/25/18 13:15 Bronchial Washings - Left Lower Lobe Legionella pneumophila ( Direct FA) - Final 06/25/18 13:15 Lung - Left Upper Lobe Gram Stain - Final 06/25/18 13:15 Lung - Left Upper Lobe Tissue Culture - Final NO GROWTH OF AEROBIC ORGANISMS AFTER 48 HOURS INCUBATION 06/25/18 13:15 Lung - Left Upper Lobe Anaerobic Culture - Final NO ANAEROBES WERE ISOLATED 06/25/18 13:15 Pleural Fluid Gram Stain - Final 06/25/18 13:15 Pleural Fluid Body Fluid Culture - Final NO GROWTH OF AEROBIC ORGANISMS AFTER 48 HOURS INCUBATION 06/25/18 13:15 Pleural Fluid Anaerobic Culture - Final NO ANAEROBES WERE ISOLATED 06/25/18 13:15 Bronchial Washings - Bilateral Lung Fluid Gram Stain - Final 06/25/18 13:15 Bronchial Washings - Bilateral Lung Fluid Bronchoalveolar Lavage Culture - Final Klebsiella Pneumoniae 06/25/18 13:15 Lung - Left Upper Lobe SHARI Preparation - Preliminary 06/25/18 13:15 Lung - Left Upper Lobe Fungal Culture - Preliminary 06/25/18 13:15 Pleural Fluid SHARI Preparation - Preliminary 06/25/18 13:15 Pleural Fluid Fungal Culture - Preliminary 06/25/18 12:59 Bronchial Washings - Bilateral Lung Fluid SHARI Preparation - Preliminary 06/25/18 12:59 Bronchial Washings - Bilateral Lung Fluid Fungal Culture - Preliminary 06/22/18 11:00 Sputum - Expectorated AFB Smear Concentration - Final 06/22/18 11:00 Sputum - Expectorated Direct Acid Fast Bacilli Smear - Final 06/22/18 11:00 Sputum - Expectorated Mycobacterial Culture - Preliminary 06/18/18 17:25 Blood - Peripheral Venous Blood Culture - Final NO GROWTH AFTER 5 DAYS INCUBATION 06/18/18 17:25 Blood - Peripheral Venous Blood Culture - Final NO GROWTH AFTER 5 DAYS INCUBATION 06/23/18 12:30 Sputum - Expectorated SHARI Preparation - Preliminary 06/23/18 12:30 Sputum - Expectorated Fungal Culture - Preliminary 06/21/18 04:00 Sputum - Expectorated AFB Smear Concentration - Final 06/21/18 04:00 Sputum - Expectorated Direct Acid Fast Bacilli Smear - Final 06/21/18 04:00 Sputum - Expectorated Mycobacterial Culture - Preliminary 06/20/18 12:30 Sputum - Expectorated AFB Smear Concentration - Final 06/20/18 12:30 Sputum - Expectorated Direct Acid Fast Bacilli Smear - Final 06/20/18 12:30 Sputum - Expectorated Mycobacterial Culture - Preliminary 06/19/18 17:00 Sputum - Expectorated AFB Smear Concentration - Final 06/19/18 17:00 Sputum - Expectorated Direct Acid Fast Bacilli Smear - Final 06/19/18 17:00 Sputum - Expectorated Mycobacterial Culture - Preliminary 06/19/18 17:00 Sputum - Expectorated Gram Stain - Final 06/19/18 17:00 Sputum - Expectorated Sputum Culture - Final NORMAL RESPIRATORY MAAME 06/19/18 18:30 Urine For Antigen Detection Legionella Antigen - Final 06/19/18 18:30 Urine For Antigen Detection Streptococcus pneumoniae Antigen (M - Final 06/18/18 19:51 Urine - Urine Clean Catch Urine Culture - Final NO GROWTH OBTAINED aspergillus galactommanan 1.11 (BAL) cxray reviewed a/p s/p code- ?seizure hest compressions asystole then vtach now on amiodarone cardiology evaluation head ct when stable vasculitis-ANCA positive-management per rheumatology low suspicion TB-sputum afb negative, pcr negative times 2 BAL culture -pure culture klebsiella continue ceftriaxone, day #15 antibiotics BAL Galactommanan antigen is positive hold voriconazole -day #5- now on amiodarone drip fungal serologies and cultures pending she remains on high dose steroids and we cannot r/o fungal infection small sacral ulcer is dry-+HSV- continue valtrex for prophylaxis solitary kidney- s/p nephrectomy f/u cultures /pathology from BAL and lung biopsy pathology of lingula- afb/fungal smears negative reculture-empiric switch to zosyn to cover possible aspiration Problem List - Problems (1) Lung abscess Code(s): J85.2 - ABSCESS OF LUNG WITHOUT PNEUMONIA Qualifiers: Pulmonary abscess pneumonia presence: with pneumonia Laterality: left Lung location: upper lobe of lung Qualified Code(s): J85.1 - Abscess of lung with pneumonia (2) Vasculitis Code(s): I77.6 - ARTERITIS, UNSPECIFIED
[2018-07-06 16:33] LABS: ALBUMIN 2.6 g/dl (3.4-5.0); ALK PHOS 84 U/L (45-117); ANION GAP 12 MMOL/L (8-16); BILIRUBIN,TOTAL 0.2 mg/dL (0.2-1); BLOOD UREA NITROGEN 45 mg/dL (7-18); CALCIUM 8.4 mg/dL (8.5-10.1); CHLORIDE 104 mmol/L (98-107); CO2 22 mmol/L (21-32); CREATININE 1.5 mg/dL (0.55-1.3); MAGNESIUM 2.4 mg/dL (1.8-2.4); PHOSPHOROUS 5.3 mg/dL (2.5-4.9); POTASSIUM 4.7 mmol/L (3.5-5.1); SGOT/AST 101 U/L (15-37); SGPT/ALT 88 U/L (13-61); SODIUM 138 mmol/L (136-145); TOT PROT 5.9 g/dl (6.4-8.2)
[2018-07-06 16:46] LABS: GLUCOSE,RANDOM 310 mg/dL (74-106)
[2018-07-06 17:09] LABS: ARTERIAL BLOOD GAS PCO2 47.5 mmHg (35-45); ARTERIAL BLOOD GAS pH 7.32 (7.35-7.45)
[2018-07-06 17:10] LABS: ARTERIAL BLD GAS O2 SATURATION 99.9 % (95-98); ARTERIAL BLOOD GAS BASE EXCESS -1.9 meq/l (-2-2); ARTERIAL BLOOD GAS PO2 286 mmHg (80-105)
[2018-07-06 17:11] LABS: ALLENS TEST POSITIVE
--- NOTE | 2018-07-06 17:23 | CON.CARD ---
Consult Consult Specialty:: Cardiology Referred by:: ICU Reason for Consultation:: cardiac arrest, VT - History of Present Illness Chief Complaint: unresponsive History of Present Illness: 63F h/o renal cancer s/p nephrectomy 7 years ago, CKD, asthma, COPD, RA, neuropathy p/w cavitary lesion in ODALYS, cough, now s/p cardiac arrest, asystolic and later VT noted. Has been undergoing pulm, rhuem workup for lung lesion. Today had planned IR catheter, was transferred to table and noticed twitching in her face and then appeared to have a seizure, noted to be pulseless and CPR started, asystole on monitor. Later noted VT, shocked and given amio 300 mg IV x 1, now on amio gtt. Currently intubated but responsive and trying to communicate. - Past Medical History Pulmonary: Yes: Asthma, COPD, Other (Bronchiectasis) Renal/: Yes: Renal Inusuff, Other (S/P right nephrectomy for renal carcinoma) - Past Surgical History Past Surgical History: Yes: Bariatric Surgery, Cholecystectomy, , Hysterectomy, Nephrectomy - Alcohol/Substance Use Hx Alcohol Use: No - Smoking History Smoking history: Never smoked Have you smoked in the past 12 months: No Aproximately how many cigarettes per day: 0 If you are a former smoker, when did you quit?: 12 BYEARS AGO - Social History ADL: Independent Occupation: School Nurse History of Recent Travel: No Home Medications - Allergies Allergies/Adverse Reactions: Allergies Allergy/AdvReac Type Severity Reaction Status Date / Time ciprofloxacin HCl Allergy Verified 07/18/16 12:41 [From Cipro] levofloxacin [From Levaquin] Allergy Verified 07/18/16 12:41 - Home Medications Home Medications: Ambulatory Orders Budesonide/Formeterol Fumarate [SYMBICORT 160/4.5mcg -] 1 inh PO BID 03/28/15 Albuterol Sulfate Inhaler - [Ventolin HFA Inhaler -] 1 - 2 inh PO PRN PRN Famotidine [Pepcid -] 20 mg PO BID #60 tablet 07/19/16 Furosemide [Lasix] 20 mg PO ONCE 06/19/18 Acetaminophen [Tylenol .Regular Strength -] 650 mg PO Q6H PRN #100 tablet Calcium 500Mg/Vit-D 200 Units [Os-Solomon 500+D -] 1 tab PO DAILY #30 tab 07/06/18 Ceftriaxone [Rocephin -] 2 gm IVPB DAILY vial 07/06/18 Gabapentin [Neurontin -] 300 mg PO BID #60 capsule 07/06/18 Insulin Sliding Scale [Novolog Vial Sliding Scale -] 1 vial SQ ACHS #1 units 11/16 Valacyclovir HCl [Valtrex -] 500 mg PO BID #60 tablet 07/06/18 Voriconazole [Vfend (Restricted To Id)] 200 mg PO BID #40 tablet 07/06/18 predniSONE [Deltasone -] 60 mg PO DAILY #30 tablet 07/06/18 Family Disease History - Family Disease History Family Disease History: Other: Father (Kidney Cancer ), Brother (Lung Cancer ) Review of Systems Unable to obtain ROS, reason: intubated Vital Signs: Vital Signs Temperature 97.7 F 07/06/18 08:05 Pulse Rate 74 07/06/18 08:05 Respiratory Rate 18 07/06/18 08:05 Blood Pressure 167/96 07/06/18 08:05 O2 Sat by Pulse Oximetry (%) 95 07/05/18 20:47 Constitutional: Yes: Well Nourished, Calm Eyes: Yes: Conjunctiva Clear, EOM Intact HENT: Yes: Atraumatic, Normocephalic Neck: Yes: Supple, Trachea Midline Respiratory: Yes: Regular, Intubated, Mechanically Ventilated Gastrointestinal: Yes: Normal Bowel Sounds Cardiovascular: Yes: Tachycardia JVD: No Carotid Bruit: No PMI: Non-Displaced Heart Sounds: Yes: S1, S2 Murmur: No: Systolic Murmur Musculoskeletal: No: Back Pain Extremities: No: Cold Edema: No Peripheral Pulses WNL: Yes Peripheral Pulses: 2+ Left Doralis Pedis, 2+ Right Dorsalis Pedis Integumentary: No: Jaundice Neurological: Yes: Alert, Oriented Psychiatric: No: Agitated - Other Data Labs, Other Data: CBC, BMP 07/06/18 15:30 07/06/18 15:30 INR, PTT INR 0.88 (0.83-1.09) 07/06/18 15:30 Troponin, BNP 07/06/18 15:30 Troponin I < 0.02 Troponin, BNP 07/06/18 15:30 Troponin I < 0.02 Assessment/Plan EKG: sinus tachycardia, no ischemic changes tele: sinus tachycardia s/p cardiac arrest, asystole, ventricular tachycardia - s/p CPR, amio 300 mg IV x1, shock - ROSC reportedly <10 min, responsive now - arrest initially asystolic ->VT, after epi, may have been 2/2 receiving epinephrine - echo pending - on amio gtt at 1mg/hr, can stop after 6 hours - trop neg x 1, trend troponins, EKG no ischemic changes post arrest - cont monitoring on tele, currently sinus tachycardia with no events vasculitis - manage per rheum, on steroids Lung abscess - manage per ID, pulm - s/p VATS for lung bx - holding voriconazole as she is on amiodarone COPD - manage per pulm
[2018-07-06] MEDS ORDERED: PROPOFOL 1,000,000 MCG/100 ML VIAL IVPB SCH (17:30)
[2018-07-06] MEDS ORDERED: PROPOFOL 1,000,000 MCG/100 ML VIAL ONE (17:39)
[2018-07-06] MEDS ORDERED: DEXTROSE 5%-WATER - 50 ML IVPB ONE (17:41)
[2018-07-06] MEDS ORDERED: PIPERACILLIN/TAZOBACTAM 3.375 GM VIAL IVPB ONE (17:41)
[2018-07-06 17:42] LABS: ANISOCYTOSIS 3+; MACROCYTOSIS 1+
[2018-07-06 17:43] LABS: PLATELET ESTIMATE ADEQUATE
[2018-07-06] MEDS: PIPERACILLIN/TAZOB 3.375 GM 3.375 GM in DEXTROSE 5%-WATER - 50 ML IVPB SCH (17:51)
--- NOTE | 2018-07-06 18:13 | ECHO ---
Name: YUSRA IRELAND Exam:Adult Echocardiogram Study Date: 07/06/2018 04:27 PM Age: 63 yrs Reason For Study: pericardial effusion MMode/2D Measurements & Calculations IVSd: 1.0 cm Ao root diam: 2.9 cm LVIDd: 4.6 cm LA dimension: 3.7 cm LVIDs: 3.1 cm LVPWd: 0.92 cm EDV(Teich): 99.4 ml LVOT diam: 2.0 cm ESV(Teich): 37.3 ml RV S Dennis: 12.9 cm/sec Doppler Measurements & Calculations Ao V2 max: 98.2 cm/sec TR max dennis: 289.1 cm/sec Ao max P.9 mmHg TR max P.5 mmHg Med Peak E' Dennis: 5.3 cm/sec Procedure A complete two-dimensional transthoracic echocardiogram was performed (2D, M-mode, Doppler and color flow Doppler). Left Ventricle The left ventricle is normal in size. Left ventricular systolic function is normal. Ejection Fraction = 60- 65%. No regional wall motion abnormalities noted. Right Ventricle The right ventricle is normal size. The right ventricular systolic function is normal. RV systolic TD I is 13 cm/s. Atria The left atrial size is normal. Right atrial size is normal. Mitral Valve The mitral valve is normal in structure and function. There is no mitral regurgitation noted. Tricuspid Valve The tricuspid valve is normal in structure and function. There is mild tricuspid regurgitation. Pulmo nary artery systolic pressure is at least 38 mmHg assuming RA pressure of 3 mmHg. Aortic Valve The aortic valve is normal in structure and function. No aortic regurgitation is present. Pulmonic Valve The pulmonic valve is not well visualized. Great Vessels The aortic root is normal size. Pericardium/Pleura Trivial pericardial effusion not hemodynamically significant. Interpretation Summary The left ventricle is normal in size. Left ventricular systolic function is normal. No regional wall motion abnormalities noted. Ejection Fraction = 60-65%. The right ventricular systolic function is normal. The left atrial size is normal. Right atrial size is normal. There is mild tricuspid regurgitation. Pulmonary artery systolic pressure is at least 38 mmHg assuming RA pressure of 3 mmHg Trivial pericardial effusion not hemodynamically significant Previous study is not available for comparison Irineo Samuel MD 07/06/2018 06:13 PM
[2018-07-06 21:29] LABS: EPI CELLS 18.8 /HPF (0-5); URINE APPEARANCE TURBID; URINE BILIRUBIN NEGATIVE (NEGATIVE); URINE CASTS 175 /hpf (0-8); URINE COLOR YELLOW; URINE GLUCOSE (UA) 3+ (NEGATIVE); URINE KETONE NEGATIVE (NEGATIVE); URINE LEUK ESTERASE NEGATIVE (NEGATIVE); URINE NITRITE NEGATIVE (NEGATIVE); URINE PROTEIN 3+ (NEGATIVE); URINE UROBILINOGEN 0.2 mg/dL (0.2-1.0); URINE WBC 2 /hpf (0-5)
[2018-07-06 22:02] LABS: BASO % 0.1 % (0-2.0); HEMATOCRIT 30.3 % (32.4-45.2); HEMOGLOBIN 9.8 GM/dL (10.7-15.3); LYMPH % 4.7 % (8-40); MCH 27.6 pg (25.7-33.7); MCHC 32.4 g/dl (32.0-36.0); MEAN CELL VOLUME 85.2 fl (80-96); MEAN PLT VOLUME 7.2 fl (7.5-11.1); MONO % 3.6 % (3.8-10.2); NEUT % 91.6 % (42.8-82.8); PLATELET COUNT 249 K/MM3 (134-434); RBC 3.56 M/mm3 (3.60-5.2); RDW 28.2 % (11.6-15.6); WHITE BLOOD COUNT 17.3 K/mm3 (4.0-10.0)
--- NOTE | 2018-07-06 22:14 | PN ---
Progress Note, Physician - Current Medication List Current Medications: Active Medications Acetaminophen (Tylenol -) 650 mg PO Q6H PRN PRN Reason: FEVER Budesonide/Formoterol Fumarate (Symbicort 160/4.5mcg -) 1 puff IH BID [facility] Last Admin: 07/06/18 22:01 Dose: Not Given Calcium Carbonate/Cholecalciferol (Os-Solomon 500+D -) 1 tab PO DAILY [facility] Last Admin: 07/06/18 09:41 Dose: 1 tab Gabapentin (Neurontin -) 300 mg PO BID [facility] Last Admin: 07/06/18 09:41 Dose: 300 mg Midazolam HCl 100 mg/ Sodium (Chloride) 100 mls @ 1 mls/hr IVPB TITR [facility]; Protocol Last Admin: 07/06/18 16:00 Dose: 2 mg/hr, 2 mls/hr Piperacillin Sod/Tazobactam (Sod 3.375 gm/ Dextrose) 50 mls @ 100 mls/hr IVPB Q8H-IV [facility]; Protocol Last Admin: 07/06/18 17:51 Dose: 100 mls/hr Propofol (Diprivan -) 1,000,000 mcg in 100 mls @ 2.232 mls/hr IVPB TITR [facility]; Protocol Last Admin: 07/06/18 17:43 Dose: 5 mcg/kg/min, 2.232 mls/hr Insulin Aspart (Novolog Vial Sliding Scale -) 1 vial SQ ACHS [facility]; Protocol Last Admin: 07/06/18 21:57 Dose: 2 units Prednisone (Deltasone -) 60 mg PO DAILY [facility] Last Admin: 07/06/18 09:41 Dose: 60 mg Ranitidine HCl (Zantac -) 150 mg PO BID [facility] Last Admin: 07/06/18 09:43 Dose: 150 mg Trimethoprim/Sulfamethoxazole (Bactrim Ds -) 1 each PO MoWeFr@1000 [facility] Valacyclovir HCl (Valtrex -) 500 mg PO BID [facility] Last Admin: 07/06/18 09:42 Dose: 500 mg - Objective Vital Signs: Vital Signs Temperature 97.7 F 07/06/18 08:05 Pulse Rate 74 07/06/18 08:05 Respiratory Rate 17 07/06/18 18:46 Blood Pressure 167/96 07/06/18 08:05 O2 Sat by Pulse Oximetry (%) 95 07/05/18 20:47 Labs: CBC, BMP 07/06/18 21:40 INR, PTT INR 0.88 (0.83-1.09) 07/06/18 15:30 Problem List - Problems (1) Acute respiratory failure Code(s): J96.00 - ACUTE RESPIRATORY FAILURE, UNSP W HYPOXIA OR HYPERCAPNIA (2) Lung abscess Code(s): J85.2 - ABSCESS OF LUNG WITHOUT PNEUMONIA Qualifiers: Pulmonary abscess pneumonia presence: with pneumonia Laterality: left Lung location: upper lobe of lung Qualified Code(s): J85.1 - Abscess of lung with pneumonia (3) Vasculitis Code(s): I77.6 - ARTERITIS, UNSPECIFIED (4) COPD (chronic obstructive pulmonary disease) Code(s): J44.9 - CHRONIC OBSTRUCTIVE PULMONARY DISEASE, UNSPECIFIED (5) CKD (chronic kidney disease) Code(s): N18.9 - CHRONIC KIDNEY DISEASE, UNSPECIFIED (6) Neuropathy Code(s): G62.9 - POLYNEUROPATHY, UNSPECIFIED (7) H/O renal cell cancer Code(s): Z85.528 - PERSONAL HISTORY OF OTHER MALIGNANT NEOPLASM OF KIDNEY
[2018-07-06 22:38] LABS: URINE BACTERIA 1.7 /hpf (NEGATIVE); URINE RBC 4.8 /hpf (0-4)
[2018-07-06 22:39] LABS: ALBUMIN 2.5 g/dl (3.4-5.0); ALK PHOS 72 U/L (45-117); ANION GAP 9 MMOL/L (8-16); BILIRUBIN,TOTAL 0.2 mg/dL (0.2-1); BLOOD UREA NITROGEN 50 mg/dL (7-18); CALCIUM 7.8 mg/dL (8.5-10.1); CHLORIDE 108 mmol/L (98-107); CO2 26 mmol/L (21-32); CREATININE 1.4 mg/dL (0.55-1.3); GLUCOSE,RANDOM 200 mg/dL (74-106); N-TERMINAL BNP 11627.7 pg/ml (5-125); POTASSIUM 4.7 mmol/L (3.5-5.1); SGOT/AST 57 U/L (15-37); SGPT/ALT 81 U/L (13-61); SODIUM 143 mmol/L (136-145); TOT PROT 5.1 g/dl (6.4-8.2)
[2018-07-06 23:06] LABS: ANISOCYTOSIS 3+; MACROCYTOSIS 1+; PLATELET ESTIMATE ADEQUATE
[2018-07-07] MEDS ORDERED: PIPERACILLIN/TAZOBACTAM 3.375 GM VIAL IVPB ONE ×3 (02:22→18:05)
[2018-07-07] MEDS ORDERED: DEXTROSE 5%-WATER - 50 ML IVPB ONE ×3 (02:22→18:05)
[2018-07-07] MEDS: PIPERACILLIN/TAZOB 3.375 GM 3.375 GM in DEXTROSE 5%-WATER - 50 ML IVPB SCH ×3 (02:24→18:06)
[2018-07-07] MEDS ORDERED: ALBUTEROL SO4 2.5/IPRATROPIUM 0.5 INH SOL 3 ML VIAL.NEB. NEB PRN (02:55)
[2018-07-07] MEDS: INSULIN SLIDING SCALE (NOVOLOG) 1 VIAL SQ SCH ×4 (06:31→21:16)
[2018-07-07 06:43] LABS: BASO % 0.2 % (0-2.0); EOS % 0.1 % (0-4.5); HEMATOCRIT 27.8 % (32.4-45.2); HEMOGLOBIN 9.2 GM/dL (10.7-15.3); LYMPH % 12.6 % (8-40); MCH 27.8 pg (25.7-33.7); MCHC 33.2 g/dl (32.0-36.0); MEAN CELL VOLUME 83.7 fl (80-96); MEAN PLT VOLUME 7.3 fl (7.5-11.1); MONO % 3.7 % (3.8-10.2); NEUT % 83.4 % (42.8-82.8); PLATELET COUNT 228 K/MM3 (134-434); RBC 3.32 M/mm3 (3.60-5.2); RDW 27.7 % (11.6-15.6); WHITE BLOOD COUNT 11.7 K/mm3 (4.0-10.0)
[2018-07-07 07:13] LABS: ALBUMIN 2.3 g/dl (3.4-5.0); ALK PHOS 62 U/L (45-117); ANION GAP 6 MMOL/L (8-16); BILIRUBIN,TOTAL 0.3 mg/dL (0.2-1); BLOOD UREA NITROGEN 46 mg/dL (7-18); CALCIUM 8.1 mg/dL (8.5-10.1); CHLORIDE 108 mmol/L (98-107); CO2 27 mmol/L (21-32); CREATININE 1.2 mg/dL (0.55-1.3); GLUCOSE,RANDOM 89 mg/dL (74-106); POTASSIUM 4.6 mmol/L (3.5-5.1); SGOT/AST 36 U/L (15-37); SGPT/ALT 65 U/L (13-61); SODIUM 141 mmol/L (136-145); TOT PROT 4.9 g/dl (6.4-8.2)
[2018-07-07] MEDS ORDERED: LABETALOL HCL 5 MG/1 ML (100MG/20 ML VIAL) IVPUSH ONE (08:26)
[2018-07-07] MEDS: BUDESONIDE/FORMETEROL FUMARATE 160/4.5 mcg INHALER IH SCH ×2 (09:00→21:23)
--- NOTE | 2018-07-07 09:30 | PN ---
Progress Note (short form) - Note Progress Note: s: no chest pain, palps, dizziness. extubated this AM no cigs Current Medications Acetaminophen (Tylenol -) 650 mg PO Q6H PRN PRN Reason: FEVER Albuterol/Ipratropium (Duoneb -) 1 amp NEB Q6H PRN PRN Reason: SHORTNESS OF BREATH Budesonide/Formoterol Fumarate (Symbicort 160/4.5mcg -) 1 puff IH BID [facility] Last Admin: 07/06/18 22:01 Dose: Not Given Calcium Carbonate/Cholecalciferol (Os-Solomon 500+D -) 1 tab PO DAILY [facility] Last Admin: 07/06/18 09:41 Dose: 1 tab Furosemide (Lasix Injection -) 40 mg IVPUSH DAILY [facility] Gabapentin (Neurontin -) 300 mg PO BID [facility] Last Admin: 07/06/18 22:30 Dose: Not Given Heparin Sodium (Porcine) (Heparin -) 5,000 unit SQ BID [facility] Piperacillin Sod/Tazobactam (Sod 3.375 gm/ Dextrose) 50 mls @ 100 mls/hr IVPB Q8H-IV [facility]; Protocol Last Admin: 07/07/18 02:24 Dose: 100 mls/hr Propofol (Diprivan -) 1,000,000 mcg in 100 mls @ 2.232 mls/hr IVPB TITR [facility]; Protocol Last Admin: 07/06/18 17:43 Dose: 5 mcg/kg/min, 2.232 mls/hr Insulin Aspart (Novolog Vial Sliding Scale -) 1 vial SQ ACHS [facility]; Protocol Last Admin: 07/07/18 06:31 Dose: Not Given Methylprednisolone Sodium Succinate (Solu-Medrol -) 40 mg IVPUSH Q8H-IV [facility] Pantoprazole Sodium (Protonix Iv) 40 mg IVPUSH DAILY [facility] Trimethoprim/Sulfamethoxazole (Bactrim Ds -) 1 each PO MoWeFr@1000 [facility] Valacyclovir HCl (Valtrex -) 500 mg PO BID [facility] Last Admin: 07/06/18 22:31 Dose: Not Given Vital Signs: Vital Signs Period Temp Pulse Resp BP Sys/Busby Pulse Ox Last 24 Hr 97.7 F-98 F 59-84 15-26 156-168/95-105 97-100 Constitutional: Yes: Well Nourished, Calm Eyes: Yes: Conjunctiva Clear, EOM Intact HENT: Yes: Atraumatic, Normocephalic Neck: Yes: Supple, Trachea Midline Respiratory: Yes: Regular, dec breath sounds bases Gastrointestinal: Yes: Normal Bowel Sounds Cardiovascular: Yes: Tachycardia JVD: No Carotid Bruit: No PMI: Non-Displaced Heart Sounds: Yes: S1, S2 Murmur: No: Systolic Murmur Musculoskeletal: No: Back Pain Extremities: No: Cold Edema: No Peripheral Pulses WNL: Yes Peripheral Pulses: 2+ Left Doralis Pedis, 2+ Right Dorsalis Pedis Integumentary: No: Jaundice Neurological: Yes: Alert, Oriented Psychiatric: No: Agitated Assessment/Plan EKG: sinus tachycardia, no ischemic changes CXR: mirna infiltrates, new echo 06/2018 nl LV function, EF 60-65%, nl RV, mild TR, PASP at least 38 mmHg, trivial pericardial effusion tele: sinus tachycardia, sinus s/p cardiac arrest, ?asystole, ventricular tachycardia - per patient prior to arrest was feeling very short of breath and anxious, noted to have frothy sputum and shaking - s/p CPR, amio 300 mg IV x1, shock - ROSC reportedly <10 min, responsive now - d/w Dr. Sanchez who led code - asystole not noted. CPR began and given 1 mg epi, monitor placed after epi and showed VT - received amiodarone gtt post arrest, now dc'ed - possible VT, after epi, may have been 2/2 receiving epinephrine - echo nl LV function - trop indeterminate range, flat trend - likely demand in setting of arrest, EKG no ischemic changes post arrest - unlikely ACS - cont monitoring on tele, currently sinus tachycardia with no events - BNP >06217, congestion on CXR - receiving IV lasix, continue vasculitis - manage per rheum, on steroids Lung abscess - manage per ID, pulm - s/p VATS for lung bx - holding voriconazole, received amiodarone, now dc'ed COPD - manage per pulm
[2018-07-07] MEDS: CALCIUM 500MG/VIT-D 200 UNITS COMBO TABLET (FP) PO SCH (09:39)
[2018-07-07] MEDS: methylPREDNISolone NA SUCC 40 MG/1 ML VIAL IVPUSH SCH ×2 (09:39→18:06)
[2018-07-07] MEDS: FUROSEMIDE 40 MG/4 ML INJECTABLE VIAL IVPUSH SCH (09:40)
[2018-07-07] MEDS: GABAPENTIN 300 MG CAPSULE (FP) PO SCH ×2 (09:40→21:23)
[2018-07-07] MEDS: HEPARIN NA (PORCINE) 5,000 UNITS/ML 1ML VIAL SQ SCH ×2 (09:40→21:23)
[2018-07-07] MEDS: valACYclovir HCL 500 MG TABLET (FP) PO SCH ×2 (09:41→21:28)
[2018-07-07] MEDS ORDERED: PANTOPRAZOLE SODIUM 40 MG VIAL IVPUSH SCH (10:00)
--- NOTE | 2018-07-07 11:39 | PN ---
Teaching Attending Note Name of Resident: Meaghan Campa ATTENDING PHYSICIAN STATEMENT I saw and evaluated the patient. I reviewed the resident's note and discussed the case with the resident. I agree with the resident's findings and plan as documented. SUBJECTIVE: Patient seen and examined in the ICU. Events from yesterday noted. S/P CP arrest with ROSC after about 10 minutes. Remains intubated on CPAP. RSBI 80. Awake and following commands. No pressors. CXR: 07/06: diffuse ARDS pattern Intake & Output 07/04/18 07/05/18 07/06/18 07/07/18 23:59 23:59 23:59 23:59 Intake Total 760 1120 797 126.4 Balance 760 1120 797 126.4 Last Vital Signs Temp Pulse Resp BP Pulse Ox 98 F 81 18 156/105 H 97 07/07/18 06:35 07/07/18 08:32 07/07/18 08:32 07/07/18 06:35 07/07/18 08:32 Active Medications Acetaminophen (Tylenol -) 650 mg PO Q6H PRN PRN Reason: FEVER Albuterol/Ipratropium (Duoneb -) 1 amp NEB Q6H PRN PRN Reason: SHORTNESS OF BREATH Budesonide/Formoterol Fumarate (Symbicort 160/4.5mcg -) 1 puff IH BID [facility] Last Admin: 07/06/18 22:01 Dose: Not Given Calcium Carbonate/Cholecalciferol (Os-Solomon 500+D -) 1 tab PO DAILY [facility] Last Admin: 07/07/18 09:39 Dose: 1 tab Furosemide (Lasix Injection -) 40 mg IVPUSH DAILY [facility] Last Admin: 07/07/18 09:40 Dose: 40 mg Gabapentin (Neurontin -) 300 mg PO BID [facility] Last Admin: 07/07/18 09:40 Dose: 300 mg Heparin Sodium (Porcine) (Heparin -) 5,000 unit SQ BID [facility] Last Admin: 07/07/18 09:40 Dose: 5,000 unit Piperacillin Sod/Tazobactam (Sod 3.375 gm/ Dextrose) 50 mls @ 100 mls/hr IVPB Q8H-IV [facility]; Protocol Last Admin: 07/07/18 09:39 Dose: 100 mls/hr Propofol (Diprivan -) 1,000,000 mcg in 100 mls @ 2.232 mls/hr IVPB TITR [facility]; Protocol Last Titration: 07/07/18 08:00 Dose: 0 mcg/kg/min, 0 mls/hr Insulin Aspart (Novolog Vial Sliding Scale -) 1 vial SQ ACHS [facility]; Protocol Last Admin: 07/07/18 10:54 Dose: Not Given Methylprednisolone Sodium Succinate (Solu-Medrol -) 40 mg IVPUSH Q8H-IV [facility] Last Admin: 07/07/18 09:39 Dose: 40 mg Pantoprazole Sodium (Protonix Iv) 40 mg IVPUSH DAILY [facility] Last Admin: 07/07/18 09:39 Dose: 40 mg Trimethoprim/Sulfamethoxazole (Bactrim Ds -) 1 each PO MoWeFr@1000 [facility] Valacyclovir HCl (Valtrex -) 500 mg PO BID [facility] Last Admin: 07/07/18 09:41 Dose: 500 mg GENERAL: Awake and alert, Vented HEAD: Normal with no signs of trauma. EYES: PERRL, extraocular movements intact, sclera anicteric, conjunctiva clear. No ptosis. ENT: Ears normal, nares patent, oropharynx clear without exudates, moist mucous membranes. NECK: Trachea midline, full range of motion, supple. LUNGS: Coarse bibasilar rhonchi, (-) wheeze. HEART: Regular rate and rhythm, S1, S2 without murmur, rub or gallop. ABDOMEN: Soft, nontender, nondistended, normoactive bowel sounds, no guarding, no rebound, no hepatosplenomegaly, no masses. EXTREMITIES: 2+ pulses, warm, well-perfused, no edema. NEUROLOGICAL: Non-focal. PSYCH: Following commands. SKIN: Warm, dry, normal turgor, no rashes or lesions noted Laboratory Results - last 24 hr 07/02/18 07/02/18 07/06/18 16:00 16:00 11:59 WBC RBC Hgb Hct MCV MCH MCHC RDW Plt Count MPV Absolute Neuts (auto) Neutrophils % Neutrophils % (Manual) Band Neutrophils % Lymphocytes % Lymphocytes % (Manual) Monocytes % Monocytes % (Manual) Eosinophils % Basophils % Nucleated RBC % Hypochromia Platelet Estimate Anisocytosis Microcytosis Macrocytosis PT with INR INR PTT (Actin FS) Anticoagulation Therapy Puncture Site ABG pH ABG pCO2 at Pt Temp ABG pO2 at Pt Temp ABG HCO3 ABG O2 Sat (Measured) ABG O2 Content ABG Base Excess Thom Test O2 Delivery Device Oxygen Flow Rate Vent Mode Vent Rate Mechanical Rate PEEP Pressure Support Vent Sodium Potassium Chloride Carbon Dioxide Anion Gap BUN Creatinine Creat Clearance w eGFR POC Glucometer 99 Random Glucose Lactic Acid Calcium Phosphorus Magnesium Total Bilirubin AST ALT Alkaline Phosphatase Creatine Kinase Troponin I B-Natriuretic Peptide Total Protein Albumin Urine Color Urine Appearance Urine pH Ur Specific [place] Urine Protein Urine Glucose (UA) Urine Ketones Urine Blood Urine Nitrite Urine Bilirubin Urine Urobilinogen Ur Leukocyte Esterase Urine WBC (Auto) Urine RBC (Auto) Urine Casts (Auto) U Pathogenic Cast Auto U Epithel Cells (Auto) U Sm Round Cell (Auto) Urine Bacteria (Auto) B. dermatitidis Ab Negative Coccidioides G,A,M Ab Cancelled Aspergillus Antibody 0.04 07/06/18 07/06/18 07/06/18 15:30 15:30 15:30 WBC 27.4 H RBC 4.36 Hgb 11.7 Hct 37.7 D MCV 86.4 MCH 26.9 MCHC 31.1 L RDW 27.7 H Plt Count 397 D MPV 7.9 Absolute Neuts (auto) 17.5 H Neutrophils % 63.9 Neutrophils % (Manual) 59.0 Band Neutrophils % 5.0 Lymphocytes % 33.8 D Lymphocytes % (Manual) 29.0 Monocytes % 1.1 L D Monocytes % (Manual) 7 Eosinophils % 0.1 Basophils % 1.1 D Nucleated RBC % 0 Hypochromia 1+ Platelet Estimate Adequate Anisocytosis 3+ Microcytosis 2+ Macrocytosis 1+ PT with INR 10.40 INR 0.88 PTT (Actin FS) 28.1 Anticoagulation Therapy Puncture Site ABG pH ABG pCO2 at Pt Temp ABG pO2 at Pt Temp ABG HCO3 ABG O2 Sat (Measured) ABG O2 Content ABG Base Excess Thom Test O2 Delivery Device Oxygen Flow Rate Vent Mode Vent Rate Mechanical Rate PEEP Pressure Support Vent Sodium 138 Potassium 4.7 Chloride 104 Carbon Dioxide 22 Anion Gap 12 BUN 45 H Creatinine 1.5 H Creat Clearance w eGFR 35.07 POC Glucometer Random Glucose 310 H* Lactic Acid Calcium 8.4 L Phosphorus 5.3 H Magnesium 2.4 Total Bilirubin 0.2 AST 101 H ALT 88 H Alkaline Phosphatase 84 Creatine Kinase 77 Troponin I < 0.02 B-Natriuretic Peptide Total Protein 5.9 L Albumin 2.6 L Urine Color Urine Appearance Urine pH Ur Specific [place] Urine Protein Urine Glucose (UA) Urine Ketones Urine Blood Urine Nitrite Urine Bilirubin Urine Urobilinogen Ur Leukocyte Esterase Urine WBC (Auto) Urine RBC (Auto) Urine Casts (Auto) U Pathogenic Cast Auto U Epithel Cells (Auto) U Sm Round Cell (Auto) Urine Bacteria (Auto) B. dermatitidis Ab Coccidioides G,A,M Ab Aspergillus Antibody 07/06/18 07/06/18 07/06/18 15:35 16:32 16:45 WBC RBC Hgb Hct MCV MCH MCHC RDW Plt Count MPV Absolute Neuts (auto) Neutrophils % Neutrophils % (Manual) Band Neutrophils % Lymphocytes % Lymphocytes % (Manual) Monocytes % Monocytes % (Manual) Eosinophils % Basophils % Nucleated RBC % Hypochromia Platelet Estimate Anisocytosis Microcytosis Macrocytosis PT with INR INR PTT (Actin FS) Anticoagulation Therapy No Result Required. Puncture Site Right radial ABG pH 7.32 L ABG pCO2 at Pt Temp 47.5 H ABG pO2 at Pt Temp 286 H ABG HCO3 23.8 ABG O2 Sat (Measured) 99.9 H ABG O2 Content 15.4 ABG Base Excess -1.9 Thom Test Positive O2 Delivery Device No Result Required. Oxygen Flow Rate No Result Required. Vent Mode No Result Required. Vent Rate No Result Required. Mechanical Rate No Result Required. PEEP 5.0 Pressure Support Vent No Result Required. Sodium Potassium Chloride Carbon Dioxide Anion Gap BUN Creatinine Creat Clearance w eGFR POC Glucometer 262 283 Random Glucose Lactic Acid Calcium Phosphorus Magnesium Total Bilirubin AST ALT Alkaline Phosphatase Creatine Kinase Troponin I B-Natriuretic Peptide Total Protein Albumin Urine Color Urine Appearance Urine pH Ur Specific [place] Urine Protein Urine Glucose (UA) Urine Ketones Urine Blood Urine Nitrite Urine Bilirubin Urine Urobilinogen Ur Leukocyte Esterase Urine WBC (Auto) Urine RBC (Auto) Urine Casts (Auto) U Pathogenic Cast Auto U Epithel Cells (Auto) U Sm Round Cell (Auto) Urine Bacteria (Auto) B. dermatitidis Ab Coccidioides G,A,M Ab Aspergillus Antibody 07/06/18 07/06/18 07/06/18 17:45 20:45 21:40 WBC 17.3 H RBC 3.56 L Hgb 9.8 L Hct 30.3 L D MCV 85.2 MCH 27.6 MCHC 32.4 RDW 28.2 H Plt Count 249 D MPV 7.2 L Absolute Neuts (auto) 15.8 H Neutrophils % 91.6 H D Neutrophils % (Manual) 87.0 H Band Neutrophils % 3.0 Lymphocytes % 4.7 L D Lymphocytes % (Manual) 6.0 L D Monocytes % 3.6 L D Monocytes % (Manual) 4 Eosinophils % 0.0 D Basophils % 0.1 Nucleated RBC % 0 Hypochromia 2+ Platelet Estimate Adequate Anisocytosis 3+ Microcytosis 2+ Macrocytosis 1+ PT with INR INR PTT (Actin FS) Anticoagulation Therapy Puncture Site ABG pH ABG pCO2 at Pt Temp ABG pO2 at Pt Temp ABG HCO3 ABG O2 Sat (Measured) ABG O2 Content ABG Base Excess Thom Test O2 Delivery Device Oxygen Flow Rate Vent Mode Vent Rate Mechanical Rate PEEP Pressure Support Vent Sodium Potassium Chloride Carbon Dioxide Anion Gap BUN Creatinine Creat Clearance w eGFR POC Glucometer Random Glucose Lactic Acid 2.1 H Calcium Phosphorus Magnesium Total Bilirubin AST ALT Alkaline Phosphatase Creatine Kinase Troponin I B-Natriuretic Peptide Total Protein Albumin Urine Color Yellow Urine Appearance Turbid Urine pH 5.0 Ur Specific [place] 1.024 Urine Protein 3+ H Urine Glucose (UA) 3+ H Urine Ketones Negative Urine Blood 3+ H Urine Nitrite Negative Urine Bilirubin Negative Urine Urobilinogen 0.2 Ur Leukocyte Esterase Negative Urine WBC (Auto) 2 Urine RBC (Auto) 4.8 Urine Casts (Auto) 175 U Pathogenic Cast Auto None seen U Epithel Cells (Auto) 18.8 U Sm Round Cell (Auto) None seen Urine Bacteria (Auto) 1.7 B. dermatitidis Ab Coccidioides G,A,M Ab Aspergillus Antibody 07/06/18 07/06/18 07/07/18 21:45 21:55 05:30 WBC 11.7 H RBC 3.32 L Hgb 9.2 L Hct 27.8 L MCV 83.7 MCH 27.8 MCHC 33.2 RDW 27.7 H Plt Count 228 MPV 7.3 L Absolute Neuts (auto) 9.7 H Neutrophils % 83.4 H Neutrophils % (Manual) Band Neutrophils % Lymphocytes % 12.6 D Lymphocytes % (Manual) Monocytes % 3.7 L Monocytes % (Manual) Eosinophils % 0.1 D Basophils % 0.2 Nucleated RBC % 0 Hypochromia Platelet Estimate Anisocytosis Microcytosis Macrocytosis PT with INR INR PTT (Actin FS) Anticoagulation Therapy Puncture Site ABG pH ABG pCO2 at Pt Temp ABG pO2 at Pt Temp ABG HCO3 ABG O2 Sat (Measured) ABG O2 Content ABG Base Excess Thom Test O2 Delivery Device Oxygen Flow Rate Vent Mode Vent Rate Mechanical Rate PEEP Pressure Support Vent Sodium 143 Potassium 4.7 Chloride 108 H Carbon Dioxide 26 Anion Gap 9 BUN 50 H Creatinine 1.4 H Creat Clearance w eGFR 37.98 POC Glucometer 178 Random Glucose 200 H Lactic Acid Calcium 7.8 L Phosphorus Magnesium Total Bilirubin 0.2 AST 57 H ALT 81 H Alkaline Phosphatase 72 Creatine Kinase 26 Troponin I 0.13 H B-Natriuretic Peptide 60849.7 H Total Protein 5.1 L Albumin 2.5 L Urine Color Urine Appearance Urine pH Ur Specific [place] Urine Protein Urine Glucose (UA) Urine Ketones Urine Blood Urine Nitrite Urine Bilirubin Urine Urobilinogen Ur Leukocyte Esterase Urine WBC (Auto) Urine RBC (Auto) Urine Casts (Auto) U Pathogenic Cast Auto U Epithel Cells (Auto) U Sm Round Cell (Auto) Urine Bacteria (Auto) B. dermatitidis Ab Coccidioides G,A,M Ab Aspergillus Antibody 07/07/18 07/07/18 05:30 10:49 WBC RBC Hgb Hct MCV MCH MCHC RDW Plt Count MPV Absolute Neuts (auto) Neutrophils % Neutrophils % (Manual) Band Neutrophils % Lymphocytes % Lymphocytes % (Manual) Monocytes % Monocytes % (Manual) Eosinophils % Basophils % Nucleated RBC % Hypochromia Platelet Estimate Anisocytosis Microcytosis Macrocytosis PT with INR INR PTT (Actin FS) Anticoagulation Therapy Puncture Site ABG pH ABG pCO2 at Pt Temp ABG pO2 at Pt Temp ABG HCO3 ABG O2 Sat (Measured) ABG O2 Content ABG Base Excess Thom Test O2 Delivery Device Oxygen Flow Rate Vent Mode Vent Rate Mechanical Rate PEEP Pressure Support Vent Sodium 141 Potassium 4.6 Chloride 108 H Carbon Dioxide 27 Anion Gap 6 L BUN 46 H Creatinine 1.2 Creat Clearance w eGFR 45.37 POC Glucometer 69 Random Glucose 89 Lactic Acid Calcium 8.1 L Phosphorus Magnesium Total Bilirubin 0.3 AST 36 ALT 65 H Alkaline Phosphatase 62 Creatine Kinase 16 L Troponin I 0.07 H B-Natriuretic Peptide Total Protein 4.9 L Albumin 2.3 L Urine Color Urine Appearance Urine pH Ur Specific [place] Urine Protein Urine Glucose (UA) Urine Ketones Urine Blood Urine Nitrite Urine Bilirubin Urine Urobilinogen Ur Leukocyte Esterase Urine WBC (Auto) Urine RBC (Auto) Urine Casts (Auto) U Pathogenic Cast Auto U Epithel Cells (Auto) U Sm Round Cell (Auto) Urine Bacteria (Auto) B. dermatitidis Ab Coccidioides G,A,M Ab Aspergillus Antibody ASSESSMENT/PLAN: Acute Cardiopulmonary Arrest: Etiology to be determined Resolved APE x 2 Lung Abscess Renal cancer s/p nephrectomy x 7 years ago Asthma Neuropathy Bronchiectasis S/P Left VAT with wedge biopsy in the [facility] Empyema Suspected granulomatosis and polyangiits (matthias's) MADAN (?) New seizures Wean to extubate -> Will place on HFOT Follow CXR ABX per ID Noted Medrol -> Can switch back to Prednisone once extubated VTE prophylaxis Incentive Spirometry once extubated Lasix Follow H & H Requires ICU monitoring Dr Sims Critical care time spent in reviewing chart, evaluating patient and formulating plan - 36 minutes.
[2018-07-07 12:22] LABS: ANISOCYTOSIS 2+; MACROCYTOSIS 1+; PLATELET ESTIMATE NORMAL; TEAR DROP CELLS 1+
--- NOTE | 2018-07-07 13:06 | PN ---
Progress Note, Physician History of Present Illness: Pt seen and examined at bedside. She is awake and alert. She had a seizure and cardiac arrest yesterday while being prepped for the picc line. She is now extubated. She is moving all of her extremities. Her mental status appears to be at baseline. She denies history of epilepsy. - Current Medication List Current Medications: Active Medications Acetaminophen (Tylenol -) 650 mg PO Q6H PRN PRN Reason: FEVER Albuterol/Ipratropium (Duoneb -) 1 amp NEB Q6H PRN PRN Reason: SHORTNESS OF BREATH Budesonide/Formoterol Fumarate (Symbicort 160/4.5mcg -) 1 puff IH BID [facility] Last Admin: 07/06/18 22:01 Dose: Not Given Calcium Carbonate/Cholecalciferol (Os-Solomon 500+D -) 1 tab PO DAILY [facility] Last Admin: 07/07/18 09:39 Dose: 1 tab Furosemide (Lasix Injection -) 40 mg IVPUSH DAILY [facility] Last Admin: 07/07/18 09:40 Dose: 40 mg Gabapentin (Neurontin -) 300 mg PO BID [facility] Last Admin: 07/07/18 09:40 Dose: 300 mg Heparin Sodium (Porcine) (Heparin -) 5,000 unit SQ BID [facility] Last Admin: 07/07/18 09:40 Dose: 5,000 unit Piperacillin Sod/Tazobactam (Sod 3.375 gm/ Dextrose) 50 mls @ 100 mls/hr IVPB Q8H-IV [facility]; Protocol Last Admin: 07/07/18 09:39 Dose: 100 mls/hr Propofol (Diprivan -) 1,000,000 mcg in 100 mls @ 2.232 mls/hr IVPB TITR [facility]; Protocol Last Titration: 07/07/18 08:00 Dose: 0 mcg/kg/min, 0 mls/hr Insulin Aspart (Novolog Vial Sliding Scale -) 1 vial SQ ACHS [facility]; Protocol Last Admin: 07/07/18 10:54 Dose: Not Given Methylprednisolone Sodium Succinate (Solu-Medrol -) 40 mg IVPUSH Q8H-IV [facility] Last Admin: 07/07/18 09:39 Dose: 40 mg Pantoprazole Sodium (Protonix Iv) 40 mg IVPUSH DAILY [facility] Last Admin: 07/07/18 09:39 Dose: 40 mg Trimethoprim/Sulfamethoxazole (Bactrim Ds -) 1 each PO MoWeFr@1000 [facility] Valacyclovir HCl (Valtrex -) 500 mg PO BID [facility] Last Admin: 07/07/18 09:41 Dose: 500 mg - Objective Vital Signs: Vital Signs Temperature 98.2 F 07/07/18 10:00 Pulse Rate 69 07/07/18 12:00 Respiratory Rate 16 07/07/18 09:00 Blood Pressure 159/83 07/07/18 12:00 O2 Sat by Pulse Oximetry (%) 98 07/07/18 10:00 Constitutional: Yes: Calm Eyes: Yes: Conjunctiva Clear HENT: Yes: Atraumatic Cardiovascular: Yes: S1, S2 Respiratory: Yes: On Nasal O2 Gastrointestinal: Yes: Soft Genitourinary: Yes: [place] Present Musculoskeletal: Yes: WNL Edema: Yes Edema: LLE: 1+, RLE: 1+ Integumentary: Yes: WNL Neurological: Yes: Oriented Psychiatric: Yes: Oriented Labs: CBC, BMP 07/07/18 05:30 07/07/18 05:30 INR, PTT INR 0.88 (0.83-1.09) 07/06/18 15:30 Problem List - Problems (1) MADAN (acute kidney injury) Code(s): N17.9 - ACUTE KIDNEY FAILURE, UNSPECIFIED (2) Glomerulonephritis Code(s): N05.9 - UNSP NEPHRITIC SYNDROME WITH UNSPECIFIED MORPHOLOGIC CHANGES (3) Lung abscess Code(s): J85.2 - ABSCESS OF LUNG WITHOUT PNEUMONIA Qualifiers: Qualified Code(s): J85.1 - Abscess of lung with pneumonia (4) Vasculitis Code(s): I77.6 - ARTERITIS, UNSPECIFIED Assessment/Plan Current Medications Generic Name Dose Route Start Last Admin Trade Name Freq PRN Reason Stop Dose Admin Acetaminophen 650 mg 06/30/18 13:12 Tylenol - PO Q6H PRN FEVER Albuterol/Ipratropium 1 amp 07/07/18 02:55 Duoneb - NEB Q6H PRN SHORTNESS OF BREATH Budesonide/Formoterol Fumarate 1 puff 06/30/18 22:00 07/06/18 22:01 Symbicort 160/4.5mcg - IH Not Given BID [facility] Calcium Carbonate/Cholecalciferol 1 tab 07/01/18 10:00 07/07/18 09:39 Os-Solomon 500+D - PO 1 tab DAILY [facility] Administration Furosemide 40 mg 07/07/18 10:00 07/07/18 09:40 Lasix Injection - IVPUSH 40 mg DAILY [facility] Administration Gabapentin 300 mg 06/30/18 10:00 07/07/18 09:40 Neurontin - PO 300 mg BID [facility] Administration Heparin Sodium (Porcine) 5,000 unit 07/07/18 10:00 07/07/18 09:40 Heparin - SQ 5,000 unit BID [facility] Administration Piperacillin Sod/Tazobactam 50 mls @ 100 mls/hr 07/06/18 18:00 07/07/18 09:39 Sod 3.375 gm/ Dextrose IVPB 100 mls/hr Q8H-IV [facility] Administration Protocol Propofol 1,000,000 mcg in 100 mls @ 2.232 mls/hr 07/06/18 17:30 07/07/18 08: 00 Diprivan - IVPB 0 mcg/kg/min TITR [facility] 0 mls/hr Titration Protocol 5 MCG/KG/MIN Insulin Aspart 1 vial 06/30/18 16:30 07/07/18 10:54 Novolog Vial Sliding Scale - SQ Not Given ACHS [facility] Protocol Methylprednisolone Sodium Succinate 40 mg 07/07/18 10:00 07/07/18 09:39 Solu-Medrol - IVPUSH 40 mg Q8H-IV [facility] Administration Pantoprazole Sodium 40 mg 07/07/18 10:00 07/07/18 09:39 Protonix Iv IVPUSH 40 mg DAILY [facility] Administration Trimethoprim/Sulfamethoxazole 1 each 07/08/18 10:00 Bactrim Ds - PO MoWeFr@1000 [facility] Valacyclovir HCl 500 mg 06/30/18 22:00 07/07/18 09:41 Valtrex - PO 500 mg BID [facility] Administration Impression 1. MADAN 2. r/o vasculitis 3. glomerulonephrotis 4. lung cavitary lesion 5. asthma 6. copd 7. rheumatoid arthritis 8. hx of renal cell cancer s/p nephrectomy 9. seizure 10. cardiac arrest Plan - cont to monitor renal function - caution with IV lasix, monitor renal function closely - monitor pulse ox - follow ct head - abx per ID Dr Mcneill
--- NOTE | 2018-07-07 13:32 | PN ---
Physical Exam: SUBJECTIVE: Patient seen this morning while intubated, CPAP trial went okay, patient awake and alert and was extubated. Patient with no complaints. OBJECTIVE: Vital Signs Temperature 98.2 F 07/07/18 10:00 Pulse Rate 69 07/07/18 12:00 Respiratory Rate 16 07/07/18 09:00 Blood Pressure 159/83 07/07/18 12:00 O2 Sat by Pulse Oximetry (%) 98 07/07/18 10:00 GENERAL: The patient is awake, alert, and fully oriented, in no acute distress. HEAD: Normal with no signs of trauma. EYES: PERRL, extraocular movements intact, ENT: clear without exudates, moist mucous membranes. NECK: Trachea midline, full range of motion, supple. LUNGS: crackles heard diffusely HEART: Regular rate and rhythm, S1, S2 without murmur, rub or gallop. ABDOMEN: Soft, nontender, nondistended, normoactive bowel sounds, EXTREMITIES: 2+ pulses, warm, well-perfused, no edema. SKIN: Warm, dry, normal turgor, no rashes or lesions noted CBCD WBC 11.7 K/mm3 (4.0-10.0) H 07/07/18 05:30 RBC 3.32 M/mm3 (3.60-5.2) L 07/07/18 05:30 Hgb 9.2 GM/dL (10.7-15.3) L 07/07/18 05:30 Hct 27.8 % (32.4-45.2) L 07/07/18 05:30 MCV 83.7 fl (80-96) 07/07/18 05:30 MCHC 33.2 g/dl (32.0-36.0) 07/07/18 05:30 RDW 27.7 % (11.6-15.6) H 07/07/18 05:30 Plt Count 228 K/MM3 (134-434) 07/07/18 05:30 MPV 7.3 fl (7.5-11.1) L 07/07/18 05:30 CMP Sodium 141 mmol/L (136-145) 07/07/18 05:30 Potassium 4.6 mmol/L (3.5-5.1) 07/07/18 05:30 Chloride 108 mmol/L (98-107) H 07/07/18 05:30 Carbon Dioxide 27 mmol/L (21-32) 07/07/18 05:30 Anion Gap 6 MMOL/L (8-16) L 07/07/18 05:30 BUN 46 mg/dL (7-18) H 07/07/18 05:30 Creatinine 1.2 mg/dL (0.55-1.3) 07/07/18 05:30 Creat Clearance w eGFR 45.37 (>60) 07/07/18 05:30 Calcium 8.1 mg/dL (8.5-10.1) L 07/07/18 05:30 Total Bilirubin 0.3 mg/dL (0.2-1) 07/07/18 05:30 AST 36 U/L (15-37) 07/07/18 05:30 ALT 65 U/L (13-61) H 07/07/18 05:30 Alkaline Phosphatase 62 U/L (45-117) 07/07/18 05:30 Total Protein 4.9 g/dl (6.4-8.2) L 07/07/18 05:30 Albumin 2.3 g/dl (3.4-5.0) L 07/07/18 05:30 Active Medications Acetaminophen (Tylenol -) 650 mg PO Q6H PRN PRN Reason: FEVER Albuterol/Ipratropium (Duoneb -) 1 amp NEB Q6H PRN PRN Reason: SHORTNESS OF BREATH Budesonide/Formoterol Fumarate (Symbicort 160/4.5mcg -) 1 puff IH BID [facility] Last Admin: 07/06/18 22:01 Dose: Not Given Calcium Carbonate/Cholecalciferol (Os-Solomon 500+D -) 1 tab PO DAILY [facility] Last Admin: 07/07/18 09:39 Dose: 1 tab Furosemide (Lasix Injection -) 40 mg IVPUSH DAILY [facility] Last Admin: 07/07/18 09:40 Dose: 40 mg Gabapentin (Neurontin -) 300 mg PO BID [facility] Last Admin: 07/07/18 09:40 Dose: 300 mg Heparin Sodium (Porcine) (Heparin -) 5,000 unit SQ BID [facility] Last Admin: 07/07/18 09:40 Dose: 5,000 unit Piperacillin Sod/Tazobactam (Sod 3.375 gm/ Dextrose) 50 mls @ 100 mls/hr IVPB Q8H-IV [facility]; Protocol Last Admin: 07/07/18 09:39 Dose: 100 mls/hr Propofol (Diprivan -) 1,000,000 mcg in 100 mls @ 2.232 mls/hr IVPB TITR [facility]; Protocol Last Titration: 07/07/18 08:00 Dose: 0 mcg/kg/min, 0 mls/hr Insulin Aspart (Novolog Vial Sliding Scale -) 1 vial SQ ACHS [facility]; Protocol Last Admin: 07/07/18 10:54 Dose: Not Given Methylprednisolone Sodium Succinate (Solu-Medrol -) 40 mg IVPUSH Q8H-IV [facility] Last Admin: 07/07/18 09:39 Dose: 40 mg Pantoprazole Sodium (Protonix Iv) 40 mg IVPUSH DAILY [facility] Last Admin: 07/07/18 09:39 Dose: 40 mg Trimethoprim/Sulfamethoxazole (Bactrim Ds -) 1 each PO MoWeFr@1000 [facility] Valacyclovir HCl (Valtrex -) 500 mg PO BID [facility] Last Admin: 07/07/18 09:41 Dose: 500 mg ASSESSMENT/PLAN: Patient is a 63 y/o female with a history of Renal Ca s/p R nephrectomy, asthma/ COPD, and vasculitis who is admitted to the hospital for a lung abscess. Neuro - A&O x3 - stable - seizure/ Code 99 likely 2/2 to hypoxia - neuro consult followed by Dr. Lee - patient for head CT in morning Cardio - off amiodarone drip 6 hours after ROSC - echo: LV normal in size, EF 60-65%, mild tricuspid regurgitation - recent HTN, likely 2/2 to steroid use, no medications Pulm - questionable autoimmue vascular disease, vs bronchiectasis and empyema - lung biopsy pathology pending left wedge biopsy - s/p VATS - continue incentive spirometry - duobenbs as needed - symbicort 1 puff BID - on high flow, f/u daily CXR Nephro - continue with IV lasix - continue to monitor Rheum - new vasculitis, awaiting biopsy - methylprednisolone 40 mg q8h - ANCA positive - f/u Dr. Codron GI - pepcid 20 mg BID - protonix 40 IV push daily ID - spoke with ID and pharmacology, can restart Voricanozole 200 mg BID - low suspicion for TB, -sputum afb negative and pcr negative - BAL culture + for Klebsiella - Zosyn to cover for aspiration - Valcyclovir 500 BID - Bactrim Fri, Fri, Friday Endo - ss 2 units in 24 hours - gabapentin BID Heme - DVT ppx TID Dispo: Head CT tomorrow and f/u clinical condition Visit type - Emergency Visit Emergency Visit: No - New Patient This patient is new to me today: Yes Date on this admission: 07/07/18 - Critical Care Critical Care patient: Yes Total Critical Care Time (in minutes): 40 Critical Care Statement: The care of this patient involved high complexity decision making to prevent further life threatening deterioration of the patient 's condition and/or to evaluate & treat vital organ system(s) failure or risk of failure.
--- NOTE | 2018-07-07 14:16 | CONSULT ---
Consult - text type - Consultation Consultation Note: NEUROLOGY CONSULT APPRECIATED: Events reviewed and discussed with staff. Daughter and sister at bedside. Discussed with TATYANA Fitzpatrick and Keny Cordon MD This 63 yo LH F with COPD, GERD, "Rheumatism" with ANCA vasculitis and recent Lyme positive. Maintained on: symbicort, famotidine, augmentin, doxycycline, gabapentin 100 mg BID, and long-term prednisone use. Requires 24/7 assistance and ambulates with walker at home. Last year had sudden-onset of numbness in her feet and hand (dig I, II, and III ) attributed to "Neuropathy." Walks with cane. 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 Yesterday, while in IR suite, Pt noted SOB and "panic attack" when face was covered with drape. Surgeon reports of few minutes of lip twitching and then went into cardiac arrest, requiring about 35 minutes of CPR and intubation. Today extubated without further reports of seizure activity. Reports being followed by Dr. Slade bundy for hearing loss, imbalance and neuropathy. Recent EMG/NCS at [facility]. She notes constant feeling of heaviness described as "sand bags" in her hands and feet. MRI of brain C+/C- (02/05/18): essentially normal study MRI of LS spine C- (06/09/18): normal alignment. No disc desiccation or bulges. No spinal cord abnormality. MARNI: Mod obese. Cor reg. No bruit. Neck supple. Currently on O2 via N/C. Neg SLR. NEURO: Awake, alert, oriented x 3. CNII-CNXII: EOM full. [id number]. Full cruz appreciated. No facial. Gag ok. Motor: No drit. Sustention tremor. No cogwheeling. Normal arm strength including shoulder abduction. Can lift legs off bed. Right ankle DF, eversion 4-/5 with normal plantarflexion and inversion. All ankle movements normal on the left. Areflexic in legs. Plantars silent. Coordination: No FTN dystaxia. Sensation: Reduced vibration in toes. Reduced touch palmar aspects of dig I, II, III both hands. Gait deferred. Impression: 1. ? New onset seizure activity vs. tetany secondary to panic attack , hypocapnia. 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 Suggest: Observe off Seizure meds. Review recent EMG/NCS. Check B12, TSH, ESR, CRP, CK Thank you very much, Vitor Lee MD
--- NOTE | 2018-07-07 14:51 | PN ---
Progress Note (short form) - Note Progress Note: now extubated alert, in ICU Vital Signs Period Temp Pulse Resp BP Sys/Busby Pulse Ox Last 24 Hr 97.7 F-98.2 F 59-84 15-26 156-174/83-105 97-100 c2e-wog lungs decreased bs at bases abd soft,nt ext +edema cxray improving CBC, BMP 07/07/18 05:30 07/07/18 05:30 +multiple ecchymoses Microbiology 07/06/18 17:00 Sputum - Endotrachea Suction/Ventilator Gram Stain - Final 07/02/18 16:00 Serum Cryptococcal Antigen - Preliminary 06/22/18 15:00 Ulcer Viral Culture - Final 06/25/18 13:15 Lung - Left Upper Lobe AFB Smear Concentration - Final 06/25/18 13:15 Lung - Left Upper Lobe Mycobacterial Culture - Preliminary 06/25/18 12:59 Pleural Fluid AFB Smear Concentration - Final 06/25/18 12:59 Pleural Fluid Mycobacterial Culture - Preliminary 06/25/18 13:15 Bronchial Washings - Bilateral Lung Fluid AFB Smear Concentration - Final 06/25/18 13:15 Bronchial Washings - Bilateral Lung Fluid Mycobacterial Culture - Preliminary 06/25/18 13:15 Bronchial Washings - Left Lower Lobe Legionella pneumophila ( Direct FA) - Final 06/25/18 13:15 Lung - Left Upper Lobe Gram Stain - Final 06/25/18 13:15 Lung - Left Upper Lobe Tissue Culture - Final NO GROWTH OF AEROBIC ORGANISMS AFTER 48 HOURS INCUBATION 06/25/18 13:15 Lung - Left Upper Lobe Anaerobic Culture - Final NO ANAEROBES WERE ISOLATED 06/25/18 13:15 Pleural Fluid Gram Stain - Final 06/25/18 13:15 Pleural Fluid Body Fluid Culture - Final NO GROWTH OF AEROBIC ORGANISMS AFTER 48 HOURS INCUBATION 06/25/18 13:15 Pleural Fluid Anaerobic Culture - Final NO ANAEROBES WERE ISOLATED 06/25/18 13:15 Bronchial Washings - Bilateral Lung Fluid Gram Stain - Final 06/25/18 13:15 Bronchial Washings - Bilateral Lung Fluid Bronchoalveolar Lavage Culture - Final Klebsiella Pneumoniae 06/25/18 13:15 Lung - Left Upper Lobe SHARI Preparation - Preliminary 06/25/18 13:15 Lung - Left Upper Lobe Fungal Culture - Preliminary 06/25/18 13:15 Pleural Fluid SHARI Preparation - Preliminary 06/25/18 13:15 Pleural Fluid Fungal Culture - Preliminary 06/25/18 12:59 Bronchial Washings - Bilateral Lung Fluid SHARI Preparation - Preliminary 06/25/18 12:59 Bronchial Washings - Bilateral Lung Fluid Fungal Culture - Preliminary 06/22/18 11:00 Sputum - Expectorated AFB Smear Concentration - Final 06/22/18 11:00 Sputum - Expectorated Direct Acid Fast Bacilli Smear - Final 06/22/18 11:00 Sputum - Expectorated Mycobacterial Culture - Preliminary 06/18/18 17:25 Blood - Peripheral Venous Blood Culture - Final NO GROWTH AFTER 5 DAYS INCUBATION 06/18/18 17:25 Blood - Peripheral Venous Blood Culture - Final NO GROWTH AFTER 5 DAYS INCUBATION 06/23/18 12:30 Sputum - Expectorated SHARI Preparation - Preliminary 06/23/18 12:30 Sputum - Expectorated Fungal Culture - Preliminary 06/21/18 04:00 Sputum - Expectorated AFB Smear Concentration - Final 06/21/18 04:00 Sputum - Expectorated Direct Acid Fast Bacilli Smear - Final 06/21/18 04:00 Sputum - Expectorated Mycobacterial Culture - Preliminary 06/20/18 12:30 Sputum - Expectorated AFB Smear Concentration - Final 06/20/18 12:30 Sputum - Expectorated Direct Acid Fast Bacilli Smear - Final 06/20/18 12:30 Sputum - Expectorated Mycobacterial Culture - Preliminary 06/19/18 17:00 Sputum - Expectorated AFB Smear Concentration - Final 06/19/18 17:00 Sputum - Expectorated Direct Acid Fast Bacilli Smear - Final 06/19/18 17:00 Sputum - Expectorated Mycobacterial Culture - Preliminary 06/19/18 17:00 Sputum - Expectorated Gram Stain - Final 06/19/18 17:00 Sputum - Expectorated Sputum Culture - Final NORMAL RESPIRATORY MAAME 06/19/18 18:30 Urine For Antigen Detection Legionella Antigen - Final 06/19/18 18:30 Urine For Antigen Detection Streptococcus pneumoniae Antigen (M - Final 06/18/18 19:51 Urine - Urine Clean Catch Urine Culture - Final NO GROWTH OBTAINED aspergillus galactommanan 1.11 (BAL) a/p s/p code- ?seizure head ct when stable neurology consult pending vasculitis-ANCA positive-management per rheumatology low suspicion TB-sputum afb negative, pcr negative times 2 BAL culture -pure culture klebsiella continue ceftriaxone, day #15 antibiotics BAL Galactommanan antigen is positive hold voriconazole -day #5- amiodarone drip d/landon hopefully resume voriconazole in am fungal serologies and cultures pending she remains on high dose steroids and we cannot r/o fungal infection small sacral ulcer is dry-+HSV- continue valtrex for prophylaxis solitary kidney- s/p nephrectomy f/u cultures /pathology from BAL and lung biopsy pathology of lingula- afb/fungal smears negative reculture-empiric switch to zosyn to cover possible aspiration d/w ICU team Problem List - Problems (1) Lung abscess Code(s): J85.2 - ABSCESS OF LUNG WITHOUT PNEUMONIA Qualifiers: Pulmonary abscess pneumonia presence: with pneumonia Laterality: left Lung location: upper lobe of lung Qualified Code(s): J85.1 - Abscess of lung with pneumonia (2) Vasculitis Code(s): I77.6 - ARTERITIS, UNSPECIFIED
--- NOTE | 2018-07-07 20:42 | PN ---
Progress Note (short form) - Note Progress Note: I am aware of events. The patient coded yesterday, transfered to CIU, now extubated, At the present time she feels well. P/E Lungs clear, Si and S2 normal no gallop. No active joints. 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 Creatinine decreased to 1.2, however there are no changes in urinary sediment with blood3+ and protein 3+. I will discuss with Dr. Pérez starting Rituximab Problem List - Problems (1) ANCA-positive vasculitis Code(s): I77.6 - ARTERITIS, UNSPECIFIED
[2018-07-07] MEDS ORDERED: PT OWN MED DRAWER 7, Y5N ONE ×2 (21:04→22:06)
[2018-07-07] MEDS ORDERED: VORICONAZOLE 200 MG TABLET (RESTRICTED TO ID) PO SCH (22:00)
--- NOTE | 2018-07-07 22:42 | PN ---
Progress Note, Physician History of Present Illness: Pt extubated and doing fine - Current Medication List Current Medications: Active Medications Acetaminophen (Tylenol -) 650 mg PO Q6H PRN PRN Reason: FEVER Albuterol/Ipratropium (Duoneb -) 1 amp NEB Q6H PRN PRN Reason: SHORTNESS OF BREATH Budesonide/Formoterol Fumarate (Symbicort 160/4.5mcg -) 1 puff IH BID [facility] Last Admin: 07/07/18 21:23 Dose: 1 puff Calcium Carbonate/Cholecalciferol (Os-Solomon 500+D -) 1 tab PO DAILY [facility] Last Admin: 07/07/18 09:39 Dose: 1 tab Furosemide (Lasix Injection -) 40 mg IVPUSH DAILY [facility] Last Admin: 07/07/18 09:40 Dose: 40 mg Gabapentin (Neurontin -) 300 mg PO BID [facility] Last Admin: 07/07/18 21:23 Dose: 300 mg Heparin Sodium (Porcine) (Heparin -) 5,000 unit SQ BID [facility] Last Admin: 07/07/18 21:23 Dose: 5,000 unit Piperacillin Sod/Tazobactam (Sod 3.375 gm/ Dextrose) 50 mls @ 100 mls/hr IVPB Q8H-IV [facility]; Protocol Last Admin: 07/07/18 18:06 Dose: 100 mls/hr Insulin Aspart (Novolog Vial Sliding Scale -) 1 vial SQ ACHS [facility]; Protocol Last Admin: 07/07/18 21:16 Dose: 8 units Methylprednisolone Sodium Succinate (Solu-Medrol -) 40 mg IVPUSH Q8H-IV [facility] Last Admin: 07/07/18 18:06 Dose: 40 mg Pantoprazole Sodium (Protonix Iv) 40 mg IVPUSH DAILY [facility] Last Admin: 07/07/18 09:39 Dose: 40 mg Trimethoprim/Sulfamethoxazole (Bactrim Ds -) 1 each PO MoWeFr@1000 [facility] Valacyclovir HCl (Valtrex -) 500 mg PO BID [facility] Last Admin: 07/07/18 21:28 Dose: 500 mg - Objective Vital Signs: Vital Signs Temperature 98.3 F 07/07/18 18:00 Pulse Rate 84 07/07/18 18:00 Respiratory Rate 20 07/07/18 18:00 Blood Pressure 168/90 07/07/18 18:00 O2 Sat by Pulse Oximetry (%) 98 07/07/18 19:46 Cardiovascular: Yes: Tachycardia Respiratory: Yes: Diminished Gastrointestinal: Yes: WNL, Normal Bowel Sounds, Soft Edema: LLE: 1+, RLE: 1+ Labs: CBC, BMP 07/07/18 05:30 07/07/18 05:30 INR, PTT INR 0.88 (0.83-1.09) 07/06/18 15:30 Problem List - Problems (1) Acute respiratory failure Assessment/Plan: S/P LVAT/Wedge resection w/ chest tube Pt now s/p cardiac arrest w/ V-Tach Code(s): J96.00 - ACUTE RESPIRATORY FAILURE, UNSP W HYPOXIA OR HYPERCAPNIA (2) Lung abscess Assessment/Plan: S/P LVAT/Wedge resection for biopsy Chest tube'Cavitary lesion ODALYS Mediastinal adenopathy Cont IV zosyn Cont valtrex/bactrim Cont duoineb/symbicort Code(s): J85.2 - ABSCESS OF LUNG WITHOUT PNEUMONIA Qualifiers: Pulmonary abscess pneumonia presence: with pneumonia Laterality: left Lung location: upper lobe of lung Qualified Code(s): J85.1 - Abscess of lung with pneumonia (3) Vasculitis Assessment/Plan: ANCA (+) vasculitis Cont po steroids Possible trial of rituximab Code(s): I77.6 - ARTERITIS, UNSPECIFIED (4) COPD (chronic obstructive pulmonary disease) Assessment/Plan: Cont inhalers Code(s): J44.9 - CHRONIC OBSTRUCTIVE PULMONARY DISEASE, UNSPECIFIED (5) CKD (chronic kidney disease) Code(s): N18.9 - CHRONIC KIDNEY DISEASE, UNSPECIFIED (6) Neuropathy Code(s): G62.9 - POLYNEUROPATHY, UNSPECIFIED (7) H/O renal cell cancer Code(s): Z85.528 - PERSONAL HISTORY OF OTHER MALIGNANT NEOPLASM OF KIDNEY
[2018-07-08] MEDS ORDERED: DEXTROSE 5%-WATER - 50 ML IVPB ONE ×3 (02:42→16:25)
[2018-07-08] MEDS ORDERED: PIPERACILLIN/TAZOBACTAM 3.375 GM VIAL IVPB ONE ×3 (02:42→16:25)
[2018-07-08] MEDS: PIPERACILLIN/TAZOB 3.375 GM 3.375 GM in DEXTROSE 5%-WATER - 50 ML IVPB SCH ×3 (02:45→17:09)
[2018-07-08] MEDS: methylPREDNISolone NA SUCC 40 MG/1 ML VIAL IVPUSH SCH (02:45)
[2018-07-08] MEDS: INSULIN SLIDING SCALE (NOVOLOG) 1 VIAL SQ SCH ×4 (06:22→21:22)
[2018-07-08 06:49] LABS: HEMATOCRIT 25.9 % (32.4-45.2); HEMOGLOBIN 8.6 GM/dL (10.7-15.3); MCH 28.2 pg (25.7-33.7); MCHC 33.2 g/dl (32.0-36.0); MEAN PLT VOLUME 7.5 fl (7.5-11.1); PLATELET COUNT 186 K/MM3 (134-434); RBC 3.05 M/mm3 (3.60-5.2); RDW 27.9 % (11.6-15.6); WHITE BLOOD COUNT 5.2 K/mm3 (4.0-10.0)
[2018-07-08 07:21] LABS: ALBUMIN 2.4 g/dl (3.4-5.0); ALK PHOS 56 U/L (45-117); ANION GAP 6 MMOL/L (8-16); BILIRUBIN,TOTAL 0.4 mg/dL (0.2-1); BLOOD UREA NITROGEN 48 mg/dL (7-18); CHLORIDE 107 mmol/L (98-107); CO2 31 mmol/L (21-32); CREATININE 1.6 mg/dL (0.55-1.3); GLUCOSE,RANDOM 176 mg/dL (74-106); MAGNESIUM 2.1 mg/dL (1.8-2.4); POTASSIUM 4.9 mmol/L (3.5-5.1); SGOT/AST 14 U/L (15-37); SGPT/ALT 44 U/L (13-61); SODIUM 144 mmol/L (136-145); TOT PROT 4.9 g/dl (6.4-8.2)
[2018-07-08] MEDS ORDERED: SODIUM CHLORIDE 1,000 ML IV SCH (08:00)
--- NOTE | 2018-07-08 09:22 | PN ---
Progress Note (short form) - Note Progress Note: s: no chest pain, palps, dizziness. dyspnea improving Current Medications Acetaminophen (Tylenol -) 650 mg PO Q6H PRN PRN Reason: FEVER Albuterol/Ipratropium (Duoneb -) 1 amp NEB Q6H PRN PRN Reason: SHORTNESS OF BREATH Budesonide/Formoterol Fumarate (Symbicort 160/4.5mcg -) 1 puff IH BID [facility] Last Admin: 07/07/18 21:23 Dose: 1 puff Calcium Carbonate/Cholecalciferol (Os-Solomon 500+D -) 1 tab PO DAILY [facility] Last Admin: 07/07/18 09:39 Dose: 1 tab Furosemide (Lasix Injection -) 40 mg IVPUSH DAILY [facility] Last Admin: 07/07/18 09:40 Dose: 40 mg Gabapentin (Neurontin -) 300 mg PO BID [facility] Last Admin: 07/07/18 21:23 Dose: 300 mg Heparin Sodium (Porcine) (Heparin -) 5,000 unit SQ BID [facility] Last Admin: 07/07/18 21:23 Dose: 5,000 unit Piperacillin Sod/Tazobactam (Sod 3.375 gm/ Dextrose) 50 mls @ 100 mls/hr IVPB Q8H-IV [facility]; Protocol Last Admin: 07/08/18 02:45 Dose: 100 mls/hr Insulin Aspart (Novolog Vial Sliding Scale -) 1 vial SQ ACHS [facility]; Protocol Last Admin: 07/08/18 06:22 Dose: 2 units Pantoprazole Sodium (Protonix -) 40 mg PO DAILY [facility] Prednisone (Deltasone -) 60 mg PO DAILY [facility] Trimethoprim/Sulfamethoxazole (Bactrim Ds -) 1 each PO MoWeFr@1000 [facility] Valacyclovir HCl (Valtrex -) 500 mg PO BID [facility] Last Admin: 07/07/18 21:28 Dose: 500 mg Vital Signs: Vital Signs Period Temp Pulse Resp BP Sys/Busby Pulse Ox Last 24 Hr 97.4 F-98.5 F 52-85 13-20 134-177/75-99 98-100 Constitutional: Yes: Well Nourished, Calm Eyes: Yes: Conjunctiva Clear, EOM Intact HENT: Yes: Atraumatic, Normocephalic Neck: Yes: Supple, Trachea Midline Respiratory: Yes: Regular, dec breath sounds bases Gastrointestinal: Yes: Normal Bowel Sounds Cardiovascular: Yes: Tachycardia JVD: No Carotid Bruit: No PMI: Non-Displaced Heart Sounds: Yes: S1, S2 Murmur: No: Systolic Murmur Musculoskeletal: No: Back Pain Extremities: No: Cold Edema: No Peripheral Pulses WNL: Yes Peripheral Pulses: 2+ Left Doralis Pedis, 2+ Right Dorsalis Pedis Integumentary: No: Jaundice Neurological: Yes: Alert, Oriented Psychiatric: No: Agitated Assessment/Plan EKG: sinus tachycardia, no ischemic changes CXR: mirna infiltrates, new echo 06/2018 nl LV function, EF 60-65%, nl RV, mild TR, PASP at least 38 mmHg, trivial pericardial effusion tele: sinus s/p cardiac arrest, ?asystole, ventricular tachycardia - per patient prior to arrest was feeling very short of breath and anxious, noted to have frothy sputum and shaking - s/p CPR, amio 300 mg IV x1, shock - ROSC reportedly <10 min, responsive now - d/w Dr. Sanchez who led code - asystole not noted. CPR began and given 1 mg epi, monitor placed after epi and showed VT - received amiodarone gtt post arrest, now dc'ed - VT after epi, may have been 2/2 receiving epinephrine - echo nl LV function - trop indeterminate range, flat trend - likely demand in setting of arrest, EKG no ischemic changes post arrest - unlikely ACS - cont monitoring on tele, currently sinus tachycardia with no events - BNP >97134, congestion on CXR - receiving IV lasix, continue vasculitis - manage per rheum, on steroids Lung abscess - manage per ID, pulm - s/p VATS for lung bx - held voriconazole while on amiodarone, now restarted COPD - manage per pulm
--- NOTE | 2018-07-08 09:23 | PN ---
Physical Exam: SUBJECTIVE: Patient seen this morning on high flow oxygen. No complaints, plan for CT of head today. Transitioned to nasal cannula and tolerating. OBJECTIVE: Vital Signs Temperature 98.2 F 07/08/18 06:00 Pulse Rate 64 07/08/18 07:30 Respiratory Rate 18 07/08/18 07:30 Blood Pressure 176/80 H 07/08/18 08:04 O2 Sat by Pulse Oximetry (%) 100 07/08/18 08:00 GENERAL: The patient is awake, alert, and fully oriented, in no acute distress. HEAD: Normal with no signs of trauma. EYES: PERRL, extraocular movements intact, ENT: clear without exudates, moist mucous membranes. NECK: Trachea midline, full range of motion, supple. LUNGS: crackles heard diffusely HEART: Regular rate and rhythm, S1, S2 without murmur, rub or gallop. ABDOMEN: Soft, nontender, nondistended, normoactive bowel sounds, EXTREMITIES: 2+ pulses, warm, well-perfused, no edema. SKIN: Warm, dry, normal turgor, no rashes or lesions noted CBCD WBC 5.2 K/mm3 (4.0-10.0) 07/08/18 05:30 RBC 3.05 M/mm3 (3.60-5.2) L 07/08/18 05:30 Hgb 8.6 GM/dL (10.7-15.3) L 07/08/18 05:30 Hct 25.9 % (32.4-45.2) L 07/08/18 05:30 MCV 85.0 fl (80-96) 07/08/18 05:30 MCHC 33.2 g/dl (32.0-36.0) 07/08/18 05:30 RDW 27.9 % (11.6-15.6) H 07/08/18 05:30 Plt Count 186 K/MM3 (134-434) 07/08/18 05:30 MPV 7.5 fl (7.5-11.1) 07/08/18 05:30 CMP Sodium 144 mmol/L (136-145) 07/08/18 05:30 Potassium 4.9 mmol/L (3.5-5.1) 07/08/18 05:30 Chloride 107 mmol/L (98-107) 07/08/18 05:30 Carbon Dioxide 31 mmol/L (21-32) 07/08/18 05:30 Anion Gap 6 MMOL/L (8-16) L 07/08/18 05:30 BUN 48 mg/dL (7-18) H 07/08/18 05:30 Creatinine 1.6 mg/dL (0.55-1.3) H 07/08/18 05:30 Creat Clearance w eGFR 32.55 (>60) 07/08/18 05:30 Calcium 8.0 mg/dL (8.5-10.1) L 07/08/18 05:30 Total Bilirubin 0.4 mg/dL (0.2-1) 07/08/18 05:30 AST 14 U/L (15-37) L 07/08/18 05:30 ALT 44 U/L (13-61) 07/08/18 05:30 Alkaline Phosphatase 56 U/L (45-117) 07/08/18 05:30 Total Protein 4.9 g/dl (6.4-8.2) L 07/08/18 05:30 Albumin 2.4 g/dl (3.4-5.0) L 07/08/18 05:30 Active Medications Acetaminophen (Tylenol -) 650 mg PO Q6H PRN PRN Reason: FEVER Albuterol/Ipratropium (Duoneb -) 1 amp NEB Q6H PRN PRN Reason: SHORTNESS OF BREATH Budesonide/Formoterol Fumarate (Symbicort 160/4.5mcg -) 1 puff IH BID [facility] Last Admin: 07/07/18 21:23 Dose: 1 puff Calcium Carbonate/Cholecalciferol (Os-Solomon 500+D -) 1 tab PO DAILY [facility] Last Admin: 07/07/18 09:39 Dose: 1 tab Furosemide (Lasix Injection -) 40 mg IVPUSH DAILY [facility] Last Admin: 07/07/18 09:40 Dose: 40 mg Gabapentin (Neurontin -) 300 mg PO BID [facility] Last Admin: 07/07/18 21:23 Dose: 300 mg Heparin Sodium (Porcine) (Heparin -) 5,000 unit SQ BID [facility] Last Admin: 07/07/18 21:23 Dose: 5,000 unit Piperacillin Sod/Tazobactam (Sod 3.375 gm/ Dextrose) 50 mls @ 100 mls/hr IVPB Q8H-IV [facility]; Protocol Last Admin: 07/08/18 02:45 Dose: 100 mls/hr Insulin Aspart (Novolog Vial Sliding Scale -) 1 vial SQ ACHS [facility]; Protocol Last Admin: 07/08/18 06:22 Dose: 2 units Pantoprazole Sodium (Protonix -) 40 mg PO DAILY [facility] Prednisone (Deltasone -) 60 mg PO DAILY [facility] Trimethoprim/Sulfamethoxazole (Bactrim Ds -) 1 each PO MoWeFr@1000 [facility] Valacyclovir HCl (Valtrex -) 500 mg PO BID [facility] Last Admin: 07/07/18 21:28 Dose: 500 mg ASSESSMENT/PLAN: Patient is a 63 y/o female with a history of Renal Ca s/p R nephrectomy, asthma/ COPD, and vasculitis who is admitted to the hospital for a lung abscess. Neuro - A&O x3 - stable - seizure/ Code 99 likely 2/2 to hypoxia - neuro consult Dr. Lee: ? seizure vs panic attack, mononeuropathy multiplex, f/u TSH, B12, ESR, CRP, CK - patient for head CT in morning Cardio - off amiodarone drip 6 hours after ROSC - echo: LV normal in size, EF 60-65%, mild tricuspid regurgitation - recent HTN, likely 2/2 to steroid use, no medications - norvas 5 for HTN control, can uptitrate if uncontrolled, spoke with cardio Pulm - questionable autoimmune vascular disease, vs bronchiectasis and empyema - lung biopsy negative, taken from lingula not abscess - s/p VATS - continue incentive spirometry - duobenbs as needed - symbicort 1 puff BID - transitioned to nasal cannula Nephro - hold IV lasix, spoke with Dr. 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 Cordon; will speak with ID about starting Rituximab GI - pepcid 20 mg BID - protonix 40 IV push daily ID - spoke with ID and pharmacology, can restart Voricanozole 200 mg BID today - low suspicion for TB, -sputum afb negative and pcr negative - BAL culture + for Klebsiella - Zosyn to cover for aspiration day 2 - Valcyclovir 500 BID - Bactrim Mon, Wed, Ilya Endo - ss 14 units in 24 hours - gabapentin BID Heme - DVT ppx TID Dispo: f/u clinical condition, likely upgraded tomorrow Visit type - Emergency Visit Emergency Visit: No - New Patient This patient is new to me today: No - Critical Care Critical Care patient: Yes Total Critical Care Time (in minutes): 40 Critical Care Statement: The care of this patient involved high complexity decision making to prevent further life threatening deterioration of the patient 's condition and/or to evaluate & treat vital organ system(s) failure or risk of failure.
[2018-07-08] MEDS: HEPARIN NA (PORCINE) 5,000 UNITS/ML 1ML VIAL SQ SCH ×3 (09:27→21:21)
[2018-07-08] MEDS: predniSONE 20 MG TABLET (UD) PO SCH (09:27)
[2018-07-08] MEDS: PANTOPRAZOLE 40 MG TABLET (FP) PO SCH (09:28)
[2018-07-08] MEDS: GABAPENTIN 300 MG CAPSULE (FP) PO SCH ×2 (09:28→21:21)
[2018-07-08] MEDS: CALCIUM 500MG/VIT-D 200 UNITS COMBO TABLET (FP) PO SCH (09:28)
[2018-07-08] MEDS: valACYclovir HCL 500 MG TABLET (FP) PO SCH ×2 (09:28→21:21)
[2018-07-08] MEDS: FUROSEMIDE 40 MG/4 ML INJECTABLE VIAL IVPUSH SCH (09:28)
[2018-07-08] MEDS ORDERED: PT OWN MED DRAWER 7, Y5N ONE ×2 (09:54→11:20)
[2018-07-08] MEDS ORDERED: SULFAMETHOXAZOLE/TRIMETHOPRIM 800MG/160MG D.S. TABLET PO SCH (10:00)
[2018-07-08] MEDS ORDERED: amLODIPine BESYLATE 5 MG TABLET (FP) PO SCH (10:00)
--- NOTE | 2018-07-08 11:04 | EKG ---
Test Reason : Blood Pressure : / mmHG Vent. Rate : 078 BPM Atrial Rate : 078 BPM P-R Int : 114 ms QRS Dur : 074 ms QT Int : 392 ms P-R-T Axes : 073 -07 033 degrees QTc Int : 446 ms NORMAL SINUS RHYTHM POSSIBLE LEFT ATRIAL ENLARGEMENT NONSPECIFIC ST ABNORMALITY ABNORMAL ECG WHEN COMPARED WITH ECG OF 06-JUL-2018 15:39, VENT. RATE HAS DECREASED BY 49 BPM RIGHT BUNDLE BRANCH BLOCK IS NO LONGER PRESENT Confirmed by AYAN OLIVARES MD ([id number] on 07/08/2018 11:04:21 AM Referred By: ROLAND BENAVIDES DR Confirmed By:AYAN OLIVARES MD
[2018-07-08] MEDS: BUDESONIDE/FORMETEROL FUMARATE 160/4.5 mcg INHALER IH SCH ×2 (11:19→21:22)
[2018-07-08] MEDS: VORICONAZOLE 200 MG TABLET (RESTRICTED TO ID) PO SCH ×2 (11:19→17:41)
--- NOTE | 2018-07-08 12:20 | PN ---
Teaching Attending Note Name of Resident: Meaghan Campa ATTENDING PHYSICIAN STATEMENT I saw and evaluated the patient. I reviewed the resident's note and discussed the case with the resident. I agree with the resident's findings and plan as documented. SUBJECTIVE: Pt seen and examined in the ICU. Remains on HFOT 40L/min, 40% FiO2. States breathing better today. Minimal cough. No fevers recorded. OBJECTIVE: Vital Signs Period Temp Pulse Resp BP Sys/Busby Pulse Ox Last 24 Hr 97.4 F-98.8 F 52-100 13-20 134-177/75-99 98-100 Intake & Output 07/05/18 07/06/18 07/07/18 07/08/18 23:59 23:59 23:59 23:59 Intake Total 1120 797 646.4 350 Output Total 1400 Balance 1120 797 -753.6 350 Gen: mildly tachypneic with speaking on HFOT Heart: RRR Lung: scattered rales Abd: soft, nontender Ext: no edema CBC, BMP 07/08/18 05:30 07/08/18 05:30 Active Medications Acetaminophen (Tylenol -) 650 mg PO Q6H PRN PRN Reason: FEVER Albuterol/Ipratropium (Duoneb -) 1 amp NEB Q6H PRN PRN Reason: SHORTNESS OF BREATH Amlodipine Besylate (Norvasc -) 5 mg PO DAILY [facility] Last Admin: 07/08/18 09:55 Dose: 5 mg Budesonide/Formoterol Fumarate (Symbicort 160/4.5mcg -) 1 puff IH BID [facility] Last Admin: 07/08/18 11:19 Dose: 1 puff Calcium Carbonate/Cholecalciferol (Os-Solomon 500+D -) 1 tab PO DAILY [facility] Last Admin: 07/08/18 09:28 Dose: 1 tab Furosemide (Lasix Injection -) 40 mg IVPUSH DAILY [facility] Last Admin: 07/08/18 09:28 Dose: 40 mg Gabapentin (Neurontin -) 300 mg PO BID [facility] Last Admin: 07/08/18 09:28 Dose: 300 mg Heparin Sodium (Porcine) (Heparin -) 5,000 unit SQ BID [facility] Last Admin: 07/08/18 09:27 Dose: 5,000 unit Piperacillin Sod/Tazobactam (Sod 3.375 gm/ Dextrose) 50 mls @ 100 mls/hr IVPB Q8H-IV [facility]; Protocol Last Admin: 07/08/18 09:50 Dose: 100 mls/hr Insulin Aspart (Novolog Vial Sliding Scale -) 1 vial SQ ACHS [facility]; Protocol Last Admin: 07/08/18 11:15 Dose: 4 units Pantoprazole Sodium (Protonix -) 40 mg PO DAILY [facility] Last Admin: 07/08/18 09:28 Dose: 40 mg Prednisone (Deltasone -) 60 mg PO DAILY [facility] Last Admin: 07/08/18 09:27 Dose: 60 mg Trimethoprim/Sulfamethoxazole (Bactrim Ds -) 1 each PO MoWeFr@1000 [facility] Last Admin: 07/08/18 09:27 Dose: 1 each Valacyclovir HCl (Valtrex -) 500 mg PO BID [facility] Last Admin: 07/08/18 09:28 Dose: 500 mg [facility]icon[facility] ([facility] ([facility] To Id)) [facility] Admin: 07/08/18 11:19 Dose: 200 mg ASSESSMENT AND PLAN: s/p Cardiopulmonary Arrest Acute Pulmonary Edema r/o Seizures Acute Hypoxic Respiratory Failure Lung Abscess Suspect Aspiration Pneumonia Renal cancer s/p nephrectomy Asthma Bronchiectasis S/P Left VAT/ODALYS wedge biopsy Suspected granulomatosis and polyangiits (matthias's) Acute Kidney Injury - continue antibiotics - f/u cultures - continue prednisone per rheum - for CT head today - monitoring off antiepileptics per neuro - monitor urine output, creatinine - taper HFOT to keep Spo2 >90%, can transition to nasal cannula - PO as tolerated - continue ICU monitoring critical care time spent in reviewing chart, evaluating patient and formulating plan 35 min
--- NOTE | 2018-07-08 13:11 | PN ---
Progress Note, Physician History of Present Illness: Pt seen and examined at bedside. She is awake and alert. She feels that her lower ext edema is improved. - Current Medication List Current Medications: Active Medications Acetaminophen (Tylenol -) 650 mg PO Q6H PRN PRN Reason: FEVER Albuterol/Ipratropium (Duoneb -) 1 amp NEB Q6H PRN PRN Reason: SHORTNESS OF BREATH Amlodipine Besylate (Norvasc -) 5 mg PO DAILY [facility] Last Admin: 07/08/18 09:55 Dose: 5 mg Budesonide/Formoterol Fumarate (Symbicort 160/4.5mcg -) 1 puff IH BID [facility] Last Admin: 07/08/18 11:19 Dose: 1 puff Calcium Carbonate/Cholecalciferol (Os-Solomon 500+D -) 1 tab PO DAILY [facility] Last Admin: 07/08/18 09:28 Dose: 1 tab Gabapentin (Neurontin -) 300 mg PO BID [facility] Last Admin: 07/08/18 09:28 Dose: 300 mg Heparin Sodium (Porcine) (Heparin -) 5,000 unit SQ BID [facility] Last Admin: 07/08/18 09:27 Dose: 5,000 unit Piperacillin Sod/Tazobactam (Sod 3.375 gm/ Dextrose) 50 mls @ 100 mls/hr IVPB Q8H-IV [facility]; Protocol Last Admin: 07/08/18 09:50 Dose: 100 mls/hr Insulin Aspart (Novolog Vial Sliding Scale -) 1 vial SQ ACHS [facility]; Protocol Last Admin: 07/08/18 11:15 Dose: 4 units Pantoprazole Sodium (Protonix -) 40 mg PO DAILY [facility] Last Admin: 07/08/18 09:28 Dose: 40 mg Prednisone (Deltasone -) 60 mg PO DAILY [facility] Last Admin: 07/08/18 09:27 Dose: 60 mg Trimethoprim/Sulfamethoxazole (Bactrim Ds -) 1 each PO MoWeFr@1000 [facility] Last Admin: 07/08/18 09:27 Dose: 1 each Valacyclovir HCl (Valtrex -) 500 mg PO BID [facility] Last Admin: 07/08/18 09:28 Dose: 500 mg [facility]iconazole ([facility] (Rest[facility] To Id)) [facility] Last Admin: 07/08/18 11:19 Dose: 200 mg - Objective Vital Signs: Vital Signs Temperature 98.8 F 07/08/18 09:00 Pulse Rate 88 07/08/18 12:00 Respiratory Rate 18 07/08/18 12:00 Blood Pressure 159/92 07/08/18 12:00 O2 Sat by Pulse Oximetry (%) 100 07/08/18 08:00 Constitutional: Yes: Calm Eyes: Yes: Conjunctiva Clear HENT: Yes: Atraumatic Cardiovascular: Yes: S1, S2 Respiratory: Yes: Other (on high flow nasal canula) Genitourinary: Yes: WNL Musculoskeletal: Yes: WNL Edema: LLE: Trace, RLE: Trace Neurological: Yes: Oriented Psychiatric: Yes: Oriented Labs: CBC, BMP 07/08/18 05:30 07/08/18 05:30 INR, PTT INR 0.88 (0.83-1.09) 07/06/18 15:30 Problem List - Problems (1) MADAN (acute kidney injury) Code(s): N17.9 - ACUTE KIDNEY FAILURE, UNSPECIFIED (2) Glomerulonephritis Code(s): N05.9 - UNSP NEPHRITIC SYNDROME WITH UNSPECIFIED MORPHOLOGIC CHANGES (3) Lung abscess Code(s): J85.2 - ABSCESS OF LUNG WITHOUT PNEUMONIA Qualifiers: Pulmonary abscess pneumonia presence: with pneumonia Laterality: left Lung location: upper lobe of lung Qualified Code(s): J85.1 - Abscess of lung with pneumonia (4) Vasculitis Code(s): I77.6 - ARTERITIS, UNSPECIFIED Assessment/Plan Current Medications Generic Name Dose Route Start Last Admin Trade Name Freq PRN Reason Stop Dose Admin Acetaminophen 650 mg 06/30/18 13:12 Tylenol - PO Q6H PRN FEVER Albuterol/Ipratropium 1 amp 07/07/18 02:55 Duoneb - NEB Q6H PRN SHORTNESS OF BREATH Amlodipine Besylate 5 mg 07/08/18 10:00 07/08/18 09:55 Norvasc - PO 5 mg DAILY [facility] Administration Budesonide/Formoterol Fumarate 1 puff 06/30/18 22:00 07/08/18 11:19 Symbicort 160/4.5mcg - IH 1 puff BID [facility] Administration Calcium Carbonate/Cholecalciferol 1 tab 07/01/18 10:00 07/08/18 09:28 Os-Solomon 500+D - PO 1 tab DAILY [facility] Administration Gabapentin 300 mg 06/30/18 10:00 07/08/18 09:28 Neurontin - PO 300 mg BID [facility] Administration Heparin Sodium (Porcine) 5,000 unit 07/07/18 10:00 07/08/18 09:27 Heparin - SQ 5,000 unit BID [facility] Administration Piperacillin Sod/Tazobactam 50 mls @ 100 mls/hr 07/06/18 18:00 07/08/18 09:50 Sod 3.375 gm/ Dextrose IVPB 100 mls/hr Q8H-IV [facility] Administration Protocol Insulin Aspart 1 vial 06/30/18 16:30 07/08/18 11:15 Novolog Vial Sliding Scale - SQ 4 units ACHS [facility] Administration Protocol Pantoprazole Sodium 40 mg 07/08/18 10:00 07/08/18 09:28 Protonix - PO 40 mg DAILY [facility] Administration Prednisone 60 mg 07/08/18 10:00 07/08/18 09:27 Deltasone - PO 60 mg DAILY [facility] Administration Trimethoprim/Sulfamethoxazole 1 each 07/08/18 10:00 07/08/18 09:27 Bactrim Ds - PO 1 each MoWeFr@1000 [facility] Administration Valacyclovir HCl 500 mg 06/30/18 22:00 07/08/18 09:28 Valtrex - PO 500 mg BID [facility] Administration Voriconazole 200 mg 07/08/18 09:45 07/08/18 11:19 Vfend (Restricted To Id) PO 200 mg BIDPC [facility] Administration Impression 1. MADAN 2. r/o vasculitis 3. glomerulonephrotis 4. lung cavitary lesion 5. asthma 6. copd 7. rheumatoid arthritis 8. hx of renal cell cancer s/p nephrectomy 9. seizure 10. cardiac arrest Plan - renal function worse today - pt did get a dose of iv lasix this morning - hold lasix for now and re-evaluate tomorrow - ct head once stable - rheum input appreciated - abx per ID Dr Mcneill
--- NOTE | 2018-07-08 13:54 | PN ---
Progress Note (short form) - Note Progress Note: now extubated alert, in ICU on NC no complaints Vital Signs Period Temp Pulse Resp BP Sys/Busby Pulse Ox Last 24 Hr 97.4 F-98.8 F 52-100 13-20 134-177/75-99 98-100 cor-rrr lungs decreased bs at bases abd soft,nt ext +edema CBC, BMP 07/08/18 05:30 07/08/18 05:30 Microbiology 07/06/18 17:00 Sputum - Endotrachea Suction/Ventilator Gram Stain - Final 07/06/18 17:00 Sputum - Endotrachea Suction/Ventilator Sputum Culture - Preliminary NORMAL RESPIRATORY MAAME 07/06/18 21:45 Blood - Peripheral Venous Blood Culture - Preliminary NO GROWTH OBTAINED AFTER 24 HOURS, INCUBATION TO CONTINUE FOR 4 DAYS. 07/06/18 15:45 Blood - Peripheral Venous Blood Culture - Preliminary NO GROWTH OBTAINED AFTER 24 HOURS, INCUBATION TO CONTINUE FOR 4 DAYS. 07/02/18 16:00 Serum Cryptococcal Antigen - Final a/p s/p code- ?seizure head ct when stable neurology consult noted vasculitis-ANCA positive-management per rheumatology low suspicion TB-sputum afb negative, pcr negative times 2 BAL culture -pure culture klebsiella day #16 antibiotics-now on zosyn for possible aspiration BAL Galactommanan antigen is positive voriconazole -day #6- added PCP prophylaxis bactrim ds m/w/f fungal serologies and cultures pending she remains on high dose steroids and we cannot r/o fungal infection small sacral ulcer is dry-+HSV- continue valtrex for prophylaxis solitary kidney- s/p nephrectomy f/u cultures /pathology from BAL and lung biopsy pathology of lingula- afb/fungal smears negative reculture-empiric switch to zosyn to cover possible aspiration d/w ICU team Problem List - Problems (1) Lung abscess Code(s): J85.2 - ABSCESS OF LUNG WITHOUT PNEUMONIA Qualifiers: Pulmonary abscess pneumonia presence: with pneumonia Laterality: left Lung location: upper lobe of lung Qualified Code(s): J85.1 - Abscess of lung with pneumonia (2) Vasculitis Code(s): I77.6 - ARTERITIS, UNSPECIFIED
--- NOTE | 2018-07-08 22:55 | PN ---
Progress Note, Physician History of Present Illness: No new complaints - Current Medication List Current Medications: Active Medications Acetaminophen (Tylenol -) 650 mg PO Q6H PRN PRN Reason: FEVER Albuterol/Ipratropium (Duoneb -) 1 amp NEB Q6H PRN PRN Reason: SHORTNESS OF BREATH Amlodipine Besylate (Norvasc -) 5 mg PO DAILY [facility] Last Admin: 07/08/18 09:55 Dose: 5 mg Budesonide/Formoterol Fumarate (Symbicort 160/4.5mcg -) 1 puff IH BID [facility] Last Admin: 07/08/18 21:22 Dose: 1 puff Calcium Carbonate/Cholecalciferol (Os-Solomon 500+D -) 1 tab PO DAILY [facility] Last Admin: 07/08/18 09:28 Dose: 1 tab Gabapentin (Neurontin -) 300 mg PO BID [facility] Last Admin: 07/08/18 21:21 Dose: 300 mg Heparin Sodium (Porcine) (Heparin -) 5,000 unit SQ TID [facility] Last Admin: 07/08/18 21:21 Dose: 5,000 unit Piperacillin Sod/Tazobactam (Sod 3.375 gm/ Dextrose) 50 mls @ 100 mls/hr IVPB Q8H-IV [facility]; Protocol Last Admin: 07/08/18 17:09 Dose: 100 mls/hr Insulin Aspart (Novolog Vial Sliding Scale -) 1 vial SQ ACHS [facility]; Protocol Last Admin: 07/08/18 21:22 Dose: 6 units Pantoprazole Sodium (Protonix -) 40 mg PO DAILY [facility] Last Admin: 07/08/18 09:28 Dose: 40 mg Prednisone (Deltasone -) 60 mg PO DAILY [facility] Last Admin: 07/08/18 09:27 Dose: 60 mg Trimethoprim/Sulfamethoxazole (Bactrim Ds -) 1 each PO MoWeFr@1000 [facility] Last Admin: 07/08/18 09:27 Dose: 1 each Valacyclovir HCl (Valtrex -) 500 mg PO BID [facility] Last Admin: 07/08/18 21:21 Dose: 500 mg Voriconazole (Vfend (Restricted To Id)) 200 mg PO BIDPC [facility] Last Admin: 07/08/18 17:41 Dose: 200 mg - Objective Vital Signs: Vital Signs Temperature 98.4 F 07/08/18 14:00 Pulse Rate 82 07/08/18 19:00 Respiratory Rate 18 07/08/18 19:00 Blood Pressure 156/82 07/08/18 19:00 O2 Sat by Pulse Oximetry (%) 100 07/08/18 18:18 Neck: Yes: WNL, Supple Cardiovascular: Yes: WNL, Regular Rate and Rhythm Respiratory: Yes: Diminished Gastrointestinal: Yes: WNL, Normal Bowel Sounds, Soft Edema: LLE: 1+, RLE: 1+ Labs: CBC, BMP 07/08/18 05:30 07/08/18 05:30 INR, PTT INR 0.88 (0.83-1.09) 07/06/18 15:30 Problem List - Problems (1) Acute respiratory failure Code(s): J96.00 - ACUTE RESPIRATORY FAILURE, UNSP W HYPOXIA OR HYPERCAPNIA (2) Lung abscess Code(s): J85.2 - ABSCESS OF LUNG WITHOUT PNEUMONIA Qualifiers: Pulmonary abscess pneumonia presence: with pneumonia Laterality: left Lung location: upper lobe of lung Qualified Code(s): J85.1 - Abscess of lung with pneumonia (3) Vasculitis Code(s): I77.6 - ARTERITIS, UNSPECIFIED (4) COPD (chronic obstructive pulmonary disease) Code(s): J44.9 - CHRONIC OBSTRUCTIVE PULMONARY DISEASE, UNSPECIFIED (5) CKD (chronic kidney disease) Code(s): N18.9 - CHRONIC KIDNEY DISEASE, UNSPECIFIED (6) Neuropathy Code(s): G62.9 - POLYNEUROPATHY, UNSPECIFIED (7) H/O renal cell cancer Code(s): Z85.528 - PERSONAL HISTORY OF OTHER MALIGNANT NEOPLASM OF KIDNEY
[2018-07-09] MEDS ORDERED: DEXTROSE 5%-WATER - 50 ML IVPB ONE ×3 (03:21→16:48)
[2018-07-09] MEDS ORDERED: PIPERACILLIN/TAZOBACTAM 3.375 GM VIAL IVPB ONE ×3 (03:21→16:48)
[2018-07-09] MEDS: PIPERACILLIN/TAZOB 3.375 GM 3.375 GM in DEXTROSE 5%-WATER - 50 ML IVPB SCH ×3 (03:55→17:04)
[2018-07-09] MEDS: HEPARIN NA (PORCINE) 5,000 UNITS/ML 1ML VIAL SQ SCH ×3 (05:59→22:20)
[2018-07-09] MEDS: INSULIN SLIDING SCALE (NOVOLOG) 1 VIAL SQ SCH ×4 (05:59→22:23)
[2018-07-09 06:31] LABS: HEMATOCRIT 25.6 % (32.4-45.2); HEMOGLOBIN 8.7 GM/dL (10.7-15.3); MCH 28.5 pg (25.7-33.7); MCHC 34.2 g/dl (32.0-36.0); MEAN CELL VOLUME 83.3 fl (80-96); MEAN PLT VOLUME 7.6 fl (7.5-11.1); PLATELET COUNT 193 K/MM3 (134-434); RBC 3.07 M/mm3 (3.60-5.2); RDW 28.4 % (11.6-15.6); WHITE BLOOD COUNT 7.5 K/mm3 (4.0-10.0)
[2018-07-09 06:59] LABS: ALBUMIN 2.4 g/dl (3.4-5.0); ALK PHOS 54 U/L (45-117); ANION GAP 7 MMOL/L (8-16); BILIRUBIN,TOTAL 0.4 mg/dL (0.2-1); BLOOD UREA NITROGEN 49 mg/dL (7-18); CALCIUM 7.9 mg/dL (8.5-10.1); CHLORIDE 106 mmol/L (98-107); CO2 30 mmol/L (21-32); CREATININE 1.5 mg/dL (0.55-1.3); GLUCOSE,RANDOM 130 mg/dL (74-106); MAGNESIUM 2.1 mg/dL (1.8-2.4); PHOSPHOROUS 3.7 mg/dL (2.5-4.9); POTASSIUM 3.9 mmol/L (3.5-5.1); SGOT/AST 10 U/L (15-37); SGPT/ALT 33 U/L (13-61); SODIUM 143 mmol/L (136-145); TOT PROT 5.1 g/dl (6.4-8.2)
[2018-07-09] MEDS ORDERED: amLODIPine BESYLATE 10 MG TABLET (FP) PO SCH (08:22)
[2018-07-09] MEDS ORDERED: PT OWN MED DRAWER 7, Y5N ONE ×3 (08:27→22:13)
[2018-07-09] MEDS: predniSONE 20 MG TABLET (UD) PO SCH (09:11)
[2018-07-09] MEDS: CALCIUM 500MG/VIT-D 200 UNITS COMBO TABLET (FP) PO SCH (09:12)
[2018-07-09] MEDS: GABAPENTIN 300 MG CAPSULE (FP) PO SCH ×2 (09:12→22:20)
[2018-07-09] MEDS: PANTOPRAZOLE 40 MG TABLET (FP) PO SCH (09:12)
[2018-07-09] MEDS: valACYclovir HCL 500 MG TABLET (FP) PO SCH ×2 (09:13→22:24)
[2018-07-09] MEDS: BUDESONIDE/FORMETEROL FUMARATE 160/4.5 mcg INHALER IH SCH ×2 (09:28→22:23)
[2018-07-09] MEDS: VORICONAZOLE 200 MG TABLET (RESTRICTED TO ID) PO SCH ×3 (10:31→18:29)
--- NOTE | 2018-07-09 12:20 | PN ---
Teaching Attending Note Name of Resident: Rodolfo Corbin ATTENDING PHYSICIAN STATEMENT I saw and evaluated the patient. I reviewed the resident's note and discussed the case with the resident. I agree with the resident's findings and plan as documented. SUBJECTIVE: Patient seen and examined in the ICU. Currently off HFOT. Mildly tachypneic on NC O2. Some non-productive cough. OBJECTIVE: Intake & Output 07/06/18 07/07/18 07/08/18 07/09/18 23:59 23:59 23:59 23:59 Intake Total 797 646.4 1050 150 Output Total 1400 0 Balance 797 -753.6 1050 150 Last Vital Signs Temp Pulse Resp BP Pulse Ox 98.0 F 82 18 150/80 99 07/09/18 10:00 07/09/18 11:58 07/09/18 11:58 07/09/18 11:58 07/09/18 09:00 Active Medications Acetaminophen (Tylenol -) 650 mg PO Q6H PRN PRN Reason: FEVER Albuterol/Ipratropium (Duoneb -) 1 amp NEB Q6H PRN PRN Reason: SHORTNESS OF BREATH Amlodipine Besylate (Norvasc -) 10 mg PO DAILY [facility] Last Admin: 07/09/18 09:12 Dose: 10 mg Budesonide/Formoterol Fumarate (Symbicort 160/4.5mcg -) 1 puff IH BID [facility] Last Admin: 07/09/18 09:28 Dose: 1 puff Calcium Carbonate/Cholecalciferol (Os-Solomon 500+D -) 1 tab PO DAILY [facility] Last Admin: 07/09/18 09:12 Dose: 1 tab Gabapentin (Neurontin -) 300 mg PO BID [facility] Last Admin: 07/09/18 09:12 Dose: 300 mg Heparin Sodium (Porcine) (Heparin -) 5,000 unit SQ TID [facility] Last Admin: 07/09/18 05:59 Dose: 5,000 unit Piperacillin Sod/Tazobactam (Sod 3.375 gm/ Dextrose) 50 mls @ 100 mls/hr IVPB Q8H-IV [facility]; Protocol Last Admin: 07/09/18 09:11 Dose: 100 mls/hr Insulin Aspart (Novolog Vial Sliding Scale -) 1 vial SQ ACHS [facility]; Protocol Last Admin: 07/09/18 11:54 Dose: 2 units Pantoprazole Sodium (Protonix -) 40 mg PO DAILY [facility] Last Admin: 07/09/18 09:12 Dose: 40 mg Prednisone (Deltasone -) 60 mg PO DAILY [facility] Last Admin: 07/09/18 09:11 Dose: 60 mg Trimethoprim/Sulfamethoxazole (Bactrim Ds -) 1 each PO MoWeFr@1000 [facility] Last Admin: 07/08/18 09:27 Dose: 1 each Valacyclovir HCl (Valtrex -) 500 mg PO BID [facility] Last Admin: 07/09/18 09:13 Dose: 500 mg Voriconazole ([facility]fend (Restricted To Id)) [facility] Last Admin: 07/09/18 10:31 Dose: 200 mg Gen: mildly tachypneic with speaking on NC O2 Heart: RRR Lung: Left base rhonchi/crackles Abd: soft, nontender Ext: no edema Laboratory Results - last 24 hr 07/08/18 07/08/18 07/09/18 16:17 20:10 05:19 WBC RBC Hgb Hct MCV MCH MCHC RDW Plt Count MPV Sodium Potassium Chloride Carbon Dioxide Anion Gap BUN Creatinine Creat Clearance w eGFR POC Glucometer 291 267 129 Random Glucose Calcium Phosphorus Magnesium Total Bilirubin AST ALT Alkaline Phosphatase Total Protein Albumin 07/09/18 07/09/18 07/09/18 05:30 05:30 11:40 WBC 7.5 RBC 3.07 L Hgb 8.7 L Hct 25.6 L MCV 83.3 MCH 28.5 MCHC 34.2 RDW 28.4 H Plt Count 193 MPV 7.6 Sodium 143 Potassium 3.9 Chloride 106 Carbon Dioxide 30 Anion Gap 7 L BUN 49 H Creatinine 1.5 H Creat Clearance w eGFR 35.07 POC Glucometer 176 Random Glucose 130 H Calcium 7.9 L Phosphorus 3.7 Magnesium 2.1 Total Bilirubin 0.4 AST 10 L ALT 33 Alkaline Phosphatase 54 Total Protein 5.1 L Albumin 2.4 L ASSESSMENT AND PLAN: s/p Cardiopulmonary Arrest Acute Pulmonary Edema r/o Seizures Acute Hypoxic Respiratory Failure Lung Abscess Suspect Aspiration Pneumonia Renal cancer s/p nephrectomy Asthma Bronchiectasis S/P Left VAT/ODALYS wedge biopsy Suspected granulomatosis and polyangiits (matthias's) Acute Kidney Injury - ABX per ID - continue prednisone per rheum - monitoring off antiepileptics per neuro - monitor urine output, creatinine - NC O2 as needed to maintain saturation - PO as tolerated - Floor Dr Sims
--- NOTE | 2018-07-09 12:36 | PN ---
Progress Note (short form) - Note Progress Note: s: no chest pain, palps, dizziness. dyspnea improving Current Medications Generic Name Dose Route Start Last Admin Trade Name Freq PRN Reason Stop Dose Admin Acetaminophen 650 mg 06/30/18 13:12 Tylenol - PO Q6H PRN FEVER Albuterol/Ipratropium 1 amp 07/07/18 02:55 Duoneb - NEB Q6H PRN SHORTNESS OF BREATH Amlodipine Besylate 10 mg 07/09/18 08:22 07/09/18 09:12 Norvasc - PO 10 mg DAILY [facility] Administration Budesonide/Formoterol Fumarate 1 puff 06/30/18 22:00 07/09/18 09:28 Symbicort 160/4.5mcg - IH 1 puff BID [facility] Administration Calcium Carbonate/Cholecalciferol 1 tab 07/01/18 10:00 07/09/18 09:12 Os-Solomon 500+D - PO 1 tab DAILY [facility] Administration Gabapentin 300 mg 06/30/18 10:00 07/09/18 09:12 Neurontin - PO 300 mg BID [facility] Administration Heparin Sodium (Porcine) 5,000 unit 07/08/18 14:00 07/09/18 05:59 Heparin - SQ 5,000 unit TID [facility] Administration Piperacillin Sod/Tazobactam 50 mls @ 100 mls/hr 07/06/18 18:00 07/09/18 09:11 Sod 3.375 gm/ Dextrose IVPB 100 mls/hr Q8H-IV [facility] Administration Protocol Insulin Aspart 1 vial 06/30/18 16:30 07/09/18 11:54 Novolog Vial Sliding Scale - SQ 2 units ACHS [facility] Administration Protocol Pantoprazole Sodium 40 mg 07/08/18 10:00 07/09/18 09:12 Protonix - PO 40 mg DAILY [facility] Administration Prednisone 60 mg 07/08/18 10:00 07/09/18 09:11 Deltasone - PO 60 mg DAILY [facility] Administration Trimethoprim/Sulfamethoxazole 1 each 07/08/18 10:00 07/08/18 09:27 Bactrim Ds - PO 1 each MoWeFr@1000 [facility] Administration Valacyclovir HCl 500 mg 06/30/18 22:00 07/09/18 09:13 Valtrex - PO 500 mg BID [facility] Administration Voriconazole 200 mg 07/08/18 09:45 07/09/18 10:31 Vfend (Restricted To Id) PO 200 mg BIDPC [facility] Administration Vital Signs: Vital Signs Period Temp Pulse Resp BP Sys/Busby Pulse Ox Last 24 Hr 98.0 F-98.4 F 67-96 8-24 147-182/76-97 99-100 Constitutional: Yes: Well Nourished, Calm Eyes: Yes: Conjunctiva Clear Neck: Yes: Supple, Trachea Midline Respiratory: Yes: Regular, dec breath sounds bases Gastrointestinal: Yes: Normal Bowel Sounds Cardiovascular: Yes: Tachycardia JVD: No Heart Sounds: Yes: S1, S2 Murmur: No: Systolic Murmur Extremities: No: Cold Edema: No Peripheral Pulses: 2+ Left Doralis Pedis, 2+ Right Dorsalis Pedis Integumentary: No: Jaundice Neurological: Yes: Alert, Oriented Psychiatric: No: Agitated CBC, BMP 07/09/18 05:30 07/09/18 05:30 Assessment/Plan EKG: sinus tachycardia, no ischemic changes CXR: mirna infiltrates, new echo 06/2018 nl LV function, EF 60-65%, nl RV, mild TR, PASP at least 38 mmHg, trivial pericardial effusion tele: sinus s/p cardiac arrest, ?asystole, ventricular tachycardia - per patient prior to arrest was feeling very short of breath and anxious, noted to have frothy sputum and shaking-->thought to have had asp pna - s/p CPR, amio 300 mg IV x1, shock - ROSC reportedly <10 min, responsive now - d/w Dr. Sanchez who led code - asystole not noted. CPR began and given 1 mg epi, monitor placed after epi and showed VT - received amiodarone gtt post arrest, now dc'ed - VT after epi, may have been 2/2 receiving epinephrine - echo nl LV function - trop indeterminate range, flat trend - likely demand in setting of arrest, EKG no ischemic changes post arrest - unlikely ACS - cont monitoring on tele, has been benign vasculitis - manage per rheum, on steroids Lung abscess - manage per ID, pulm - s/p VATS for lung bx - held voriconazole while on amiodarone, now restarted COPD - manage per pulm
--- NOTE | 2018-07-09 16:38 | EKG ---
Test Reason : Blood Pressure : / mmHG Vent. Rate : 083 BPM Atrial Rate : 083 BPM P-R Int : 114 ms QRS Dur : 070 ms QT Int : 368 ms P-R-T Axes : 080 003 047 degrees QTc Int : 432 ms NORMAL SINUS RHYTHM POSSIBLE LEFT ATRIAL ENLARGEMENT NONSPECIFIC ST ABNORMALITY ABNORMAL ECG WHEN COMPARED WITH ECG OF 08-JUL-2018 09:07, NO SIGNIFICANT CHANGE WAS FOUND Confirmed by ELYSE LAU, DEBORAH ([id number]) on 07/09/2018 4:38:04 PM Referred By: DR STEVENS Confirmed By:DEBORAH PAPPAS MD
--- NOTE | 2018-07-09 16:47 | PN ---
Progress Note, Physician History of Present Illness: Pt seen and examined at bedside. She is awake and alert. She feels that her breathing is improved. She denies dysuria or hematuria. - Current Medication List Current Medications: Active Medications Acetaminophen (Tylenol -) 650 mg PO Q6H PRN PRN Reason: FEVER Albuterol/Ipratropium (Duoneb -) 1 amp NEB Q6H PRN PRN Reason: SHORTNESS OF BREATH Amlodipine Besylate (Norvasc -) 10 mg PO DAILY [facility] Last Admin: 07/09/18 09:12 Dose: 10 mg Budesonide/Formoterol Fumarate (Symbicort 160/4.5mcg -) 1 puff IH BID [facility] Last Admin: 07/09/18 09:28 Dose: 1 puff Calcium Carbonate/Cholecalciferol (Os-Solomon 500+D -) 1 tab PO DAILY [facility] Last Admin: 07/09/18 09:12 Dose: 1 tab Gabapentin (Neurontin -) 300 mg PO BID [facility] Last Admin: 07/09/18 09:12 Dose: 300 mg Heparin Sodium (Porcine) (Heparin -) 5,000 unit SQ TID [facility] Last Admin: 07/09/18 14:14 Dose: 5,000 unit Piperacillin Sod/Tazobactam (Sod 3.375 gm/ Dextrose) 50 mls @ 100 mls/hr IVPB Q8H-IV [facility]; Protocol Last Admin: 07/09/18 09:11 Dose: 100 mls/hr Insulin Aspart (Novolog Vial Sliding Scale -) 1 vial SQ ACHS [facility]; Protocol Last Admin: 07/09/18 11:54 Dose: 2 units Pantoprazole Sodium (Protonix -) 40 mg PO DAILY [facility] Last Admin: 07/09/18 09:12 Dose: 40 mg Prednisone (Deltasone -) 60 mg PO DAILY [facility] Last Admin: 07/09/18 09:11 Dose: 60 mg Trimethoprim/Sulfamethoxazole (Bactrim Ds -) 1 each PO MoWeFr@1000 [facility] Last Admin: 07/08/18 09:27 Dose: 1 each Valacyclovir HCl (Valtrex -) 500 mg PO BID [facility] Last Admin: 07/09/18 09:13 Dose: 500 mg Voriconazole (V[facility]end (Restricted To Id)) [facility] Last Admin: 07/09/18 10:31 Dose: 200 mg - Objective Vital Signs: Vital Signs Temperature 92.1 F L 07/09/18 14:00 Pulse Rate 83 07/09/18 14:00 Respiratory Rate 19 07/09/18 14:00 Blood Pressure 151/92 07/09/18 14:00 O2 Sat by Pulse Oximetry (%) 99 07/09/18 09:00 Constitutional: Yes: Calm Eyes: Yes: Conjunctiva Clear HENT: Yes: Atraumatic Cardiovascular: Yes: S1, S2 Respiratory: Yes: On Nasal O2 Gastrointestinal: Yes: Soft Genitourinary: Yes: WNL Musculoskeletal: Yes: WNL Edema: Yes Edema: LLE: 1+, RLE: 1+ Neurological: Yes: Oriented Psychiatric: Yes: Oriented Labs: CBC, BMP 07/09/18 05:30 07/09/18 05:30 INR, PTT INR 0.88 (0.83-1.09) 07/06/18 15:30 Problem List - Problems (1) MADAN (acute kidney injury) Code(s): N17.9 - ACUTE KIDNEY FAILURE, UNSPECIFIED (2) Glomerulonephritis Code(s): N05.9 - UNSP NEPHRITIC SYNDROME WITH UNSPECIFIED MORPHOLOGIC CHANGES (3) Lung abscess Code(s): J85.2 - ABSCESS OF LUNG WITHOUT PNEUMONIA Qualifiers: Pulmonary abscess pneumonia presence: with pneumonia Laterality: left Lung location: upper lobe of lung Qualified Code(s): J85.1 - Abscess of lung with pneumonia (4) Vasculitis Code(s): I77.6 - ARTERITIS, UNSPECIFIED Assessment/Plan Current Medications Generic Name Dose Route Start Last Admin Trade Name Freq PRN Reason Stop Dose Admin Acetaminophen 650 mg 06/30/18 13:12 Tylenol - PO Q6H PRN FEVER Albuterol/Ipratropium 1 amp 07/07/18 02:55 Duoneb - NEB Q6H PRN SHORTNESS OF BREATH Amlodipine Besylate 10 mg 07/09/18 08:22 07/09/18 09:12 Norvasc - PO 10 mg DAILY [facility] Administration Budesonide/Formoterol Fumarate 1 puff 06/30/18 22:00 07/09/18 09:28 Symbicort 160/4.5mcg - IH 1 puff BID [facility] Administration Calcium Carbonate/Cholecalciferol 1 tab 07/01/18 10:00 07/09/18 09:12 Os-Solomon 500+D - PO 1 tab DAILY [facility] Administration Gabapentin 300 mg 06/30/18 10:00 07/09/18 09:12 Neurontin - PO 300 mg BID [facility] Administration Heparin Sodium (Porcine) 5,000 unit 07/08/18 14:00 07/09/18 14:14 Heparin - SQ 5,000 unit TID [facility] Administration Piperacillin Sod/Tazobactam 50 mls @ 100 mls/hr 07/06/18 18:00 07/09/18 09:11 Sod 3.375 gm/ Dextrose IVPB 100 mls/hr Q8H-IV [facility] Administration Protocol Insulin Aspart 1 vial 06/30/18 16:30 07/09/18 11:54 Novolog Vial Sliding Scale - SQ 2 units ACHS [facility] Administration Protocol Pantoprazole Sodium 40 mg 07/08/18 10:00 07/09/18 09:12 Protonix - PO 40 mg DAILY [facility] Administration Prednisone 60 mg 07/08/18 10:00 07/09/18 09:11 Deltasone - PO 60 mg DAILY [facility] Administration Trimethoprim/Sulfamethoxazole 1 each 07/08/18 10:00 07/08/18 09:27 Bactrim Ds - PO 1 each MoWeFr@1000 [facility] Administration Valacyclovir HCl 500 mg 06/30/18 22:00 07/09/18 09:13 Valtrex - PO 500 mg BID [facility] Administration Voriconazole 200 mg 07/08/18 09:45 07/09/18 10:31 Vfend (Restricted To Id) PO 200 mg BIDPC [facility] Administration Impression 1. MADAN 2. r/o vasculitis 3. glomerulonephrotis 4. lung cavitary lesion 5. asthma 6. copd 7. rheumatoid arthritis 8. hx of renal cell cancer s/p nephrectomy 9. seizure 10. cardiac arrest Plan - cont to monitor renal function - lasix on hold today - evaluate for diuretics daily - ct head negative - rheum follow up - abx per ID Dr Mcneill
[2018-07-09] MEDS ORDERED: ALBUTEROL SO4 2.5/IPRATROPIUM 0.5 INH SOL 3 ML VIAL.NEB. NEB PRN (18:22)
[2018-07-09] MEDS ORDERED: ACETAMINOPHEN 325 MG TABLET (FP) PO PRN (18:22)
--- NOTE | 2018-07-09 21:45 | PN ---
Progress Note, Physician History of Present Illness: Pt feeling fatigued and slightly dyspneic - Current Medication List Current Medications: Active Medications Acetaminophen (Tylenol -) 650 mg PO Q6H PRN PRN Reason: FEVER Albuterol/Ipratropium (Duoneb -) 1 amp NEB Q6H PRN PRN Reason: SHORTNESS OF BREATH Amlodipine Besylate (Norvasc -) 10 mg PO DAILY [facility] Budesonide/Formoterol Fumarate (Symbicort 160/4.5mcg -) 1 puff IH BID [facility] Calcium Carbonate/Cholecalciferol (Os-Solomon 500+D -) 1 tab PO DAILY [facility] Gabapentin (Neurontin -) 300 mg PO BID [facility] Heparin Sodium (Porcine) (Heparin -) 5,000 unit SQ TID [facility] Piperacillin Sod/Tazobactam (Sod 3.375 gm/ Dextrose) 50 mls @ 100 mls/hr IVPB Q8H-IV [facility]; Protocol Insulin Aspart (Novolog Vial Sliding Scale -) 1 vial SQ ACHS [facility]; Protocol Pantoprazole Sodium (Protonix -) 40 mg PO DAILY [facility] Prednisone (Deltasone -) 60 mg PO DAILY [facility] Trimethoprim/Sulfamethoxazole (Bactrim Ds -) 1 each PO MoWeFr@1000 [facility] Valacyclovir HCl (Valtrex -) 500 mg PO BID [facility] Voricon[facility] ([facility] (Rest[facility] To Id)) [facility] Last Admin: 07/09/18 18:29 Dose: Not Given - Objective Vital Signs: Vital Signs Temperature 92.1 F L 07/09/18 14:00 Pulse Rate 84 07/09/18 18:00 Respiratory Rate 18 07/09/18 18:00 Blood Pressure 152/80 07/09/18 18:00 O2 Sat by Pulse Oximetry (%) 98 07/09/18 19:05 Neck: Yes: WNL, Supple Cardiovascular: Yes: WNL, Regular Rate and Rhythm Respiratory: Yes: Rales Gastrointestinal: Yes: WNL, Normal Bowel Sounds, Soft Edema: LLE: 1+, RLE: 1+ Labs: CBC, BMP 07/09/18 05:30 07/09/18 05:30 INR, PTT INR 0.88 (0.83-1.09) 07/06/18 15:30 Problem List - Problems (1) Acute respiratory failure Assessment/Plan: S/P LVAT/Wedge resection w/ chest tube S/P cardiac arrest w/ V-Tach Code(s): J96.00 - ACUTE RESPIRATORY FAILURE, UNSP W HYPOXIA OR HYPERCAPNIA (2) Lung abscess Assessment/Plan: S/P LVAT/Wedge resection for biopsy Chest tube'Cavitary lesion ODALYS Mediastinal adenopathy Cont IV zosyn Pt restarted on antifungal Cont valtrex/bactrim Cont duoineb/symbicort Will check ct scan chest w/out contrast due to ARF Code(s): J85.2 - ABSCESS OF LUNG WITHOUT PNEUMONIA Qualifiers: Pulmonary abscess pneumonia presence: with pneumonia Laterality: left Lung location: upper lobe of lung Qualified Code(s): J85.1 - Abscess of lung with pneumonia (3) Vasculitis Assessment/Plan: ANCA (+) vasculitis Cont po steroids Possible trial of rituximab Code(s): I77.6 - ARTERITIS, UNSPECIFIED (4) COPD (chronic obstructive pulmonary disease) Assessment/Plan: Cont inhalers Code(s): J44.9 - CHRONIC OBSTRUCTIVE PULMONARY DISEASE, UNSPECIFIED (5) CKD (chronic kidney disease) Assessment/Plan: As per renal Pt has h/o renal ca/nephrectomy Code(s): N18.9 - CHRONIC KIDNEY DISEASE, UNSPECIFIED (6) Neuropathy Assessment/Plan: ?Due to vasculitis Cont gabapentin Code(s): G62.9 - POLYNEUROPATHY, UNSPECIFIED (7) H/O renal cell cancer Assessment/Plan: H/O nephrectomy Code(s): Z85.528 - PERSONAL HISTORY OF OTHER MALIGNANT NEOPLASM OF KIDNEY
[2018-07-10] MEDS ORDERED: DEXTROSE 5%-WATER - 50 ML IVPB ONE ×3 (00:59→17:38)
[2018-07-10] MEDS ORDERED: PIPERACILLIN/TAZOBACTAM 3.375 GM VIAL IVPB ONE ×3 (00:59→17:38)
[2018-07-10] MEDS: PIPERACILLIN/TAZOB 3.375 GM 3.375 GM in DEXTROSE 5%-WATER - 50 ML IVPB SCH ×3 (01:34→17:52)
[2018-07-10] MEDS: HEPARIN NA (PORCINE) 5,000 UNITS/ML 1ML VIAL SQ SCH ×3 (06:04→21:23)
[2018-07-10] MEDS: INSULIN SLIDING SCALE (NOVOLOG) 1 VIAL SQ SCH ×4 (07:07→21:24)
[2018-07-10 08:34] LABS: ALBUMIN 2.4 g/dl (3.4-5.0); ALK PHOS 51 U/L (45-117); ANION GAP 8 MMOL/L (8-16); BILIRUBIN,TOTAL 0.5 mg/dL (0.2-1); BLOOD UREA NITROGEN 49 mg/dL (7-18); CALCIUM 7.9 mg/dL (8.5-10.1); CHLORIDE 106 mmol/L (98-107); CO2 27 mmol/L (21-32); CREATININE 1.3 mg/dL (0.55-1.3); GLUCOSE,RANDOM 142 mg/dL (74-106); POTASSIUM 4.7 mmol/L (3.5-5.1); SGOT/AST 33 U/L (15-37); SGPT/ALT 27 U/L (13-61); SODIUM 141 mmol/L (136-145)
[2018-07-10] MEDS ORDERED: PT OWN MED DRAWER 7, Y5N ONE ×3 (10:17→17:56)
[2018-07-10] MEDS: amLODIPine BESYLATE 10 MG TABLET (FP) PO SCH (10:21)
[2018-07-10] MEDS: CALCIUM 500MG/VIT-D 200 UNITS COMBO TABLET (FP) PO SCH (10:22)
[2018-07-10] MEDS: predniSONE 20 MG TABLET (UD) PO SCH (10:22)
[2018-07-10] MEDS: GABAPENTIN 300 MG CAPSULE (FP) PO SCH ×2 (10:22→21:24)
[2018-07-10] MEDS: PANTOPRAZOLE 40 MG TABLET (FP) PO SCH (10:22)
[2018-07-10] MEDS: SULFAMETHOXAZOLE/TRIMETHOPRIM 800MG/160MG D.S. TABLET PO SCH (10:22)
[2018-07-10] MEDS: BUDESONIDE/FORMETEROL FUMARATE 160/4.5 mcg INHALER IH SCH ×2 (10:23→21:24)
[2018-07-10] MEDS: VORICONAZOLE 200 MG TABLET (RESTRICTED TO ID) PO SCH ×2 (10:23→18:41)
[2018-07-10] MEDS: valACYclovir HCL 500 MG TABLET (FP) PO SCH ×2 (10:24→21:24)
[2018-07-10 10:40] LABS: HEMATOCRIT 29.1 % (32.4-45.2); HEMOGLOBIN 9.8 GM/dL (10.7-15.3); MCH 28.6 pg (25.7-33.7); MCHC 33.6 g/dl (32.0-36.0); MEAN CELL VOLUME 85.2 fl (80-96); MEAN PLT VOLUME 7.3 fl (7.5-11.1); PLATELET COUNT 211 K/MM3 (134-434); RBC 3.42 M/mm3 (3.60-5.2); RDW 28.8 % (11.6-15.6); WHITE BLOOD COUNT 8.6 K/mm3 (4.0-10.0)
--- NOTE | 2018-07-10 11:10 | PN ---
Progress Note (short form) - Note Progress Note: PULMONARY Subjective improvement VSS/Afebrile Gen: mildly tachypneic with speaking on NC O2 Heart: RRR Lung: Left base rhonchi/crackles Abd: soft, nontender Ext: no edema labs/meds/notes/ct reviewed Ct chest this am :much improved cavity and surrounding infiltrate Bal Klebsiella/Bal + galactomannan Improving on prednisone/zosyn/bactrim/voriconazole would continue same ID/Renal f/u I have called path for wedge biopsy report: still pending Tio JAY MD
--- NOTE | 2018-07-10 15:58 | PN ---
Progress Note (short form) - Note Progress Note: s: no chest pain, palps, dizziness, dyspnea Current Medications Acetaminophen (Tylenol -) 650 mg PO Q6H PRN PRN Reason: FEVER Albuterol/Ipratropium (Duoneb -) 1 amp NEB Q6H PRN PRN Reason: SHORTNESS OF BREATH Amlodipine Besylate (Norvasc -) 10 mg PO DAILY [facility] Last Admin: 07/10/18 10:21 Dose: 10 mg Budesonide/Formoterol Fumarate (Symbicort 160/4.5mcg -) 1 puff IH BID [facility] Last Admin: 07/10/18 10:23 Dose: 1 puff Calcium Carbonate/Cholecalciferol (Os-Solomon 500+D -) 1 tab PO DAILY [facility] Last Admin: 07/10/18 10:22 Dose: 1 tab Gabapentin (Neurontin -) 300 mg PO BID [facility] Last Admin: 07/10/18 10:22 Dose: 300 mg Heparin Sodium (Porcine) (Heparin -) 5,000 unit SQ TID [facility] Last Admin: 07/10/18 13:50 Dose: 5,000 unit Piperacillin Sod/Tazobactam (Sod 3.375 gm/ Dextrose) 50 mls @ 100 mls/hr IVPB Q8H-IV [facility]; Protocol Last Admin: 07/10/18 10:24 Dose: 100 mls/hr Insulin Aspart (Novolog Vial Sliding Scale -) 1 vial SQ ACHS [facility]; Protocol Last Admin: 07/10/18 13:39 Dose: Not Given Pantoprazole Sodium (Protonix -) 40 mg PO DAILY [facility] Last Admin: 07/10/18 10:22 Dose: 40 mg Prednisone (Deltasone -) 60 mg PO DAILY [facility] Last Admin: 07/10/18 10:22 Dose: 60 mg Trimethoprim/Sulfamethoxazole (Bactrim Ds -) 1 each PO MoWeFr@1000 [facility] Last Admin: 07/10/18 10:22 Dose: 1 each Valacyclovir HCl (Valtrex -) 500 mg PO BID [facility] Last Admin: 07/10/18 10:24 Dose: 500 mg Voriconazole (Vfend (Restricted To Id)) 200 mg PO BIDPC [facility] Last Admin: 07/10/18 10:23 Dose: 200 mg Vital Signs: Vital Signs Period Temp Pulse Resp BP Sys/Busby Pulse Ox Last 24 Hr 97 F-98.2 F 77-92 18-18 152-152/80-95 98-98 Constitutional: Yes: Well Nourished, Calm Eyes: Yes: Conjunctiva Clear Neck: Yes: Supple, Trachea Midline Respiratory: Yes: Regular, dec breath sounds bases Gastrointestinal: Yes: Normal Bowel Sounds Cardiovascular: Yes: Tachycardia JVD: No Heart Sounds: Yes: S1, S2 Murmur: No: Systolic Murmur Extremities: No: Cold Edema: No Peripheral Pulses: 2+ Left Doralis Pedis, 2+ Right Dorsalis Pedis Integumentary: No: Jaundice Neurological: Yes: Alert, Oriented Psychiatric: No: Agitated Assessment/Plan EKG: sinus tachycardia, no ischemic changes CXR: mirna infiltrates, new echo 06/2018 nl LV function, EF 60-65%, nl RV, mild TR, PASP at least 38 mmHg, trivial pericardial effusion s/p cardiac arrest, ?asystole, ventricular tachycardia - per patient prior to arrest was feeling very short of breath and anxious, noted to have frothy sputum and shaking-->thought to have had asp pna - s/p CPR, amio 300 mg IV x1, shock - ROSC reportedly <10 min, responsive now - d/w Dr. Sanchez who led code - asystole not noted. CPR began and given 1 mg epi, monitor placed after epi and showed VT - received amiodarone gtt post arrest, now dc'ed - VT after epi, may have been 2/2 receiving epinephrine - echo nl LV function - trop indeterminate range, flat trend - likely demand in setting of arrest, EKG no ischemic changes post arrest - unlikely ACS vasculitis - manage per rheum, on steroids - plan to start rituximab next week per rheum Lung abscess - manage per ID, pulm - s/p VATS for lung bx - held voriconazole while on amiodarone, now restarted COPD - manage per pulm MADAN - renal following
--- NOTE | 2018-07-10 16:32 | PN ---
Progress Note, Physician History of Present Illness: Pt seen and examined at bedside. She is awake and alert. She denies shortness of breath. - Current Medication List Current Medications: Active Medications Acetaminophen (Tylenol -) 650 mg PO Q6H PRN PRN Reason: FEVER Albuterol/Ipratropium (Duoneb -) 1 amp NEB Q6H PRN PRN Reason: SHORTNESS OF BREATH Amlodipine Besylate (Norvasc -) 10 mg PO DAILY [facility] Last Admin: 07/10/18 10:21 Dose: 10 mg Budesonide/Formoterol Fumarate (Symbicort 160/4.5mcg -) 1 puff IH BID [facility] Last Admin: 07/10/18 10:23 Dose: 1 puff Calcium Carbonate/Cholecalciferol (Os-Solomon 500+D -) 1 tab PO DAILY [facility] Last Admin: 07/10/18 10:22 Dose: 1 tab Gabapentin (Neurontin -) 300 mg PO BID [facility] Last Admin: 07/10/18 10:22 Dose: 300 mg Heparin Sodium (Porcine) (Heparin -) 5,000 unit SQ TID [facility] Last Admin: 07/10/18 13:50 Dose: 5,000 unit Piperacillin Sod/Tazobactam (Sod 3.375 gm/ Dextrose) 50 mls @ 100 mls/hr IVPB Q8H-IV [facility]; Protocol Last Admin: 07/10/18 10:24 Dose: 100 mls/hr Insulin Aspart (Novolog Vial Sliding Scale -) 1 vial SQ ACHS [facility]; Protocol Last Admin: 07/10/18 13:39 Dose: Not Given Pantoprazole Sodium (Protonix -) 40 mg PO DAILY [facility] Last Admin: 07/10/18 10:22 Dose: 40 mg Prednisone (Deltasone -) 60 mg PO DAILY [facility] Last Admin: 07/10/18 10:22 Dose: 60 mg Trimethoprim/Sulfamethoxazole (Bactrim Ds -) 1 each PO MoWeFr@1000 [facility] Last Admin: 07/10/18 10:22 Dose: 1 each Valacyclovir HCl (Valtrex -) 500 mg PO BID [facility] Last Admin: 07/10/18 10:24 Dose: 500 mg [facility]iconazole ([facility] ([facility] To Id)) [facility] Last Admin: 07/10/18 10:23 Dose: 200 mg - Objective Vital Signs: Vital Signs Temperature 97 F L 04/12/19 08:00 Pulse Rate 92 H 07/10/18 08:00 Respiratory Rate 18 07/10/18 09:00 Blood Pressure 152/95 07/10/18 08:00 O2 Sat by Pulse Oximetry (%) 98 07/10/18 09:00 Constitutional: Yes: Calm Eyes: Yes: Conjunctiva Clear HENT: Yes: Atraumatic Cardiovascular: Yes: S1, S2 Respiratory: Yes: On Nasal O2 Gastrointestinal: Yes: Soft Genitourinary: Yes: WNL Musculoskeletal: Yes: WNL Edema: Yes Edema: LLE: 1+, RLE: 1+ Neurological: Yes: Oriented Psychiatric: Yes: Oriented Labs: CBC, BMP 07/10/18 10:05 07/10/18 06:30 INR, PTT INR 0.88 (0.83-1.09) 07/06/18 15:30 Problem List - Problems (1) MADAN (acute kidney injury) Code(s): N17.9 - ACUTE KIDNEY FAILURE, UNSPECIFIED (2) Glomerulonephritis Code(s): N05.9 - UNSP NEPHRITIC SYNDROME WITH UNSPECIFIED MORPHOLOGIC CHANGES (3) Lung abscess Code(s): J85.2 - ABSCESS OF LUNG WITHOUT PNEUMONIA Qualifiers: Pulmonary abscess pneumonia presence: with pneumonia Laterality: left Lung location: upper lobe of lung Qualified Code(s): J85.1 - Abscess of lung with pneumonia (4) Vasculitis Code(s): I77.6 - ARTERITIS, UNSPECIFIED Assessment/Plan Current Medications Generic Name Dose Route Start Last Admin Trade Name Freq PRN Reason Stop Dose Admin Acetaminophen 650 mg 07/09/18 18:22 Tylenol - PO Q6H PRN FEVER Albuterol/Ipratropium 1 amp 07/09/18 18:22 Duoneb - NEB Q6H PRN SHORTNESS OF BREATH Amlodipine Besylate 10 mg 07/10/18 10:00 07/10/18 10:21 Norvasc - PO 10 mg DAILY [facility] Administration Budesonide/Formoterol Fumarate 1 puff 07/09/18 22:00 07/10/18 10:23 Symbicort 160/4.5mcg - IH 1 puff BID [facility] Administration Calcium Carbonate/Cholecalciferol 1 tab 07/10/18 10:00 07/10/18 10:22 Os-Solomon 500+D - PO 1 tab DAILY [facility] Administration Furosemide 40 mg 07/10/18 16:30 Lasix - PO 07/10/18 16:31 ONCE ONE Gabapentin 300 mg 07/09/18 22:00 07/10/18 10:22 Neurontin - PO 300 mg BID [facility] Administration Heparin Sodium (Porcine) 5,000 unit 07/09/18 22:00 07/10/18 13:50 Heparin - SQ 5,000 unit TID [facility] Administration Piperacillin Sod/Tazobactam 50 mls @ 100 mls/hr 07/10/18 02:00 07/10/18 10:24 Sod 3.375 gm/ Dextrose IVPB 100 mls/hr Q8H-IV [facility] Administration Protocol Insulin Aspart 1 vial 07/09/18 22:00 07/10/18 13:39 Novolog Vial Sliding Scale - SQ Not Given ACHS [facility] Protocol Pantoprazole Sodium 40 mg 07/10/18 10:00 07/10/18 10:22 Protonix - PO 40 mg DAILY [facility] Administration Prednisone 60 mg 07/10/18 10:00 07/10/18 10:22 Deltasone - PO 60 mg DAILY [facility] Administration Trimethoprim/Sulfamethoxazole 1 each 07/10/18 10:00 07/10/18 10:22 Bactrim Ds - PO 1 each MoWeFr@1000 [facility] Administration Valacyclovir HCl 500 mg 07/09/18 22:00 07/10/18 10:24 Valtrex - PO 500 mg BID [facility] Administration Voriconazole 200 mg 07/09/18 18:30 07/10/18 10:23 Vfend (Restricted To Id) PO 200 mg BIDPC [facility] Administration Impression 1. MADAN 2. r/o vasculitis 3. glomerulonephrotis 4. lung cavitary lesion 5. asthma 6. copd 7. rheumatoid arthritis 8. hx of renal cell cancer s/p nephrectomy 9. seizure 10. cardiac arrest Plan - renal function improving - follow repeat ua - cont steroids - called and discussed with rheum, they will start rituximab likely next week - pulm follow up - abx per ID - ct chest shows improvement Dr Mcneill
[2018-07-10] MEDS ORDERED: FUROSEMIDE 40 MG TABLET (FP) PO ONE (16:45)
--- NOTE | 2018-07-10 17:01 | PN ---
Progress Note (short form) - Note Progress Note: transferred to floor last night no complaints Vital Signs Period Temp Pulse Resp BP Sys/Busby Pulse Ox Last 24 Hr 97 F-98.2 F 77-92 18-18 152-152/80-95 98-98 cor-rrr lungs decreased bs at bases abd soft,nt ext +edema CBC, BMP 07/10/18 10:05 07/10/18 06:30 Microbiology 07/06/18 21:45 Blood Culture - Preliminary Blood - Peripheral Venous NO GROWTH OBTAINED AFTER 72 HOURS, INCUBATION TO CONTINUE FOR 2 DAYS. 07/06/18 15:45 Blood Culture - Preliminary Blood - Peripheral Venous NO GROWTH OBTAINED AFTER 72 HOURS, INCUBATION TO CONTINUE FOR [address] improved cavity a/p s/p code- ?seizure head ct normal neurology consult noted vasculitis-ANCA positive-management per rheumatology low suspicion TB-sputum afb negative, pcr negative times 2 BAL culture -pure culture klebsiella day #21 antibiotics-now on zosyn for possible aspiration BAL Galactommanan antigen is positive voriconazole -day #7 added PCP prophylaxis bactrim ds m/w/f fungal serologies and cultures pending she remains on high dose steroids and we cannot r/o fungal infection small sacral ulcer is dry-+HSV- continue valtrex for prophylaxis solitary kidney- s/p nephrectomy f/u cultures /pathology from BAL and lung biopsy pathology of lingula- afb/fungal smears negative appears stable from ID standpoint at this time Problem List - Problems (1) Lung abscess Code(s): J85.2 - ABSCESS OF LUNG WITHOUT PNEUMONIA Qualifiers: Pulmonary abscess pneumonia presence: with pneumonia Laterality: left Lung location: upper lobe of lung Qualified Code(s): J85.1 - Abscess of lung with pneumonia (2) Vasculitis Code(s): I77.6 - ARTERITIS, UNSPECIFIED
--- NOTE | 2018-07-10 17:06 | PATH ---
Surgical Pathology Report Patient Name: YUSRA IRELAND [facility]. Rec. #: [id number] /Age/Gender: 1955 (Age: 63) / F Account: [id number] Location: [facility] MED/SURG Taken: 06/25/2018 Received: 06/26/2018 Reported: 07/10/2018 Physicians: Bhupinder Blanc M.D. Emiliano Fletcher M.D. Joseph Brill, M.D. Specimen(s) Received LEFT UPPER LOBE WEDGE Clinical History Abscess of lung, pneumonia Final Diagnosis LUNG, ODALYS, WEDGE: PROMINENT, PREDOMINANTLY PERIBRONCHIAL CHRONIC INFLAMMATION ASSOCIATED WITH VARIABLE DEGREES OF BRONCHIAL DILATATION, MUCUS PLUGGING, FIBROSIS AND BRONCHIOLAR METAPLASIA. SCATTERED SMALL GRANULOMAS, SOME WITH A FOREIGN BODY TYPE APPEARANCE, SEE NOTE. Comments Note: The biopsy shows the features described above. The granulomas are associated with airways but are also located elsewhere in the lung parenchyma. While some have a conventional poorly-formed appearance, several have peculiar morphology and a foreign-body type appearance. I do not identify any clearly aspirated material, but the airway changes combined with the morphology of the granulomas raises the possibility of chronic aspiration. Hypersensitivity pneumonitis might also be a consideration but the features are less typical. I do not identify any microorganisms on the provided AFB, GMS or PAS stains although a low-grade infection might be considered in any case of granulomatous disease. The reported CT and clinical findings are difficult to resolve. The dilated airways could possibly account for what is reported as cavitary change; however, the ANCA positivity is less clear. Presuming the ANCA results are not a false positive, there are no features in the biopsy to suggest a vasculitic process such as granulomatosis with polyangiitis, Churg-Martina, etc and the features similarly do not suggest a UIP pattern which may show occasional positive serologic ANCA staining. Extensive clinical history is not provided but other entities which may produce lung disease and a serologic positive ANCA should also be considered such as Crohn's disease, although, again, the findings in the biopsy would not be typical. Continued clinical and radiographic correlation is recommended. Case sent for consultation to Dr. Nury Townsend from [place], [place], [place] ([id number]), the diagnosis above reflects her opinion. Electronically Signed Kiyoe Zarco, M.D. Gross Description Received in formalin labeled "left upper wedge," is a 5.0 x 2.5 x 0.6 cm lung wedge with a stapled margin of resection. The pleura is bruner-cruz and intact. Sectioning reveals pale bruner, spongy parenchyma. No discrete lesions are identified. The specimen is entirely submitted in 5 cassettes as follows: 1-staple line; 4-6-hnbzfual sequentially submitted specimen. 06/26/2018 [facility]06/26/2018
--- NOTE | 2018-07-10 17:20 | PROC ---
Procedure Note Procedure: Patientis feeling well. No change in numbness in hands and feet, She denies SOB, headache, arthralgia, chest pain, skin rash. P/E not in distress Lungs clear. S1 and S2 normal. No gallop no murmur . No fever. New chest CT- improvement in ODALYS consolidation and cavity. Creatinine 1.3. Urinalysis with protewin 3+ and blood 3+. Impression. Probably stable. Lung cavity 2o to ANCA positive vasculitis vs pneumonia. She received antibiotics for 3 weeks. Active urinary sediment probably 2o to vasculitis. As per discussion with Dr. Mcneill and Beto, I will start on Friday Rituximab 375 mg/m2 and plan 3 more doses, once per week.
[2018-07-10 17:53] LABS: EPI CELLS 1.9 /HPF (0-5/HPF); URINE APPEARANCE CLEAR; URINE BACTERIA 0.5 /hpf (NEGATIVE); URINE BILIRUBIN NEGATIVE (NEGATIVE); URINE CASTS 3 /hpf (0-8); URINE COLOR YELLOW; URINE GLUCOSE (UA) TRACE (NEGATIVE); URINE KETONE NEGATIVE (NEGATIVE); URINE LEUK ESTERASE TRACE (NEGATIVE); URINE NITRITE NEGATIVE (NEGATIVE); URINE PROTEIN 3+ (NEGATIVE); URINE WBC 6 /hpf (0-5)
[2018-07-10 18:11] LABS: URINE RBC 25 /hpf (0-4)
--- NOTE | 2018-07-10 21:52 | PN ---
Progress Note, Physician History of Present Illness: No new complaints - Current Medication List Current Medications: Active Medications Acetaminophen (Tylenol -) 650 mg PO Q6H PRN PRN Reason: FEVER Albuterol/Ipratropium (Duoneb -) 1 amp NEB Q6H PRN PRN Reason: SHORTNESS OF BREATH Amlodipine Besylate (Norvasc -) 10 mg PO DAILY [facility] Last Admin: 07/10/18 10:21 Dose: 10 mg Budesonide/Formoterol Fumarate (Symbicort 160/4.5mcg -) 1 puff IH BID [facility] Last Admin: 07/10/18 21:24 Dose: 1 puff Calcium Carbonate/Cholecalciferol (Os-Solomon 500+D -) 1 tab PO DAILY [facility] Last Admin: 07/10/18 10:22 Dose: 1 tab Gabapentin (Neurontin -) 300 mg PO BID [facility] Last Admin: 07/10/18 21:24 Dose: 300 mg Heparin Sodium (Porcine) (Heparin -) 5,000 unit SQ TID [facility] Last Admin: 07/10/18 21:23 Dose: 5,000 unit Piperacillin Sod/Tazobactam (Sod 3.375 gm/ Dextrose) 50 mls @ 100 mls/hr IVPB Q8H-IV [facility]; Protocol Last Admin: 07/10/18 17:52 Dose: 100 mls/hr Insulin Aspart (Novolog Vial Sliding Scale -) 1 vial SQ ACHS [facility]; Protocol Last Admin: 07/10/18 21:24 Dose: 6 unit Pantoprazole Sodium (Protonix -) 40 mg PO DAILY [facility] Last Admin: 07/10/18 10:22 Dose: 40 mg Prednisone (Deltasone -) 60 mg PO DAILY [facility] Last Admin: 07/10/18 10:22 Dose: 60 mg Trimethoprim/Sulfamethoxazole (Bactrim Ds -) 1 each PO MoWeFr@1000 [facility] Last Admin: 07/10/18 10:22 Dose: 1 each Valacyclovir HCl (Valtrex -) 500 mg PO BID [facility] Last Admin: 07/10/18 21:24 Dose: 500 mg Voriconazole (Vfend (Restricted To Id)) 200 mg PO BIDPC [facility] Last Admin: 07/10/18 18:41 Dose: 200 mg - Objective Vital Signs: Vital Signs Temperature 97.5 F L 07/10/18 20:00 Pulse Rate 86 07/10/18 20:00 Respiratory Rate 20 07/10/18 20:00 Blood Pressure 140/79 07/10/18 20:00 O2 Sat by Pulse Oximetry (%) 98 07/10/18 09:00 Neck: Yes: WNL, Supple Cardiovascular: Yes: WNL, Regular Rate and Rhythm Respiratory: Yes: WNL, Regular, CTA Bilaterally Gastrointestinal: Yes: WNL, Normal Bowel Sounds, Soft Edema: LLE: 1+, RLE: 1+ Labs: CBC, BMP 07/10/18 10:05 07/10/18 06:30 INR, PTT INR 0.88 (0.83-1.09) 07/06/18 15:30 Problem List - Problems (1) Acute respiratory failure Code(s): J96.00 - ACUTE RESPIRATORY FAILURE, UNSP W HYPOXIA OR HYPERCAPNIA (2) Lung abscess Code(s): J85.2 - ABSCESS OF LUNG WITHOUT PNEUMONIA Qualifiers: Pulmonary abscess pneumonia presence: with pneumonia Laterality: left Lung location: upper lobe of lung Qualified Code(s): J85.1 - Abscess of lung with pneumonia (3) Vasculitis Code(s): I77.6 - ARTERITIS, UNSPECIFIED (4) COPD (chronic obstructive pulmonary disease) Code(s): J44.9 - CHRONIC OBSTRUCTIVE PULMONARY DISEASE, UNSPECIFIED (5) CKD (chronic kidney disease) Code(s): N18.9 - CHRONIC KIDNEY DISEASE, UNSPECIFIED (6) Neuropathy Code(s): G62.9 - POLYNEUROPATHY, UNSPECIFIED (7) H/O renal cell cancer Code(s): Z85.528 - PERSONAL HISTORY OF OTHER MALIGNANT NEOPLASM OF KIDNEY
[2018-07-11] MEDS ORDERED: PIPERACILLIN/TAZOBACTAM 3.375 GM VIAL IVPB ONE ×4 (02:15→23:29)
[2018-07-11] MEDS ORDERED: DEXTROSE 5%-WATER - 50 ML IVPB ONE ×4 (02:15→23:29)
[2018-07-11] MEDS: PIPERACILLIN/TAZOB 3.375 GM 3.375 GM in DEXTROSE 5%-WATER - 50 ML IVPB SCH ×3 (03:33→17:37)
[2018-07-11] MEDS: HEPARIN NA (PORCINE) 5,000 UNITS/ML 1ML VIAL SQ SCH ×3 (05:38→21:18)
[2018-07-11] MEDS: INSULIN SLIDING SCALE (NOVOLOG) 1 VIAL SQ SCH ×4 (06:00→21:20)
[2018-07-11] MEDS ORDERED: PT OWN MED DRAWER 7, Y5N ONE ×4 (08:55→20:14)
[2018-07-11] MEDS: VORICONAZOLE 200 MG TABLET (RESTRICTED TO ID) PO SCH ×2 (09:00→18:10)
[2018-07-11] MEDS: predniSONE 20 MG TABLET (UD) PO SCH (09:47)
[2018-07-11] MEDS: PANTOPRAZOLE 40 MG TABLET (FP) PO SCH (09:48)
[2018-07-11] MEDS: valACYclovir HCL 500 MG TABLET (FP) PO SCH ×2 (09:48→21:21)
[2018-07-11] MEDS: GABAPENTIN 300 MG CAPSULE (FP) PO SCH ×2 (09:48→21:21)
[2018-07-11] MEDS: amLODIPine BESYLATE 10 MG TABLET (FP) PO SCH (09:48)
[2018-07-11] MEDS: CALCIUM 500MG/VIT-D 200 UNITS COMBO TABLET (FP) PO SCH (09:48)
[2018-07-11] MEDS: BUDESONIDE/FORMETEROL FUMARATE 160/4.5 mcg INHALER IH SCH ×2 (09:50→21:22)
--- NOTE | 2018-07-11 13:29 | PN ---
Progress Note (short form) - Note Progress Note: PULMONARY Denies shortness of breath, cough or fevers. Vital Signs Period Temp Pulse Resp BP Sys/Busby Pulse Ox Last 24 Hr 97.4 F-98.4 F 85-95 18-20 140-182/79-103 94-98 Gen: NAD at rest Heart: RRR Lung: decreased breath sounds at the bases Abd: soft, nontender Ext: no edema CBC, BMP 07/10/18 10:05 07/10/18 06:30 Active Medications Acetaminophen (Tylenol -) 650 mg PO Q6H PRN PRN Reason: FEVER Albuterol/Ipratropium (Duoneb -) 1 amp NEB Q6H PRN PRN Reason: SHORTNESS OF BREATH Amlodipine Besylate (Norvasc -) 10 mg PO DAILY [facility] Last Admin: 07/11/18 09:48 Dose: 10 mg Budesonide/Formoterol Fumarate (Symbicort 160/4.5mcg -) 1 puff IH BID [facility] Last Admin: 07/11/18 09:50 Dose: 1 puff Calcium Carbonate/Cholecalciferol (Os-Solomon 500+D -) 1 tab PO DAILY [facility] Last Admin: 07/11/18 09:48 Dose: 1 tab Gabapentin (Neurontin -) 300 mg PO BID [facility] Last Admin: 07/11/18 09:48 Dose: 300 mg Heparin Sodium (Porcine) (Heparin -) 5,000 unit SQ TID [facility] Last Admin: 07/11/18 05:38 Dose: 5,000 unit Piperacillin Sod/Tazobactam (Sod 3.375 gm/ Dextrose) 50 mls @ 100 mls/hr IVPB Q8H-IV [facility]; Protocol Last Admin: 07/11/18 09:49 Dose: 100 mls/hr Insulin Aspart (Novolog Vial Sliding Scale -) 1 vial SQ ACHS [facility]; Protocol Last Admin: 07/11/18 12:04 Dose: Not Given Pantoprazole Sodium (Protonix -) 40 mg PO DAILY [facility] Last Admin: 07/11/18 09:48 Dose: 40 mg Prednisone (Deltasone -) 60 mg PO DAILY [facility] Last Admin: 07/11/18 09:47 Dose: 60 mg Trimethoprim/Sulfamethoxazole (Bactrim Ds -) 1 each PO MoWeFr@1000 [facility] Last Admin: 07/10/18 10:22 Dose: 1 each Valacyclovir HCl (Valtrex -) 500 mg PO BID [facility] Last Admin: 07/11/18 09:48 Dose: 500 mg [facility]icon[facility])) [facility] Admin: 07/11/18 09:00 Dose: 200 mg A/P s/p Cardiopulmonary Arrest Acute Pulmonary Edema r/o Seizures Acute Hypoxic Respiratory Failure Lung Abscess Suspect Aspiration Pneumonia Renal cancer s/p nephrectomy Asthma Bronchiectasis S/P Left VAT/ODALYS wedge biopsy Suspected granulomatosis and polyangiits (matthias's) Acute Kidney Injury - continue antibiotics - f/u cultures - prednisone per rheum - monitor urine output, creatinine - O2 to keep SpO2 >90% - PO as tolerated - to start Rituxan
--- NOTE | 2018-07-11 15:22 | PN ---
Progress Note (short form) - Note Progress Note: feels well much more comfortable today no complaints oxygen is off Vital Signs Period Temp Pulse Resp BP Sys/Busby Pulse Ox Last 24 Hr 97.4 F-98.4 F 85-95 18-20 140-182/79-103 94-98 cor-rrr lungs decreased bs at bases abd soft,nt ext +edema CBC, BMP 07/10/18 10:05 07/10/18 06:30 Microbiology 07/06/18 21:45 Blood - Peripheral Venous Blood Culture - Preliminary NO GROWTH OBTAINED AFTER 96 HOURS, INCUBATION TO CONTINUE FOR 1 DAYS. 07/06/18 15:45 Blood - Peripheral Venous Blood Culture - Preliminary NO GROWTH OBTAINED AFTER 96 HOURS, INCUBATION TO CONTINUE FOR 1 DAYS. a/p vasculitis-remains on prednisone low suspicion TB-sputum afb negative, pcr negative times 2 BAL culture -pure culture klebsiella , day #22 antibiotics now on zosyn for possible recent aspiration and cavitary pneumonia ct scan is improved continue voriconazole continue bactrim small sacral ulcer is dry-+HSV- continue valtrex solitary kidney- s/p nephrectomy f/u cultures /pathology from BAL and lung biopsy pathology of lingula- afb/fungal smears negative Problem List - Problems (1) Lung abscess Code(s): J85.2 - ABSCESS OF LUNG WITHOUT PNEUMONIA Qualifiers: Pulmonary abscess pneumonia presence: with pneumonia Laterality: left Lung location: upper lobe of lung Qualified Code(s): J85.1 - Abscess of lung with pneumonia (2) Vasculitis Code(s): I77.6 - ARTERITIS, UNSPECIFIED
[2018-07-11] MEDS ORDERED: INSULIN (NOVOLOG) ASPART 100 UNITS/ML 10ML VIAL ONE (16:47)
--- NOTE | 2018-07-11 19:01 | PN ---
Progress Note, Physician History of Present Illness: Pt seen and examined at bedside. She is awake and alert. She denies shortness of breath. - Current Medication List Current Medications: Active Medications Acetaminophen (Tylenol -) 650 mg PO Q6H PRN PRN Reason: FEVER Albuterol/Ipratropium (Duoneb -) 1 amp NEB Q6H PRN PRN Reason: SHORTNESS OF BREATH Amlodipine Besylate (Norvasc -) 10 mg PO DAILY [facility] Last Admin: 07/11/18 09:48 Dose: 10 mg Budesonide/Formoterol Fumarate (Symbicort 160/4.5mcg -) 1 puff IH BID [facility] Last Admin: 07/11/18 09:50 Dose: 1 puff Calcium Carbonate/Cholecalciferol (Os-Solomon 500+D -) 1 tab PO DAILY [facility] Last Admin: 07/11/18 09:48 Dose: 1 tab Gabapentin (Neurontin -) 300 mg PO BID [facility] Last Admin: 07/11/18 09:48 Dose: 300 mg Heparin Sodium (Porcine) (Heparin -) 5,000 unit SQ TID [facility] Last Admin: 07/11/18 13:32 Dose: 5,000 unit Piperacillin Sod/Tazobactam (Sod 3.375 gm/ Dextrose) 50 mls @ 100 mls/hr IVPB Q8H-IV [facility]; Protocol Last Admin: 07/11/18 17:37 Dose: 100 mls/hr Insulin Aspart (Novolog Vial Sliding Scale -) 1 vial SQ ACHS [facility]; Protocol Last Admin: 07/11/18 16:48 Dose: 6 unit Pantoprazole Sodium (Protonix -) 40 mg PO DAILY [facility] Last Admin: 07/11/18 09:48 Dose: 40 mg Prednisone (Deltasone -) 60 mg PO DAILY [facility] Last Admin: 07/11/18 09:47 Dose: 60 mg Trimethoprim/Sulfamethoxazole (Bactrim Ds -) 1 each PO MoWeFr@1000 [facility] Last Admin: 07/10/18 10:22 Dose: 1 each Valacyclovir HCl (Valtrex -) 500 mg PO BID [facility] Last Admin: 07/11/18 09:48 Dose: 500 mg Voriconazole ([facility] (Rest[facility] To Id)) [facility] Admin: 07/11/18 18:10 Dose: 200 mg - Objective Vital Signs: Vital Signs Temperature 98.6 F 07/11/18 15:38 Pulse Rate 98 H 07/11/18 15:38 Respiratory Rate 18 07/11/18 15:38 Blood Pressure 151/91 07/11/18 11:20 O2 Sat by Pulse Oximetry (%) 94 L 07/11/18 09:00 Constitutional: Yes: Calm Eyes: Yes: Conjunctiva Clear HENT: Yes: Atraumatic Cardiovascular: Yes: S1, S2 Respiratory: Yes: On Nasal O2 Gastrointestinal: Yes: Soft Genitourinary: Yes: WNL Musculoskeletal: Yes: WNL Edema: Yes Edema: LLE: Trace, RLE: Trace Neurological: Yes: Oriented Psychiatric: Yes: Oriented Labs: CBC, BMP 07/10/18 10:05 07/10/18 06:30 INR, PTT INR 0.88 (0.83-1.09) 07/06/18 15:30 Problem List - Problems (1) MADAN (acute kidney injury) Code(s): N17.9 - ACUTE KIDNEY FAILURE, UNSPECIFIED (2) Glomerulonephritis Code(s): N05.9 - UNSP NEPHRITIC SYNDROME WITH UNSPECIFIED MORPHOLOGIC CHANGES (3) Lung abscess Code(s): J85.2 - ABSCESS OF LUNG WITHOUT PNEUMONIA Qualifiers: Pulmonary abscess pneumonia presence: with pneumonia Laterality: left Lung location: upper lobe of lung Qualified Code(s): J85.1 - Abscess of lung with pneumonia (4) Vasculitis Code(s): I77.6 - ARTERITIS, UNSPECIFIED Assessment/Plan Current Medications Generic Name Dose Route Start Last Admin Trade Name Freq PRN Reason Stop Dose Admin Acetaminophen 650 mg 07/09/18 18:22 Tylenol - PO Q6H PRN FEVER Albuterol/Ipratropium 1 amp 07/09/18 18:22 Duoneb - NEB Q6H PRN SHORTNESS OF BREATH Amlodipine Besylate 10 mg 07/10/18 10:00 07/11/18 09:48 Norvasc - PO 10 mg DAILY [facility] Administration Budesonide/Formoterol Fumarate 1 puff 07/09/18 22:00 07/11/18 09:50 Symbicort 160/4.5mcg - IH 1 puff BID [facility] Administration Calcium Carbonate/Cholecalciferol 1 tab 07/10/18 10:00 07/11/18 09:48 Os-Solomon 500+D - PO 1 tab DAILY [facility] Administration Gabapentin 300 mg 07/09/18 22:00 07/11/18 09:48 Neurontin - PO 300 mg BID [facility] Administration Heparin Sodium (Porcine) 5,000 unit 07/09/18 22:00 07/11/18 13:32 Heparin - SQ 5,000 unit TID [facility] Administration Piperacillin Sod/Tazobactam 50 mls @ 100 mls/hr 07/10/18 02:00 07/11/18 17:37 Sod 3.375 gm/ Dextrose IVPB 100 mls/hr Q8H-IV [facility] Administration Protocol Insulin Aspart 1 vial 07/09/18 22:00 07/11/18 16:48 Novolog Vial Sliding Scale - SQ 6 unit ACHS [facility] Administration Protocol Pantoprazole Sodium 40 mg 07/10/18 10:00 07/11/18 09:48 Protonix - PO 40 mg DAILY [facility] Administration Prednisone 60 mg 07/10/18 10:00 07/11/18 09:47 Deltasone - PO 60 mg DAILY [facility] Administration Trimethoprim/Sulfamethoxazole 1 each 07/10/18 10:00 07/10/18 10:22 Bactrim Ds - PO 1 each MoWeFr@1000 [facility] Administration Valacyclovir HCl 500 mg 07/09/18 22:00 07/11/18 09:48 Valtrex - PO 500 mg BID [facility] Administration Voriconazole 200 mg 07/09/18 18:30 07/11/18 18:10 Vfend (Restricted To Id) PO 200 mg BIDPC [facility] Administration Laboratory Tests 06/19/18 15:18 Hepatitis A Ab Total Negative Hep Bs Antigen Negative Hep Bs Antibody Non reactive Hep B Core Total Ab Negative HCV Quantitation Hcv not detected Impression 1. MADAN 2. r/o vasculitis 3. glomerulonephrotis 4. lung cavitary lesion 5. asthma 6. copd 7. rheumatoid arthritis 8. hx of renal cell cancer s/p nephrectomy 9. seizure 10. cardiac arrest 11. ckd Plan - check cmp in am - will evaluate for lasix again tomorrow, no lasix today - pt scheduled to start ritusimab on Friday, she spoke to rheum at length - hep panel noted, results negative - abx per ID Dr Mcneill
--- NOTE | 2018-07-11 21:44 | PN ---
Progress Note, Physician History of Present Illness: No new complaints - Current Medication List Current Medications: Active Medications Acetaminophen (Tylenol -) 650 mg PO Q6H PRN PRN Reason: FEVER Albuterol/Ipratropium (Duoneb -) 1 amp NEB Q6H PRN PRN Reason: SHORTNESS OF BREATH Amlodipine Besylate (Norvasc -) 10 mg PO DAILY [facility] Last Admin: 07/11/18 09:48 Dose: 10 mg Budesonide/Formoterol Fumarate (Symbicort 160/4.5mcg -) 1 puff IH BID [facility] Last Admin: 07/11/18 21:22 Dose: 1 puff Calcium Carbonate/Cholecalciferol (Os-Solomon 500+D -) 1 tab PO DAILY [facility] Last Admin: 07/11/18 09:48 Dose: 1 tab Gabapentin (Neurontin -) 300 mg PO BID [facility] Last Admin: 07/11/18 21:21 Dose: 300 mg Heparin Sodium (Porcine) (Heparin -) 5,000 unit SQ TID [facility] Last Admin: 07/11/18 21:18 Dose: 5,000 unit Piperacillin Sod/Tazobactam (Sod 3.375 gm/ Dextrose) 50 mls @ 100 mls/hr IVPB Q8H-IV [facility]; Protocol Last Admin: 07/11/18 17:37 Dose: 100 mls/hr Insulin Aspart (Novolog Vial Sliding Scale -) 1 vial SQ ACHS [facility]; Protocol Last Admin: 07/11/18 21:20 Dose: 8 unit Pantoprazole Sodium (Protonix -) 40 mg PO DAILY [facility] Last Admin: 07/11/18 09:48 Dose: 40 mg Prednisone (Deltasone -) 60 mg PO DAILY [facility] Last Admin: 07/11/18 09:47 Dose: 60 mg Trimethoprim/Sulfamethoxazole (Bactrim Ds -) 1 each PO MoWeFr@1000 [facility] Last Admin: 07/10/18 10:22 Dose: 1 each Valacyclovir HCl (Valtrex -) 500 mg PO BID [facility] Last Admin: 07/11/18 21:21 Dose: 500 mg Voriconazole (Vfend (Restricted To Id)) 200 mg PO BIDPC [facility] Last Admin: 07/11/18 18:10 Dose: 200 mg - Objective Vital Signs: Vital Signs Temperature 98.6 F 07/11/18 17:47 Pulse Rate 94 H 07/11/18 17:47 Respiratory Rate 20 07/11/18 17:47 Blood Pressure 145/82 07/11/18 17:47 O2 Sat by Pulse Oximetry (%) 94 L 07/11/18 09:00 Constitutional: Yes: Well Nourished Neck: Yes: WNL, Supple Cardiovascular: Yes: WNL, Regular Rate and Rhythm Respiratory: Yes: WNL, Regular, CTA Bilaterally Gastrointestinal: Yes: WNL, Normal Bowel Sounds, Soft Edema: LLE: 1+, RLE: 1+ Labs: CBC, BMP 07/10/18 10:05 07/10/18 06:30 INR, PTT INR 0.88 (0.83-1.09) 07/06/18 15:30 Problem List - Problems (1) Acute respiratory failure Assessment/Plan: S/P LVAT/Wedge resection w/ chest tube S/P cardiac arrest w/ V-Tach Resolved Code(s): J96.00 - ACUTE RESPIRATORY FAILURE, UNSP W HYPOXIA OR HYPERCAPNIA (2) Lung abscess Assessment/Plan: S/P LVAT/Wedge resection for biopsy Chest tube'Cavitary lesion ODALYS Mediastinal adenopathy Cont IV zosyn Cont valtrex/bactrim/Vfend Cont duoineb/symbicort CT scan chest w/out contrast showed improvement Code(s): J85.2 - ABSCESS OF LUNG WITHOUT PNEUMONIA Qualifiers: Pulmonary abscess pneumonia presence: with pneumonia Laterality: left Lung location: upper lobe of lung Qualified Code(s): J85.1 - Abscess of lung with pneumonia (3) Vasculitis Assessment/Plan: ANCA (+) vasculitis Cont po steroids and taper as per rheum Possible trial of rituximab in am Code(s): I77.6 - ARTERITIS, UNSPECIFIED (4) COPD (chronic obstructive pulmonary disease) Assessment/Plan: Cont inhalers Code(s): J44.9 - CHRONIC OBSTRUCTIVE PULMONARY DISEASE, UNSPECIFIED (5) CKD (chronic kidney disease) Assessment/Plan: As per renal Pt has h/o renal ca/nephrectomy Code(s): N18.9 - CHRONIC KIDNEY DISEASE, UNSPECIFIED (6) Neuropathy Assessment/Plan: ?Due to vasculitis Cont gabapentin Code(s): G62.9 - POLYNEUROPATHY, UNSPECIFIED (7) H/O renal cell cancer Assessment/Plan: H/O nephrectomy Code(s): Z85.528 - PERSONAL HISTORY OF OTHER MALIGNANT NEOPLASM OF KIDNEY
[2018-07-12] MEDS: PIPERACILLIN/TAZOB 3.375 GM 3.375 GM in DEXTROSE 5%-WATER - 50 ML IVPB SCH ×3 (01:20→17:35)
[2018-07-12] MEDS: INSULIN SLIDING SCALE (NOVOLOG) 1 VIAL SQ SCH ×4 (06:02→21:42)
[2018-07-12] MEDS: HEPARIN NA (PORCINE) 5,000 UNITS/ML 1ML VIAL SQ SCH ×3 (06:02→21:38)
[2018-07-12 08:45] LABS: ALBUMIN 2.6 g/dl (3.4-5.0); ALK PHOS 57 U/L (45-117); ANION GAP 6 MMOL/L (8-16); BILIRUBIN,TOTAL 0.3 mg/dL (0.2-1); BLOOD UREA NITROGEN 54 mg/dL (7-18); CALCIUM 8.1 mg/dL (8.5-10.1); CHLORIDE 108 mmol/L (98-107); CO2 30 mmol/L (21-32); CREATININE 1.5 mg/dL (0.55-1.3); GLUCOSE,RANDOM 103 mg/dL (74-106); POTASSIUM 4.1 mmol/L (3.5-5.1); SGOT/AST 13 U/L (15-37); SGPT/ALT 23 U/L (13-61); SODIUM 144 mmol/L (136-145); TOT PROT 5.2 g/dl (6.4-8.2)
[2018-07-12] MEDS ORDERED: PIPERACILLIN/TAZOBACTAM 3.375 GM VIAL IVPB ONE ×3 (09:17→23:42)
[2018-07-12] MEDS ORDERED: PT OWN MED DRAWER 7, Y5N ONE ×4 (09:17→21:16)
[2018-07-12] MEDS ORDERED: DEXTROSE 5%-WATER - 50 ML IVPB ONE ×3 (09:18→23:42)
[2018-07-12] MEDS: predniSONE 20 MG TABLET (UD) PO SCH (09:20)
[2018-07-12] MEDS: GABAPENTIN 300 MG CAPSULE (FP) PO SCH ×2 (09:21→21:38)
[2018-07-12] MEDS: amLODIPine BESYLATE 10 MG TABLET (FP) PO SCH (09:21)
[2018-07-12] MEDS: PANTOPRAZOLE 40 MG TABLET (FP) PO SCH (09:21)
[2018-07-12] MEDS: CALCIUM 500MG/VIT-D 200 UNITS COMBO TABLET (FP) PO SCH (09:21)
[2018-07-12] MEDS: VORICONAZOLE 200 MG TABLET (RESTRICTED TO ID) PO SCH ×2 (09:22→18:03)
[2018-07-12] MEDS: valACYclovir HCL 500 MG TABLET (FP) PO SCH ×2 (09:22→21:38)
[2018-07-12] MEDS: BUDESONIDE/FORMETEROL FUMARATE 160/4.5 mcg INHALER IH SCH ×2 (09:23→21:39)
[2018-07-12] MEDS ORDERED: INSULIN (NOVOLOG) ASPART 100 UNITS/ML 10ML VIAL ONE (11:30)
--- NOTE | 2018-07-12 12:55 | PN ---
Progress Note (short form) - Note Progress Note: PULMONARY Denies shortness of breath, cough or fevers. Vital Signs Period Temp Pulse Resp BP Sys/Busby Pulse Ox Last 24 Hr 98.2 F-98.6 F 78-98 18-20 120-159/68-96 92-94 Gen: NAD at rest Heart: RRR Lung: decreased breath sounds at the bases Abd: soft, nontender Ext: no edema CBC, BMP 07/10/18 10:05 07/12/18 07:00 Active Medications Acetaminophen (Tylenol -) 650 mg PO Q6H PRN PRN Reason: FEVER Albuterol/Ipratropium (Duoneb -) 1 amp NEB Q6H PRN PRN Reason: SHORTNESS OF BREATH Amlodipine Besylate (Norvasc -) 10 mg PO DAILY [facility] Last Admin: 07/12/18 09:21 Dose: 10 mg Budesonide/Formoterol Fumarate (Symbicort 160/4.5mcg -) 1 puff IH BID [facility] Last Admin: 07/12/18 09:23 Dose: 1 puff Calcium Carbonate/Cholecalciferol (Os-Solomon 500+D -) 1 tab PO DAILY [facility] Last Admin: 07/12/18 09:21 Dose: 1 tab Gabapentin (Neurontin -) 300 mg PO BID [facility] Last Admin: 07/12/18 09:21 Dose: 300 mg Heparin Sodium (Porcine) (Heparin -) 5,000 unit SQ TID [facility] Last Admin: 07/12/18 06:02 Dose: 5,000 unit Piperacillin Sod/Tazobactam (Sod 3.375 gm/ Dextrose) 50 mls @ 100 mls/hr IVPB Q8H-IV [facility]; Protocol Last Admin: 07/12/18 09:22 Dose: 100 mls/hr Insulin Aspart (Novolog Vial Sliding Scale -) 1 vial SQ ACHS [facility]; Protocol Last Admin: 07/12/18 11:31 Dose: 2 unit Pantoprazole Sodium (Protonix -) 40 mg PO DAILY [facility] Last Admin: 07/12/18 09:21 Dose: 40 mg Prednisone (Deltasone -) 60 mg PO DAILY [facility] Last Admin: 07/12/18 09:20 Dose: 60 mg Trimethoprim/Sulfamethoxazole (Bactrim Ds -) 1 each PO MoWeFr@1000 [facility] Last Admin: 07/10/18 10:22 Dose: 1 each Valacyclovir HCl (Valtrex -) 500 mg PO BID [facility] Last Admin: 07/12/18 09:22 Dose: 500 mg [facility]icon[facility] To [facility])) [facility] Admin: 07/12/18 09:22 Dose: 200 mg A/P s/p Cardiopulmonary Arrest Acute Pulmonary Edema r/o Seizures Acute Hypoxic Respiratory Failure Lung Abscess Suspect Aspiration Pneumonia Renal cancer s/p nephrectomy Asthma Bronchiectasis S/P Left VAT/ODALYS wedge biopsy 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
[2018-07-12] MEDS ORDERED: FUROSEMIDE 40 MG TABLET (FP) PO ONE (18:09)
--- NOTE | 2018-07-12 18:19 | PN ---
Progress Note, Physician History of Present Illness: Pt seen and examined at bedside. She denies shortness of breath. She complains of lower ext edema. - Current Medication List Current Medications: Active Medications Acetaminophen (Tylenol -) 650 mg PO Q6H PRN PRN Reason: FEVER Albuterol/Ipratropium (Duoneb -) 1 amp NEB Q6H PRN PRN Reason: SHORTNESS OF BREATH Amlodipine Besylate (Norvasc -) 10 mg PO DAILY [facility] Last Admin: 07/12/18 09:21 Dose: 10 mg Budesonide/Formoterol Fumarate (Symbicort 160/4.5mcg -) 1 puff IH BID [facility] Last Admin: 07/12/18 09:23 Dose: 1 puff Calcium Carbonate/Cholecalciferol (Os-Solomon 500+D -) 1 tab PO DAILY [facility] Last Admin: 07/12/18 09:21 Dose: 1 tab Gabapentin (Neurontin -) 300 mg PO BID [facility] Last Admin: 07/12/18 09:21 Dose: 300 mg Heparin Sodium (Porcine) (Heparin -) 5,000 unit SQ TID [facility] Last Admin: 07/12/18 15:00 Dose: 5,000 unit Piperacillin Sod/Tazobactam (Sod 3.375 gm/ Dextrose) 50 mls @ 100 mls/hr IVPB Q8H-IV [facility]; Protocol Last Admin: 07/12/18 17:35 Dose: 100 mls/hr Insulin Aspart (Novolog Vial Sliding Scale -) 1 vial SQ ACHS [facility]; Protocol Last Admin: 07/12/18 17:33 Dose: 6 unit Pantoprazole Sodium (Protonix -) 40 mg PO DAILY [facility] Last Admin: 07/12/18 09:21 Dose: 40 mg Prednisone (Deltasone -) 60 mg PO DAILY [facility] Last Admin: 07/12/18 09:20 Dose: 60 mg Trimethoprim/Sulfamethoxazole (Bactrim Ds -) 1 each PO MoWeFr@1000 [facility] Last Admin: 07/10/18 10:22 Dose: 1 each Valacyclovir HCl (Valtrex -) 500 mg PO BID [facility] Last Admin: 07/12/18 09:22 Dose: 500 mg Voriconazole (Vfend (Restricted To Id)) 200 mg PO BIDPC [facility] Last Admin: 07/12/18 18:03 Dose: 200 mg - Objective Vital Signs: Vital Signs Temperature 98.8 F 07/12/18 15:16 Pulse Rate 88 07/12/18 15:16 Respiratory Rate 18 07/12/18 15:16 Blood Pressure 159/96 07/12/18 08:20 O2 Sat by Pulse Oximetry (%) 92 L 07/12/18 09:00 Constitutional: Yes: Calm Eyes: Yes: Conjunctiva Clear HENT: Yes: Atraumatic Neck: Yes: Supple Cardiovascular: Yes: S1, S2 Respiratory: Yes: On Nasal O2 Gastrointestinal: Yes: Soft Musculoskeletal: Yes: WNL Edema: Yes Edema: LLE: 2+, RLE: 2+ Neurological: Yes: Oriented Psychiatric: Yes: Oriented Labs: CBC, BMP 07/10/18 10:05 07/12/18 07:00 INR, PTT INR 0.88 (0.83-1.09) 07/06/18 15:30 Problem List - Problems (1) MADAN (acute kidney injury) Code(s): N17.9 - ACUTE KIDNEY FAILURE, UNSPECIFIED (2) Glomerulonephritis Code(s): N05.9 - UNSP NEPHRITIC SYNDROME WITH UNSPECIFIED MORPHOLOGIC CHANGES (3) Lung abscess Code(s): J85.2 - ABSCESS OF LUNG WITHOUT PNEUMONIA Qualifiers: Pulmonary abscess pneumonia presence: with pneumonia Laterality: left Lung location: upper lobe of lung Qualified Code(s): J85.1 - Abscess of lung with pneumonia (4) Vasculitis Code(s): I77.6 - ARTERITIS, UNSPECIFIED Assessment/Plan Current Medications Generic Name Dose Route Start Last Admin Trade Name Freq PRN Reason Stop Dose Admin Acetaminophen 650 mg 07/09/18 18:22 Tylenol - PO Q6H PRN FEVER Albuterol/Ipratropium 1 amp 07/09/18 18:22 Duoneb - NEB Q6H PRN SHORTNESS OF BREATH Amlodipine Besylate 10 mg 07/10/18 10:00 07/12/18 09:21 Norvasc - PO 10 mg DAILY [facility] Administration Budesonide/Formoterol Fumarate 1 puff 07/09/18 22:00 07/12/18 09:23 Symbicort 160/4.5mcg - IH 1 puff BID [facility] Administration Calcium Carbonate/Cholecalciferol 1 tab 07/10/18 10:00 07/12/18 09:21 Os-Solomon 500+D - PO 1 tab DAILY [facility] Administration Gabapentin 300 mg 07/09/18 22:00 07/12/18 09:21 Neurontin - PO 300 mg BID [facility] Administration Heparin Sodium (Porcine) 5,000 unit 07/09/18 22:00 07/12/18 15:00 Heparin - SQ 5,000 unit TID [facility] Administration Piperacillin Sod/Tazobactam 50 mls @ 100 mls/hr 07/10/18 02:00 07/12/18 17:35 Sod 3.375 gm/ Dextrose IVPB 100 mls/hr Q8H-IV [facility] Administration Protocol Insulin Aspart 1 vial 07/09/18 22:00 07/12/18 17:33 Novolog Vial Sliding Scale - SQ 6 unit ACHS [facility] Administration Protocol Pantoprazole Sodium 40 mg 07/10/18 10:00 07/12/18 09:21 Protonix - PO 40 mg DAILY [facility]AN Administration Prednisone 60 mg 07/10/18 10:00 07/12/18 09:20 Deltasone - PO 60 mg DAILY ROSHAN Administration Trimethoprim/Sulfamethoxazole 1 each 07/10/18 10:00 07/10/18 10:22 Bactrim Ds - PO 1 each MoWeFr@1000 ROSHAN Administration Valacyclovir HCl 500 mg 07/09/18 22:00 07/12/18 09:22 Valtrex - PO 500 mg BID ROSHAN Administration Voriconazole 200 mg 07/09/18 18:30 07/12/18 18:03 Vfend (Restricted To Id) PO 200 mg BIDPC ROSHAN Administration Impression 1. MADAN 2. r/o vasculitis 3. glomerulonephrotis 4. lung cavitary lesion 5. asthma 6. copd 7. rheumatoid arthritis 8. hx of renal cell cancer s/p nephrectomy 9. seizure 10. cardiac arrest 11. ckd 12. solitary kidney Plan - monitor renal function - will give a dose of lasix - pt will start ritux tomorrow - hep panel noted, results negative - abx per ID Dr Mcneill
--- NOTE | 2018-07-12 22:10 | PN ---
Progress Note, Physician History of Present Illness: Pt ambulated today w/out oxygen - Current Medication List Current Medications: Active Medications Acetaminophen (Tylenol -) 650 mg PO Q6H PRN PRN Reason: FEVER Albuterol/Ipratropium (Duoneb -) 1 amp NEB Q6H PRN PRN Reason: SHORTNESS OF BREATH Amlodipine Besylate (Norvasc -) 10 mg PO DAILY [facility] Last Admin: 07/12/18 09:21 Dose: 10 mg Budesonide/Formoterol Fumarate (Symbicort 160/4.5mcg -) 1 puff IH BID [facility] Last Admin: 07/12/18 21:39 Dose: 1 puff Calcium Carbonate/Cholecalciferol (Os-Solomon 500+D -) 1 tab PO DAILY [facility] Last Admin: 07/12/18 09:21 Dose: 1 tab Gabapentin (Neurontin -) 300 mg PO BID [facility] Last Admin: 07/12/18 21:38 Dose: 300 mg Heparin Sodium (Porcine) (Heparin -) 5,000 unit SQ TID [facility] Last Admin: 07/12/18 21:38 Dose: 5,000 unit Piperacillin Sod/Tazobactam (Sod 3.375 gm/ Dextrose) 50 mls @ 100 mls/hr IVPB Q8H-IV [facility]; Protocol Last Admin: 07/12/18 17:35 Dose: 100 mls/hr Insulin Aspart (Novolog Vial Sliding Scale -) 1 vial SQ ACHS [facility]; Protocol Last Admin: 07/12/18 21:42 Dose: 8 unit Pantoprazole Sodium (Protonix -) 40 mg PO DAILY [facility] Last Admin: 07/12/18 09:21 Dose: 40 mg Prednisone (Deltasone -) 60 mg PO DAILY [facility] Last Admin: 07/12/18 09:20 Dose: 60 mg Trimethoprim/Sulfamethoxazole (Bactrim Ds -) 1 each PO MoWeFr@1000 [facility] Last Admin: 07/10/18 10:22 Dose: 1 each Valacyclovir HCl (Valtrex -) 500 mg PO BID [facility] Last Admin: 07/12/18 21:38 Dose: 500 mg [facility] ([facility] Id)) [facility] Last Admin: 07/12/18 18:03 Dose: 200 mg - Objective Vital Signs: Vital Signs Temperature 97.7 F 07/12/18 18:00 Pulse Rate 93 H 04/14/19 18:00 Respiratory Rate 20 07/12/18 18:00 Blood Pressure 155/88 07/12/18 18:00 O2 Sat by Pulse Oximetry (%) 92 L 07/12/18 09:00 Neck: Yes: WNL, Supple Cardiovascular: Yes: WNL, Regular Rate and Rhythm Respiratory: Yes: WNL, Regular, CTA Bilaterally Gastrointestinal: Yes: WNL, Normal Bowel Sounds, Soft Labs: CBC, BMP 07/10/18 10:05 07/12/18 07:00 INR, PTT INR 0.88 (0.83-1.09) 07/06/18 15:30 Problem List - Problems (1) Lung abscess Assessment/Plan: S/P LVAT/Wedge resection for biopsy Chest tube'Cavitary lesion ODALYS Mediastinal adenopathy Cont IV zosyn Cont valtrex/bactrim/Vfend Cont duoineb/symbicort CT scan chest w/out contrast showed improvement Code(s): J85.2 - ABSCESS OF LUNG WITHOUT PNEUMONIA Qualifiers: Pulmonary abscess pneumonia presence: with pneumonia Laterality: left Lung location: upper lobe of lung Qualified Code(s): J85.1 - Abscess of lung with pneumonia (2) Vasculitis Assessment/Plan: ANCA (+) vasculitis Cont po steroids and taper as per rheum Possible trial of rituximab in am Code(s): I77.6 - ARTERITIS, UNSPECIFIED (3) COPD (chronic obstructive pulmonary disease) Assessment/Plan: Cont inhalers Code(s): J44.9 - CHRONIC OBSTRUCTIVE PULMONARY DISEASE, UNSPECIFIED (4) CKD (chronic kidney disease) Assessment/Plan: As per renal Pt has h/o renal ca/nephrectomy Code(s): N18.9 - CHRONIC KIDNEY DISEASE, UNSPECIFIED (5) Neuropathy Assessment/Plan: ?Due to vasculitis Cont gabapentin Code(s): G62.9 - POLYNEUROPATHY, UNSPECIFIED (6) H/O renal cell cancer Assessment/Plan: H/O nephrectomy Code(s): Z85.528 - PERSONAL HISTORY OF OTHER MALIGNANT NEOPLASM OF KIDNEY (7) Acute respiratory failure Assessment/Plan: S/P LVAT/Wedge resection w/ chest tube S/P cardiac arrest w/ V-Tach Resolved Code(s): J96.00 - ACUTE RESPIRATORY FAILURE, UNSP W HYPOXIA OR HYPERCAPNIA
[2018-07-13] MEDS: PIPERACILLIN/TAZOB 3.375 GM 3.375 GM in DEXTROSE 5%-WATER - 50 ML IVPB SCH ×3 (01:55→17:58)
[2018-07-13] MEDS: HEPARIN NA (PORCINE) 5,000 UNITS/ML 1ML VIAL SQ SCH ×3 (05:47→21:21)
[2018-07-13] MEDS: INSULIN SLIDING SCALE (NOVOLOG) 1 VIAL SQ SCH ×4 (06:15→21:23)
[2018-07-13] MEDS ORDERED: PT OWN MED DRAWER 7, Y5N ONE ×2 (09:10→17:56)
[2018-07-13] MEDS ORDERED: PIPERACILLIN/TAZOBACTAM 3.375 GM VIAL IVPB ONE ×3 (09:10→20:57)
[2018-07-13] MEDS ORDERED: DEXTROSE 5%-WATER - 50 ML IVPB ONE ×2 (09:10→17:56)
[2018-07-13] MEDS: SULFAMETHOXAZOLE/TRIMETHOPRIM 800MG/160MG D.S. TABLET PO SCH (09:14)
[2018-07-13] MEDS: VORICONAZOLE 200 MG TABLET (RESTRICTED TO ID) PO SCH ×2 (09:14→17:59)
[2018-07-13] MEDS: predniSONE 20 MG TABLET (UD) PO SCH (09:14)
[2018-07-13] MEDS: GABAPENTIN 300 MG CAPSULE (FP) PO SCH ×2 (09:15→21:22)
[2018-07-13] MEDS: PANTOPRAZOLE 40 MG TABLET (FP) PO SCH (09:15)
[2018-07-13] MEDS: CALCIUM 500MG/VIT-D 200 UNITS COMBO TABLET (FP) PO SCH (09:15)
[2018-07-13] MEDS: amLODIPine BESYLATE 10 MG TABLET (FP) PO SCH (09:15)
[2018-07-13] MEDS: valACYclovir HCL 500 MG TABLET (FP) PO SCH ×2 (09:15→21:21)
[2018-07-13] MEDS: BUDESONIDE/FORMETEROL FUMARATE 160/4.5 mcg INHALER IH SCH ×2 (09:17→21:27)
--- NOTE | 2018-07-13 09:54 | PN ---
Progress Note (short form) - Note Progress Note: The patient is feeling well. No SOB, noheadachesnotgeneralmalaise. P/E Lungs clear, S1and S2 normal, no gallop no murmur No activw joints. The lung biopsy of the lingula was reported with peribronchial chronic inflammation firbosis and bronchiolarmetaplasia. Scattered small granulomas. Findings are not suggestive of vasculitis. The cavitary lesion in in the ODALYS. Laboratory work-up: creatinine 1.5, UA with protein 3+ and blood 2+. As the possibility of ANCA posuitive vasculitis with lung in renal involvement is very likely, she will be strated today on Rituximab 375 mg/M2 (Rave protocol) . Problem List - Problems (1) ANCA-positive vasculitis Code(s): I77.6 - ARTERITIS, UNSPECIFIED
--- NOTE | 2018-07-13 10:05 | PN ---
Progress Note (short form) - Note Progress Note: Breathing feels overall better. Still mildly tachypneic with movement/ambulation. Intake & Output 07/10/18 07/11/18 07/12/18 07/13/18 23:59 23:59 23:59 23:59 Intake Total 200 530 930 170 Balance 200 530 930 170 Last Vital Signs Temp Pulse Resp BP Pulse Ox 99 F 93 H 20 157/94 94 L 07/13/18 06:22 07/12/18 22:00 07/13/18 06:24 07/13/18 06:24 07/12/18 21:00 Active Medications Acetaminophen (Tylenol -) 650 mg PO Q6H PRN PRN Reason: FEVER Albuterol/Ipratropium (Duoneb -) 1 amp NEB Q6H PRN PRN Reason: SHORTNESS OF BREATH Amlodipine Besylate (Norvasc -) 10 mg PO DAILY [facility] Last Admin: 07/13/18 09:15 Dose: 10 mg Budesonide/Formoterol Fumarate (Symbicort 160/4.5mcg -) 1 puff IH BID [facility] Last Admin: 07/13/18 09:17 Dose: 1 puff Calcium Carbonate/Cholecalciferol (Os-Solomon 500+D -) 1 tab PO DAILY [facility] Last Admin: 07/13/18 09:15 Dose: 1 tab Gabapentin (Neurontin -) 300 mg PO BID [facility] Last Admin: 07/13/18 09:15 Dose: 300 mg Heparin Sodium (Porcine) (Heparin -) 5,000 unit SQ TID [facility] Last Admin: 07/13/18 05:47 Dose: 5,000 unit Piperacillin Sod/Tazobactam (Sod 3.375 gm/ Dextrose) 50 mls @ 100 mls/hr IVPB Q8H-IV [facility]; Protocol Last Admin: 07/13/18 09:15 Dose: 100 mls/hr Insulin Aspart (Novolog Vial Sliding Scale -) 1 vial SQ ACHS [facility]; Protocol Last Admin: 07/13/18 06:15 Dose: 2 unit Pantoprazole Sodium (Protonix -) 40 mg PO DAILY [facility] Last Admin: 07/13/18 09:15 Dose: 40 mg Prednisone (Deltasone -) 60 mg PO DAILY [facility] Last Admin: 07/13/18 09:14 Dose: 60 mg Trimethoprim/Sulfamethoxazole (Bactrim Ds -) 1 each PO MoWeFr@1000 [facility] Last Admin: 07/13/18 09:14 Dose: 1 each Valacyclovir HCl (Valtrex -) 500 mg PO BID [facility] Last Admin: 07/13/18 09:15 Dose: 500 mg [facility] To Id)) [facility] Last Admin: 07/13/18 09:14 Dose: 200 mg GENERAL: Awake and alert, less tachypneic HEAD: Normal with no signs of trauma. EYES: PERRL, extraocular movements intact, sclera anicteric, conjunctiva clear. No ptosis. ENT: Ears normal, nares patent, oropharynx clear without exudates, moist mucous membranes. NECK: Trachea midline, full range of motion, supple. LUNGS:bibasilar rhonchi, Left > Right, (-) wheeze. HEART: Regular rate and rhythm, S1, S2 without murmur, rub or gallop. ABDOMEN: Soft, nontender, nondistended, normoactive bowel sounds, no guarding, no rebound, no hepatosplenomegaly, no masses. EXTREMITIES: 2+ pulses, warm, well-perfused, no edema. NEUROLOGICAL: Non-focal. PSYCH: Following commands. 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
[2018-07-13] MEDS ORDERED: ACETAMINOPHEN 500 MG TABLET (FP) PO ONE (11:15)
[2018-07-13] MEDS ORDERED: methylPREDNISolone NA SUCC 125 MG/2 ML VIAL IVPB ONE (11:15)
[2018-07-13] MEDS ORDERED: diphenhydrAMINE HCL 25 MG CAPSULE (FP) PO ONE (11:15)
--- NOTE | 2018-07-13 11:25 | PN ---
Progress Note (short form) - Note Progress Note: feels well much more comfortable today Vital Signs Period Temp Pulse Resp BP Sys/Busby Pulse Ox Last 24 Hr 97.7 F-99 F 88-93 18-20 155-157/88-94 94 cor-rrr lungs clear abd soft,nt ext +edema CBC, BMP 07/10/18 10:05 07/12/18 07:00 a/p vasculitis-for rituxan today, remains onn prednisone low suspicion TB-sputum afb negative, pcr negative times 2 BAL culture -pure culture klebsiella , day #24 antibiotics now on zosyn for possible recent aspiration and cavitary pneumonia ct scan is improved she is refusing picc line, plan to switch to po antibiotics when ready for discharge continue voriconazole continue bactrim small sacral ulcer is dry-+HSV- continue valtrex solitary kidney- s/p nephrectomy f/u cultures from BAL and lung biopsy pathology of lingula- afb/fungal smears negative Problem List - Problems (1) Lung abscess Code(s): J85.2 - ABSCESS OF LUNG WITHOUT PNEUMONIA Qualifiers: Pulmonary abscess pneumonia presence: with pneumonia Laterality: left Lung location: upper lobe of lung Qualified Code(s): J85.1 - Abscess of lung with pneumonia (2) Vasculitis Code(s): I77.6 - ARTERITIS, UNSPECIFIED
[2018-07-13] MEDS ORDERED: RITUXIMAB IVPB ONE (11:45)
[2018-07-13] MEDS ORDERED: WATER IVPB ONE (11:45)
[2018-07-13] MEDS ORDERED: DEXTROSE 5% IVPB ONE (11:45)
--- NOTE | 2018-07-13 16:07 | PN ---
Progress Note (short form) - Note Progress Note: s: no chest pain, palps, dizziness, dyspnea Current Medications Acetaminophen (Tylenol -) 650 mg PO Q6H PRN PRN Reason: FEVER Albuterol/Ipratropium (Duoneb -) 1 amp NEB Q6H PRN PRN Reason: SHORTNESS OF BREATH Amlodipine Besylate (Norvasc -) 10 mg PO DAILY [facility] Last Admin: 07/13/18 09:15 Dose: 10 mg Budesonide/Formoterol Fumarate (Symbicort 160/4.5mcg -) 1 puff IH BID [facility] Last Admin: 07/13/18 09:17 Dose: 1 puff Calcium Carbonate/Cholecalciferol (Os-Solomon 500+D -) 1 tab PO DAILY [facility] Last Admin: 07/13/18 09:15 Dose: 1 tab Gabapentin (Neurontin -) 300 mg PO BID [facility] Last Admin: 07/13/18 09:15 Dose: 300 mg Heparin Sodium (Porcine) (Heparin -) 5,000 unit SQ TID [facility] Last Admin: 07/13/18 15:39 Dose: 5,000 unit Piperacillin Sod/Tazobactam (Sod 3.375 gm/ Dextrose) 50 mls @ 100 mls/hr IVPB Q8H-IV [facility]; Protocol Last Admin: 07/13/18 09:15 Dose: 100 mls/hr Rituximab 500 mg/ Rituximab (180 mg/ Dextrose) 340 mls @ 50 mls/hr IVPB ONCE ONE Stop: 07/13/18 18:32 Last Admin: 07/13/18 11:52 Dose: 50 mls/hr Insulin Aspart (Novolog Vial Sliding Scale -) 1 vial SQ ACHS [facility]; Protocol Last Admin: 07/13/18 11:37 Dose: Not Given Pantoprazole Sodium (Protonix -) 40 mg PO DAILY [facility] Last Admin: 07/13/18 09:15 Dose: 40 mg Prednisone (Deltasone -) 60 mg PO DAILY [facility] Last Admin: 07/13/18 09:14 Dose: 60 mg Trimethoprim/Sulfamethoxazole (Bactrim Ds -) 1 each PO MoWeFr@1000 [facility] Last Admin: 07/13/18 09:14 Dose: 1 each Valacyclovir HCl (Valtrex -) 500 mg PO BID [facility] Last Admin: 07/13/18 09:15 Dose: 500 mg Voriconazole (Vfend (Restricted To Id)) 200 mg PO BIDPC [facility] Last Admin: 07/13/18 09:14 Dose: 200 mg Vital Signs Period Temp Pulse Resp BP Sys/Busby Pulse Ox Last 24 Hr 97.7 F-99 F 92-95 18-20 155-163/83-102 94-95 Constitutional: Yes: Well Nourished, Calm Eyes: Yes: Conjunctiva Clear Neck: Yes: Supple, Trachea Midline Respiratory: Yes: Regular, dec breath sounds bases Gastrointestinal: Yes: Normal Bowel Sounds Cardiovascular: Yes: Tachycardia JVD: No Heart Sounds: Yes: S1, S2 Murmur: No: Systolic Murmur Extremities: No: Cold Edema: No Peripheral Pulses: 2+ Left Doralis Pedis, 2+ Right Dorsalis Pedis Integumentary: No: Jaundice Neurological: Yes: Alert, Oriented Psychiatric: No: Agitated Assessment/Plan EKG: sinus tachycardia, no ischemic changes CXR: mirna infiltrates, new echo 06/2018 nl LV function, EF 60-65%, nl RV, mild TR, PASP at least 38 mmHg, trivial pericardial effusion s/p cardiac arrest, ?asystole, ventricular tachycardia - per patient prior to arrest was feeling very short of breath and anxious, noted to have frothy sputum and shaking-->thought to have had asp pna - s/p CPR, amio 300 mg IV x1, shock - ROSC reportedly <10 min, responsive now - d/w Dr. Sanchez who led code - asystole not noted. CPR began and given 1 mg epi, monitor placed after epi and showed VT - received amiodarone gtt post arrest, now dc'ed - VT after epi, may have been 2/2 receiving epinephrine - echo nl LV function - trop indeterminate range, flat trend - likely demand in setting of arrest, EKG no ischemic changes post arrest - unlikely ACS vasculitis - manage per rheum, on steroids - plan to start rituximab next week per rheum Lung abscess - manage per ID, pulm - s/p VATS for lung bx - held voriconazole while on amiodarone, now restarted COPD - manage per pulm MADAN - renal following HTN - continue amlodipine cardiac abdul stable
--- NOTE | 2018-07-13 16:39 | PN ---
Progress Note, Physician History of Present Illness: Pt seen and examined at bedside. She is awake and alert. She tolerated the rituximab today. - Current Medication List Current Medications: Active Medications Acetaminophen (Tylenol -) 650 mg PO Q6H PRN PRN Reason: FEVER Albuterol/Ipratropium (Duoneb -) 1 amp NEB Q6H PRN PRN Reason: SHORTNESS OF BREATH Amlodipine Besylate (Norvasc -) 10 mg PO DAILY [facility] Last Admin: 07/13/18 09:15 Dose: 10 mg Budesonide/Formoterol Fumarate (Symbicort 160/4.5mcg -) 1 puff IH BID [facility] Last Admin: 07/13/18 09:17 Dose: 1 puff Calcium Carbonate/Cholecalciferol (Os-Solomon 500+D -) 1 tab PO DAILY [facility] Last Admin: 07/13/18 09:15 Dose: 1 tab Gabapentin (Neurontin -) 300 mg PO BID [facility] Last Admin: 07/13/18 09:15 Dose: 300 mg Heparin Sodium (Porcine) (Heparin -) 5,000 unit SQ TID [facility] Last Admin: 07/13/18 15:39 Dose: 5,000 unit Piperacillin Sod/Tazobactam (Sod 3.375 gm/ Dextrose) 50 mls @ 100 mls/hr IVPB Q8H-IV [facility]; Protocol Last Admin: 07/13/18 09:15 Dose: 100 mls/hr Rituximab 500 mg/ Rituximab (180 mg/ Dextrose) 340 mls @ 50 mls/hr IVPB ONCE ONE Stop: 07/13/18 18:32 Last Admin: 07/13/18 11:52 Dose: 50 mls/hr Insulin Aspart (Novolog Vial Sliding Scale -) 1 vial SQ ACHS [facility]; Protocol Last Admin: 07/13/18 11:37 Dose: Not Given Pantoprazole Sodium (Protonix -) 40 mg PO DAILY [facility] Last Admin: 07/13/18 09:15 Dose: 40 mg Prednisone (Deltasone -) 60 mg PO DAILY [facility] Last Admin: 07/13/18 09:14 Dose: 60 mg Trimethoprim/Sulfamethoxazole (Bactrim Ds -) 1 each PO MoWeFr@1000 [facility] Last Admin: 07/13/18 09:14 Dose: 1 each Valacyclovir HCl (Valtrex -) 500 mg PO BID [facility] Last Admin: 07/13/18 09:15 Dose: 500 mg Voriconazole (Vfend (Restricted To Id)) 200 mg PO BIDPC [facility] Last Admin: 07/13/18 09:14 Dose: 200 mg - Objective Vital Signs: Vital Signs Temperature 98.8 F 07/13/18 10:45 Pulse Rate 95 H 07/13/18 10:45 Respiratory Rate 18 07/13/18 10:45 Blood Pressure 156/83 07/13/18 10:45 O2 Sat by Pulse Oximetry (%) 95 07/13/18 09:00 Constitutional: Yes: Calm Eyes: Yes: Conjunctiva Clear HENT: Yes: Atraumatic Neck: Yes: Supple Cardiovascular: Yes: S1, S2 Respiratory: Yes: On Nasal O2 Gastrointestinal: Yes: Soft Genitourinary: Yes: WNL Musculoskeletal: Yes: WNL Edema: Yes Edema: LLE: Trace, RLE: Trace Neurological: Yes: Oriented Psychiatric: Yes: Oriented Labs: CBC, BMP 07/10/18 10:05 07/12/18 07:00 INR, PTT INR 0.88 (0.83-1.09) 07/06/18 15:30 Problem List - Problems (1) MADAN (acute kidney injury) Code(s): N17.9 - ACUTE KIDNEY FAILURE, UNSPECIFIED (2) Glomerulonephritis Code(s): N05.9 - UNSP NEPHRITIC SYNDROME WITH UNSPECIFIED MORPHOLOGIC CHANGES (3) Lung abscess Code(s): J85.2 - ABSCESS OF LUNG WITHOUT PNEUMONIA Qualifiers: Pulmonary abscess pneumonia presence: with pneumonia Laterality: left Lung location: upper lobe of lung Qualified Code(s): J85.1 - Abscess of lung with pneumonia (4) Vasculitis Code(s): I77.6 - ARTERITIS, UNSPECIFIED Assessment/Plan Current Medications Generic Name Dose Route Start Last Admin Trade Name Freq PRN Reason Stop Dose Admin Acetaminophen 650 mg 07/09/18 18:22 Tylenol - PO Q6H PRN FEVER Albuterol/Ipratropium 1 amp 07/09/18 18:22 Duoneb - NEB Q6H PRN SHORTNESS OF BREATH Amlodipine Besylate 10 mg 07/10/18 10:00 07/13/18 09:15 Norvasc - PO 10 mg DAILY [facility] Administration Budesonide/Formoterol Fumarate 1 puff 07/09/18 22:00 07/13/18 09:17 Symbicort 160/4.5mcg - IH 1 puff BID [facility] Administration Calcium Carbonate/Cholecalciferol 1 tab 07/10/18 10:00 07/13/18 09:15 Os-Solomon 500+D - PO 1 tab DAILY [facility] Administration Gabapentin 300 mg 07/09/18 22:00 07/13/18 09:15 Neurontin - PO 300 mg BID [facility] Administration Heparin Sodium (Porcine) 5,000 unit 07/09/18 22:00 07/13/18 15:39 Heparin - SQ 5,000 unit TID [facility] Administration Piperacillin Sod/Tazobactam 50 mls @ 100 mls/hr 07/10/18 02:00 07/13/18 09:15 Sod 3.375 gm/ Dextrose IVPB 100 mls/hr Q8H-IV [facility] Administration Protocol Rituximab 500 mg/ Rituximab 340 mls @ 50 mls/hr 07/13/18 11:45 07/13/18 11:52 180 mg/ Dextrose IVPB 07/13/18 18:32 50 mls/hr ONCE ONE Administration Insulin Aspart 1 vial 07/09/18 22:00 07/13/18 11:37 Novolog Vial Sliding Scale - SQ Not Given ACHS [facility] Protocol Pantoprazole Sodium 40 mg 07/10/18 10:00 07/13/18 09:15 Protonix - PO 40 mg DAILY [facility] Administration Prednisone 60 mg 07/10/18 10:00 07/13/18 09:14 Deltasone - PO 60 mg DAILY [facility] Administration Trimethoprim/Sulfamethoxazole 1 each 07/10/18 10:00 07/13/18 09:14 Bactrim Ds - PO 1 each MoWeFr@1000 [facility] Administration Valacyclovir HCl 500 mg 07/09/18 22:00 07/13/18 09:15 Valtrex - PO 500 mg BID [facility] Administration Voriconazole 200 mg 07/09/18 18:30 07/13/18 09:14 Vfend (Restricted To Id) PO 200 mg BIDPC [facility] Administration Impression 1. MADAN 2. r/o vasculitis 3. glomerulonephrotis 4. lung cavitary lesion 5. asthma 6. copd 7. rheumatoid arthritis 8. hx of renal cell cancer s/p nephrectomy 9. seizure 10. cardiac arrest 11. ckd 12. solitary kidney Plan - check bmp in am - will evaluate for lasix daily, will hold today - pt did get her first dose of rituximab - abx per ID Dr Mcneill
[2018-07-13] MEDS ORDERED: INSULIN (NOVOLOG) ASPART 100 UNITS/ML 10ML VIAL ONE ×2 (16:51→21:22)
--- NOTE | 2018-07-13 21:05 | PN ---
Progress Note, Physician - Current Medication List Current Medications: Active Medications Acetaminophen (Tylenol -) 650 mg PO Q6H PRN PRN Reason: FEVER Albuterol/Ipratropium (Duoneb -) 1 amp NEB Q6H PRN PRN Reason: SHORTNESS OF BREATH Amlodipine Besylate (Norvasc -) 10 mg PO DAILY [facility] Last Admin: 07/13/18 09:15 Dose: 10 mg Budesonide/Formoterol Fumarate (Symbicort 160/4.5mcg -) 1 puff IH BID [facility] Last Admin: 07/13/18 09:17 Dose: 1 puff Calcium Carbonate/Cholecalciferol (Os-Solomon 500+D -) 1 tab PO DAILY [facility] Last Admin: 07/13/18 09:15 Dose: 1 tab Gabapentin (Neurontin -) 300 mg PO BID [facility] Last Admin: 07/13/18 09:15 Dose: 300 mg Heparin Sodium (Porcine) (Heparin -) 5,000 unit SQ TID [facility] Last Admin: 07/13/18 15:39 Dose: 5,000 unit Piperacillin Sod/Tazobactam (Sod 3.375 gm/ Dextrose) 50 mls @ 100 mls/hr IVPB Q8H-IV [facility]; Protocol Last Admin: 07/13/18 17:58 Dose: 100 mls/hr Insulin Aspart (Novolog Vial Sliding Scale -) 1 vial SQ ACHS [facility]; Protocol Last Admin: 07/13/18 16:59 Dose: 6 unit Pantoprazole Sodium (Protonix -) 40 mg PO DAILY [facility] Last Admin: 07/13/18 09:15 Dose: 40 mg Prednisone (Deltasone -) 60 mg PO DAILY [facility] Last Admin: 07/13/18 09:14 Dose: 60 mg Trimethoprim/Sulfamethoxazole (Bactrim Ds -) 1 each PO MoWeFr@1000 [facility] Last Admin: 07/13/18 09:14 Dose: 1 each Valacyclovir HCl (Valtrex -) 500 mg PO BID [facility] Last Admin: 07/13/18 09:15 Dose: 500 mg Voriconazole (Vfend (Restricted To Id)) 200 mg PO BIDPC [facility] Last Admin: 07/13/18 17:59 Dose: 200 mg - Objective Vital Signs: Vital Signs Temperature 98.8 F 07/13/18 10:45 Pulse Rate 95 H 07/13/18 10:45 Respiratory Rate 18 07/13/18 10:45 Blood Pressure 156/83 07/13/18 10:45 O2 Sat by Pulse Oximetry (%) 95 07/13/18 09:00 Labs: CBC, BMP 07/10/18 10:05 07/12/18 07:00 INR, PTT INR 0.88 (0.83-1.09) 07/06/18 15:30 Problem List - Problems (1) Lung abscess Code(s): J85.2 - ABSCESS OF LUNG WITHOUT PNEUMONIA Qualifiers: Pulmonary abscess pneumonia presence: with pneumonia Laterality: left Lung location: upper lobe of lung Qualified Code(s): J85.1 - Abscess of lung with pneumonia (2) Vasculitis Code(s): I77.6 - ARTERITIS, UNSPECIFIED (3) COPD (chronic obstructive pulmonary disease) Code(s): J44.9 - CHRONIC OBSTRUCTIVE PULMONARY DISEASE, UNSPECIFIED (4) CKD (chronic kidney disease) Code(s): N18.9 - CHRONIC KIDNEY DISEASE, UNSPECIFIED (5) Neuropathy Code(s): G62.9 - POLYNEUROPATHY, UNSPECIFIED (6) H/O renal cell cancer Code(s): Z85.528 - PERSONAL HISTORY OF OTHER MALIGNANT NEOPLASM OF KIDNEY
[2018-07-14] MEDS: PIPERACILLIN/TAZOB 3.375 GM 3.375 GM in DEXTROSE 5%-WATER - 50 ML IVPB SCH ×3 (01:04→17:58)
[2018-07-14] MEDS: HEPARIN NA (PORCINE) 5,000 UNITS/ML 1ML VIAL SQ SCH ×3 (05:32→21:19)
[2018-07-14] MEDS: INSULIN SLIDING SCALE (NOVOLOG) 1 VIAL SQ SCH ×4 (06:04→21:19)
[2018-07-14] MEDS ORDERED: PT OWN MED DRAWER 7, Y5N ONE ×3 (08:13→20:57)
[2018-07-14 08:41] LABS: BASO % 0.3 % (0-2.0); HEMATOCRIT 29.1 % (32.4-45.2); HEMOGLOBIN 10.1 GM/dL (10.7-15.3); LYMPH % 11.5 % (8-40); MCH 29.7 pg (25.7-33.7); MCHC 34.7 g/dl (32.0-36.0); MEAN CELL VOLUME 85.6 fl (80-96); MEAN PLT VOLUME 6.9 fl (7.5-11.1); MONO % 2.9 % (3.8-10.2); NEUT % 85.3 % (42.8-82.8); PLATELET COUNT 204 K/MM3 (134-434); RBC 3.39 M/mm3 (3.60-5.2); RDW 28.5 % (11.6-15.6); WHITE BLOOD COUNT 5.4 K/mm3 (4.0-10.0)
[2018-07-14] MEDS: VORICONAZOLE 200 MG TABLET (RESTRICTED TO ID) PO SCH ×2 (08:47→18:15)
--- NOTE | 2018-07-14 10:01 | PN ---
Progress Note (short form) - Note Progress Note: Breathing feels overall better. S/P Rituxan yesterday without event. Intake & Output 07/11/18 07/12/18 07/13/18 07/14/18 23:59 23:59 23:59 23:59 Intake Total 530 930 760 300 Balance 530 930 760 300 Last Vital Signs Temp Pulse Resp BP Pulse Ox 98 F 98 H 20 164/94 95 07/14/18 06:10 07/14/18 06:10 07/14/18 06:10 07/14/18 06:10 07/13/18 21:00 Active Medications Acetaminophen (Tylenol -) 650 mg PO Q6H PRN PRN Reason: FEVER Albuterol/Ipratropium (Duoneb -) 1 amp NEB Q6H PRN PRN Reason: SHORTNESS OF BREATH Amlodipine Besylate (Norvasc -) 10 mg PO DAILY [facility] Last Admin: 07/13/18 09:15 Dose: 10 mg Budesonide/Formoterol Fumarate (Symbicort 160/4.5mcg -) 1 puff IH BID [facility] Last Admin: 07/13/18 21:27 Dose: 1 puff Calcium Carbonate/Cholecalciferol (Os-Solomon 500+D -) 1 tab PO DAILY [facility] Last Admin: 07/13/18 09:15 Dose: 1 tab Gabapentin (Neurontin -) 300 mg PO BID [facility] Last Admin: 07/13/18 21:22 Dose: 300 mg Heparin Sodium (Porcine) (Heparin -) 5,000 unit SQ TID [facility] Last Admin: 07/14/18 05:32 Dose: 5,000 unit Piperacillin Sod/Tazobactam (Sod 3.375 gm/ Dextrose) 50 mls @ 100 mls/hr IVPB Q8H-IV [facility]; Protocol Last Admin: 07/14/18 01:04 Dose: 100 mls/hr Insulin Aspart (Novolog Vial Sliding Scale -) 1 vial SQ ACHS [facility]; Protocol Last Admin: 07/14/18 06:04 Dose: 2 unit Pantoprazole Sodium (Protonix -) 40 mg PO DAILY [facility] Last Admin: 07/13/18 09:15 Dose: 40 mg Prednisone (Deltasone -) 60 mg PO DAILY [facility] Last Admin: 07/13/18 09:14 Dose: 60 mg Trimethoprim/Sulfamethoxazole (Bactrim Ds -) 1 each PO MoWeFr@1000 [facility] Last Admin: 07/13/18 09:14 Dose: 1 each Valacyclovir HCl (Valtrex -) 500 mg PO BID [facility] Last Admin: 07/13/18 21:21 Dose: 500 mg Voriconazole ([facility] (Restricted To Id)) [facility] Last Admin: 07/14/18 08:47 Dose: 200 mg GENERAL: Awake and alert, less tachypneic HEAD: Normal with no signs of trauma. EYES: PERRL, extraocular movements intact, sclera anicteric, conjunctiva clear. No ptosis. ENT: Ears normal, nares patent, oropharynx clear without exudates, moist mucous membranes. NECK: Trachea midline, full range of motion, supple. LUNGS: bibasilar rhonchi, Left > Right, (-) wheeze. HEART: Regular rate and rhythm, S1, S2 without murmur, rub or gallop. ABDOMEN: Soft, nontender, nondistended, normoactive bowel sounds, no guarding, no rebound, no hepatosplenomegaly, no masses. EXTREMITIES: 2+ pulses, warm, well-perfused, no edema. NEUROLOGICAL: Non-focal. PSYCH: Following commands. SKIN: Warm, dry, normal turgor, no rashes or lesions noted Laboratory Results - last 24 hr 07/13/18 07/13/18 07/13/18 11:27 16:49 21:20 WBC RBC Hgb Hct MCV MCH MCHC RDW Plt Count MPV Absolute Neuts (auto) Neutrophils % Lymphocytes % Monocytes % Eosinophils % Basophils % Nucleated RBC % POC Glucometer 150 287 371 07/14/18 07/14/18 05:34 08:30 WBC 5.4 RBC 3.39 L Hgb 10.1 L Hct 29.1 L MCV 85.6 MCH 29.7 MCHC 34.7 RDW 28.5 H Plt Count 204 MPV 6.9 L Absolute Neuts (auto) 4.6 Neutrophils % 85.3 H Lymphocytes % 11.5 Monocytes % 2.9 L Eosinophils % 0.0 D Basophils % 0.3 Nucleated RBC % 0 POC Glucometer 191 ASSESSMENT/PLAN: Acute Respiratory Failure: Resolved APE Lung Abscess Renal cancer s/p nephrectomy x 7 years ago Asthma Neuropathy Bronchiectasis S/P Left VAT with wedge biopsy in the ODALYS Empyema 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
[2018-07-14] MEDS ORDERED: PIPERACILLIN/TAZOBACTAM 3.375 GM VIAL IVPB ONE ×2 (10:49→17:49)
[2018-07-14] MEDS ORDERED: DEXTROSE 5%-WATER - 50 ML IVPB ONE ×2 (10:49→17:49)
[2018-07-14] MEDS: PANTOPRAZOLE 40 MG TABLET (FP) PO SCH (10:58)
[2018-07-14] MEDS: CALCIUM 500MG/VIT-D 200 UNITS COMBO TABLET (FP) PO SCH (10:58)
[2018-07-14] MEDS: GABAPENTIN 300 MG CAPSULE (FP) PO SCH ×2 (10:58→21:19)
[2018-07-14] MEDS: predniSONE 20 MG TABLET (UD) PO SCH (10:58)
[2018-07-14] MEDS: amLODIPine BESYLATE 10 MG TABLET (FP) PO SCH (10:58)
[2018-07-14] MEDS: valACYclovir HCL 500 MG TABLET (FP) PO SCH ×2 (11:07→21:24)
[2018-07-14] MEDS: BUDESONIDE/FORMETEROL FUMARATE 160/4.5 mcg INHALER IH SCH ×2 (11:14→21:21)
[2018-07-14 12:14] LABS: ANISOCYTOSIS 2+; MACROCYTOSIS 1+; OVALOCYTE 1+; PLATELET ESTIMATE NORMAL; TEAR DROP CELLS 1+
[2018-07-14] MEDS ORDERED: INSULIN (NOVOLOG) ASPART 100 UNITS/ML 10ML VIAL ONE (12:21)
[2018-07-14] MEDS ORDERED: FUROSEMIDE 40 MG TABLET (FP) PO ONE (15:02)
[2018-07-14 15:05] LABS: ALBUMIN 2.9 g/dl (3.4-5.0); ALK PHOS 69 U/L (45-117); ANION GAP 7 MMOL/L (8-16); BILIRUBIN,TOTAL 0.4 mg/dL (0.2-1); BLOOD UREA NITROGEN 55 mg/dL (7-18); CALCIUM 8.9 mg/dL (8.5-10.1); CHLORIDE 110 mmol/L (98-107); CO2 26 mmol/L (21-32); CREATININE 1.5 mg/dL (0.55-1.3); GLUCOSE,RANDOM 152 mg/dL (74-106); POTASSIUM 4.9 mmol/L (3.5-5.1); SGOT/AST 13 U/L (15-37); SGPT/ALT 26 U/L (13-61); SODIUM 144 mmol/L (136-145); TOT PROT 5.9 g/dl (6.4-8.2)
--- NOTE | 2018-07-14 15:19 | PN ---
Progress Note (short form) - Note Progress Note: s: no chest pain, palps, dizziness sob Current Medications Generic Name Dose Route Start Last Admin Trade Name Freq PRN Reason Stop Dose Admin Acetaminophen 650 mg 07/09/18 18:22 Tylenol - PO Q6H PRN FEVER Albuterol/Ipratropium 1 amp 07/09/18 18:22 Duoneb - NEB Q6H PRN SHORTNESS OF BREATH Amlodipine Besylate 10 mg 07/10/18 10:00 07/14/18 10:58 Norvasc - PO 10 mg DAILY [facility] Administration Budesonide/Formoterol Fumarate 1 puff 07/09/18 22:00 07/14/18 11:14 Symbicort 160/4.5mcg - IH 1 puff BID [facility] Administration Calcium Carbonate/Cholecalciferol 1 tab 07/10/18 10:00 07/14/18 10:58 Os-Solomon 500+D - PO 1 tab DAILY [facility] Administration Gabapentin 300 mg 07/09/18 22:00 07/14/18 10:58 Neurontin - PO 300 mg BID [facility] Administration Heparin Sodium (Porcine) 5,000 unit 07/09/18 22:00 07/14/18 14:56 Heparin - SQ 5,000 unit TID [facility] Administration Piperacillin Sod/Tazobactam 50 mls @ 100 mls/hr 07/10/18 02:00 07/14/18 10:58 Sod 3.375 gm/ Dextrose IVPB 100 mls/hr Q8H-IV [facility] Administration Protocol Insulin Aspart 1 vial 07/09/18 22:00 07/14/18 12:22 Novolog Vial Sliding Scale - SQ 4 unit ACHS [facility] Administration Protocol Pantoprazole Sodium 40 mg 07/10/18 10:00 07/14/18 10:58 Protonix - PO 40 mg DAILY [facility] Administration Prednisone 60 mg 07/10/18 10:00 07/14/18 10:58 Deltasone - PO 60 mg DAILY [facility] Administration Trimethoprim/Sulfamethoxazole 1 each 07/10/18 10:00 07/13/18 09:14 Bactrim Ds - PO 1 each MoWeFr@1000 [facility] Administration Valacyclovir HCl 500 mg 07/09/18 22:00 07/14/18 11:07 Valtrex - PO 500 mg BID [facility] Administration Voriconazole 200 mg 07/09/18 18:30 07/14/18 08:47 Vfend (Restricted To Id) PO 200 mg BIDPC [facility] Administration Vital Signs: Vital Signs Period Temp Pulse Resp BP Sys/Busby Pulse Ox Last 24 Hr 97.6 F-98.6 F 98-106 17-21 157-164/88-97 95 Constitutional: Yes: Well Nourished, Calm Respiratory: Yes: cta bl nl eff Gastrointestinal: Yes: Normal Bowel Sounds Cardiovascular: Yes: Tachycardia JVD: No Heart Sounds: Yes: S1, S2 Murmur: No: Systolic Murmur Extremities: No: Cold Edema: 1+ le edema bl Integumentary: No: Jaundice Neurological: Yes: Alert, Oriented Psychiatric: No: Agitated CBC, BMP 07/14/18 08:30 07/14/18 08:30 Assessment/Plan EKG: sinus tachycardia, no ischemic changes CXR: mirna infiltrates, new echo 06/2018 nl LV function, EF 60-65%, nl RV, mild TR, PASP at least 38 mmHg, trivial pericardial effusion s/p cardiac arrest, ?asystole, ventricular tachycardia - per patient prior to arrest was feeling very short of breath and anxious, noted to have frothy sputum and shaking-->thought to have had asp pna - s/p CPR, amio 300 mg IV x1, shock - ROSC reportedly <10 min, responsive now - d/w Dr. Sanchez who led code - asystole not noted. CPR began and given 1 mg epi, monitor placed after epi and showed VT - received amiodarone gtt post arrest, now dc'ed - VT after epi, may have been 2/2 receiving epinephrine - echo nl LV function - trop indeterminate range, flat trend - likely demand in setting of arrest, EKG no ischemic changes post arrest - unlikely ACS vasculitis - manage per rheum, on steroids - rituximab per rheum Lung abscess - manage per ID, pulm - s/p VATS for lung bx COPD - manage per pulm MADAN - renal following HTN - continue amlodipine. no hx htn, likely elevated 2/2 steroids. le edema: -will give po lasix 40 once today and monitor
--- NOTE | 2018-07-14 15:20 | PN ---
Progress Note, Physician History of Present Illness: Pt seen and examined at bedside. She is awake and alert. She denies shortness of breath. She complains of edema. - Current Medication List Current Medications: Active Medications Acetaminophen (Tylenol -) 650 mg PO Q6H PRN PRN Reason: FEVER Albuterol/Ipratropium (Duoneb -) 1 amp NEB Q6H PRN PRN Reason: SHORTNESS OF BREATH Amlodipine Besylate (Norvasc -) 10 mg PO DAILY [facility] Last Admin: 07/14/18 10:58 Dose: 10 mg Budesonide/Formoterol Fumarate (Symbicort 160/4.5mcg -) 1 puff IH BID [facility] Last Admin: 07/14/18 11:14 Dose: 1 puff Calcium Carbonate/Cholecalciferol (Os-Solomon 500+D -) 1 tab PO DAILY [facility] Last Admin: 07/14/18 10:58 Dose: 1 tab Gabapentin (Neurontin -) 300 mg PO BID [facility] Last Admin: 07/14/18 10:58 Dose: 300 mg Heparin Sodium (Porcine) (Heparin -) 5,000 unit SQ TID [facility] Last Admin: 07/14/18 14:56 Dose: 5,000 unit Piperacillin Sod/Tazobactam (Sod 3.375 gm/ Dextrose) 50 mls @ 100 mls/hr IVPB Q8H-IV [facility]; Protocol Last Admin: 07/14/18 10:58 Dose: 100 mls/hr Insulin Aspart (Novolog Vial Sliding Scale -) 1 vial SQ ACHS [facility]; Protocol Last Admin: 07/14/18 12:22 Dose: 4 unit Pantoprazole Sodium (Protonix -) 40 mg PO DAILY [facility] Last Admin: 07/14/18 10:58 Dose: 40 mg Prednisone (Deltasone -) 60 mg PO DAILY [facility] Last Admin: 07/14/18 10:58 Dose: 60 mg Trimethoprim/Sulfamethoxazole (Bactrim Ds -) 1 each PO MoWeFr@1000 [facility] Last Admin: 07/13/18 09:14 Dose: 1 each Valacyclovir HCl (Valtrex -) 500 mg PO BID [facility] Last Admin: 07/14/18 11:07 Dose: 500 mg Voriconazole (Vfend (Restricted To Id)) 200 mg PO BIDPC [facility] Last Admin: 07/14/18 08:47 Dose: 200 mg - Objective Vital Signs: Vital Signs Temperature 97.6 F 07/14/18 15:00 Pulse Rate 106 H 07/14/18 15:00 Respiratory Rate 21 H 07/14/18 15:00 Blood Pressure 162/88 07/14/18 15:00 O2 Sat by Pulse Oximetry (%) 95 07/13/18 21:00 Constitutional: Yes: Calm Eyes: Yes: Conjunctiva Clear HENT: Yes: Atraumatic Cardiovascular: Yes: S1, S2 Respiratory: Yes: Rhonchi Gastrointestinal: Yes: Soft Genitourinary: Yes: WNL Musculoskeletal: Yes: WNL Edema: Yes Edema: LLE: 1+, RLE: 1+ Neurological: Yes: Oriented Psychiatric: Yes: Oriented Labs: CBC, BMP 07/14/18 08:30 07/14/18 08:30 INR, PTT INR 0.88 (0.83-1.09) 07/06/18 15:30 Problem List - Problems (1) MADAN (acute kidney injury) Code(s): N17.9 - ACUTE KIDNEY FAILURE, UNSPECIFIED (2) Glomerulonephritis Code(s): N05.9 - UNSP NEPHRITIC SYNDROME WITH UNSPECIFIED MORPHOLOGIC CHANGES (3) Lung abscess Code(s): J85.2 - ABSCESS OF LUNG WITHOUT PNEUMONIA Qualifiers: Qualified Code(s): J85.1 - Abscess of lung with pneumonia (4) Vasculitis Code(s): I77.6 - ARTERITIS, UNSPECIFIED Assessment/Plan Current Medications Generic Name Dose Route Start Last Admin Trade Name Freq PRN Reason Stop Dose Admin Acetaminophen 650 mg 07/09/18 18:22 Tylenol - PO Q6H PRN FEVER Albuterol/Ipratropium 1 amp 07/09/18 18:22 Duoneb - NEB Q6H PRN SHORTNESS OF BREATH Amlodipine Besylate 10 mg 07/10/18 10:00 07/14/18 10:58 Norvasc - PO 10 mg DAILY [facility] Administration Budesonide/Formoterol Fumarate 1 puff 07/09/18 22:00 07/14/18 11:14 Symbicort 160/4.5mcg - IH 1 puff BID [facility] Administration Calcium Carbonate/Cholecalciferol 1 tab 07/10/18 10:00 07/14/18 10:58 Os-Solomon 500+D - PO 1 tab DAILY [facility] Administration Gabapentin 300 mg 07/09/18 22:00 07/14/18 10:58 Neurontin - PO 300 mg BID [facility] Administration Heparin Sodium (Porcine) 5,000 unit 07/09/18 22:00 07/14/18 14:56 Heparin - SQ 5,000 unit TID [facility] Administration Piperacillin Sod/Tazobactam 50 mls @ 100 mls/hr 07/10/18 02:00 07/14/18 10:58 Sod 3.375 gm/ Dextrose IVPB 100 mls/hr Q8H-IV [facility] Administration Protocol Insulin Aspart 1 vial 07/09/18 22:00 07/14/18 12:22 Novolog Vial Sliding Scale - SQ 4 unit ACHS [facility] Administration Protocol Pantoprazole Sodium 40 mg 07/10/18 10:00 07/14/18 10:58 Protonix - PO 40 mg DAILY [facility] Administration Prednisone 60 mg 07/10/18 10:00 07/14/18 10:58 Deltasone - PO 60 mg DAILY [facility] Administration Trimethoprim/Sulfamethoxazole 1 each 07/10/18 10:00 07/13/18 09:14 Bactrim Ds - PO 1 each MoWeFr@1000 [facility] Administration Valacyclovir HCl 500 mg 07/09/18 22:00 07/14/18 11:07 Valtrex - PO 500 mg BID [facility] Administration Voriconazole 200 mg 07/09/18 18:30 07/14/18 08:47 Vfend (Restricted To Id) PO 200 mg BIDPC [facility] Administration Laboratory Tests 07/09/18 07/10/18 07/12/18 05:30 06:30 07:00 Albumin 2.4 L 2.4 L 2.6 L 07/14/18 08:30 Albumin 2.9 L Impression 1. MADAN 2. r/o vasculitis 3. glomerulonephrotis 4. lung cavitary lesion 5. asthma 6. copd 7. rheumatoid arthritis 8. hx of renal cell cancer s/p nephrectomy 9. seizure 10. cardiac arrest 11. ckd 12. solitary kidney Plan - give 40 mg of lasix - pt is s/p 1 dose of rituximab - abx per ID - albumin is improving - will need close outpt follow up after discharge Dr Mcneill
--- NOTE | 2018-07-14 23:50 | PN ---
Progress Note, Physician - Current Medication List Current Medications: Active Medications Acetaminophen (Tylenol -) 650 mg PO Q6H PRN PRN Reason: FEVER Amlodipine Besylate (Norvasc -) 10 mg PO DAILY [facility] Last Admin: 07/14/18 10:58 Dose: 10 mg Budesonide/Formoterol Fumarate (Symbicort 160/4.5mcg -) 1 puff IH BID [facility] Last Admin: 07/14/18 21:21 Dose: 1 puff Calcium Carbonate/Cholecalciferol (Os-Soolmon 500+D -) 1 tab PO DAILY [facility] Last Admin: 07/14/18 10:58 Dose: 1 tab Gabapentin (Neurontin -) 300 mg PO BID [facility] Last Admin: 07/14/18 21:19 Dose: 300 mg Heparin Sodium (Porcine) (Heparin -) 5,000 unit SQ TID [facility] Last Admin: 07/14/18 21:19 Dose: 5,000 unit Piperacillin Sod/Tazobactam (Sod 3.375 gm/ Dextrose) 50 mls @ 100 mls/hr IVPB Q8H-IV [facility]; Protocol Last Admin: 07/14/18 17:58 Dose: 100 mls/hr Insulin Aspart (Novolog Vial Sliding Scale -) 1 vial SQ ACHS [facility]; Protocol Last Admin: 07/14/18 21:19 Dose: 4 unit Pantoprazole Sodium (Protonix -) 40 mg PO DAILY [facility] Last Admin: 07/14/18 10:58 Dose: 40 mg Prednisone (Deltasone -) 60 mg PO DAILY [facility] Last Admin: 07/14/18 10:58 Dose: 60 mg Trimethoprim/Sulfamethoxazole (Bactrim Ds -) 1 each PO MoWeFr@1000 [facility] Last Admin: 07/13/18 09:14 Dose: 1 each Valacyclovir HCl (Valtrex -) 500 mg PO BID [facility] Last Admin: 07/14/18 21:24 Dose: 500 mg [facility] ([facility] To [facility])) [facility] Admin: 07/14/18 18:15 Dose: 200 mg - Objective Vital Signs: Vital Signs Temperature 97.2 F L 07/14/18 17:09 Pulse Rate 101 H 07/14/18 17:09 Respiratory Rate 20 07/14/18 17:09 Blood Pressure 150/93 07/14/18 17:09 O2 Sat by Pulse Oximetry (%) 95 04/16/19 16:57 Labs: CBC, BMP 07/14/18 08:30 07/14/18 08:30 INR, PTT INR 0.88 (0.83-1.09) 07/06/18 15:30 Problem List - Problems (1) Lung abscess Code(s): J85.2 - ABSCESS OF LUNG WITHOUT PNEUMONIA Qualifiers: Pulmonary abscess pneumonia presence: with pneumonia Laterality: left Lung location: upper lobe of lung Qualified Code(s): J85.1 - Abscess of lung with pneumonia (2) Vasculitis Code(s): I77.6 - ARTERITIS, UNSPECIFIED (3) COPD (chronic obstructive pulmonary disease) Code(s): J44.9 - CHRONIC OBSTRUCTIVE PULMONARY DISEASE, UNSPECIFIED (4) CKD (chronic kidney disease) Code(s): N18.9 - CHRONIC KIDNEY DISEASE, UNSPECIFIED (5) Neuropathy Code(s): G62.9 - POLYNEUROPATHY, UNSPECIFIED (6) H/O renal cell cancer Code(s): Z85.528 - PERSONAL HISTORY OF OTHER MALIGNANT NEOPLASM OF KIDNEY
[2018-07-15] MEDS ORDERED: PIPERACILLIN/TAZOBACTAM 3.375 GM VIAL IVPB ONE ×2 (00:59→09:01)
[2018-07-15] MEDS ORDERED: DEXTROSE 5%-WATER - 50 ML IVPB ONE ×2 (01:00→09:01)
[2018-07-15] MEDS: PIPERACILLIN/TAZOB 3.375 GM 3.375 GM in DEXTROSE 5%-WATER - 50 ML IVPB SCH ×2 (01:20→09:05)
[2018-07-15] MEDS: HEPARIN NA (PORCINE) 5,000 UNITS/ML 1ML VIAL SQ SCH ×2 (05:35→13:41)
[2018-07-15] MEDS: INSULIN SLIDING SCALE (NOVOLOG) 1 VIAL SQ SCH ×3 (06:05→17:08)
[2018-07-15] MEDS ORDERED: PT OWN MED DRAWER 7, Y5N ONE ×2 (09:01→17:58)
[2018-07-15] MEDS: GABAPENTIN 300 MG CAPSULE (FP) PO SCH (09:04)
[2018-07-15] MEDS: SULFAMETHOXAZOLE/TRIMETHOPRIM 800MG/160MG D.S. TABLET PO SCH (09:04)
[2018-07-15] MEDS: VORICONAZOLE 200 MG TABLET (RESTRICTED TO ID) PO SCH ×2 (09:04→18:11)
[2018-07-15] MEDS: predniSONE 20 MG TABLET (UD) PO SCH (09:04)
[2018-07-15] MEDS: amLODIPine BESYLATE 10 MG TABLET (FP) PO SCH (09:05)
[2018-07-15] MEDS: PANTOPRAZOLE 40 MG TABLET (FP) PO SCH (09:05)
[2018-07-15] MEDS: valACYclovir HCL 500 MG TABLET (FP) PO SCH (09:05)
[2018-07-15] MEDS: CALCIUM 500MG/VIT-D 200 UNITS COMBO TABLET (FP) PO SCH (09:05)
[2018-07-15] MEDS: BUDESONIDE/FORMETEROL FUMARATE 160/4.5 mcg INHALER IH SCH (09:06)
[2018-07-15 10:50] VITALS: TEMP 97.8
[2018-07-15] MEDS ORDERED: INSULIN (NOVOLOG) ASPART 100 UNITS/ML 10ML VIAL ONE ×2 (11:45→16:37)
--- NOTE | 2018-07-15 12:04 | PN ---
Progress Note (short form) - Note Progress Note: PULMONARY Denies shortness of breath, cough or fevers. Saturating well on room air. Vital Signs Period Temp Pulse Resp BP Sys/Busby Pulse Ox Last 24 Hr 97.2 F-98.3 F 92-138 18-22 150-165/78-93 95-96 Gen: NAD at rest Heart: RRR Lung: decreased breath sounds at the bases Abd: soft, nontender Ext: no edema CBC, BMP 07/14/18 08:30 07/14/18 08:30 Active Medications Acetaminophen (Tylenol -) 650 mg PO Q6H PRN PRN Reason: FEVER Amlodipine Besylate (Norvasc -) 10 mg PO DAILY [facility] Last Admin: 07/15/18 09:05 Dose: 10 mg Budesonide/Formoterol Fumarate (Symbicort 160/4.5mcg -) 1 puff IH BID [facility] Last Admin: 07/15/18 09:06 Dose: 1 puff Calcium Carbonate/Cholecalciferol (Os-Solomon 500+D -) 1 tab PO DAILY [facility] Last Admin: 07/15/18 09:05 Dose: 1 tab Gabapentin (Neurontin -) 300 mg PO BID [facility] Last Admin: 07/15/18 09:04 Dose: 300 mg Heparin Sodium (Porcine) (Heparin -) 5,000 unit SQ TID [facility] Last Admin: 07/15/18 05:35 Dose: 5,000 unit Piperacillin Sod/Tazobactam (Sod 3.375 gm/ Dextrose) 50 mls @ 100 mls/hr IVPB Q8H-IV [facility]; Protocol Last Admin: 07/15/18 09:05 Dose: 100 mls/hr Insulin Aspart (Novolog Vial Sliding Scale -) 1 vial SQ ACHS [facility]; Protocol Last Admin: 07/15/18 11:46 Dose: 2 unit Pantoprazole Sodium (Protonix -) 40 mg PO DAILY [facility] Last Admin: 07/15/18 09:05 Dose: 40 mg Prednisone (Deltasone -) 60 mg PO DAILY [facility] Last Admin: 07/15/18 09:04 Dose: 60 mg Trimethoprim/Sulfamethoxazole (Bactrim Ds -) 1 each PO MoWeFr@1000 [facility] Last Admin: 07/15/18 09:04 Dose: 1 each Valacyclovir HCl (Valtrex -) 500 mg PO BID [facility] Last Admin: 07/15/18 09:05 Dose: 500 mg Voriconazole (Vfend (Restricted To Id)) 200 mg PO BIDPC [facility] Last Admin: 07/15/18 09:04 Dose: 200 mg A/P s/p Cardiopulmonary Arrest Acute Pulmonary Edema r/o Seizures Acute Hypoxic Respiratory Failure Lung Abscess Suspect Aspiration Pneumonia Renal cancer s/p nephrectomy Asthma Bronchiectasis S/P Left VAT/ODALYS wedge biopsy Suspected granulomatosis and polyangiits (matthias's) Acute Kidney Injury - continue antibiotics - prednisone per rheum - monitor urine output, creatinine - O2 to keep SpO2 >90% - PO as tolerated - d/c planning
--- NOTE | 2018-07-15 13:10 | PN ---
Progress Note, Physician History of Present Illness: Pt seen and examined at bedside. She is awake and alert. She denies shortness of breath. - Current Medication List Current Medications: Active Medications Acetaminophen (Tylenol -) 650 mg PO Q6H PRN PRN Reason: FEVER Amlodipine Besylate (Norvasc -) 10 mg PO DAILY [facility] Last Admin: 07/15/18 09:05 Dose: 10 mg Budesonide/Formoterol Fumarate (Symbicort 160/4.5mcg -) 1 puff IH BID [facility] Last Admin: 07/15/18 09:06 Dose: 1 puff Calcium Carbonate/Cholecalciferol (Os-Solomon 500+D -) 1 tab PO DAILY [facility] Last Admin: 07/15/18 09:05 Dose: 1 tab Gabapentin (Neurontin -) 300 mg PO BID [facility] Last Admin: 07/15/18 09:04 Dose: 300 mg Heparin Sodium (Porcine) (Heparin -) 5,000 unit SQ TID [facility] Last Admin: 07/15/18 05:35 Dose: 5,000 unit Piperacillin Sod/Tazobactam (Sod 3.375 gm/ Dextrose) 50 mls @ 100 mls/hr IVPB Q8H-IV [facility]; Protocol Last Admin: 07/15/18 09:05 Dose: 100 mls/hr Insulin Aspart (Novolog Vial Sliding Scale -) 1 vial SQ ACHS [facility]; Protocol Last Admin: 07/15/18 11:46 Dose: 2 unit Pantoprazole Sodium (Protonix -) 40 mg PO DAILY [facility] Last Admin: 07/15/18 09:05 Dose: 40 mg Prednisone (Deltasone -) 60 mg PO DAILY [facility] Last Admin: 07/15/18 09:04 Dose: 60 mg Trimethoprim/Sulfamethoxazole (Bactrim Ds -) 1 each PO MoWeFr@1000 [facility] Last Admin: 07/15/18 09:04 Dose: 1 each Valacyclovir HCl (Valtrex -) 500 mg PO BID [facility] Last Admin: 07/15/18 09:05 Dose: 500 mg Voriconazole (Vfend (Restricted To Id)) 200 mg PO BIDPC [facility] Last Admin: 07/15/18 09:04 Dose: 200 mg - Objective Vital Signs: Vital Signs Temperature 97.8 F 07/15/18 08:00 Pulse Rate 92 H 07/15/18 08:00 Respiratory Rate 20 07/15/18 08:00 Blood Pressure 156/89 07/15/18 08:00 O2 Sat by Pulse Oximetry (%) 96 07/15/18 09:00 Constitutional: Yes: Calm Eyes: Yes: Conjunctiva Clear HENT: Yes: Atraumatic Cardiovascular: Yes: S1, S2 Respiratory: Yes: On Nasal O2 Gastrointestinal: Yes: Soft Genitourinary: Yes: WNL Edema: Yes Edema: LLE: Trace, RLE: Trace Neurological: Yes: Oriented Psychiatric: Yes: Oriented Labs: CBC, BMP 07/14/18 08:30 07/14/18 08:30 INR, PTT INR 0.88 (0.83-1.09) 07/06/18 15:30 Problem List - Problems (1) MADAN (acute kidney injury) Code(s): N17.9 - ACUTE KIDNEY FAILURE, UNSPECIFIED (2) Glomerulonephritis Code(s): N05.9 - UNSP NEPHRITIC SYNDROME WITH UNSPECIFIED MORPHOLOGIC CHANGES (3) Lung abscess Code(s): J85.2 - ABSCESS OF LUNG WITHOUT PNEUMONIA Qualifiers: Pulmonary abscess pneumonia presence: with pneumonia Laterality: left Lung location: upper lobe of lung Qualified Code(s): J85.1 - Abscess of lung with pneumonia (4) Vasculitis Code(s): I77.6 - ARTERITIS, UNSPECIFIED Assessment/Plan Current Medications Generic Name Dose Route Start Last Admin Trade Name Freq PRN Reason Stop Dose Admin Acetaminophen 650 mg 07/09/18 18:22 Tylenol - PO Q6H PRN FEVER Amlodipine Besylate 10 mg 07/10/18 10:00 07/15/18 09:05 Norvasc - PO 10 mg DAILY [facility] Administration Budesonide/Formoterol Fumarate 1 puff 07/09/18 22:00 07/15/18 09:06 Symbicort 160/4.5mcg - IH 1 puff BID [facility] Administration Calcium Carbonate/Cholecalciferol 1 tab 07/10/18 10:00 07/15/18 09:05 Os-Solomon 500+D - PO 1 tab DAILY [facility] Administration Gabapentin 300 mg 07/09/18 22:00 07/15/18 09:04 Neurontin - PO 300 mg BID [facility] Administration Heparin Sodium (Porcine) 5,000 unit 07/09/18 22:00 07/15/18 05:35 Heparin - SQ 5,000 unit TID [facility] Administration Piperacillin Sod/Tazobactam 50 mls @ 100 mls/hr 07/10/18 02:00 07/15/18 09:05 Sod 3.375 gm/ Dextrose IVPB 100 mls/hr Q8H-IV [facility] Administration Protocol Insulin Aspart 1 vial 07/09/18 22:00 07/15/18 11:46 Novolog Vial Sliding Scale - SQ 2 unit ACHS [facility] Administration Protocol Pantoprazole Sodium 40 mg 07/10/18 10:00 07/15/18 09:05 Protonix - PO 40 mg DAILY [facility] Administration Prednisone 60 mg 07/10/18 10:00 07/15/18 09:04 Deltasone - PO 60 mg DAILY [facility] Administration Trimethoprim/Sulfamethoxazole 1 each 07/10/18 10:00 07/15/18 09:04 Bactrim Ds - PO 1 each MoWeFr@1000 [facility] Administration Valacyclovir HCl 500 mg 07/09/18 22:00 07/15/18 09:05 Valtrex - PO 500 mg BID [facility] Administration Voriconazole 200 mg 07/09/18 18:30 07/15/18 09:04 Vfend (Restricted To Id) PO 200 mg BIDPC [facility] Administration Impression 1. MADAN 2. r/o vasculitis 3. glomerulonephrotis 4. lung cavitary lesion 5. asthma 6. copd 7. rheumatoid arthritis 8. hx of renal cell cancer s/p nephrectomy 9. seizure 10. cardiac arrest 11. ckd 12. solitary kidney Plan - no new labs - will need close outpt follow up - abx per ID - pt will cont with home dose of lasix - she will check her weight daily as well - rheum follow up Dr Mcneill
[2018-07-15 14:56] VITALS: BP 135/71; PULSE 97
--- NOTE | 2018-07-15 16:10 | PN ---
Progress Note, Physician History of Present Illness: AWAKE, ALERT OOB IN CHAIR NO C/O CHEST PAIN/ DYSPNEA NO HEMOPTYSIS` AFEBRILE ON STEROIDS WBC WNL - Current Medication List Current Medications: Active Medications Acetaminophen (Tylenol -) 650 mg PO Q6H PRN PRN Reason: FEVER Amlodipine Besylate (Norvasc -) 10 mg PO DAILY [facility] Last Admin: 07/15/18 09:05 Dose: 10 mg Budesonide/Formoterol Fumarate (Symbicort 160/4.5mcg -) 1 puff IH BID [facility] Last Admin: 07/15/18 09:06 Dose: 1 puff Calcium Carbonate/Cholecalciferol (Os-Solomon 500+D -) 1 tab PO DAILY [facility] Last Admin: 07/15/18 09:05 Dose: 1 tab Gabapentin (Neurontin -) 300 mg PO BID [facility] Last Admin: 07/15/18 09:04 Dose: 300 mg Heparin Sodium (Porcine) (Heparin -) 5,000 unit SQ TID [facility] Last Admin: 07/15/18 13:41 Dose: 5,000 unit Insulin Aspart (Novolog Vial Sliding Scale -) 1 vial SQ ACHS [facility]; Protocol Last Admin: 07/15/18 11:46 Dose: 2 unit Pantoprazole Sodium (Protonix -) 40 mg PO DAILY [facility] Last Admin: 07/15/18 09:05 Dose: 40 mg Prednisone (Deltasone -) 60 mg PO DAILY [facility] Last Admin: 07/15/18 09:04 Dose: 60 mg Trimethoprim/Sulfamethoxazole (Bactrim Ds -) 1 each PO MoWeFr@1000 [facility] Last Admin: 07/15/18 09:04 Dose: 1 each Voriconazole (Vfend (Restricted To Id)) 200 mg PO BIDPC [facility] Last Admin: 07/15/18 09:04 Dose: 200 mg - Objective Vital Signs: Vital Signs Temperature 97.8 F 07/15/18 14:54 Pulse Rate 97 H 07/15/18 14:54 Respiratory Rate 20 07/15/18 14:54 Blood Pressure 135/71 07/15/18 14:54 O2 Sat by Pulse Oximetry (%) 96 07/15/18 09:00 Constitutional: Yes: No Distress Cardiovascular: Yes: Regular Rate and Rhythm, S1, S2 Respiratory: Yes: CTA Bilaterally Gastrointestinal: Yes: Normal Bowel Sounds, Soft. No: Tenderness Edema: No Labs: CBC, BMP 07/14/18 08:30 07/14/18 08:30 INR, PTT INR 0.88 (0.83-1.09) 07/06/18 15:30 Assessment/Plan CAVITARY LUNG MASS VASCULITIS R/O KLEBSIELLA PNEUMONIA/ FUNGAL DISEASE AZOTEMIA/ SOLITARY KIDNEY OK FOR D/C HOME ON: SUPRAX 400MG PO Q12H X 14D VORICONAZOLE 200MG PO BID X 14D BACTRIM DS ONE TAB ON MON/FRI/FRI X 14D PT TO F/U IN OUR OFFICE W/I NEXT 2W
== END 2018-07-15 19:24 | disposition home or self-care (01) | DRG 163 ==
LOC: JER 14:38 → JERBED 17:38 → J5S 21:00 → J8W 06-19 21:37 → JICU 06-25 17:20 → J8W 06-29 20:41 → JICU 07-06 15:57 → J8W 07-09 17:45 → J7W 07-13 10:40 → J8W 07-13 15:27
PROVIDERS: ADMIT Internal Medicine; ATTEND Internal Medicine
PROC: 30233N1 Transfusion of Nonautologous Red Blood Cells into Peripheral Vein, Percutaneous Approach (ICD-10-PCS; 2018-06-21)
PROC: 0BBG4ZZ Excision of Left Upper Lung Lobe, Percutaneous Endoscopic Approach (ICD-10-PCS; principal; 2018-06-25 11:00)
PROC: 0W9B4ZX Drainage of Left Pleural Cavity, Percutaneous Endoscopic Approach, Diagnostic (ICD-10-PCS; 2018-06-25 11:00)
PROC: 0BD78ZX Extraction of Left Main Bronchus, Via Natural or Artificial Opening Endoscopic, Diagnostic (ICD-10-PCS; 2018-06-25 11:00)
PROC: 5A09357 Assistance with Respiratory Ventilation, Less than 24 Consecutive Hours, Continuous Positive Airway Pressure (ICD-10-PCS; 2018-06-26)
PROC: 0BH17EZ Insertion of Endotracheal Airway into Trachea, Via Natural or Artificial Opening (ICD-10-PCS; 2018-07-06)
PROC: 5A1935Z Respiratory Ventilation, Less than 24 Consecutive Hours (ICD-10-PCS; 2018-07-06)
PROC: 5A12012 Performance of Cardiac Output, Single, Manual (ICD-10-PCS; 2018-07-06)
DX: J85.1 Abscess of lung with pneumonia (principal); J96.01 Acute respiratory failure with hypoxia; I46.9 Cardiac arrest, cause unspecified; N17.9 Acute kidney failure, unspecified; J47.0 Bronchiectasis with acute lower respiratory infection; B00.89 Other herpesviral infection; N18.9 Chronic kidney disease, unspecified; L98.419 Non-pressure chronic ulcer of buttock with unspecified severity; I77.6 Arteritis, unspecified; B96.1 Klebsiella pneumoniae [K. pneumoniae] as the cause of diseases classified elsewhere; E66.9 Obesity, unspecified; R56.9 Unspecified convulsions; N05.9 Unspecified nephritic syndrome with unspecified morphologic changes; M25.562 Pain in left knee; M25.561 Pain in right knee; D64.9 Anemia, unspecified; M06.9 Rheumatoid arthritis, unspecified; G62.9 Polyneuropathy, unspecified; Z80.51 Family history of malignant neoplasm of kidney; Z90.710 Acquired absence of both cervix and uterus; Z90.5 Acquired absence of kidney; Z68.28 Body mass index [BMI] 28.0-28.9, adult; Z85.528 Personal history of other malignant neoplasm of kidney; Z80.1 Family history of malignant neoplasm of trachea, bronchus and lung; Z87.891 Personal history of nicotine dependence
CPT/HCPCS: 36415; 36430; 36511; 36600; 70450-TC; 71045-TC-FY; 71046-TC-FY; 71250-TC; 80048; 80053; 81003; 82164; 82436; 82550; 82570; 82607; 82728; 82803; 82955; 82962; 83516; 83520; 83540; 83550; 83605; 83735; 83880; 84100; 84133; 84155; 84165; 84300; 84443; 84484; 85025; 85027; 85610; 85651; 85730; 86140; 86160; 86225; 86256; 86480; 86612; 86635; 86644; 86704; 86706; 86708; 86850; 86900; 86901; 86922; 87040; 87070; 87075; 87086; 87102; 87116; 87186; 87205; 87206; 87210; 87252; 87278; 87305; 87340; 87449; 87522; 87556; 87899; 88305-TC; 93005; 93010; 93306-TC; 94002; 94640; 94760; 94761; 96367; 96375; 96413; 96415; 97116-GP; 97162-GP; 99282-25; G0480; J0131; J1644; J1756; J3465; J7030; J9312; P9038; P9058

== ENCOUNTER 2018-07-21 08:36 | Day surgery (SDC) | payer BC ==
[~2018-07-21 08:36] MED LIST: ACETAMINOPHEN 500 MG TABLET (FP) PO ONE; RITUXIMAB IVPB ONE; SODIUM CHLORIDE IVPB ONE; diphenhydrAMINE HCL 25 MG CAPSULE (FP) PO ONE; methylPREDNISolone NA SUCC 125 MG/2 ML VIAL IVPUSH ONE
[2018-07-21] MEDS ORDERED: RITUXIMAB IVPB ONE ×2 (09:13→09:40)
[2018-07-21] MEDS ORDERED: DEXTROSE 5% IVPB ONE (09:13)
[2018-07-21] MEDS ORDERED: WATER IVPB ONE (09:13)
[2018-07-21] MEDS ORDERED: SODIUM CHLORIDE IVPB ONE (09:40)
[2018-07-21 15:01] VITALS: TEMP 97.9
[2018-07-21 15:13] VITALS: BP 166/99; PULSE 107
== END 2018-07-21 13:50 | disposition home or self-care (01) ==
LOC: JCHEMO 08:36 → J7W 08:37 → JCHEMO 13:50
PROVIDERS: ATTEND Internal Medicine Rheumatology
DX: I77.6 Arteritis, unspecified (principal); J45.909 Unspecified asthma, uncomplicated; Z85.528 Personal history of other malignant neoplasm of kidney; D64.9 Anemia, unspecified
CPT/HCPCS: 96367; 96375; 96413; 96415; J7030; J9312

== ENCOUNTER 2018-07-27 12:18 | Day surgery (SDC) | payer BC ==
[2018-07-27] MEDS ORDERED: ACETAMINOPHEN 500 MG TABLET (FP) PO ONE (13:00)
[2018-07-27] MEDS ORDERED: methylPREDNISolone NA SUCC 125 MG/2 ML VIAL IVPB ONE (13:00)
[2018-07-27] MEDS ORDERED: diphenhydrAMINE HCL 25 MG CAPSULE (FP) PO ONE (13:00)
[2018-07-27] MEDS ORDERED: ACETAMINOPHEN 325 MG TABLET (FP) ONE (13:10)
[2018-07-27] MEDS ORDERED: RITUXIMAB IVPB ONE (13:30)
[2018-07-27] MEDS ORDERED: WATER IVPB ONE (13:30)
[2018-07-27] MEDS ORDERED: DEXTROSE 5% IVPB ONE (13:30)
[2018-07-27 15:25] VITALS: TEMP 98.1
[2018-07-27 15:34] VITALS: BP 132/83; PULSE 96
== END 2018-07-27 15:15 | disposition home or self-care (01) ==
LOC: JCHEMO 12:18 → J7W 12:18 → JCHEMO 15:15
PROVIDERS: ATTEND Internal Medicine Rheumatology
DX: I77.6 Arteritis, unspecified (principal); J45.909 Unspecified asthma, uncomplicated; D64.9 Anemia, unspecified; Z85.528 Personal history of other malignant neoplasm of kidney
CPT/HCPCS: 96375; 96413; 96415; J9312

== ENCOUNTER 2018-08-03 11:12 | Day surgery (SDC) | payer BC ==
[2018-08-03] MEDS ORDERED: diphenhydrAMINE HCL 25 MG CAPSULE (FP) PO ONE (12:00)
[2018-08-03] MEDS ORDERED: methylPREDNISolone NA SUCC 125 MG/2 ML VIAL IVPUSH ONE (12:00)
[2018-08-03] MEDS ORDERED: ACETAMINOPHEN 500 MG TABLET (FP) PO ONE (12:00)
[2018-08-03] MEDS ORDERED: RITUXIMAB IVPB ONE (12:30)
[2018-08-03] MEDS ORDERED: WATER IVPB ONE (12:30)
[2018-08-03] MEDS ORDERED: DEXTROSE 5% IVPB ONE (12:30)
[2018-08-03 17:50] VITALS: TEMP 98.5
[2018-08-03 17:54] VITALS: BP 143/71; PULSE 98
== END 2018-08-03 16:40 | disposition home or self-care (01) ==
LOC: JCHEMO 11:12 → J7W 11:15 → JCHEMO 16:40
PROVIDERS: ATTEND Internal Medicine Rheumatology
DX: I77.6 Arteritis, unspecified (principal); J45.909 Unspecified asthma, uncomplicated; D64.9 Anemia, unspecified; Z85.528 Personal history of other malignant neoplasm of kidney
CPT/HCPCS: 96367; 96375; 96413; 96415; J9312

== ENCOUNTER 2020-09-12 16:33 | Emergency (ER) | payer OTHER, MEDICARE ==
[2020-09-12 17:12] VITALS: BP 150/82; PULSE 86; TEMP 99; BMI 31.7
== END 2020-09-12 17:53 | disposition home or self-care (01) ==
LOC: FER 16:33
PROC: 2W39X1Z Immobilization of Left Upper Extremity using Splint (ICD-10-PCS; principal; 2020-09-12)
DX: S42.292A Other displaced fracture of upper end of left humerus, initial encounter for closed fracture (principal)
CPT/HCPCS: 73060-TC-LT-FY; 99283-25

== ENCOUNTER 2020-12-01 10:14 | Inpatient (IN) | payer OTHER, MEDICARE ==
[2020-12-01 10:34] VITALS: BMI 31.4
[2020-12-01] MEDS ORDERED: SODIUM CHLORIDE 1,000 ML IV STA (11:19)
[2020-12-01 11:45] LABS: HEMATOCRIT 30.5 % (32.4-45.2); HEMOGLOBIN 10.3 GM/dl (10.7-15.3); MCH 32.3 pg (25.7-33.7); MCHC 33.6 g/dl (32.0-36.0); MEAN CELL VOLUME 96.1 fl (80-96); PLATELET COUNT 191 10^3/uL (134-434); RBC 3.18 M/mm3 (3.60-5.2); WHITE BLOOD COUNT 6.7 K/mm3 (4.0-10.8)
[2020-12-01 11:55] LABS: ADD RBC MORPHOLOGY YES
[2020-12-01 11:57] LABS: ALBUMIN 3.1 g/dl (3.4-5.0); BILIRUBIN,TOTAL 1.1 mg/dl (0.2-1); CALCIUM 8.1 mg/dl (8.5-10); CREATININE 3.1 mg/dl (0.55-1.3); TOT PROT 5.7 g/dl (6.4-8.2)
[2020-12-01 12:51] LABS: ANISOCYTOSIS FEW
[2020-12-01] MEDS ORDERED: KETOROLAC TROMETHAMINE 30 MG/1 ML VIAL IVPUSH ONE (13:24)
[2020-12-01] MEDS ORDERED: KETOROLAC TROMETHAMINE 15 MG/ML VIAL ONE (13:25)
[2020-12-01] MEDS ORDERED: PROPOFOL 20 ML ONE (18:16)
[2020-12-01] MEDS ORDERED: MIDAZOLAM HCL 2 MG/2 ML SINGLE DOSE VIAL ONE (18:16)
[2020-12-01] MEDS ORDERED: ceFAZolin SODIUM 1 GM VIAL IVPB ONE (18:30)
[2020-12-01] MEDS ORDERED: LIDOCAINE HCL 2% JELLY 10 ML CARTRIDGE ONE (18:33)
[2020-12-01] MEDS ORDERED: DEXTROSE 5%-0.45% SALINE 1,000 ML IV SCH (19:15)
[2020-12-01] MEDS ORDERED: cefTRIAXone SODIUM 1 GM VIAL IVPB ONE (19:16)
[2020-12-01] MEDS ORDERED: ACETAMINOPHEN 325 MG TABLET (FP) PO PRN ×2 (19:16→19:30)
[2020-12-01] MEDS ORDERED: oxyCODONE HCL 5 MG TABLET PO PRN (19:30)
[2020-12-01] MEDS ORDERED: PT OWN MED DRAWER 7, Y5N ONE (23:24)
[2020-12-01] MEDS ORDERED: DEXTROSE 5%-WATER - 50 ML IVPB ONE (23:29)
[2020-12-01] MEDS ORDERED: cefTRIAXone SODIUM 1 GM VIAL ONE (23:29)
[2020-12-01] MEDS ORDERED: CEFTRIAXONE 1 GM in DEXTROSE 5%-WATER - 50 ML IVPB ONE (23:30)
[2020-12-02] MEDS ORDERED: FUROSEMIDE 20 MG TABLET (FP) PO PRN (09:58)
[2020-12-02] MEDS ORDERED: METHOTREXATE 2.5 MG TABLET PO SCH (10:00)
[2020-12-02] MEDS ORDERED: PATIENT'S OWN MEDICATION (NON-FORMULARY) (Alendronate Sodium [Fosamax] 70 MG Tablet) PO SCH (10:00)
[2020-12-02] MEDS: PANTOPRAZOLE 40 MG TABLET PO SCH (11:21)
[2020-12-02] MEDS: metoPROLOL SUCCINATE 25 MG TAB.SR.24H (FP) PO SCH (11:21)
[2020-12-02] MEDS: FOLIC ACID 1 MG TABLET (FP) PO SCH (11:21)
[2020-12-02] MEDS: HEPARIN NA (PORCINE) 5,000 UNITS/ML 1ML VIAL SQ SCH ×2 (11:22→21:30)
[2020-12-02] MEDS: DEXTROSE 5%-0.45% SALINE 1,000 ML IV SCH (11:23)
[2020-12-02 11:35] LABS: BASO % 1.1 % (0-2.0); EOS % 3.8 % (0-4.5); HEMATOCRIT 31.5 % (32.4-45.2); HEMOGLOBIN 10.9 GM/dL (10.7-15.3); LYMPH % 22.9 % (8-40); MCH 33.2 pg (25.7-33.7); MCHC 34.5 g/dl (32.0-36.0); MEAN CELL VOLUME 96.2 fl (80-96); MEAN PLT VOLUME 7.6 fl (7.5-11.1); MONO % 7.5 % (3.8-10.2); NEUT % 64.7 % (42.8-82.8); PLATELET COUNT 182 10^3/uL (134-434); RBC 3.28 M/mm3 (3.60-5.2); WHITE BLOOD COUNT 4.2 K/mm3 (4.0-10.0)
[2020-12-02 11:59] LABS: CALCIUM 8.2 mg/dL (8.5-10.1)
[2020-12-02 12:03] LABS: CREATININE 2.1 mg/dL (0.55-1.3)
[2020-12-02 12:05] LABS: BILIRUBIN,TOTAL 0.4 mg/dL (0.2-1); TOT PROT 5.6 g/dl (6.4-8.2)
[2020-12-02 12:23] LABS: ALBUMIN 2.8 g/dl (3.4-5.0)
[2020-12-02] MEDS ORDERED: ONDANSETRON *ODT* 4 MG TABLET SL SCH (14:00)
[2020-12-03] MEDS: DEXTROSE 5%-0.45% SALINE 1,000 ML IV SCH ×3 (03:01→16:50)
[2020-12-03 08:38] LABS: BASO % 0.9 % (0-2.0); EOS % 6.4 % (0-4.5); HEMATOCRIT 28.5 % (32.4-45.2); HEMOGLOBIN 9.9 GM/dL (10.7-15.3); LYMPH % 27.7 % (8-40); MCH 33.6 pg (25.7-33.7); MCHC 34.8 g/dl (32.0-36.0); MEAN CELL VOLUME 96.3 fl (80-96); MEAN PLT VOLUME 7.8 fl (7.5-11.1); MONO % 12.2 % (3.8-10.2); NEUT % 52.8 % (42.8-82.8); PLATELET COUNT 155 10^3/uL (134-434); RBC 2.96 M/mm3 (3.60-5.2); RDW 18.2 % (11.6-15.6); WHITE BLOOD COUNT 3.8 K/mm3 (4.0-10.0)
[2020-12-03 09:06] LABS: ALBUMIN 2.8 g/dl (3.4-5.0); BLOOD UREA NITROGEN 21.1 mg/dL (7-18)
[2020-12-03 09:09] LABS: CREATININE 1.6 mg/dL (0.55-1.3)
[2020-12-03 09:10] LABS: BILIRUBIN,TOTAL 0.6 mg/dL (0.2-1)
[2020-12-03 09:11] LABS: TOT PROT 5.5 g/dl (6.4-8.2)
[2020-12-03] MEDS: FOLIC ACID 1 MG TABLET (FP) PO SCH (10:30)
[2020-12-03] MEDS: PANTOPRAZOLE 40 MG TABLET PO SCH (10:30)
[2020-12-03] MEDS: metoPROLOL SUCCINATE 25 MG TAB.SR.24H (FP) PO SCH (10:30)
[2020-12-03] MEDS: HEPARIN NA (PORCINE) 5,000 UNITS/ML 1ML VIAL SQ SCH ×2 (10:31→21:09)
[2020-12-03] MEDS: ALBUTEROL SO4 HFA INHALER IH PRN ×2 (10:34→23:40)
[2020-12-04] MEDS: DEXTROSE 5%-0.45% SALINE 1,000 ML IV SCH (05:51)
[2020-12-04 08:21] LABS: BASO % 0.6 % (0-2.0); EOS % 6.7 % (0-4.5); HEMATOCRIT 27.1 % (32.4-45.2); HEMOGLOBIN 9.5 GM/dL (10.7-15.3); LYMPH % 20.8 % (8-40); MCH 33.4 pg (25.7-33.7); MCHC 34.9 g/dl (32.0-36.0); MEAN CELL VOLUME 95.6 fl (80-96); MONO % 10.2 % (3.8-10.2); NEUT % 61.7 % (42.8-82.8); PLATELET COUNT 154 10^3/uL (134-434); RBC 2.83 M/mm3 (3.60-5.2); RDW 18.3 % (11.6-15.6); WHITE BLOOD COUNT 5.5 K/mm3 (4.0-10.0)
[2020-12-04 08:28] LABS: CALCIUM 7.9 mg/dL (8.5-10.1)
[2020-12-04 08:29] LABS: ALBUMIN 2.7 g/dl (3.4-5.0); BLOOD UREA NITROGEN 13.9 mg/dL (7-18)
[2020-12-04 08:32] LABS: CREATININE 1.2 mg/dL (0.55-1.3)
[2020-12-04 08:34] LABS: BILIRUBIN,TOTAL 0.3 mg/dL (0.2-1); TOT PROT 5.3 g/dl (6.4-8.2)
[2020-12-04] MEDS: PANTOPRAZOLE 40 MG TABLET PO SCH (09:53)
[2020-12-04] MEDS: metoPROLOL SUCCINATE 25 MG TAB.SR.24H (FP) PO SCH (09:53)
[2020-12-04] MEDS: FOLIC ACID 1 MG TABLET (FP) PO SCH (09:53)
[2020-12-04] MEDS: ALBUTEROL SO4 HFA INHALER IH PRN (09:54)
[2020-12-04] MEDS: HEPARIN NA (PORCINE) 5,000 UNITS/ML 1ML VIAL SQ SCH (09:54)
[2020-12-04 10:02] VITALS: BP 147/75; PULSE 78; TEMP 98.3
== END 2020-12-04 14:58 | disposition home or self-care (01) | DRG 660 ==
LOC: SUPCPDRO 10:14 → FER 10:14 → J5S 11:17
PROVIDERS: ADMIT Internal Medicine; ATTEND Internal Medicine
PROC: 0TJ98ZZ Inspection of Ureter, Via Natural or Artificial Opening Endoscopic (ICD-10-PCS; 2020-12-01)
PROC: BT1FZZZ Fluoroscopy of Left Kidney, Ureter and Bladder (ICD-10-PCS; principal; 2020-12-01 16:00)
PROC: 0T778DZ Dilation of Left Ureter with Intraluminal Device, Via Natural or Artificial Opening Endoscopic (ICD-10-PCS; 2020-12-01 16:00)
DX: N17.9 Acute kidney failure, unspecified (principal); M31.30 Wegener's granulomatosis without renal involvement; N13.2 Hydronephrosis with renal and ureteral calculous obstruction; R11.2 Nausea with vomiting, unspecified; J44.9 Chronic obstructive pulmonary disease, unspecified; N13.9 Obstructive and reflux uropathy, unspecified; M06.9 Rheumatoid arthritis, unspecified; I12.9 Hypertensive chronic kidney disease with stage 1 through stage 4 chronic kidney disease, or unspecified chronic kidney disease; N18.9 Chronic kidney disease, unspecified; D64.9 Anemia, unspecified; E66.9 Obesity, unspecified; Z68.31 Body mass index [BMI] 31.0-31.9, adult; Z98.84 Bariatric surgery status; Z90.5 Acquired absence of kidney; Z85.528 Personal history of other malignant neoplasm of kidney
CPT/HCPCS: 36415; 71045-TC-FY; 74176-TC; 76775-TC; 80053; 81003; 82550; 83690; 84484; 85025; 87086; 93005; 94010; 94760; 99285-25; C9803; J0131; J1644; U0003; U0005

== ENCOUNTER 2021-01-02 04:14 | Day surgery (SDC) | payer OTHER, MEDICARE ==
[2020-12-29 17:24] VITALS: BMI 31.0
[2021-01-02] MEDS ORDERED: MIDAZOLAM HCL 2 MG/2 ML SINGLE DOSE VIAL ONE (11:19)
[2021-01-02] MEDS ORDERED: ceFAZolin SODIUM 1 GM VIAL IVPB ONE (11:30)
[2021-01-02] MEDS ORDERED: KETOROLAC TROMETHAMINE 30 MG/1 ML VIAL ONE (11:37)
[2021-01-02] MEDS ORDERED: ceFAZolin SODIUM 1 GM VIAL ONE (11:37)
[2021-01-02 13:12] VITALS: BP 128/69; PULSE 73; TEMP 97.6
== END 2021-01-02 13:25 | disposition home or self-care (01) ==
LOC: JASU-SURG 04:14
PROVIDERS: ATTEND Urology
PROC: 0TF4XZZ Fragmentation in Left Kidney Pelvis, External Approach (ICD-10-PCS; principal; 2021-01-02 11:00)
DX: N20.0 Calculus of kidney (principal)

== ENCOUNTER 2021-02-28 06:26 | Observation (INO) | payer OTHER, MEDICARE ==
[2021-02-28 06:50] VITALS: BMI 30.7
[2021-02-28 07:59] LABS: HEMATOCRIT 20.8 % (32.4-45.2); HEMOGLOBIN 7.3 GM/dL (10.7-15.3); MCHC 34.9 g/dl (32.0-36.0); MEAN CELL VOLUME 91.6 fl (80-96); MEAN PLT VOLUME 7.6 fl (7.5-11.1); PLATELET COUNT 363 10^3/uL (134-434); RBC 2.27 M/mm3 (3.60-5.2); RDW 17.3 % (11.6-15.6); WHITE BLOOD COUNT 3.2 K/mm3 (4.0-10.0)
[2021-02-28 08:19] LABS: INR 1.25 (0.83-1.09)
[2021-02-28 08:21] LABS: CALCIUM 7.9 mg/dL (8.5-10.1)
[2021-02-28 08:22] LABS: ALBUMIN 2.4 g/dl (3.4-5.0); BLOOD UREA NITROGEN 21.7 mg/dL (7-18)
[2021-02-28 08:24] LABS: CREATININE 1.3 mg/dL (0.55-1.3)
[2021-02-28 08:25] LABS: TOT PROT 5.2 g/dl (6.4-8.2)
[2021-02-28 09:23] LABS: ANISOCYTOSIS 3+; MACROCYTOSIS 0; PLATELET ESTIMATE NORMAL; TEAR DROP CELLS 1+
[2021-02-28 09:54] LABS: RETICULOCYTES 7.19 % (0.5-1.5)
[2021-02-28 21:05] LABS: HEMATOCRIT 24.2 % (32.4-45.2); HEMOGLOBIN 8.3 GM/dL (10.7-15.3); MCH 31.5 pg (25.7-33.7); MCHC 34.2 g/dl (32.0-36.0); MEAN CELL VOLUME 91.9 fl (80-96); MEAN PLT VOLUME 7.8 fl (7.5-11.1); PLATELET COUNT 365 10^3/uL (134-434); RBC 2.64 M/mm3 (3.60-5.2); RDW 15.8 % (11.6-15.6); WHITE BLOOD COUNT 3.8 K/mm3 (4.0-10.0)
[2021-02-28 21:38] LABS: ANISOCYTOSIS 2+; MACROCYTOSIS 0; PLATELET ESTIMATE NORMAL
[2021-03-01] MEDS: ALBUTEROL SO4 HFA INHALER IH PRN ×2 (00:03→06:38)
[2021-03-01] MEDS: metoPROLOL SUCCINATE 25 MG TAB.SR.24H (FP) PO SCH (10:11)
[2021-03-01] MEDS: FOLIC ACID 1 MG TABLET (FP) PO SCH (10:11)
[2021-03-01] MEDS: PANTOPRAZOLE 40 MG TABLET PO SCH (10:11)
[2021-03-01 13:45] LABS: BASO % 1.5 % (0-2.0); EOS % 1.2 % (0-4.5); HEMATOCRIT 25.6 % (32.4-45.2); HEMOGLOBIN 8.8 GM/dL (10.7-15.3); LYMPH % 32.2 % (8-40); MCH 31.2 pg (25.7-33.7); MCHC 34.3 g/dl (32.0-36.0); MEAN CELL VOLUME 90.7 fl (80-96); MEAN PLT VOLUME 7.8 fl (7.5-11.1); MONO % 5.7 % (3.8-10.2); NEUT % 59.4 % (42.8-82.8); PLATELET COUNT 412 10^3/uL (134-434); RBC 2.82 M/mm3 (3.60-5.2); RDW 15.9 % (11.6-15.6); WHITE BLOOD COUNT 3.7 K/mm3 (4.0-10.0)
[2021-03-01 14:20] LABS: ANISOCYTOSIS 1+; MACROCYTOSIS 1+; PLATELET ESTIMATE NORMAL
[2021-03-01 14:31] LABS: ALBUMIN 2.5 g/dl (3.4-5.0); BLOOD UREA NITROGEN 23.6 mg/dL (7-18); CALCIUM 8.3 mg/dL (8.5-10.1)
[2021-03-01 14:34] LABS: CREATININE 1.2 mg/dL (0.55-1.3)
[2021-03-01 14:36] LABS: BILIRUBIN,TOTAL 0.8 mg/dL (0.2-1); TOT PROT 5.6 g/dl (6.4-8.2)
[2021-03-01] MEDS: FERROUS GLUCONATE 324 MG TAB (FP) PO SCH (21:45)
[2021-03-02 10:02] LABS: HEMATOCRIT 24.6 % (32.4-45.2); HEMOGLOBIN 8.6 GM/dL (10.7-15.3); MCH 32.1 pg (25.7-33.7); MCHC 34.9 g/dl (32.0-36.0); MEAN CELL VOLUME 91.9 fl (80-96); MEAN PLT VOLUME 8.1 fl (7.5-11.1); PLATELET COUNT 393 10^3/uL (134-434); RBC 2.68 M/mm3 (3.60-5.2); RDW 15.9 % (11.6-15.6); WHITE BLOOD COUNT 2.9 K/mm3 (4.0-10.0)
[2021-03-02] MEDS: metoPROLOL SUCCINATE 25 MG TAB.SR.24H (FP) PO SCH (10:30)
[2021-03-02] MEDS: PANTOPRAZOLE 40 MG TABLET PO SCH (10:30)
[2021-03-02] MEDS: FOLIC ACID 1 MG TABLET (FP) PO SCH (10:30)
[2021-03-02] MEDS: FERROUS GLUCONATE 324 MG TAB (FP) PO SCH (10:30)
[2021-03-02 10:36] LABS: CALCIUM 8.3 mg/dL (8.5-10.1)
[2021-03-02 10:37] LABS: ALBUMIN 2.6 g/dl (3.4-5.0); BLOOD UREA NITROGEN 27.4 mg/dL (7-18)
[2021-03-02 10:40] LABS: CREATININE 1.3 mg/dL (0.55-1.3)
[2021-03-02 10:41] LABS: BILIRUBIN,TOTAL 0.7 mg/dL (0.2-1); TOT PROT 5.4 g/dl (6.4-8.2)
[2021-03-02 12:04] LABS: ANISOCYTOSIS 1+; MACROCYTOSIS 0; OVALOCYTE 1+; PLATELET ESTIMATE NORMAL; TEAR DROP CELLS 1+
[2021-03-02 14:52] LABS: EPI CELLS >36 /uL (0-25.1); HYALINE CASTS 104 /uL (0-3.1); PH,URINE 5.5 (5.0-8.0); URINE APPEARANCE TURBID; URINE BACTERIA 2933 /uL (0-1359); URINE BILIRUBIN NEGATIVE (NEGATIVE); URINE COLOR YELLOW; URINE GLUCOSE (UA) NEGATIVE (NEGATIVE); URINE KETONE NEGATIVE (NEGATIVE); URINE LEUK ESTERASE 3+ (NEGATIVE); URINE NITRITE POSITIVE (NEGATIVE); URINE PROTEIN 2+ (NEGATIVE); URINE UROBILINOGEN 0.2 mg/dL (0.2-1.0); URINE WBC 23626 /uL (0-25.8)
[2021-03-02] MEDS: SULFAMETHOXAZOLE/TRIMETHOPRIM 800MG/160MG D.S. TABLET PO SCH ×2 (17:44→21:27)
[2021-03-03] MEDS: PANTOPRAZOLE 40 MG TABLET PO SCH (08:59)
[2021-03-03] MEDS: FOLIC ACID 1 MG TABLET (FP) PO SCH (08:59)
[2021-03-03] MEDS: SULFAMETHOXAZOLE/TRIMETHOPRIM 800MG/160MG D.S. TABLET PO SCH (08:59)
[2021-03-03] MEDS: FERROUS GLUCONATE 324 MG TAB (FP) PO SCH (08:59)
[2021-03-03] MEDS: metoPROLOL SUCCINATE 25 MG TAB.SR.24H (FP) PO SCH (09:02)
[2021-03-03 11:15] LABS: HEMATOCRIT 24.6 % (32.4-45.2); HEMOGLOBIN 8.5 GM/dL (10.7-15.3); MCH 32.1 pg (25.7-33.7); MCHC 34.4 g/dl (32.0-36.0); MEAN CELL VOLUME 93.3 fl (80-96); MEAN PLT VOLUME 7.8 fl (7.5-11.1); PLATELET COUNT 363 10^3/uL (134-434); RBC 2.64 M/mm3 (3.60-5.2); RDW 16.6 % (11.6-15.6); WHITE BLOOD COUNT 4.8 K/mm3 (4.0-10.0)
[2021-03-03 11:41] LABS: ALBUMIN 2.5 g/dl (3.4-5.0); CALCIUM 8.6 mg/dL (8.5-10.1)
[2021-03-03 11:42] LABS: CREATININE 1.5 mg/dL (0.55-1.3); TOT PROT 5.4 g/dl (6.4-8.2)
[2021-03-03 11:46] LABS: BILIRUBIN,TOTAL 0.4 mg/dL (0.2-1)
[2021-03-03 11:48] LABS: BLOOD UREA NITROGEN 28.4 mg/dL (7-18)
[2021-03-03 12:27] LABS: ANISOCYTOSIS 1+; PLATELET ESTIMATE NORMAL
[2021-03-03 15:48] VITALS: BP 120/70; PULSE 92; TEMP 98.4
[2021-03-04] MEDS ORDERED: METHOTREXATE 2.5 MG TABLET PO SCH (10:00)
== END 2021-03-03 15:48 | disposition home or self-care (01) ==
LOC: JER 06:26 → JERBED 10:08 → UNDOADMOB 10:08 → INTOOBSV 10:08 → JERBED 13:11 → J5S 13:11 → JERBED 03-01 10:06 → J5S 03-01 10:06
PROVIDERS: ADMIT Internal Medicine; ATTEND Internal Medicine
PROC: 3E0F7SF Introduction of Other Gas into Respiratory Tract, Via Natural or Artificial Opening (ICD-10-PCS; principal; 2021-03-01)
DX: D61.818 Other pancytopenia (principal); I77.6 Arteritis, unspecified; D64.9 Anemia, unspecified; R06.00 Dyspnea, unspecified; J47.0 Bronchiectasis with acute lower respiratory infection; N18.9 Chronic kidney disease, unspecified; J44.9 Chronic obstructive pulmonary disease, unspecified; Z85.528 Personal history of other malignant neoplasm of kidney; M06.9 Rheumatoid arthritis, unspecified; M31.30 Wegener's granulomatosis without renal involvement; D72.819 Decreased white blood cell count, unspecified; Z90.5 Acquired absence of kidney; G62.9 Polyneuropathy, unspecified; Z98.84 Bariatric surgery status; Z88.1 Allergy status to other antibiotic agents; Z98.61 Coronary angioplasty status
CPT/HCPCS: 36415; 36430; 36511; 71045-TC-FY; 71250-TC; 80053; 81003; 82607; 82728; 82747; 83540; 83550; 84439; 84443; 85014; 85025; 85045; 85610; 85651; 86140; 86850; 86900; 86901; 86922; 93005; 93010; 94640; 99285-25; C9803; G0378; P9038; P9058; U0003; U0005

== ENCOUNTER 2024-02-02 05:13 | Day surgery (SDC) | payer OTHER, MEDICARE ==
[2024-01-30 13:05] VITALS: BMI 28.3
[2024-02-02] MEDS ORDERED: LIDOCAINE HCL/PF 2% SDV 5ML VIAL ONE (10:05)
[2024-02-02] MEDS ORDERED: MIDAZOLAM HCL 2 MG/2 ML SINGLE DOSE VIAL ONE (10:06)
[2024-02-02] MEDS ORDERED: PROPOFOL 20 ML ONE (10:06)
[2024-02-02 10:34] LABS: CALCIUM 8.9 mg/dL (8.5-10.1)
[2024-02-02 10:35] LABS: BLOOD UREA NITROGEN 31.1 mg/dL (7-18)
[2024-02-02 10:38] LABS: CREATININE 1.7 mg/dL (0.55-1.3)
[2024-02-02] MEDS ORDERED: KETOROLAC TROMETHAMINE 30 MG/1 ML VIAL ONE (11:00)
[2024-02-02] MEDS ORDERED: ONDANSETRON 4 MG/2 ML VIAL ONE (11:00)
[2024-02-02] MEDS ORDERED: DEXAMETHASONE SOD PHOSPHATE 4 MG/1 ML VIAL ONE (11:00)
[2024-02-02] MEDS ORDERED: ceFAZolin SODIUM 1 GM VIAL ONE (11:00)
[2024-02-02] MEDS: ceFAZolin 2 GRAM PREMIX BAG IVPB ONE (11:03)
[2024-02-02] MEDS ORDERED: PROMETHAZINE HCL 25 MG/1 ML VIAL IVPB PRN (11:18)
[2024-02-02] MEDS ORDERED: ONDANSETRON 4 MG/2 ML VIAL IVPUSH PRN (11:18)
[2024-02-02] MEDS ORDERED: oxyCODONE HCL 5 MG TABLET PO PRN ×2 (11:18)
[2024-02-02] MEDS ORDERED: LACTATED RINGERS SOLUTION 1,000 ML IV SCH (11:30)
[2024-02-02] MEDS: ACETAMINOPHEN 1000 MG/100 ML BAG IVPB ONE (11:50)
[2024-02-02 12:28] VITALS: RESP 18
[2024-02-02 12:55] VITALS: BP 123/68; PULSE 73; TEMP 97.3
== END 2024-02-02 13:13 | disposition home or self-care (01) ==
LOC: JASU-SURG 05:13
PROVIDERS: ATTEND Urology
PROC: 0T778DZ Dilation of Left Ureter with Intraluminal Device, Via Natural or Artificial Opening Endoscopic (ICD-10-PCS; principal; 2024-02-02 11:00)
DX: N13.2 Hydronephrosis with renal and ureteral calculous obstruction (principal)
CPT/HCPCS: 36415; 80048; 94760; C2617; J0131

== ENCOUNTER 2024-03-01 04:07 | Day surgery (SDC) | payer OTHER, MEDICARE ==
[2024-02-24 14:40] VITALS: BMI 28.3
[2024-03-01 06:34] VITALS: TEMP 97.3
[2024-03-01] MEDS ORDERED: LIDOCAINE HCL/PF 2% SDV 5ML VIAL ONE (07:30)
[2024-03-01] MEDS ORDERED: PROPOFOL 60 ML ONE (07:30)
[2024-03-01] MEDS ORDERED: ONDANSETRON 4 MG/2 ML VIAL ONE ×2 (07:30→10:24)
[2024-03-01] MEDS ORDERED: DEXAMETHASONE SOD PHOSPHATE 4 MG/1 ML VIAL ONE (07:30)
[2024-03-01] MEDS ORDERED: MIDAZOLAM HCL 2 MG/2 ML SINGLE DOSE VIAL ONE (07:31)
[2024-03-01] MEDS ORDERED: SUCCINYLCHOLINE CHLORIDE 200 MG/10 ML SYRINGE ONE (07:36)
[2024-03-01] MEDS ORDERED: ceFAZolin SODIUM 1 GM VIAL ONE (07:40)
[2024-03-01 07:43] LABS: POTASSIUM 5.4 mmol/L (3.5-5.1)
[2024-03-01 07:45] LABS: BLOOD UREA NITROGEN 39.2 mg/dL (7-18); CALCIUM 9.3 mg/dL (8.5-10.1)
[2024-03-01] MEDS: ceFAZolin SODIUM 1 GM VIAL IVPB ONE (08:04)
[2024-03-01] MEDS ORDERED: oxyCODONE HCL 5 MG TABLET PO PRN (08:59)
[2024-03-01] MEDS ORDERED: ONDANSETRON 4 MG/2 ML VIAL IVPUSH PRN (08:59)
[2024-03-01] MEDS: LACTATED RINGERS SOLUTION 1,000 ML IV SCH (09:00)
[2024-03-01] MEDS ORDERED: oxyCODONE HCL 5 MG TABLET ONE (10:16)
[2024-03-01] MEDS: oxyCODONE HCL 5 MG TABLET PO ONE (10:18)
[2024-03-01] MEDS: ONDANSETRON 4 MG/2 ML VIAL IVPUSH ONE (10:30)
[2024-03-01 10:40] VITALS: RESP 16
[2024-03-01 13:16] VITALS: BP 130/70; PULSE 80
== END 2024-03-01 13:10 | disposition home or self-care (01) ==
LOC: JASU-SURG 04:07
PROVIDERS: ATTEND Urology
PROC: 0T778DZ Dilation of Left Ureter with Intraluminal Device, Via Natural or Artificial Opening Endoscopic (ICD-10-PCS; 2024-03-01)
PROC: 0TB48ZX Excision of Left Kidney Pelvis, Via Natural or Artificial Opening Endoscopic, Diagnostic (ICD-10-PCS; 2024-03-01)
PROC: 0TC78ZZ Extirpation of Matter from Left Ureter, Via Natural or Artificial Opening Endoscopic (ICD-10-PCS; principal; 2024-03-01 08:00)
DX: N20.0 Calculus of kidney (principal); D49.512 Neoplasm of unspecified behavior of left kidney
CPT/HCPCS: 52354; 52356; C1747; 36415; 76000-TC-FY; 80048; 88305-TC; 88341-TC; 88342-TC; 94760; C1758; C1769; C2617

== ENCOUNTER 2024-10-05 07:11 | Day surgery (SDC) | payer OTHER, MEDICARE ==
[2024-09-29 10:42] VITALS: BMI 28.8
[2024-10-05] MEDS ORDERED: MIDAZOLAM HCL 2 MG/2 ML SINGLE DOSE VIAL ONE (08:05)
[2024-10-05 08:53] VITALS: BP 132/78; PULSE 88; RESP 16; TEMP 97.1
== END 2024-10-05 09:22 | disposition home or self-care (01) ==
LOC: JASU-SURG 07:11
PROVIDERS: ATTEND Urology
PROC: 0TF4XZZ Fragmentation in Left Kidney Pelvis, External Approach (ICD-10-PCS; principal; 2024-10-05 09:00)
DX: N20.0 Calculus of kidney (principal)